=== PATIENT | female | born 1980 | race Caucasian/White ===

== ENCOUNTER 2020-09-30 21:02 | Emergency (ER) | payer OTHER, SELFPAY ==
[2020-09-30 21:03] VITALS: RESP 20; TEMP 36.2; BMI 22.1
--- NOTE | 2020-09-30 21:20 | XR_ITS ---
EXAMINATION: CHEST 1 VIEW CLINICAL INFORMATION: Pleuritic chest pain. COMPARISON: June 23, 2018. TECHNIQUE: An AP view of the chest is provided. FINDINGS: The cardiac silhouette is not enlarged. The mediastinal and hilar contours are unremarkable. There are neither pleural effusions nor pneumothoraces. There are no consolidations. The osseous structures are unremarkable. XR/XR chest 1V IMPRESSION: No evidence for acute disease.
[2020-09-30 21:39] VITALS: BP 97/65; PULSE 89; RESP 16; TEMP 37.6; O2SAT 99
--- NOTE | 2020-09-30 22:01 | ED.GENADULT ---
HPI - General Adult General Chief complaint: General Medical Stated complaint: flu like symptoms Time Seen by Provider: 09/30/20 21:13 Source: patient and staff interpreter Mode of arrival: ambulatory Limitations: no limitations History of Present Illness HPI narrative: This is a 40-year-old female who comes in with a few days of cough and sore throat with subsequent development of rib pain denies any recent travel, fevers, chills, ear pain, GI symptoms, or symptoms.No recent history of long car rides or plane trips, hemoptysis, estrogen supplementation, personal history of cancer, recent surgery or bed bound state, calf pain or calf swelling. Related Data Allergies Allergy/AdvReac Type Severity Reaction Status Date / Time No Known Allergies Allergy Verified 09/30/20 21:09 [No Known Allergies*] Review of Systems Review of Systems: Pertinent positives and negatives as stated in HPI 10 point review of systems otherwise negative. [facility] Past Medical History Source: nursing notes reviewed Social History Social History Advance Directives: No Advance Directives Information Provided: Yes Physical Exam Vital Signs: Vital Signs: Last Vital Signs Temp 99.7 F 09/30/20 21:39 Pulse 89 09/30/20 21:39 Resp 16 09/30/20 21:39 BP 97/65 09/30/20 21:39 Pulse Ox 99 09/30/20 21:39 Body Mass Index 22.1 VITAL SIGNS: Reviewed. GENERAL: Well developed, well nourished, in no acute distress. HEAD: Normocephalic/atraumatic, EYES: PERRLA, EOMI intact without pain, no nystagmus/pallor/icterus noted EARS: Ext canals without abnormality, TMs non-bulging and non-erythematous NOSE: Nares patent bilateral OROPHARYNX: no oral lesions noted, posterior pharynx clear and non-erythematous without noted tonsillar enlargement/erythema/exudates NECK: Supple, no adenopathy LUNGS: Normal breath sounds. No adventitious sounds or accessory muscle use. SpO2<99> CARDIOVASCULAR: Regular rate and rhythm without noted murmurs, no JVD or lower extremity edema. ABDOMEN: Soft, non-tender, non-distended with bowel sounds. No rigidity. No guarding. No palpable masses or hernias noted MUSCULOSKELETAL: No tenderness, deformities, or effusions noted on gross inspection. EXTREMITIES: No cyanosis, clubbing or edema. SKIN: Inspection of the skin reveals no rashes, ulcerations, jaundice, pallor, or petechiae. NEUROLOGIC: Alert and oriented x 4. Strength and sensation to light touch were grossly intact x 4. Course Course Course Narrative: this is a 40-year-old female with history and clinical presentation consistent with viral symptoms and patient has not had the flu shot this year. On review of vital signs there is no evidence of tachypnea or hypoxia and chest x-ray is without acute findings. Patient will be swabbed for COVID-19 and instructed to self quarantine. This was all communicated via deaf interpreter. Patient is otherwise discharged in stable condition. Discharge Plan Discharge Clinical Impression: Viral syndrome Patient Disposition: Home, Self-Care Instructions: Viral Syndrome (ED) Additional Instructions: 1. Tylenol 1000 mg, por v?a oral, cada 6 horas seg?n sea necesario para temperaturas superiores a 100,4?C o donna corporales. No exceda los 4000 mg en 24 horas. 2.Ibuprofeno 400 mg, por v?a oral con leche o alimentos, cada 6 horas seg?n sea necesario para temperaturas superiores a 100.4 o donna corporales. 3. aumentar la ingesta de l?quidos, especialmente agua. 4. debe ponerse en cuarentena hasta que reciba los resultados de zamorano prueba de COVID-19 y debe cumplir con todas las pautas del estado [facility] con respecto a la cuarentena y exposici?n a COVID-19. 5. Dayna un seguimiento con zamorano proveedor de atenci?n primaria llamando al consultorio ma?eileen por la ma?eileen. El paciente y / o la marifer reconocen que comprenden los resultados (seg?n corresponda), el diagn?stico, el plan de tratamiento, la necesidad de seguimiento y los s?ntomas que deber?an impulsar el regreso a la claire de emergencias. Referrals: Po,Lorenver O, MD [Primary Care Provider] - 2 days ( re-evaluation after COVID-19 testing results are returned to the patient) Print Language: Indonesian
== END 2020-09-30 22:26 | disposition home or self-care (01) ==
PROVIDERS: Emergency Provider Student in an Organized Health Care Education/Training Program; PCP Internal Medicine
DX: B34.9 Viral infection, unspecified (principal); R05 Cough; Z20.828 Contact with and (suspected) exposure to other viral communicable diseases
CPT/HCPCS: 71045; 99283; 99284; U0003

== ENCOUNTER 2020-11-18 13:06 | Outpatient (REF) | payer OTHER, SELFPAY | END 2020-11-18 13:07 | disposition home or self-care (01) | LOC: HO.LAB 13:06 | PROVIDERS: Visit Provider Internal Medicine | DX: Z20.822 Contact with and (suspected) exposure to COVID-19 (principal) | CPT/HCPCS: 36415; C9803; U0003 ==

== ENCOUNTER 2021-02-19 15:44 | Outpatient (REF) | payer OTHER, SELFPAY | END 2021-02-19 15:45 | disposition home or self-care (01) | LOC: HO.LAB 15:44 | PROVIDERS: Visit Provider Internal Medicine | DX: Z20.822 Contact with and (suspected) exposure to COVID-19 (principal) | CPT/HCPCS: C9803; U0003; U0005 ==

== ENCOUNTER 2021-08-21 12:02 | Outpatient (REF) | payer OTHER, SELFPAY | END 2021-08-21 12:03 | disposition home or self-care (01) | LOC: HO.LAB 12:02 | PROVIDERS: PCP Internal Medicine; Visit Provider Internal Medicine | DX: Z20.822 Contact with and (suspected) exposure to COVID-19 (principal) | CPT/HCPCS: C9803; U0003; U0005 ==

== ENCOUNTER 2022-06-25 08:13 | Emergency (ER) | payer OTHER, SELFPAY ==
--- NOTE | ~2022-06-25 | XR_ITS ---
EXAMINATION: XR CALCANEUS, RIGHT XR CALCANEUS, LEFT CLINICAL INFORMATION: Tender pain limited ambulation COMPARISON: None TECHNIQUE: 2 views of each calcaneus FINDINGS: RIGHT: No acute visible fracture or dislocation. Enthesopathy at the Achilles tendon insertion site. Joint spaces and alignment are maintained. Soft tissues are unremarkable. LEFT: No acute visible fracture or dislocation. Enthesopathy at the Achilles tendon insertion site. Joint spaces and alignment are maintained. Soft tissues are unremarkable. XR/XR calcaneus LT min 2V IMPRESSION: 1. No acute visible fracture or dislocation. 2. Enthesopathy involving the bilateral Achilles tendon insertion sites.
--- NOTE | ~2022-06-25 | XR_ITS ---
EXAMINATION: XR CALCANEUS, RIGHT XR CALCANEUS, LEFT CLINICAL INFORMATION: Tender pain limited ambulation COMPARISON: None TECHNIQUE: 2 views of each calcaneus FINDINGS: RIGHT: No acute visible fracture or dislocation. Enthesopathy at the Achilles tendon insertion site. Joint spaces and alignment are maintained. Soft tissues are unremarkable. LEFT: No acute visible fracture or dislocation. Enthesopathy at the Achilles tendon insertion site. Joint spaces and alignment are maintained. Soft tissues are unremarkable. XR/XR calcaneus RT min 2V IMPRESSION: 1. No acute visible fracture or dislocation. 2. Enthesopathy involving the bilateral Achilles tendon insertion sites.
[2022-06-25 08:40] VITALS: BP 110/77; PULSE 83; RESP 18; TEMP 36.6; O2SAT 98; BMI 24.9
--- NOTE | 2022-06-25 09:12 | ED_ITS ---
HPI - Extremity Problem General Chief complaint: Extremity Problem Stated complaint: both leg pain Time Seen by Provider: 06/25/22 09:07 Source: patient Mode of arrival: ambulatory Limitations: no limitations History of Present Illness HPI Narrative: 42 yo female presents to the ER for evaluation of bilateral heel pain that she woke up with yesterday. She reports her left foot is much more painful than the right. She works several jobs and is on her feet for several hours throughout the day. She denies any known injury or trauma. It is she states she usually has a little bit of pain in her feet but nothing to this extent. She has been taking Tylenol with no improvement. She reports the pain is located in the back of her heels and into the Achilles tendon. It is worse with palpation, ambulation and movement. MD Complaint: extremity pain Onset (ago): day(s) (2) Pain Consistency: constant Location: left, right and lower extremity Severity scale (1-10): 8 Quality: stabbing and aching Radiation: proximal Relieving factors: immobilization and rest Exacerbating factors: range of motion, weight bearing and palpation Associated symptoms: denies other symptoms Related Data Previous Rx's Medication Instructions Recorded naproxen 500 mg tablet 500 mg PO BID PRN pain #20 tabs 06/25/22 Allergies Allergy/AdvReac Type Severity Reaction Status Date / Time No Known Allergies Allergy Verified 09/30/20 21:09 [No Known Allergies*] Review of Systems Review of Systems: Constitutional: No Fever, No Chills ENT/Mouth: No sore throat, No Rhinorrhea Cardiovascular: No Chest Pain, No SOB Gastrointestinal: No Nausea, No Vomiting Musculoskeletal: +joint pain, + Myalgias Skin: No Skin Lesions, No rash Neuro: No Weakness, No Numbness Psych: No Anxiety/Panic, No Depression Heme/Lymph: No Bruising, No Lymphadenopathy PMFSH Social History Social History Advance Directives: No Advance Directives Information Provided: No Physical Exam Vital Signs: Vital Signs: Last Vital Signs Temp 98 F 06/25/22 08:40 Pulse 83 06/25/22 08:40 Resp 18 06/25/22 08:40 BP 110/77 06/25/22 08:40 Pulse Ox 98 06/25/22 08:40 O2 Del Method 06/25/22 08:40 BMI result Body Mass Index 24.9 Appearance: Alert. Oriented X3. No acute distress. HEENT: normal inspection CVS: Normal heart rate and rhythm. Pulses normal. Respiratory: No respiratory distress. Skin: Skin warm and dry. Normal skin color. Normal skin turgor. No rashes. Extremities: normal inspection of the bilateral feet and lower extremities. tenderness of the distal AChilles tendon bilaterally, L>R, tender calcaneous. no ankle swelling, normal ROM of the ankles. feet are warm and well perfused, 2+ DP pulses. Neuro: Oriented X 3. No motor deficit. No sensory deficit. Antalgic gait Course Course Course Narrative: 42-year-old female presenting to the ER with bilateral heel pain that she woke up with yesterday. She reports she is unable to put pressure on her left heel because of the pain. No trauma. No swelling. She does have tenderness over distal Achilles. Jason test is negative bilaterally. X-rays of the heels are performed and is showingenthesopathy involving the bilateral Achilles tendon insertion sites. Results were discussed with the patient. She will follow-up with orthopedics for possible injections of corticosteroids. She was provided crutches for symptomatic relief. Will prescribe NSAID as well. She is stable for discharge home. Discharge Plan Discharge Clinical Impression: Bilateral plantar fasciitis Patient Disposition: Home, Self-Care Instructions: Plantar Fasciitis (ED), Plantar Fasciitis Exercises (ED) Additional Instructions: Recommend rest, use crutches as needed until your pain is improved. Take the prescribed medications as needed for pain. Recommend following up with orthopedics for further evaluation. Name and number below. If you develop new or worsening symptoms call 911 or come back to the ER for further evaluation. Prescriptions: New naproxen 500 mg tablet 500 mg PO BID PRN (Reason: pain) Qty: 20 0RF Referrals: Riley Caban MD [Physician] - Stand Alone Forms: Work/School Release Interventions: ED Discharge Assessment Last Done: 06/25/22 10:39 Discharge Date/Time: 06/25/22 10:40 Print Language: Citizen Of [place]
== END 2022-06-25 10:40 | disposition home or self-care (01) ==
PROVIDERS: Emergency Provider Emergency Medicine Emergency Medical Services; PCP Internal Medicine
DX: M72.2 Plantar fascial fibromatosis (principal); M79.672 Pain in left foot; M79.671 Pain in right foot
CPT/HCPCS: 73650; 99282; 99283

== ENCOUNTER 2022-08-13 08:21 | Outpatient (REF) | payer OTHER, SELFPAY ==
--- NOTE | ~2022-08-13 | MM_ITS ---
EXAMINATION: MM SCREENING DIGITAL BREAST TOMOSYNTHESIS, BILATERAL CLINICAL INFORMATION: Screening. Asymptomatic. The lifetime risk of breast cancer based on the Tyrer-Cuzick Model is 10.6%. COMPARISON: Mammography: None TECHNIQUE: Digital breast tomosynthesis is performed in both the craniocaudal and mediolateral oblique views along with computer-aided detection (CAD). Synthesized 2D images are generated from the tomosynthesis. FINDINGS: The breasts are extremely dense, which lowers the sensitivity of mammography (ACR BI-RADS breast composition Category d). There are no significant masses, abnormal calcifications, or other abnormalities. MM/MM tomosynthesis screening BI IMPRESSION: No mammographic evidence of malignancy. ASSESSMENT: BI-RADS 1: Negative RECOMMENDATION: Routine annual mammography screening. This patient's information was entered into a reminder system with a target due date for their next mammogram.
--- NOTE | ~2022-08-13 | XR_ITS ---
EXAMINATION: BILATERAL HAND. CLINICAL INFORMATION: Pain in hand. COMPARISON: None TECHNIQUE: 3 views right hand and 3 views left hand FINDINGS: Right hand: There is no visible fracture, bony erosive changes, subluxation. The joint spaces and the soft tissues are normal. Left hand: There is no visible fracture or dislocation or subluxation. No bony erosive changes. The joint spaces are maintained normal. The soft tissues are normal. XR/XR hand RT 2V IMPRESSION: Unremarkable bilateral hand exam
--- NOTE | ~2022-08-13 | XR_ITS ---
EXAMINATION: BILATERAL HAND. CLINICAL INFORMATION: Pain in hand. COMPARISON: None TECHNIQUE: 3 views right hand and 3 views left hand FINDINGS: Right hand: There is no visible fracture, bony erosive changes, subluxation. The joint spaces and the soft tissues are normal. Left hand: There is no visible fracture or dislocation or subluxation. No bony erosive changes. The joint spaces are maintained normal. The soft tissues are normal. XR/XR hand LT 2V IMPRESSION: Unremarkable bilateral hand exam
--- NOTE | 2022-08-13 08:36 | ECG_ITS ---
Test Reason : chest pain Blood Pressure : / mmHG Vent. Rate : 068 BPM Atrial Rate : 068 BPM P-R Int : 164 ms QRS Dur : 072 ms QT Int : 382 ms P-R-T Axes : 070 070 057 degrees QTc Int : 406 ms Normal sinus rhythm Normal ECG No previous ECGs available Referred By: Nia Pope Electronically Signed By:HOPE RENNER MD
[2022-08-13 08:39] LABS: MANUAL DIFF FLAG NO
[2022-08-13 08:47] LABS: Basophils Percent Auto 0.5 % (0-2); Eosinophils Absolute Auto 0.2 X10*3/uL (0.0-0.4); Eosinophils Percent Auto 2.5 % (0-4); Hematocrit 40.3 % (37.0-47.0); Hemoglobin 13.4 g/dl (12.0-16.0); Imm Gran Abs Auto 0.05 X10*3/uL (0.00-0.03); Imm Gran Pct Auto 0.6 % (0.0-0.4); Lymphocytes Absolute Auto 3.4 X10*3/uL (1.2-4.9); Lymphocytes Percent Auto 42.3 % (20-40); Mean Corpuscular HGB Conc 33.3 g/dl (31.0-35.0); Mean Corpuscular Hemoglobin 31.2 pg (27.0-33.0); Mean Corpuscular Volume 93.7 fL (80.0-98.0); Monocytes Absolute Auto 0.5 X10*3/uL (0.1-1.2); Monocytes Percent Auto 6.4 % (2-11); Neutrophils Absolute Auto 3.9 x10*3/uL (2.0-8.3); Neutrophils Percent Auto 47.7 % (45-73); Platelet Count 265 X10*3/uL (160-400); Red Cell Distribution Width 12.3 % (11.0-16.0); White Blood Count 8.1 X10*3/uL (4.8-10.8)
[2022-08-13 09:25] LABS: Erythrocyte Sedimentation Rate 13 MM/HR (0-20)
[2022-08-13 09:46] LABS: Alanine Aminotransferase 18 U/L (0-31); Albumin Level 4.3 g/dL (3.5-5.0); Alkaline Phosphatase 89 U/L (39-117); Anion Gap 14 (12-20); Aspartate Amino Transferase 17 U/L (5-31); Bilirubin Total 0.3 mg/dL (0.0-1.0); Blood Urea Nitrogen 12 mg/dL (9-16); Calcium 9.2 mg/dL (8.4-10.2); Carbon Dioxide 24 mmol/L (22-29); Chloride 107 mmol/L (96-108); Estimated Glomerular Filt Rate > 60; Glucose Fasting 105 mg/dL (60-99); Iron 85 mcg/dL (30-160); Percent Iron Saturation 27 % (15-50); Potassium 4.6 mmol/L (3.3-5.1); Rheumatoid Factor < 15.0 IU/mL (<15.0); Sodium 140 mmol/L (135-145); Total Iron Binding Capacity 313 mcg/dL (228-428); Unsaturated Iron Binding 228 ug/dL
[2022-08-13 10:12] LABS: Thyroid Stimulating Hormone 1.22 uIU/mL (0.32-4.0); Vitamin D 25-OH Total 19.2 ng/mL (>30)
[2022-08-15 22:16] LABS: CRP High Sensitivity 2.5 mg/L
[2022-08-18 12:06] LABS: Anti Nuclear Antibody Screen NEGATIVE (NEGATIVE)
[2022-08-18 13:22] LABS: Anti DNA DS Antibody 7 IU/mL
== END 2022-08-13 08:22 | disposition home or self-care (01) ==
LOC: HO.MAMMO 08:21
PROVIDERS: PCP Internal Medicine; Visit Provider Internal Medicine
DX: Z12.31 Encounter for screening mammogram for malignant neoplasm of breast (principal); R07.9 Chest pain, unspecified; E55.9 Vitamin D deficiency, unspecified; K92.1 Melena; D64.9 Anemia, unspecified; M79.642 Pain in left hand; M79.641 Pain in right hand
CPT/HCPCS: 36415; 73120; 77063; 77067; 80053; 82306; 83540; 84443; 85025; 85652; 86038; 86039; 86141; 86225; 86431; 93005

== ENCOUNTER 2022-09-22 09:13 | Outpatient (REF) | payer OTHER, SELFPAY ==
[2022-09-22 10:25] LABS: Lipase 10 U/L (8-78)
[2022-09-23 13:44] LABS: H Pylori Breath Test Negative (Negative)
[2022-09-26 07:40] LABS: Transglutaminase Ab IgG 1.2 U/mL; Transglutaminase IgA <1.0 U/mL
== END 2022-09-22 09:14 | disposition home or self-care (01) ==
LOC: HO.LAB 09:13
PROVIDERS: PCP Internal Medicine; Visit Provider Nurse Practitioner Family
DX: R10.9 Unspecified abdominal pain (principal); K92.1 Melena; K21.9 Gastro-esophageal reflux disease without esophagitis; K59.04 Chronic idiopathic constipation; K58.1 Irritable bowel syndrome with constipation
CPT/HCPCS: 36415; 83013; 83690; 86364; 99202

== ENCOUNTER 2022-10-14 07:53 | Emergency (ER) | payer OTHER, SELFPAY ==
[2022-10-14 08:10] VITALS: BP 120/84; PULSE 88; RESP 16; TEMP 37.7; O2SAT 97; BMI 24.0
[2022-10-14 09:06] VITALS: BP 105/70; PULSE 77
[2022-10-14 09:08] VITALS: BP 107/74; BP 114/76; PULSE 84; PULSE 87
--- NOTE | 2022-10-14 09:20 | ED_ITS ---
HPI - Dizziness General Chief Complaint: Syncope Stated Complaint: fainted, head inj 10/14/22 Time Seen by Provider: 10/14/22 08:51 Source: patient, family and housing assistant Mode of arrival: EMS History of Present Illness HPI Narrative: 42-year-old female who states that she began feeling unwell yesterday with headache and body aches and then states that she had in a syncopal episode at work today and reports subjective fevers. Related Data Previous Rx's Medication Instructions Recorded sumatriptan succinate 25 mg tablet 25 mg PO Q2-4H PRN migraine 08/06/22 headache 30 days #9 tabs docusate sodium 100 mg capsule 100 mg PO BEDTIME #90 caps 09/22/22 omeprazole 20 mg capsule,delayed 20 mg PO DAILY #90 caps 09/22/22 release sennosides 8.6 mg tablet (Natural 8.6 mg PO BEDTIME constipation #90 09/22/22 Senna Laxative) tabs Allergies Allergy/AdvReac Type Severity Reaction Status Date / Time No Known Allergies Allergy Verified 09/22/22 08:09 [No Known Allergies*] Review of Systems Review of Systems: Pertinent positives and negatives as stated in HPI and 10 point review of systems otherwise negative. [facility] Past Medical History Source: nursing notes reviewed Surgical History S/P total abdominal hysterectomy Family History Family History Mother No problems noted. Father No problems noted. Family/Other Substance use disorder Mental health disorder Social History Social History Housing: Apartment Alcohol intake: current Alcohol intake frequency: a few times a month Alcohol type: beer Patient Tobacco Use Status: Current everyday Tobacco user Tobacco use type: Cigarette Cigarette Packs Per Day: 1 e-Cigarette/Vaping Use: Never Used Second Hand Smoke Exposure: No Advance Directives: No service: No Current occupational status: employed Cognitive needs: No Hearing needs: No Vision needs: No Physical Exam Vital Signs: Vital Signs: Last Vital Signs Temp 100 F 10/14/22 08:10 Pulse 87 10/14/22 09:08 Resp 16 10/14/22 08:10 BP 114/76 10/14/22 09:08 Pulse Ox 97 12/14/22 08:10 O2 Del Method 10/14/22 08:10 BMI result Body Mass Index 24.0 VITAL SIGNS: Reviewed. GENERAL: Well developed, well nourished, in no acute distress. HEAD: Normocephalic/atraumatic EYES: PERRLA, EOMI EARS: Ext canals without abnormality, TMs non-bulging and non-erythematous NOSE: Nares patent bilateral OROPHARYNX: no oral lesions noted, posterior pharynx clear and non-erythematous without noted tonsillar enlargement/erythema/exudates NECK: Supple, no adenopathy LUNGS: Normal breath sounds. No adventitious sounds or accessory muscle use. SpO2<97> CARDIOVASCULAR: Regular rate and rhythm without noted murmurs ABDOMEN: Soft, non-tender, non-distended with bowel sounds. MUSCULOSKELETAL: No tenderness, deformities, or effusions noted on gross inspection. EXTREMITIES: No cyanosis, clubbing or edema. SKIN: Inspection of the skin reveals no rashes NEUROLOGIC: Alert and oriented x 4. Strength and sensation to light touch were grossly intact x 4, cranial nerves 2-12 are grossly intact.. Course Course Course Narrative: 42-year-old female without significant past medical history presents with what appears to be a vasovagal syncopal episode with some history to suggest a viral etiology and on review of all investigations there are no acute EKG findings, no evidence to suggest infection or anemia and patient is noted be COVID-19 positive. Orthostatics are within normal limits and patient remains hemodynamically stable. She will be discharged home and has been informed of her diagnosis of COVID-19 and instructed to isolate for 5 days. Medical Decision Making Lab Data Result Diagrams: 10/14/22 09:41 10/14/22 09:41 Labs: Lab Results 10/14/22 10/14/22 10/14/22 Range/Units 09:09 09:35 09:35 WBC (4.8-10.8) X10*3/uL RBC (4.20-5.50) X10*6/uL Hgb (12.0-16.0) g/dl Hct (37.0-47.0) % MCV (80.0-98.0) fL MCH (27.0-33.0) pg MCHC (31.0-35.0) g/dl RDW (11.0-16.0) % Plt Count (160-400) X10*3/uL MPV (9.4-12.3) fL Immature Gran % (Auto) (0.0-0.4) % Neut % (Auto) (45-73) % Lymph % (Auto) (20-40) % [place] % (Auto) (2-11) % Eos % (Auto) (0-4) % Baso % (Auto) (0-2) % Lymph # (Auto) (1.2-4.9) X10*3/uL [place] # (Auto) (0.1-1.2) X10*3/uL Eos # (Auto) (0.0-0.4) X10*3/uL Baso # (Auto) (0.0-0.2) X10*3/uL Abs Immat Gran (auto) (0.00-0.03) X10*3/uL Absolute Neuts (auto) (2.0-8.3) x10*3/uL Absolute Nucleated RBC (0.0-0.012) X10*3/uL Nucleated RBC % (auto) (0.0-0.2) /100WBC Sodium (135-145) mmol/L Potassium (3.3-5.1) mmol/L Chloride (96-108) mmol/L Carbon Dioxide (22-29) mmol/L Anion Gap (12-20) BUN (9-16) mg/dL Creatinine (0.5-1.4) mg/dL Estim Creat Clear Calc Estimated GFR Random Glucose (60-115) mg/dL Calcium (8.4-10.2) mg/dL Total Bilirubin (0.0-1.0) mg/dL AST (5-31) U/L ALT (0-31) U/L Alkaline Phosphatase (39-117) U/L Total Protein (6.5-8.0) g/dL Albumin (3.5-5.0) g/dL Urine Color Yellow Urine Appearance Clear Urine pH 6.5 (5.0-9.0) Ur Specific [place] 1.020 (1.005-1.025) Urine Protein Negative (Neg-Trace) mg/dL Urine Glucose (UA) Negative (Negative) mg/dL Urine Ketones Negative (Negative) mg/dL Urine Blood Negative (Negative) Urine Nitrite Negative (Negative) Ur Leukocyte Esterase Negative (Negative) Urine Test NEGATIVE (NEGATIVE) Influenza Type A (PCR) NEGATIVE (Negative) Influenza Type B (PCR) NEGATIVE (Negative) RSV RNA Qual (PCR) NEGATIVE (Negative) SARS-CoV-2 RNA (RT-PCR) POSITIVE A (Negative) 10/14/22 10/14/22 Range/Units 09:41 09:41 WBC 7.0 (4.8-10.8) X10*3/uL RBC 4.14 L (4.20-5.50) X10*6/uL Hgb 12.9 (12.0-16.0) g/dl Hct 38.9 (37.0-47.0) % MCV 94.0 (80.0-98.0) fL MCH 31.2 (27.0-33.0) pg MCHC 33.2 (31.0-35.0) g/dl RDW 12.4 (11.0-16.0) % Plt Count 232 (160-400) X10*3/uL MPV 9.9 (9.4-12.3) fL Immature Gran % (Auto) 0.3 (0.0-0.4) % Neut % (Auto) 69.7 (45-73) % Lymph % (Auto) 20.8 (20-40) % [place] % (Auto) 8.5 (2-11) % Eos % (Auto) 0.3 (0-4) % Baso % (Auto) 0.4 (0-2) % Lymph # (Auto) 1.5 (1.2-4.9) X10*3/uL [place] # (Auto) 0.6 (0.1-1.2) X10*3/uL Eos # (Auto) 0.0 (0.0-0.4) X10*3/uL Baso # (Auto) 0.0 (0.0-0.2) X10*3/uL Abs Immat Gran (auto) 0.02 (0.00-0.03) X10*3/uL Absolute Neuts (auto) 4.9 (2.0-8.3) x10*3/uL Absolute Nucleated RBC 0.000 (0.0-0.012) X10*3/uL Nucleated RBC % (auto) 0.0 (0.0-0.2) /100WBC Sodium 137 (135-145) mmol/L Potassium 4.8 (3.3-5.1) mmol/L Chloride 105 (96-108) mmol/L Carbon Dioxide 27 (22-29) mmol/L Anion Gap 10 L (12-20) BUN 8 L (9-16) mg/dL Creatinine 0.72 (0.5-1.4) mg/dL Estim Creat Clear Calc 87.0 Estimated GFR > 60 Random Glucose 93 (60-115) mg/dL Calcium 9.0 (8.4-10.2) mg/dL Total Bilirubin 0.2 (0.0-1.0) mg/dL AST 16 (5-31) U/L ALT 14 (0-31) U/L Alkaline Phosphatase 91 (39-117) U/L Total Protein 6.5 (6.5-8.0) g/dL Albumin 4.1 (3.5-5.0) g/dL Urine Color Urine Appearance Urine pH (5.0-9.0) Ur Specific [place] (1.005-1.025) Urine Protein (Neg-Trace) mg/dL Urine Glucose (UA) (Negative) mg/dL Urine Ketones (Negative) mg/dL Urine Blood (Negative) Urine Nitrite (Negative) Ur Leukocyte Esterase (Negative) Urine Test (NEGATIVE) Influenza Type A (PCR) (Negative) Influenza Type B (PCR) (Negative) RSV RNA Qual (PCR) (Negative) SARS-CoV-2 RNA (RT-PCR) (Negative) Independent Interpretation I performed an independent interpretation of an: EKG Interpretation: Normal sinus rhythm, HR-81, no STEMI, NC/QRS/QTC is within normal limits. Discharge Plan Discharge Clinical Impression: Syncope, vasovagal, Viral syndrome, COVID-19 Patient Disposition: Home, Self-Care Instructions: COVID-19 (Coronavirus Disease 2019) (ED), Viral Syndrome (ED), Syncope (ED) Additional Instructions: 1. Reanudar todos los medicamentos caseros seg?n lo prescrito. 2. Aumente la cantidad de agua que tony y use Tylenol/ibuprofeno de venta brittany seg?n sea necesario para donna corporales, donna de emilee, temperaturas superiores a 100.4. 3. Le palencia diagnosticado COVID-19 y debe aislarse aminah los pr?ximos 5 d?as y luego seguir todas las pautas de khushbu estados/federales. Regrese a la claire de emergencias si los s?ntomas empeoran. Prescriptions: No Action sumatriptan succinate 25 mg tablet 25 mg PO Q2-4H PRN (Reason: migraine headache) 30 Days Qty: 9 0RF Rx Instructions: do not exceed 8 doses per 24 hrs docusate sodium 100 mg capsule 100 mg PO BEDTIME Qty: 90 3RF omeprazole 20 mg capsule,delayed release(DR/EC) 20 mg PO DAILY Qty: 90 2RF sennosides [Natural Senna Laxative] 8.6 mg tablet 8.6 mg PO BEDTIME Qty: 90 3RF Referrals: Nia Dukes MD [Primary Care Provider] - Stand Alone Forms: Work/School Release Print Language: Korean
[2022-10-14 09:45] LABS: MANUAL DIFF FLAG NO
[2022-10-14 09:48] LABS: Basophils Percent Auto 0.4 % (0-2); Eosinophils Percent Auto 0.3 % (0-4); Hematocrit 38.9 % (37.0-47.0); Hemoglobin 12.9 g/dl (12.0-16.0); Imm Gran Abs Auto 0.02 X10*3/uL (0.00-0.03); Imm Gran Pct Auto 0.3 % (0.0-0.4); Lymphocytes Absolute Auto 1.5 X10*3/uL (1.2-4.9); Lymphocytes Percent Auto 20.8 % (20-40); Mean Corpuscular HGB Conc 33.2 g/dl (31.0-35.0); Mean Corpuscular Hemoglobin 31.2 pg (27.0-33.0); Mean Platelet Volume 9.9 fL (9.4-12.3); Monocytes Absolute Auto 0.6 X10*3/uL (0.1-1.2); Monocytes Percent Auto 8.5 % (2-11); Neutrophils Absolute Auto 4.9 x10*3/uL (2.0-8.3); Neutrophils Percent Auto 69.7 % (45-73); Platelet Count 232 X10*3/uL (160-400); Red Blood Count 4.14 X10*6/uL (4.20-5.50); Red Cell Distribution Width 12.4 % (11.0-16.0)
[2022-10-14 09:57] LABS: Appearance Urine Clear; Color Urine Yellow; Glucose Urine UA Negative (Negative); Leukocyte Esterase Urine Negative (Negative); Nitrite Urine Negative (Negative); PH 6.5 (5.0-9.0); Urine Blood Negative (Negative); Urine Ketones Negative (Negative); Urine Protein Negative (Neg-Trace)
[2022-10-14 10:00] LABS: UPreg QC Valid YES; Urine Pregnancy NEGATIVE (NEGATIVE)
[2022-10-14 10:00] LABS: Influenza A PCR NEGATIVE (Negative); Influenza B PCR NEGATIVE (Negative); Resp Syncy Virus RNA Qual PCR NEGATIVE (Negative); SARS COV2 PCR INHOUSE POSITIVE (Negative)
[2022-10-14 10:12] LABS: Alanine Aminotransferase 14 U/L (0-31); Albumin Level 4.1 g/dL (3.5-5.0); Alkaline Phosphatase 91 U/L (39-117); Anion Gap 10 (12-20); Aspartate Amino Transferase 16 U/L (5-31); Bilirubin Total 0.2 mg/dL (0.0-1.0); Blood Urea Nitrogen 8 mg/dL (9-16); Carbon Dioxide 27 mmol/L (22-29); Chloride 105 mmol/L (96-108); Estimated Glomerular Filt Rate > 60; Glucose Random 93 mg/dL (60-115); Potassium 4.8 mmol/L (3.3-5.1); Sodium 137 mmol/L (135-145); Total Protein 6.5 g/dL (6.5-8.0)
[2022-10-14] MEDS: Acetaminophen 325 MG TABLET 975 MG PO (10:53)
[2022-10-14] MEDS: Ibuprofen 400 MG TABLET PO (10:53)
--- NOTE | 2022-10-15 07:57 | ECG_ITS ---
Test Reason : syncopy Blood Pressure : / mmHG Vent. Rate : 081 BPM Atrial Rate : 081 BPM P-R Int : 164 ms QRS Dur : 072 ms QT Int : 350 ms P-R-T Axes : 058 057 045 degrees QTc Int : 406 ms Normal sinus rhythm Normal ECG When compared with ECG of 13-AUG-2022 08:37, No significant change was found Referred By: Laura Palacios Electronically Signed By:IRVING PATEL
== END 2022-10-14 10:59 | disposition home or self-care (01) ==
PROVIDERS: Emergency Provider Student in an Organized Health Care Education/Training Program; PCP Internal Medicine
DX: U07.1 COVID-19 (principal); B34.9 Viral infection, unspecified; R55 Syncope and collapse; R50.9 Fever, unspecified
CPT/HCPCS: 0241U; 36415; 80053; 81003; 81025; 85025; 93005; 99283; 99284

== ENCOUNTER 2022-12-22 13:54 | Emergency (ER) | payer OTHER, SELFPAY ==
--- NOTE | 2022-12-22 14:00 | ECG_ITS ---
Test Reason : CP Blood Pressure : / mmHG Vent. Rate : 088 BPM Atrial Rate : 088 BPM P-R Int : 174 ms QRS Dur : 072 ms QT Int : 350 ms P-R-T Axes : 062 061 044 degrees QTc Int : 423 ms Normal sinus rhythm Normal ECG When compared with ECG of 14-OCT-2022 09:12, No significant change was found Referred By: Generic ED Physician Electronically Signed By:IRVING PATEL
[2022-12-22 14:01] VITALS: BP 125/103; PULSE 90; RESP 18; TEMP 37.2; O2SAT 98; BMI 27.4
[2022-12-22 14:31] LABS: MANUAL DIFF FLAG NO
[2022-12-22 14:33] LABS: Basophils Absolute Auto 0.1 X10*3/uL (0.0-0.2); Basophils Percent Auto 0.6 % (0-2); Eosinophils Absolute Auto 0.1 X10*3/uL (0.0-0.4); Eosinophils Percent Auto 1.1 % (0-4); Hematocrit 40.3 % (37.0-47.0); Hemoglobin 13.5 g/dl (12.0-16.0); Imm Gran Abs Auto 0.03 X10*3/uL (0.00-0.03); Imm Gran Pct Auto 0.3 % (0.0-0.4); Lymphocytes Absolute Auto 2.7 X10*3/uL (1.2-4.9); Lymphocytes Percent Auto 27.8 % (20-40); Mean Corpuscular HGB Conc 33.5 g/dl (31.0-35.0); Mean Corpuscular Hemoglobin 31.3 pg (27.0-33.0); Mean Corpuscular Volume 93.5 fL (80.0-98.0); Mean Platelet Volume 9.6 fL (9.4-12.3); Monocytes Absolute Auto 0.6 X10*3/uL (0.1-1.2); Neutrophils Absolute Auto 6.3 x10*3/uL (2.0-8.3); Neutrophils Percent Auto 64.2 % (45-73); Platelet Count 290 X10*3/uL (160-400); Red Blood Count 4.31 X10*6/uL (4.20-5.50); Red Cell Distribution Width 12.1 % (11.0-16.0); White Blood Count 9.7 X10*3/uL (4.8-10.8)
[2022-12-22 14:50] LABS: Alanine Aminotransferase 18 U/L (0-31); Albumin Level 4.3 g/dL (3.5-5.0); Alkaline Phosphatase 103 U/L (39-117); Anion Gap 11 (12-20); Aspartate Amino Transferase 16 U/L (5-31); Bilirubin Direct < 0.2 mg/dL (0.0-0.5); Bilirubin Total 0.6 mg/dL (0.0-1.0); Blood Urea Nitrogen 8 mg/dL (9-16); Calcium 9.4 mg/dL (8.4-10.2); Carbon Dioxide 28 mmol/L (22-29); Chloride 104 mmol/L (96-108); Creatinine Clr Calc Pharmacy 101.2; Estimated Glomerular Filt Rate > 60; Glucose Random 104 mg/dL (60-115); Lipase 12 U/L (8-78); Potassium 4.2 mmol/L (3.3-5.1); Sodium 139 mmol/L (135-145); Total Protein 7.1 g/dL (6.5-8.0)
[2022-12-22 14:53] LABS: COVID-19 Test Negative (Negative); IDNOW Serial# BCCEAD1C
[2022-12-22 14:55] LABS: Troponin-I High Sensitivity < 3.5 ng/L (<3.5-17.0)
[2022-12-22 15:45] LABS: Appearance Urine Cloudy; Color Urine Yellow; Glucose Urine UA Negative (Negative); Leukocyte Esterase Urine Negative (Negative); Nitrite Urine Negative (Negative); PH 5.5 (5.0-9.0); Specific Gravity - Urine 1.025 (1.005-1.025); UMIC TRIGGER UACC YES; UPreg QC Valid YES; Urine Blood Trace (Negative); Urine Ketones Negative (Negative); Urine Pregnancy NEGATIVE (NEGATIVE); Urine Protein Negative (Neg-Trace)
[2022-12-22 15:47] LABS: Bacteria Urine 1+ (None Seen); Hyaline Casts Urine 0-2 /LPF (0-2); WBC Urine 0-5 /HPF (0-5)
[2022-12-22 17:34] VITALS: BP 100/69; PULSE 83; RESP 20; TEMP 37.2; O2SAT 99
--- NOTE | 2022-12-22 18:19 | ED_ITS ---
HPI - Chest Pain General Chief Complaint: Chest Pain Stated Complaint: Chest pain/L arm pain/numbness Time Seen by Provider: 12/22/22 17:23 Source: patient Mode of arrival: ambulatory Limitations: language barrier (Kinyarwanda speaking only, seismic interpreter) History of Present Illness HPI narrative: 42-year-old female who presents emergency department for evaluation of multiple complaints. Patient states she has been having back pain for approximately 2 weeks. She points to her left lower back when asked to localize the pain. She states the pain is an intermittent burning/pressure-like pain. She states that over the past 3-4 days the pain is gotten worse and she now has pain that radiates down her left leg to her foot. She states that she gets occasional chest pain and feels short of breath, when the symptoms occur she also gets numbness in her face, mouth and tongue. She denied fever, chills, rhinorrhea, sore throat, chest pain, nausea, vomiting, diarrhea, loss of bowel or bladder control. She denies weakness in her lower extremities. Related Data Previous Rx's Medication Instructions Recorded sumatriptan succinate 25 mg tablet 25 mg PO Q2-4H PRN migraine 08/06/22 headache 30 days #9 tabs docusate sodium 100 mg capsule 100 mg PO BEDTIME #90 caps 09/22/22 omeprazole 20 mg capsule,delayed 20 mg PO DAILY #90 caps 09/22/22 release sennosides 8.6 mg tablet (Natural 8.6 mg PO BEDTIME constipation #90 09/22/22 Senna Laxative) tabs cyclobenzaprine 10 mg tablet 10 mg PO TID PRN muscle pain or 12/22/22 spasm #20 tabs prednisone 20 mg tablet 60 mg PO DAILY 7 days #21 tabs 12/22/22 Allergies Allergy/AdvReac Type Severity Reaction Status Date / Time No Known Allergies Allergy Verified 09/22/22 08:09 [No Known Allergies*] Review of Systems Review of Systems: Yes all other systems are reviewed and are negative FOR[facility]LY [facility], [facility] Past Medical History [facility] Narrative: Past medical history: Chest pain, depression, anxiety, headache, polyarthralgias. Surgical History S/P total abdominal hysterectomy Family History Family History Mother No problems noted. Father No problems noted. Family/Other Substance use disorder Mental health disorder Social History Social History Housing: Apartment Alcohol intake: current Alcohol intake frequency: holidays/special occasions only Alcohol type: beer Patient Tobacco Use Status: Current everyday Tobacco user Tobacco use type: Cigarette Cigarette Packs Per Day: 1 Smoked in Last 30 Days: Yes e-Cigarette/Vaping Use: Never Used Second Hand Smoke Exposure: No Use of substances other than those prescribed or required for medical reasons: No Advance Directives: No Advance Directives Information Provided: Yes Patient : No service: No Current occupational status: employed Cognitive needs: No Hearing needs: No Vision needs: No Physical Exam Vital Signs: Vital Signs: Last Vital Signs Temp 98.9 F 12/22/22 17:34 Pulse 83 12/22/22 17:34 Resp 20 12/22/22 17:34 BP 100/69 12/22/22 17:34 Pulse Ox 99 12/22/22 17:34 O2 Del Method 12/22/22 17:34 BMI result Body Mass Index 27.4 Vital signs were normal General: Awake, alert, female patient, pleasant, cooperative in no distress HEENT : Head is normocephalic atraumatic, pupils were equal round reactive light, sclera conjunctiva were normal, mouth revealed moist membranes Neck: Supple, no C-spine tenderness, no trapezius muscle tenderness Lungs: Clear to auscultation breath sounds symmetric bilateral Heart: Regular rate rhythm, normal S1-S2, no murmurs rubs or gallops Abdomen: Soft nontender Back: Patient has tenderness palpation over her left paraspinal muscles with spasm in these muscles, there is no point vertebral tenderness, she has positive left straight leg raise with negative right straight leg raise Extremities: Normal Neuro: Cranial nerves intact, strength symmetric bilaterally Medications Administered Discontinued Medications Generic Name Dose Route Start Last Admin Trade Name Freq PRN Reason Stop Dose Admin Acetaminophen 975 mg 12/22/22 18:49 12/22/22 18:58 Acetaminophen 325 Mg Tablet PO 12/22/22 18:50 975 mg ONCE STA Administration Prednisone 60 mg 12/22/22 18:49 12/22/22 18:58 Prednisone 20 Mg Tablet PO 12/22/22 18:50 60 mg ONCE ONE Administration Medical Decision Making Medical Decision Making [facility] Narrative: 42-year-old female who presents emergency department for evaluation of lower back pain with pain radiating down her left leg with no fever, chills, weakness, loss of bowel or bladder control. Examination did reveal tenderness palpation of her paraspinal muscles in the lumbar sacral area on the left with spasm of these muscles, she also had a positive left straight leg raise. Patient's presentation is consistent with sciatica. I also believe that there is a component of anxiety to her presentation. Patient was treated with prednisone 60 mg orally and Tylenol 975 mg orally here in the emergency department. She was started on prednisone 60 mg once a day for 7 days and Flexeril 10 mg 3 times a day as needed for pain or spasm. She was also advised to take Tylenol for pain. She was given printed and verbal instructions and discharged home Differential Diagnosis Differential diagnosis includes but is not limited to paraspinal muscle strain, degenerative disc disease, degenerative joint disease of the spine, sciatica Lab Data [facility] Lab Attestation statement: I reviewed the patient's lab results. My independent interpretation of patient's laboratory evaluation as follows: C BC was normal, CMP was normal, high sensitive troponin I was below detectable limits, COVID-19 was negative, lipase was normal. Urine test was negative. Urinalysis was negative. 12/22/22 14:26 12/22/22 14:26 Labs: Lab Results 12/22/22 12/22/22 12/22/22 Range/Units 14:26 14:26 14:26 WBC 9.7 (4.8-10.8) X10*3/uL RBC 4.31 (4.20-5.50) X10*6/uL Hgb 13.5 (12.0-16.0) g/dl Hct 40.3 (37.0-47.0) % MCV 93.5 (80.0-98.0) fL MCH 31.3 (27.0-33.0) pg MCHC 33.5 (31.0-35.0) g/dl RDW 12.1 (11.0-16.0) % Plt Count 290 (160-400) X10*3/uL MPV 9.6 (9.4-12.3) fL Immature Gran % (Auto) 0.3 (0.0-0.4) % Neut % (Auto) 64.2 (45-73) % Lymph % (Auto) 27.8 (20-40) % [place] % (Auto) 6.0 (2-11) % Eos % (Auto) 1.1 (0-4) % Baso % (Auto) 0.6 (0-2) % Lymph # (Auto) 2.7 (1.2-4.9) X10*3/uL [place] # (Auto) 0.6 (0.1-1.2) X10*3/uL Eos # (Auto) 0.1 (0.0-0.4) X10*3/uL Baso # (Auto) 0.1 (0.0-0.2) X10*3/uL Abs Immat Gran (auto) 0.03 (0.00-0.03) X10*3/uL Absolute Neuts (auto) 6.3 (2.0-8.3) x10*3/uL Absolute Nucleated RBC 0.000 (0.0-0.012) X10*3/uL Nucleated RBC % (auto) 0.0 (0.0-0.2) /100WBC Sodium 139 (135-145) mmol/L Potassium 4.2 (3.3-5.1) mmol/L Chloride 104 (96-108) mmol/L Carbon Dioxide 28 (22-29) mmol/L Anion Gap 11 L (12-20) BUN 8 L (9-16) mg/dL Creatinine 0.70 (0.5-1.4) mg/dL Estim Creat Clear Calc 101.2 Estimated GFR > 60 Random Glucose 104 (60-115) mg/dL Calcium 9.4 (8.4-10.2) mg/dL Total Bilirubin 0.6 (0.0-1.0) mg/dL Direct Bilirubin < 0.2 (0.0-0.5) mg/dL AST 16 (5-31) U/L ALT 18 (0-31) U/L Alkaline Phosphatase 103 (39-117) U/L Troponin I High Sens < 3.5 (<3.5-17.0) ng/L Total Protein 7.1 (6.5-8.0) g/dL Albumin 4.3 (3.5-5.0) g/dL Lipase 12 (8-78) U/L Urine Color Urine Appearance Urine pH (5.0-9.0) Ur Specific [place] (1.005-1.025) Urine Protein (Neg-Trace) mg/dL Urine Glucose (UA) (Negative) mg/dL Urine Ketones (Negative) mg/dL Urine Blood (Negative) Urine Nitrite (Negative) Ur Leukocyte Esterase (Negative) Urine RBC (0-2) /HPF Urine WBC (0-5) /HPF Ur Squamous Epith Cells (0-2) /HPF Urine Bacteria (None Seen) Hyaline Casts (0-2) /LPF Urine Test (NEGATIVE) COVID-19 (RAJ) (Negative) COVID-19 Clin Com 12/22/22 12/22/22 12/22/22 Range/Units 14:26 15:29 15:29 WBC (4.8-10.8) X10*3/uL RBC (4.20-5.50) X10*6/uL Hgb (12.0-16.0) g/dl Hct (37.0-47.0) % MCV (80.0-98.0) fL MCH (27.0-33.0) pg MCHC (31.0-35.0) g/dl RDW (11.0-16.0) % Plt Count (160-400) X10*3/uL MPV (9.4-12.3) fL Immature Gran % (Auto) (0.0-0.4) % Neut % (Auto) (45-73) % Lymph % (Auto) (20-40) % [place] % (Auto) (2-11) % Eos % (Auto) (0-4) % Baso % (Auto) (0-2) % Lymph # (Auto) (1.2-4.9) X10*3/uL [place] # (Auto) (0.1-1.2) X10*3/uL Eos # (Auto) (0.0-0.4) X10*3/uL Baso # (Auto) (0.0-0.2) X10*3/uL Abs Immat Gran (auto) (0.00-0.03) X10*3/uL Absolute Neuts (auto) (2.0-8.3) x10*3/uL Absolute Nucleated RBC (0.0-0.012) X10*3/uL Nucleated RBC % (auto) (0.0-0.2) /100WBC Sodium (135-145) mmol/L Potassium (3.3-5.1) mmol/L Chloride (96-108) mmol/L Carbon Dioxide (22-29) mmol/L Anion Gap (12-20) BUN (9-16) mg/dL Creatinine (0.5-1.4) mg/dL Estim Creat Clear Calc Estimated GFR Random Glucose (60-115) mg/dL Calcium (8.4-10.2) mg/dL Total Bilirubin (0.0-1.0) mg/dL Direct Bilirubin (0.0-0.5) mg/dL AST (5-31) U/L ALT (0-31) U/L Alkaline Phosphatase (39-117) U/L Troponin I High Sens (<3.5-17.0) ng/L Total Protein (6.5-8.0) g/dL Albumin (3.5-5.0) g/dL Lipase (8-78) U/L Urine Color Yellow Urine Appearance Cloudy Urine pH 5.5 (5.0-9.0) Ur Specific [place] 1.025 (1.005-1.025) Urine Protein Negative (Neg-Trace) mg/dL Urine Glucose (UA) Negative (Negative) mg/dL Urine Ketones Negative (Negative) mg/dL Urine Blood Trace H (Negative) Urine Nitrite Negative (Negative) Ur Leukocyte Esterase Negative (Negative) Urine RBC 3-5 H (0-2) /HPF Urine WBC 0-5 (0-5) /HPF Ur Squamous Epith Cells 11-20 (0-2) /HPF Urine Bacteria 1+ (None Seen) Hyaline Casts 0-2 (0-2) /LPF Urine Test NEGATIVE (NEGATIVE) COVID-19 (RAJ) Negative (Negative) COVID-19 Clin Com See Note Independent Interpretation I performed an independent interpretation of an: EKG Interpretation: My independent interpretation the patient's EKG done at 14:19 hours is as follows: Normal sinus rhythm with a rate of 88, normal GA interval, QRS duration QTC interval, no ST segment elevation, no ST segment depression, no T- wave abnormalities, no Q-waves, no PACs, no PVCs, compared to EKG dated 10/14/2022 there is no significant change. Independent Historian Clinical information obtained from an independent historian. History obtained from or confirmed by: Other ([id number]) Discharge Plan Discharge Clinical Impression: Sciatica, Anxiety Patient Disposition: Home, Self-Care Instructions: Sciatica (ED) Additional Instructions: Your blood work included a complete blood count, comprehensive metabolic panel and a high sensitive troponin I. These tests were all normal which is re assuring. Your urine test was unremarkable. Your EKG was unremarkable. Your exam did reveal tenderness filled palpation over your lower back muscles with spasm of these muscles and pain with raising your left leg. These symptoms are consistent with inflammation of the sciatic nerve (sciatica). Take Tylenol (acetaminophen) 500 mg pills, 2 pills every 4 to 6 hours as needed for pain. Take prednisone 20 mg pills, 3 pills once a day for 7 days. While you are taking prednisone, do not take any NSAIDs (Motrin, Advil, ibuprofen, Aleve, naproxen). Take Flexeril (cyclobenzaprine) 10 mg pills, 1 pill every 6-8 hours as needed for pain or spasm. This medication will make you sleepy. Do not drive or work while taking this medication. Follow-up with your doctor in 2 days. Please return to the emergency department if your symptoms get worse or if you develop any symptoms that are concerning to you. Please see the work note Prescriptions: New cyclobenzaprine 10 mg tablet 10 mg PO TID PRN (Reason: muscle pain or spasm) Qty: 20 0RF prednisone 20 mg tablet 60 mg PO DAILY 7 Days Qty: 21 0RF No Action sumatriptan succinate 25 mg tablet 25 mg PO Q2-4H PRN (Reason: migraine headache) 30 Days Qty: 9 0RF Rx Instructions: do not exceed 8 doses per 24 hrs docusate sodium 100 mg capsule 100 mg PO BEDTIME Qty: 90 3RF omeprazole 20 mg capsule,delayed release(DR/EC) 20 mg PO DAILY Qty: 90 2RF sennosides [Natural Senna Laxative] 8.6 mg tablet 8.6 mg PO BEDTIME Qty: 90 3RF Stand Alone Forms: Work/School Release Interventions: ED Discharge Assessment Last Done: 12/22/22 19:09 Discharge Date/Time: 12/22/22 19:09
[2022-12-22] MEDS: predniSONE 20 MG TABLET 60 MG PO (18:58)
[2022-12-22] MEDS: Acetaminophen 325 MG TABLET 975 MG PO (18:58)
== END 2022-12-22 19:09 | disposition home or self-care (01) ==
PROVIDERS: Emergency Provider Emergency Medicine Emergency Medical Services; PCP Internal Medicine
DX: M54.42 Lumbago with sciatica, left side (principal); F41.9 Anxiety disorder, unspecified; F17.210 Nicotine dependence, cigarettes, uncomplicated; Z20.822 Contact with and (suspected) exposure to COVID-19
CPT/HCPCS: 80053; 81001; 81025; 82248; 83690; 84484; 85025; 87635; 93005; 99283; 99285

== ENCOUNTER 2022-12-31 09:47 | Outpatient (REF) | payer OTHER, SELFPAY ==
--- NOTE | 2022-12-31 10:15 | EMG_ITS ---
Left tibial and peroneal motor studies were performed. Left superficial peroneal sural and median and lateral bladder plantars studies were performed. Tibial H-reflex was obtained and paraspinal muscles were tested with a needle. 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 MD REID [email or web address] / [id number]
[2022-12-31 11:26] LABS: Alanine Aminotransferase 22 U/L (0-31); Albumin Level 4.2 g/dL (3.5-5.0); Alkaline Phosphatase 97 U/L (39-117); Anion Gap 12 (12-20); Aspartate Amino Transferase 14 U/L (5-31); Bilirubin Total 0.6 mg/dL (0.0-1.0); Blood Urea Nitrogen 11 mg/dL (9-16); Carbon Dioxide 27 mmol/L (22-29); Chloride 103 mmol/L (96-108); Cholesterol 232 mg/dL; Estimated Glomerular Filt Rate > 60; Glucose Fasting 93 mg/dL (60-99); HDL Cholesterol 39 mg/dL; LDL Cholesterol Calculated 137 mg/dl; Potassium 4.8 mmol/L (3.3-5.1); Sodium 137 mmol/L (135-145); Total Protein 6.8 g/dL (6.5-8.0); Triglycerides 282 mg/dL
[2022-12-31 11:47] LABS: Thyroid Stimulating Hormone 1.33 uIU/mL (0.32-4.0); Vitamin B12 379 pg/mL (200-900); Vitamin D 25-OH Total 12.9 ng/mL (>30)
== END 2022-12-31 09:48 | disposition home or self-care (01) ==
LOC: HO.NEURO 09:47
PROVIDERS: PCP Internal Medicine; Visit Provider Internal Medicine
DX: Z00.00 Encounter for general adult medical examination without abnormal findings (principal); E78.5 Hyperlipidemia, unspecified; E55.9 Vitamin D deficiency, unspecified; M25.562 Pain in left knee; E53.8 Deficiency of other specified B group vitamins; R20.0 Anesthesia of skin
CPT/HCPCS: 36415; 80053; 80061; 82306; 82607; 82746; 84443; 95886; 95910

== ENCOUNTER 2023-01-11 15:53 | Emergency (ER) | payer OTHER, SELFPAY ==
--- NOTE | ~2023-01-11 | CT_ITS ---
EXAMINATION: CT ABDOMEN AND PELVIS WITHOUT CONTRAST CLINICAL INFORMATION: Left flank/lower back pain x2 weeks. COMPARISON: None TECHNIQUE: Multidetector volumetric imaging was performed from the superior aspect of the liver through the pubic symphysis. Sagittal and coronal reformatted images were obtained on the technologist's workstation. This CT examination was performed using dose optimization techniques as appropriate, variously including the following: *Automated exposure control *Adjustment of mA and/or kV according to patient size (this includes techniques or standardized protocols for targeted exams where dose is matched to indication/reason for exam; i.e. extremities or head) *Use of iterative reconstruction technique DLP: 497 mGy-cm FINDINGS: LUNG BASES: The lung bases are clear. The heart size is borderline normal. LIVER, GALLBLADDER, AND BILIARY TREE: The liver is normal in size, shape, and attenuation. No focal hepatic lesion or biliary ductal dilatation is present. The gallbladder is unremarkable with no evidence of radiopaque gallstones, gallbladder wall thickening, or obvious pericholecystic inflammatory changes. PANCREAS: Unremarkable. SPLEEN: Unremarkable. ADRENAL GLANDS: Unremarkable. KIDNEYS AND URETERS: The kidneys are normal in size, shape, and attenuation. No hydronephrosis, hydroureter, or calculi seen. No perinephric stranding. BLADDER: Unremarkable. GASTROINTESTINAL TRACT: There is scattered stool, gas seen throughout the colon without distention. The small bowel loops are normal caliber. Appendix is normal caliber. No inflammatory process seen in the abdomen. ABDOMINAL WALL: No significant hernia is appreciated. LYMPH NODES: No abnormal size lymph nodes seen. There is mild haziness in the soft tissues adjacent to the proximal abdominal aorta. No abnormal lymph nodes seen. VASCULAR: Unremarkable. PELVIC VISCERA: There is a 4.9 x 3.1 x 4.3 cm right adnexal cyst OSSEOUS STRUCTURES: No aggressive lytic or sclerotic process seen. CT/CT abdomen pelvis wo IV con IMPRESSION: No acute intra-abdominal process seen. There is nonspecific fat stranding seen adjacent to the upper abdominal aorta. Fleischner guidelines were followed.
[2023-01-11 16:14] VITALS: BP 119/76; PULSE 88; RESP 18; TEMP 36.4; O2SAT 100; BMI 27.4
--- NOTE | 2023-01-11 16:17 | ED.BACK ---
HPI - Back Pain/Injury General Chief Complaint: Abdominal Pain <ANGELA Duarte - Last Filed: 01/11/23 16:20> Stated Complaint: left sided body pain <ANGELA Duarte - Last Filed: 01/11/23 16:20> Time Seen by Provider: 01/11/23 20:06 <ANGELA Duarte - Last Filed: 01/11/23 16:20> Source: patient <Juan A Au MD - Last Filed: 01/11/23 22:22> Mode of arrival: ambulatory <Juan A Au MD - Last Filed: 01/11/23 22:22> Limitations: no limitations <Juan A Au MD - Last Filed: 01/11/23 22:22> History of Present Illness HPI Narrative: 42-year-old female presents with left-sided back pain. The pain started 2 weeks ago. Intermittent. Worse with movement. The pain has started radiating over the last 2 days to the anterior part of her abdomen. She denies any nausea vomiting, vaginal bleeding or discharge, dysuria, frequency, urgency, hesitancy. She denies any diarrhea or constipation. She has had no nausea. She denies fevers or chills. She denies any injuries or falls. She has never had this pain before. She denies any numbness or tingling or focal weakness. Patient described as severe. Pain is sharp and aching in nature. In <Juan A Au MD - Last Filed: 01/11/23 22:22> Related Data Home Medications: Previous Rx's Medication Instructions Recorded meclizine 25 mg tablet 25 mg PO TID 30 days #90 tabs 12/24/22 cholecalciferol (vitamin D3) 50 50 mcg PO DAILY 90 days #90 caps 12/31/22 mcg (2,000 unit) capsule acetaminophen 650 mg 650 mg PO Q12H PRN pain 30 days 01/02/23 tablet,extended release (Mapap #60 tabs Arthritis Pain) gabapentin 300 mg capsule 300 mg PO TID #30 caps 01/11/23 ibuprofen 800 mg tablet 800 mg PO Q8H #30 tabs 01/11/23 methocarbamol 500 mg tablet 500 mg PO TID PRN muscle spasm #10 01/11/23 tabs <ANGELA Duarte - Last Filed: 01/11/23 16:20> Allergies/Adverse Reactions: Allergies Allergy/AdvReac Type Severity Reaction Status Date / Time No Known Allergies Allergy Verified 01/11/23 16:13 [No Known Allergies*] <ANGELA Duarte - Last Filed: 01/11/23 16:20> [facility] Past Medical History Surgical History: Surgical History S/P total abdominal hysterectomy <ANGELA Duarte - Last Filed: 01/11/23 16:20> Family History Family History: Family History Mother No problems noted. Father No problems noted. Family/Other Substance use disorder Mental health disorder <ANGELA Duarte - Last Filed: 01/11/23 16:20> Social History Social History: Social History Housing: Apartment Alcohol intake: current Alcohol intake frequency: holidays/special occasions only Alcohol type: beer Patient Tobacco Use Status: Current everyday Tobacco user Tobacco use type: Cigarette Cigarette Packs Per Day: 1 e-Cigarette/Vaping Use: Never Used Second Hand Smoke Exposure: No Advance Directives: No Advance Directives Information Provided: Yes service: No Current occupational status: employed Current occupational exposures/hazards: No Cognitive needs: No Hearing needs: No Vision needs: No <ANGELA Duarte - Last Filed: 01/11/23 16:20> Physical Exam Vital Signs: Vital Signs: Last Vital Signs Temp 97.5 F 01/11/23 16:14 Pulse 88 01/11/23 16:14 Resp 18 01/11/23 16:14 BP 119/76 01/11/23 16:14 Pulse Ox 100 01/11/23 16:14 O2 Del Method 01/11/23 16:14 BMI result Body Mass Index 27.4 <ANGELA Duarte - Last Filed: 01/11/23 16:20> Vital Signs: Last Vital Signs Temp 97.5 F 01/11/23 16:14 Pulse 88 01/11/23 16:14 Resp 18 01/11/23 16:14 BP 119/76 01/11/23 16:14 Pulse Ox 100 01/11/23 16:14 O2 Del Method 01/11/23 16:14 BMI result Body Mass Index 27.4 <Juan A Au MD - Last Filed: 01/11/23 22:22> GEN: Well developed, no acute distress, alert, oriented HEENT: Normocephalic, atraumatic, normal external ears, nose appears normal, no oropharyngeal edema or exudates Eyes: Normal to appearance Neck: Supple, no lymphadenopathy Respiratory: Talks in complete sentences, no respiratory distress, clear to auscultation bilaterally Cardiovascular: Regular rate and rhythm, no murmurs rubs or gallops Abdomen: Soft, nontender, nondistended, no guarding, no rebound Back: Left paraspinous tenderness to palpation, no CVA tenderness Extremities: No clubbing cyanosis or edema Neurologic: No focal neurologic deficits, cranial nerves 2-12 intact, strength is 5/5 bilaterally, gait normal Skin: No rash <Juan A Au MD - Last Filed: 01/11/23 22:22> Course Course Course Narrative: ROX-16:20PM - 42yoF who is [place]an-speaking presenting to the ER with complaints of left flank/back pain radiating to her abdomen for the past 2-3 weeks worse today. Denies any other symptoms related to this which include any fevers, nausea/vomiting, chest pain or shortness of breath, dyspnea exertion, orthopnea palpitations paresthesias, urinary bowel incontinence or retention, dysuria hematuria, history of kidney stones, recent falls or trauma, saddle anesthesias, recent travel, recent spinal procedures or any other symptoms complaints or concerns at this time. Plan: Labs, UA and CT scan abdomen pelvis without IV contrast ordered at this time. Patient sent back to the waiting room to be evaluated the ED. <ANGELA Duarte - Last Filed: 01/11/23 16:20> Reevaluation(s) Reevaluation #1: I have evaluated the patient. Will treat the patient for pain at this time. CT scan is currently pending. Patient does have an elevated white blood cell count as well as an elevated platelet count. Could this be dehydration? Could this be in acute leukemoid/acute phase reactant finding. Patient's metabolic panel is unremarkable in her quantitative hCG is negative. Urine demonstrates no evidence of infection. She has also COVID negative. All results have been resulted to the patient. <Juan A Au MD - Last Filed: 01/11/23 22:22> Time: 20:36 <Juan A Au MD - Last Filed: 01/11/23 22:22> Reevaluation #2: I reviewed all results with the patient. At this time, my differential is musculoskeletal versus neuropathic pain. I will give the patient gabapentin before discharge. I will also start the patient on ibuprofen 800 mg 3 times a day with food, gabapentin 300 mg 3 times a day, Tylenol 1000 mg every 6 hours as needed for pain, methocarbamol. She will stop cyclobenzaprine. <Juan A Au MD - Last Filed: 01/11/23 22:22> Time: 22:17 <Juan A Au MD - Last Filed: 01/11/23 22:22> Medications Administered Discontinued Medications Generic Name Dose Route Start Last Admin Trade Name Freq PRN Reason Stop Dose Admin Cyclobenzaprine HCl 10 mg 01/11/23 20:42 01/11/23 20:56 Cyclobenzaprine Hcl 10 Mg Tablet PO 01/11/23 20:43 10 mg ONCE ONE Administration Ketorolac Tromethamine 30 mg 01/11/23 20:41 01/11/23 20:56 Ketorolac Tromethamine 30 Mg/Ml Vial IM 01/11/23 20:42 30 mg ONCE ONE Administration <ANGELA Duarte - Last Filed: 01/11/23 16:20> Medications Administered Discontinued Medications Generic Name Dose Route Start Last Admin Trade Name Freq PRN Reason Stop Dose Admin Cyclobenzaprine HCl 10 mg 01/11/23 20:42 01/11/23 20:56 Cyclobenzaprine Hcl 10 Mg Tablet PO 01/11/23 20:43 10 mg ONCE ONE Administration Ketorolac Tromethamine 30 mg 01/11/23 20:41 01/11/23 20:56 Ketorolac Tromethamine 30 Mg/Ml Vial IM 01/11/23 20:42 30 mg ONCE ONE Administration <Juan A Au MD - Last Filed: 01/11/23 22:22> Medical Decision Making Medical Decision Making MDM Narrative: 42-year-old female presents with left flank pain. The pain is now radiating anteriorly on both sides. Examination revealed no CVA tenderness but she did have bilateral left greater than right paraspinous tenderness. She is otherwise neurologically intact. A broad differential diagnosis been consider specially given the fact that this radiates to the front. Pyelonephritis, kidney stone, colitis, diverticulitis, IBS, IBD, muscle spasm have all been considered. Laboratory analysis and imaging studies will be ordered. <Juan A Au MD - Last Filed: 01/11/23 22:22> Differential Diagnosis Differential Diagnoses: The differential diagnosis associated with the presentation includes (Pyelonephritis, kidney stone, colitis, diverticulitis, IBS, IBD, muscle spasm) <Juan A Au MD - Last Filed: 01/11/23 22:22> Flank pain <Juan A Au MD - Last Filed: 01/11/23 22:22> Admission/Observation Consideration of admission/observation: Escalation of care including admission/observation considered <Juan A Au MD - Last Filed: 01/11/23 22:22> Lab Data MDM Lab Attestation statement: I reviewed the patient's lab results. <Juan A Au MD - Last Filed: 01/11/23 22:22> Result Diagrams: 01/11/23 17:39 01/11/23 17:40 <ANGELA Duarte - Last Filed: 01/11/23 16:20> Labs: Lab Results 01/11/23 01/11/23 01/11/23 Range/Units 17:39 17:39 17:39 WBC 12.3 H (4.8-10.8) X10*3/uL RBC 3.90 L (4.20-5.50) X10*6/uL Hgb 12.1 (12.0-16.0) g/dl Hct 37.0 (37.0-47.0) % MCV 94.9 (80.0-98.0) fL MCH 31.0 (27.0-33.0) pg MCHC 32.7 (31.0-35.0) g/dl RDW 12.2 (11.0-16.0) % Plt Count 431 H D (160-400) X10*3/uL MPV 9.1 L (9.4-12.3) fL Immature Gran % (Auto) 1.2 H (0.0-0.4) % Neut % (Auto) 62.6 (45-73) % Lymph % (Auto) 28.7 (20-40) % [place] % (Auto) 5.8 (2-11) % Eos % (Auto) 1.1 (0-4) % Baso % (Auto) 0.6 (0-2) % Lymph # (Auto) 3.5 (1.2-4.9) X10*3/uL [place] # (Auto) 0.7 (0.1-1.2) X10*3/uL Eos # (Auto) 0.1 (0.0-0.4) X10*3/uL Baso # (Auto) 0.1 (0.0-0.2) X10*3/uL Abs Immat Gran (auto) 0.15 H (0.00-0.03) X10*3/uL Absolute Neuts (auto) 7.7 (2.0-8.3) x10*3/uL Absolute Nucleated RBC 0.000 (0.0-0.012) X10*3/uL Nucleated RBC % (auto) 0.0 (0.0-0.2) /100WBC PT 12.0 (10.0-13.1) SEC INR 1.0 (0.9-1.1) Sodium (135-145) mmol/L Potassium (3.3-5.1) mmol/L Chloride (96-108) mmol/L Carbon Dioxide (22-29) mmol/L Anion Gap (12-20) BUN (9-16) mg/dL Creatinine (0.5-1.4) mg/dL Estim Creat Clear Calc Estimated GFR Random Glucose (60-115) mg/dL Calcium (8.4-10.2) mg/dL Magnesium (1.6-2.6) mg/dL Total Bilirubin (0.0-1.0) mg/dL AST (5-31) U/L ALT (0-31) U/L Alkaline Phosphatase (39-117) U/L Total Protein (6.5-8.0) g/dL Albumin (3.5-5.0) g/dL Lipase (8-78) U/L Beta HCG, Quant mIU/mL Urine Color Yellow Urine Appearance Clear Urine pH 5.5 (5.0-9.0) Ur Specific [place] >= 1.030 H (1.005-1.025) Urine Protein Trace (Neg-Trace) mg/dL Urine Glucose (UA) Negative (Negative) mg/dL Urine Ketones Negative (Negative) mg/dL Urine Blood Negative (Negative) Urine Nitrite Negative (Negative) Ur Leukocyte Esterase Negative (Negative) 01/11/23 01/11/23 Range/Units 17:40 17:40 WBC (4.8-10.8) X10*3/uL RBC (4.20-5.50) X10*6/uL Hgb (12.0-16.0) g/dl Hct (37.0-47.0) % MCV (80.0-98.0) fL MCH (27.0-33.0) pg MCHC (31.0-35.0) g/dl RDW (11.0-16.0) % Plt Count (160-400) X10*3/uL MPV (9.4-12.3) fL Immature Gran % (Auto) (0.0-0.4) % Neut % (Auto) (45-73) % Lymph % (Auto) (20-40) % [place] % (Auto) (2-11) % Eos % (Auto) (0-4) % Baso % (Auto) (0-2) % Lymph # (Auto) (1.2-4.9) X10*3/uL [place] # (Auto) (0.1-1.2) X10*3/uL Eos # (Auto) (0.0-0.4) X10*3/uL Baso # (Auto) (0.0-0.2) X10*3/uL Abs Immat Gran (auto) (0.00-0.03) X10*3/uL Absolute Neuts (auto) (2.0-8.3) x10*3/uL Absolute Nucleated RBC (0.0-0.012) X10*3/uL Nucleated RBC % (auto) (0.0-0.2) /100WBC PT (10.0-13.1) SEC INR (0.9-1.1) Sodium 140 (135-145) mmol/L Potassium 4.1 (3.3-5.1) mmol/L Chloride 102 (96-108) mmol/L Carbon Dioxide 30 H (22-29) mmol/L Anion Gap 12 (12-20) BUN 10 (9-16) mg/dL Creatinine 0.68 (0.5-1.4) mg/dL Estim Creat Clear Calc 104.1 Estimated GFR > 60 Random Glucose 103 (60-115) mg/dL Calcium 9.4 (8.4-10.2) mg/dL Magnesium 2.2 (1.6-2.6) mg/dL Total Bilirubin 0.2 (0.0-1.0) mg/dL AST 13 (5-31) U/L ALT 20 (0-31) U/L Alkaline Phosphatase 102 (39-117) U/L Total Protein 7.1 (6.5-8.0) g/dL Albumin 4.2 (3.5-5.0) g/dL Lipase 12 (8-78) U/L Beta HCG, Quant < 2 mIU/mL Urine Color Urine Appearance Urine pH (5.0-9.0) Ur Specific [place] (1.005-1.025) Urine Protein (Neg-Trace) mg/dL Urine Glucose (UA) (Negative) mg/dL Urine Ketones (Negative) mg/dL Urine Blood (Negative) Urine Nitrite (Negative) Ur Leukocyte Esterase (Negative) <ANGELA Duarte - Last Filed: 01/11/23 16:20> Lab Results 01/11/23 01/11/23 01/11/23 Range/Units 17:39 17:39 17:39 WBC 12.3 H (4.8-10.8) X10*3/uL RBC 3.90 L (4.20-5.50) X10*6/uL Hgb 12.1 (12.0-16.0) g/dl Hct 37.0 (37.0-47.0) % MCV 94.9 (80.0-98.0) fL MCH 31.0 (27.0-33.0) pg MCHC 32.7 (31.0-35.0) g/dl RDW 12.2 (11.0-16.0) % Plt Count 431 H D (160-400) X10*3/uL MPV 9.1 L (9.4-12.3) fL Immature Gran % (Auto) 1.2 H (0.0-0.4) % Neut % (Auto) 62.6 (45-73) % Lymph % (Auto) 28.7 (20-40) % [place] % (Auto) 5.8 (2-11) % Eos % (Auto) 1.1 (0-4) % Baso % (Auto) 0.6 (0-2) % Lymph # (Auto) 3.5 (1.2-4.9) X10*3/uL [place] # (Auto) 0.7 (0.1-1.2) X10*3/uL Eos # (Auto) 0.1 (0.0-0.4) X10*3/uL Baso # (Auto) 0.1 (0.0-0.2) X10*3/uL Abs Immat Gran (auto) 0.15 H (0.00-0.03) X10*3/uL Absolute Neuts (auto) 7.7 (2.0-8.3) x10*3/uL Absolute Nucleated RBC 0.000 (0.0-0.012) X10*3/uL Nucleated RBC % (auto) 0.0 (0.0-0.2) /100WBC PT 12.0 (10.0-13.1) SEC INR 1.0 (0.9-1.1) Sodium (135-145) mmol/L Potassium (3.3-5.1) mmol/L Chloride (96-108) mmol/L Carbon Dioxide (22-29) mmol/L Anion Gap (12-20) BUN (9-16) mg/dL Creatinine (0.5-1.4) mg/dL Estim Creat Clear Calc Estimated GFR Random Glucose (60-115) mg/dL Calcium (8.4-10.2) mg/dL Magnesium (1.6-2.6) mg/dL Total Bilirubin (0.0-1.0) mg/dL AST (5-31) U/L ALT (0-31) U/L Alkaline Phosphatase (39-117) U/L Total Protein (6.5-8.0) g/dL Albumin (3.5-5.0) g/dL Lipase (8-78) U/L Beta HCG, Quant mIU/mL Urine Color Yellow Urine Appearance Clear Urine pH 5.5 (5.0-9.0) Ur Specific [place] >= 1.030 H (1.005-1.025) Urine Protein Trace (Neg-Trace) mg/dL Urine Glucose (UA) Negative (Negative) mg/dL Urine Ketones Negative (Negative) mg/dL Urine Blood Negative (Negative) Urine Nitrite Negative (Negative) Ur Leukocyte Esterase Negative (Negative) 01/11/23 01/11/23 Range/Units 17:40 17:40 WBC (4.8-10.8) X10*3/uL RBC (4.20-5.50) X10*6/uL Hgb (12.0-16.0) g/dl Hct (37.0-47.0) % MCV (80.0-98.0) fL MCH (27.0-33.0) pg MCHC (31.0-35.0) g/dl RDW (11.0-16.0) % Plt Count (160-400) X10*3/uL MPV (9.4-12.3) fL Immature Gran % (Auto) (0.0-0.4) % Neut % (Auto) (45-73) % Lymph % (Auto) (20-40) % [place] % (Auto) (2-11) % Eos % (Auto) (0-4) % Baso % (Auto) (0-2) % Lymph # (Auto) (1.2-4.9) X10*3/uL [place] # (Auto) (0.1-1.2) X10*3/uL Eos # (Auto) (0.0-0.4) X10*3/uL Baso # (Auto) (0.0-0.2) X10*3/uL Abs Immat Gran (auto) (0.00-0.03) X10*3/uL Absolute Neuts (auto) (2.0-8.3) x10*3/uL Absolute Nucleated RBC (0.0-0.012) X10*3/uL Nucleated RBC % (auto) (0.0-0.2) /100WBC PT (10.0-13.1) SEC INR (0.9-1.1) Sodium 140 (135-145) mmol/L Potassium 4.1 (3.3-5.1) mmol/L Chloride 102 (96-108) mmol/L Carbon Dioxide 30 H (22-29) mmol/L Anion Gap 12 (12-20) BUN 10 (9-16) mg/dL Creatinine 0.68 (0.5-1.4) mg/dL Estim Creat Clear Calc 104.1 Estimated GFR > 60 Random Glucose 103 (60-115) mg/dL Calcium 9.4 (8.4-10.2) mg/dL Magnesium 2.2 (1.6-2.6) mg/dL Total Bilirubin 0.2 (0.0-1.0) mg/dL AST 13 (5-31) U/L ALT 20 (0-31) U/L Alkaline Phosphatase 102 (39-117) U/L Total Protein 7.1 (6.5-8.0) g/dL Albumin 4.2 (3.5-5.0) g/dL Lipase 12 (8-78) U/L Beta HCG, Quant < 2 mIU/mL Urine Color Urine Appearance Urine pH (5.0-9.0) Ur Specific [place] (1.005-1.025) Urine Protein (Neg-Trace) mg/dL Urine Glucose (UA) (Negative) mg/dL Urine Ketones (Negative) mg/dL Urine Blood (Negative) Urine Nitrite (Negative) Ur Leukocyte Esterase (Negative) <Juan A Au MD - Last Filed: 01/11/23 22:22> Independent Interpretation I performed an independent interpretation of an: CT Scan (No acute abnormalities found) <Juan A Au MD - Last Filed: 01/11/23 22:22> Radiology Impression Discussion of test interpretation with radiology: I have reviewed the radiologist's reading. (IMPRESSION: No acute intra-abdominal process seen. There is nonspecific fat stranding seen adjacent to the upper abdominal aorta. Fleischner guidelines were followed. Dictated By:Markus Solis MDSigned By:<Electronically signed by Markus Solis MD in [place]>01/11/[id number]) <Juan A Au MD - Last Filed: 01/11/23 22:22> Tests considered The following testing was considered but not selected: Ultrasound <Juan A Au MD - Last Filed: 01/11/23 22:22> Prescription Management I considered prescription management with: Pain Medication <Juan A Au MD - Last Filed: 01/11/23 22:22> Discharge Plan Discharge Clinical Impression: Acute left flank pain <ANGELA Duarte - Last Filed: 01/11/23 16:20> Patient Disposition: Home, Self-Care <ANGELA Duarte - Last Filed: 01/11/23 16:20> Instructions: Flank Pain (ED) <ANGELA Duarte - Last Filed: 01/11/23 16:20> Additional Instructions: For your pain, I am recommending the following regimen: Ibuprofen 800 mg 3 times a day with food Gabapentin 300 mg 3 times a day, may cause drowsiness Tylenol 1000 mg every 6 hours as needed for additional pain relief Methocarbamol 500 mg 3 times a day as needed for muscle spasm, may cause drowsiness <ANGELA Duarte - Last Filed: 01/11/23 16:20> Prescriptions: New methocarbamol 500 mg tablet 500 mg PO TID PRN (Reason: muscle spasm) Qty: 10 0RF ibuprofen 800 mg tablet 800 mg PO Q8H Qty: 30 0RF Rx Instructions: Take with food gabapentin 300 mg capsule 300 mg PO TID Qty: 30 0RF Discontinued cyclobenzaprine 10 mg tablet 10 mg PO TID PRN (Reason: muscle pain or spasm) Qty: 20 0RF prednisone 20 mg tablet 60 mg PO DAILY 7 Days Qty: 21 0RF oxybutynin chloride 10 mg tablet extended release 24hr 10 mg PO DAILY 30 Days Qty: 30 0RF No Action cholecalciferol (vitamin D3) 50 mcg (2,000 unit) capsule 50 mcg PO DAILY 90 Days Qty: 90 1RF acetaminophen [Mapap Arthritis Pain] 650 mg tablet extended release 650 mg PO Q12H PRN (Reason: pain) 30 Days Qty: 60 1RF meclizine 25 mg tablet 25 mg PO TID 30 Days Qty: 90 0RF <ANGELA Duarte - Last Filed: 01/11/23 16:20> Referrals: Nia Dukes MD [Primary Care Provider] - 3 days <ANGELA Duarte - Last Filed: 01/11/23 16:20> Stand Alone Forms: Work/School Release <ANGELA Duarte - Last Filed: 01/11/23 16:20> Print Language: B[place]an <ANGELA Duarte - Last Filed: 01/11/23 16:20>
[2023-01-11 17:50] LABS: MANUAL DIFF FLAG NO
[2023-01-11 17:54] LABS: Basophils Absolute Auto 0.1 X10*3/uL (0.0-0.2); Basophils Percent Auto 0.6 % (0-2); Eosinophils Absolute Auto 0.1 X10*3/uL (0.0-0.4); Eosinophils Percent Auto 1.1 % (0-4); Hemoglobin 12.1 g/dl (12.0-16.0); Imm Gran Abs Auto 0.15 X10*3/uL (0.00-0.03); Imm Gran Pct Auto 1.2 % (0.0-0.4); Lymphocytes Absolute Auto 3.5 X10*3/uL (1.2-4.9); Lymphocytes Percent Auto 28.7 % (20-40); Mean Corpuscular HGB Conc 32.7 g/dl (31.0-35.0); Mean Corpuscular Volume 94.9 fL (80.0-98.0); Mean Platelet Volume 9.1 fL (9.4-12.3); Monocytes Absolute Auto 0.7 X10*3/uL (0.1-1.2); Monocytes Percent Auto 5.8 % (2-11); Neutrophils Absolute Auto 7.7 x10*3/uL (2.0-8.3); Neutrophils Percent Auto 62.6 % (45-73); Platelet Count 431 X10*3/uL (160-400); Red Cell Distribution Width 12.2 % (11.0-16.0); White Blood Count 12.3 X10*3/uL (4.8-10.8)
[2023-01-11 17:59] LABS: Appearance Urine Clear; Color Urine Yellow; Glucose Urine UA Negative (Negative); Leukocyte Esterase Urine Negative (Negative); Nitrite Urine Negative (Negative); PH 5.5 (5.0-9.0); Specific Gravity - Urine >= 1.030 (1.005-1.025); Urine Blood Negative (Negative); Urine Ketones Negative (Negative); Urine Protein Trace mg/dL (Neg-Trace)
[2023-01-11 18:11] LABS: Alanine Aminotransferase 20 U/L (0-31); Albumin Level 4.2 g/dL (3.5-5.0); Alkaline Phosphatase 102 U/L (39-117); Anion Gap 12 (12-20); Aspartate Amino Transferase 13 U/L (5-31); Bilirubin Total 0.2 mg/dL (0.0-1.0); Blood Urea Nitrogen 10 mg/dL (9-16); Calcium 9.4 mg/dL (8.4-10.2); Carbon Dioxide 30 mmol/L (22-29); Chloride 102 mmol/L (96-108); Creatinine Clr Calc Pharmacy 104.1; Estimated Glomerular Filt Rate > 60; Glucose Random 103 mg/dL (60-115); Lipase 12 U/L (8-78); Magnesium 2.2 mg/dL (1.6-2.6); Potassium 4.1 mmol/L (3.3-5.1); Sodium 140 mmol/L (135-145); Total Protein 7.1 g/dL (6.5-8.0)
[2023-01-11 18:17] LABS: HCG Quantitative < 2 mIU/mL
[2023-01-11] MEDS: Cyclobenzaprine HCl 10 MG TABLET PO (20:56)
[2023-01-11] MEDS: Ketorolac Tromethamine 30 MG/ML VIAL IM (20:56)
[2023-01-11] MEDS: Gabapentin 300 MG CAPSULE PO (22:40)
== END 2023-01-11 22:51 | disposition home or self-care (01) ==
PROVIDERS: Physician Assistant Medical; Emergency Provider Emergency Medicine; PCP Internal Medicine
DX: R10.9 Unspecified abdominal pain (principal); M54.50 Low back pain, unspecified; Z79.899 Other long term (current) drug therapy
CPT/HCPCS: 36415; 74176; 80053; 81003; 83690; 83735; 84702; 85025; 85610; 96372; 99283; 99284; J1885

== ENCOUNTER 2023-01-14 05:48 | Outpatient (REF) | payer OTHER, SELFPAY ==
--- NOTE | ~2023-01-14 | XR_ITS ---
EXAMINATION: XR KNEE, LEFT XR KNEE STANDING, BILATERAL CLINICAL INFORMATION: Left knee pain COMPARISON: 11/19/2016 TECHNIQUE: AP standing view both knees. Lateral and sunrise patellar views of the left knee. of the left knee. FINDINGS: Osseous alignment is anatomic. There is suggestion of minimal joint space narrowing of the medial compartments of both knees. No significant spurring. No evidence of acute fracture or significant joint effusion. XR/XR knee LT 2V IMPRESSION: Suggestion of minimal joint space narrowing of the medial compartments of both knees.
--- NOTE | ~2023-01-14 | XR_ITS ---
EXAMINATION: XR KNEE, LEFT XR KNEE STANDING, BILATERAL CLINICAL INFORMATION: Left knee pain COMPARISON: 11/19/2016 TECHNIQUE: AP standing view both knees. Lateral and sunrise patellar views of the left knee. of the left knee. FINDINGS: Osseous alignment is anatomic. There is suggestion of minimal joint space narrowing of the medial compartments of both knees. No significant spurring. No evidence of acute fracture or significant joint effusion. XR/XR knee standing BI IMPRESSION: Suggestion of minimal joint space narrowing of the medial compartments of both knees.
== END 2023-01-14 05:49 | disposition home or self-care (01) ==
LOC: HO.HOSX 05:48
PROVIDERS: Visit Provider Physician Assistant
DX: M17.12 Unilateral primary osteoarthritis, left knee (principal)
CPT/HCPCS: 73560; 73565; 99202

== ENCOUNTER → 2023-01-15 14:50 | Outpatient (BNVA) | payer OTHER, SELFPAY | PROVIDERS: PCP Internal Medicine; Visit Provider Urology | DX: R32 Unspecified urinary incontinence (principal); M54.9 Dorsalgia, unspecified | CPT/HCPCS: 51798; 99202 ==

== ENCOUNTER → 2023-01-18 09:38 | Outpatient (BNVA) | payer OTHER, SELFPAY | PROVIDERS: PCP Internal Medicine; Visit Provider Internal Medicine | DX: M62.830 Muscle spasm of back (principal); M17.12 Unilateral primary osteoarthritis, left knee | CPT/HCPCS: 20553; 99202 ==

== ENCOUNTER 2023-01-20 09:53 | Outpatient (REF) | payer OTHER, SELFPAY ==
--- NOTE | ~2023-01-20 | MR_ITS ---
EXAMINATION: MR BRAIN WITHOUT CONTRAST CLINICAL INFORMATION: Anesthesia of skin COMPARISON: CT head without contrast 12/05/2018 TECHNIQUE: Multiplanar multisequence MR imaging of the brain was obtained without intravenous contrast. FINDINGS: There is no acute infarct on diffusion-weighted imaging. There is no intracranial hemorrhage on iron-sensitive imaging. No extra-axial collection or mass effect/herniation. Normal parenchymal signal characteristics. No hydrocephalus. The ventricles are normal in morphology and size. The major flow voids at the skull base are preserved. Partially empty sella. Mild dilatation of the optic nerve sheaths. The cerebellar tonsils are normally positioned. The craniocervical junction is normal. Marrow signal is within normal limits. The visualized soft tissues are without significant abnormality. No signal abnormality within the paranasal sinuses or within the mastoid air cells. MR/MR head/brain wo con IMPRESSION: 1. Partially empty sella and mild dilatation of the optic nerve sheaths which can be seen in the setting of idiopathic intracranial hypertension. Correlate with clinical history. 2. Otherwise unremarkable noncontrast MRI of the brain.
== END 2023-01-20 09:54 | disposition home or self-care (01) ==
LOC: HO.MRI 09:53
PROVIDERS: PCP Internal Medicine; Visit Provider Internal Medicine
DX: R20.0 Anesthesia of skin (principal)
CPT/HCPCS: 70551

== ENCOUNTER 2023-03-12 13:00 | Outpatient (RCR) | payer OTHER, SELFPAY ==
--- NOTE | 2023-04-26 12:07 | MHC.PT.DC ---
[facility] [place] Office [place] Office [place] Office [address] [place] [address] [facility] [phone] F: [phone] F: [phone] F: [phone] F: [phone] Physical Therapy Discharge Report Diagnosis: LEFT KNEE PAIN (KP) Date of Surgery: N/A Date of Evaluation: 02/11/23 Date of Discharge: 04/26/23 Treatments to Date: 7 Cancellations to Date: 1 No Shows to Date: 0 Discharge Status: Patient Elected to Stop Discharge Summary: Pt ELECTED TO NOT RETURN TO PT. SHE HAS AN EXTENSIVE WRITTEN HOME EXERCISE PROGRAM WHICH SHE CAN CONTINUE WITH INDEPENDENCE. Electronically signed by: FANTASMA QUINN PT DPT Please sign and return to therapist. Thank you for your referral.
== END 2023-04-26 12:07 | disposition home or self-care (01) ==
LOC: HO.PT 13:00
PROVIDERS: PCP Internal Medicine; Visit Provider Physician Assistant
DX: M17.12 Unilateral primary osteoarthritis, left knee (principal)
CPT/HCPCS: 97110; 97140; 97161; 97162

== ENCOUNTER → 2023-03-18 12:52 | Outpatient (BNVA) | payer OTHER, SELFPAY | PROVIDERS: PCP Internal Medicine; Visit Provider Nurse Practitioner Family | DX: R51.9 Headache, unspecified (principal); H54.7 Unspecified visual loss; M54.9 Dorsalgia, unspecified; G62.9 Polyneuropathy, unspecified; M62.830 Muscle spasm of back | CPT/HCPCS: 99202 ==

== ENCOUNTER 2023-03-19 10:59 | Outpatient (REF) | payer OTHER, SELFPAY ==
--- NOTE | ~2023-03-19 | XR_ITS ---
EXAMINATION: XR LUMBOSACRAL SPINE WITH OBLIQUES CLINICAL INFORMATION: Dorsalgia COMPARISON: None available. TECHNIQUE: Upright AP lateral oblique views and lateral flexion and extension views FINDINGS: Vertebral bodies normal in height with normal alignment. Normal translation with flexion-extension views. Mild degenerative disc changes present at L4-L5 manifested by minimal endplate osteophytes without disc space narrowing. Surrounding bone and soft tissues unremarkable.. XR/XR lumbar spine 6V w bending IMPRESSION: 1. No acute abnormality. 2. Mild spondylosis L4-L5.
== END 2023-03-19 11:00 | disposition home or self-care (01) ==
LOC: HO.XRAY 10:59
PROVIDERS: PCP Internal Medicine; Visit Provider Nurse Practitioner Family
DX: M54.9 Dorsalgia, unspecified (principal)
CPT/HCPCS: 72114

== ENCOUNTER 2023-04-22 10:33 | Outpatient (AMB) | payer OTHER, SELFPAY ==
--- NOTE | 2023-04-22 10:39 | A.OFFVIS_ITS ---
Intake Intake Visit Reasons: 3m follow up Intake Note: * Patient presents today for a 3mo follow-up * Meds- None * Allergies to Antibiotic- None * Blood Thinner- None * PVR- 13ml after void Getter Operator Required: No Allergies No Known Allergies [No Known Allergies*] Allergy (Verified 06/22/23 13:07) Medication List - Last Reconciled 04/22/23 by Jamila Osborne MD baclofen 10 mg PO BEDTIME 30 days cholecalciferol (vitamin D3) 50 mcg PO DAILY 90 days mirabegron ER (Myrbetriq) 25 mg PO DAILY tramadol 50 mg PO BID PRN 5 days walker with seat and wheels HPI HPI Comments History of Present Illness Details Juwan is a 43-year-old female who presents to the office for 3 month follow-up. --------Review of chart: LV-- 01/15/2023--Juwan is a 42-year-old female patient who is here as a new patient evaluation for urinary incontinence. The patient is a female. A qualified surgical supervisor was present during the encounter. The patient last visited the ER on 01/11/23 for left flank pain and underwent CAT scan. Complains having intermittent urinary leakage since 6 months. States wearing panty liners/pads daily. Was prescribed gabapentin in the ER and reports no benefits with the drug. 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 The patient is having a scheduled MRI on 01/19/2023 Surgical history of hysterectomy due to menorrhagia. The patient had 4 vaginal deliveries. Evaluation today: Blood: negative and Leukocyte: negative. Bladder scan: PVR 0 mL. pelvic exam declined by patient. CT without contrast results reviewed--01/11/23-No acute intro-abdominal process seen. 04/22/23-- The patient is Uzbek speaking female. surgical supervisor was present during the visit. The patient was referred to pelvic floor physical therapy for urinary incontinence and pelvic floor weakness, she is here for follow-up. The patient states that she is not given any exercises for pelvic floor and is receiving PT for left knee as they do not have any appointment space for pelvic floor therapy. States that leakage is more frequent in the interim. Has leakage while coughing and walking. She also has nocturia episodes 2-3 times. States incomplete bladder emptying. Evaluation today-- Blood: negative, leukocytes: negative. Bladder scan PVR: 13 mL. Plan: Referral for pelvic floor physical therapy was rewritten. Myrbetriq 25 mg QD was ordered. Discussed to take the medication at night and, she can change the regime to afternoon or morning to manage the symptoms. Discussed timed voiding. Follow-up after 6 months or sooner if needed. [facility] Surgical History S/P total abdominal hysterectomy Family History Mother No problems noted. Father No problems noted. Family/Other Substance use disorder Mental health disorder Social History Housing: Apartment Alcohol intake: never Patient Tobacco Use Status: Current someday Tobacco user Tobacco use type: Cigarette Cigarettes Per Day: 1 e-Cigarette/Vaping Use: Never Used Second Hand Smoke Exposure: No service: No Current occupational status: employed Current occupational exposures/hazards: No Cognitive needs: No Hearing needs: No Vision needs: No Review of Systems Const All systems reviewed & are unremarkable except as noted in HPI and below Reports no additional complaints Eyes Reports no additional complaints ENT Reports no additional complaints Card Denies dyspnea Resp Denies cough and Denies dyspnea GI Reports no additional complaints Reports no additional complaints Musc Reports no additional complaints Skin/Breast Denies rash and Denies unusual bruising Neuro Reports no additional complaints Psych Reports no additional complaints Endo Reports no additional complaints Kelvin/Lymph Reports no additional complaints Aller/Immun Reports no additional complaints Physical Exam Const General: cooperative, healthy appearing and no acute distress Orientation/consciousness: patient oriented x3 HEENT Head: Yes normal to inspection, Yes normocephalic and Yes atraumatic Eyes Conjunctivae: conjunctivae normal Neck Neck: Yes normal visual inspection and Yes trachea midline Chest Chest palpation & inspection: normal inspection of the chest Resp Effort & Inspection: normal respiratory effort Cardio Rate: regular rate GI Inspection: Yes normal to inspection Skin General skin exam: no rashes or lesions noted Neuro General: patient oriented x3 Psych Appearance: grossly normal Office Procedures Post Void Residual Post Residual Void Post Void Residual (PVR): 13 [id number] Void Residual by ultrasound Results AMB Urinalysis, Automated UA Leukoctes 0 Jhoan/uL Last Edit by Drake Marshall [facility] on 04/22/23 10:50 UA Nitrite Negative Last Edit by Drake Marshall [facility] on 04/22/23 10:50 UA Urobilinogen 0.2 mg/dL Last Edit by Drake Marshall [facility] on 04/22/23 10:5 0 UA Protein 0 mg/dL Last Edit by Drake Marshall [facility] on 04/22/23 10:50 UA pH 6.0 Last Edit by Drake Marshall [facility] on 04/22/23 10:50 UA Blood 0 Alexander/uL Last Edit by Drake Marshall [facility] on 04/22/23 10:50 UA Specific [place] 1.030 Last Edit by Drake Marshall [facility] on 04/22/23 10: 50 UA Ketone Negative Last Edit by Drake Marshall [facility] on 04/22/23 10:50 UA Bilirubin 0 mg/dL Last Edit by Drake Marshall [facility] on 04/22/23 10:50 UA Glucose 0 mg/dL Last Edit by Drake Marshall [facility] on 04/22/23 10:50 Results Reviewed Results Reviewed: Laboratory Last Values Urine pH (Auto) 6.0 04/22/23 10:47 Specific [place] (Auto) 1.030 04/22/23 10:47 Urine Protein (Auto) 0 mg/dL 04/22/23 10:47 Glucose (UA)(Auto) 0 mg/dL 04/22/23 10:47 Urine Ketones (Auto) Negative 04/22/23 10:47 Urine Blood (Auto) 0 Alexander/uL 04/22/23 10:47 Urine Nitrite (Auto) Negative 04/22/23 10:47 Urine Bilirubin (Auto) 0 mg/dL 04/22/23 10:47 Urine Urobilinogen (Auto) 0.2 mg/dL 04/22/23 10:47 Leukocyte Esterase (Auto) 0 Jhoan/uL 04/22/23 10:47 Date of Service: 01/11/23 EXAMINATION: CT ABDOMEN AND PELVIS WITHOUT CONTRAST? CLINICAL INFORMATION: Left flank/lower back pain x2 weeks.? COMPARISON: None? TECHNIQUE: Multidetector volumetric imaging was performed from the superior aspect of the liver through the pubic symphysis. Sagittal and coronal reformatted images were obtained on the technologist's workstation.? This CT examination was performed using dose optimization techniques as appropriate, variously including the following: *Automated exposure control *Adjustment of mA and/or kV according to patient size (this includes techniques or standardized protocols for targeted exams where dose is matched to indication/reason for exam; i.e. extremities or head) *Use of iterative reconstruction technique DLP: 497 mGy-cm FINDINGS: LUNG BASES: The lung bases are clear. The heart size is borderline normal.? LIVER, GALLBLADDER, AND BILIARY TREE: The liver is normal in size, shape, and attenuation. No focal hepatic lesion or biliary ductal dilatation is present. The gallbladder is unremarkable with no evidence of radiopaque gallstones, gallbladder wall thickening, or obvious pericholecystic inflammatory changes.? PANCREAS: Unremarkable.? SPLEEN: Unremarkable.? ADRENAL GLANDS: Unremarkable.? KIDNEYS AND URETERS: The kidneys are normal in size, shape, and attenuation. No hydronephrosis, hydroureter, or calculi seen. No perinephric stranding. ? BLADDER: Unremarkable.? GASTROINTESTINAL TRACT: There is scattered stool, gas seen throughout the colon without distention. The small bowel loops are normal caliber. Appendix is normal caliber. No inflammatory process seen in the abdomen. ABDOMINAL WALL: No significant hernia is appreciated.? LYMPH NODES: No abnormal size lymph nodes seen. There is mild haziness in the soft tissues adjacent to the proximal abdominal aorta. No abnormal lymph nodes seen. VASCULAR: Unremarkable. PELVIC VISCERA: There is a 4.9 x 3.1 x 4.3 cm right adnexal cyst? OSSEOUS STRUCTURES: No aggressive lytic or sclerotic process seen.? IMPRESSION: No acute intra-abdominal process seen. There is nonspecific fat stranding seen adjacent to the upper abdominal aorta.? Assessment & Plan Assessment & Plan (1) Urinary incontinence: Code(s): R32 - Unspecified urinary incontinence (2) Sensation of pressure in bladder area: Code(s): R39.89 - Other symptoms and signs involving the genitourinary system (3) Nocturia: Code(s): R35.1 - Nocturia Plan Referral for pelvic floor physical therapy was rewritten. Myrbetriq 25 mg QD was ordered. Discussed to take the medication at night and, she can change the regime to afternoon or morning to manage the symptoms. Discussed timed voiding. Follow-up after 6 months or sooner if needed. Orders: Orders AMB Urinalysis Automated 04/22/23 Z13.9 - Encounter for screening, unspecified AMB Post Void Residual by ultrasound 04/22/23 N39.8 - Other specified disorders of urinary system Medications: New mirabegron ER (Myrbetriq) 25 mg PO DAILY 90 tabs 3RF Patient Instructions: The patient had an opportunity to ask questions regarding treatment plan. All questions were answered. Imaging, Laboratory studies and physical exam results were discussed and reviewed in detail. No major barriers to understanding were identified. The patient expressed understanding and agreement with the above treatment plan. The patient is aware they should contact our office by phone for worsening of their current condition or the appearance of new symptoms. Compliance is encouraged with any medications and followup testing that is ordered. It is a privilege to be allowed the opportunity to participate in the urologic care of your patient. If you have any questions or concerns regarding treatment for the above conditions please do not hesitate to contact me. The office telephone contact is [phone]. This note is constructed in part using voice recognition software. While every effort has been made to ensure accuracy senior functional analyst errors may have been included. Yours sincerely, Jamila Osborne MD Coding Level of Care Code Est Pt Level 4 (91987) Diagnoses Urinary incontinence R32 Sensation of pressure in bladder area R39.89 Nocturia R35.1 CPT Codes Post Residual Void - PVR CPT Code: 86185-Yswe Void Residual by ultrasound ([id number])
== END 2023-04-22 11:16 | disposition home or self-care (01) ==
LOC: HO.HUSH 10:33
PROVIDERS: PCP Internal Medicine; Visit Provider Urology
DX: R32 Unspecified urinary incontinence (principal); R39.89 Other symptoms and signs involving the genitourinary system; R35.1 Nocturia
CPT/HCPCS: 99214

== ENCOUNTER → 2023-04-22 10:33 | Outpatient (BNVA) | payer OTHER, SELFPAY | PROVIDERS: PCP Internal Medicine; Visit Provider Urology | DX: R32 Unspecified urinary incontinence (principal); R39.89 Other symptoms and signs involving the genitourinary system; R35.1 Nocturia | CPT/HCPCS: 51798; 99212 ==

== ENCOUNTER 2023-05-24 09:46 | Outpatient (REF) | payer OTHER, SELFPAY ==
--- NOTE | ~2023-05-24 | CT_ITS ---
EXAMINATION: CT ANGIOGRAM OF THE HEAD CT ANGIOGRAM OF THE NECK CLINICAL INFORMATION: Atypical transient episodes of occipital region. Vision loss. COMPARISON: MRI scan of the brain 01/20/2023. TECHNIQUE: A noncontrast axial CT scan of the head was obtained. Test bolus series followed by intravenous administration 70 mL of Omnipaque 350. Helical imaging was performed in the axial plane from the mediastinum to the skull vertex. The degree of stenosis is based off NASCET criteria. The data was processed at the electronic technologist workstation for generation of MIP images. Three-dimensional volume rendered reformatted images were also generated at an offline 3-D workstation. This CT examination was performed using dose optimization techniques as appropriate, variously including the following: *Automated exposure control *Adjustment of mA and/or kV according to patient size (this includes techniques or standardized protocols for targeted exams where dose is matched to indication/reason for exam; i.e. extremities or head) *Use of iterative reconstruction technique DLP: 2355 mGy-cm. FINDINGS: CT Head: There is no evidence of acute intracranial hemorrhage or territorial infarction. No abnormal mass-effect or midline shift is seen. Vasques to white matter differentiation is well preserved. No extra-axial fluid collections are identified. There is no abnormal enhancement. The ventricles and sulci are normal in size. There is no abnormal attenuation within the brain parenchyma. There are no acute osseous or soft tissue abnormalities. There appear to be sequelae of a relatively recent extraction of the right maxillary canine tooth; correlate with dental history. The mastoid air cells are well pneumatized. There is minimal mucoperiosteal thickening in the right maxillary sinus. There are prominent bilateral middle turbinate conchae bullosae. CTA Neck: Some images are degraded by beam hardening artifact from contrast in the right subclavian vein and from dental restorations. There is a classic configuration of the arch of the aorta. The great vessels of the neck are widely patent. The subclavian arteries appear normal bilaterally. The common carotid arteries have normal caliber. The carotid bifurcations bilaterally appear normal. The internal carotid arteries in the neck bilaterally have uniform and normal caliber. The origins of both vertebral arteries are well seen and appear normal. Both vertebral arteries are widely patent and demonstrate good opacification throughout their cervical course. The right vertebral artery is dominant. Nonvascular: The lung apices are well-aerated. The thyroid gland appears normal. There is no cervical lymphadenopathy. There is no significant cervical spondylosis. The previously described partially empty sella is better visualized on the prior MRI scan. The cerebellar tonsillar tips appear to have normal contours and position. CTA Head: The intracranial internal carotid arteries and their bifurcations appear normal. The A1 segment of the left anterior cerebral artery is hypoplastic. The A1 segment of the right anterior cerebral artery and the bilateral A2 segments appear normal. The bilateral middle cerebral arteries are patent without evidence of focal stenosis, aneurysm or vascular malformation. There is normal arborization of the middle cerebral artery branches. In the posterior circulation, the right vertebral artery is dominant. The left vertebral artery ends primarily in the PICA. The basilar artery is tortuous but has uniform caliber and is patent throughout its course. The posterior cerebral arteries appear normal. The venous sinuses opacify normally. CT/CT angio head neck IMPRESSION: CT Head and Neck: 1. There are no acute bleeds or infarcts. 2. There are no masses or areas of abnormal enhancement. 3. There is no cervical lymphadenopathy. CTA Head and Neck: 1. There are no flow-limiting stenoses in the neck vasculature. 2. Intracranially there are no focal stenoses, aneurysms or vascular malformations.
[2023-05-24] MEDS: iohexoL 350 MG/ML 100 ML INFUS..BTL 70 ML IV (10:36)
== END 2023-05-24 09:47 | disposition home or self-care (01) ==
LOC: HO.CT 09:46
PROVIDERS: PCP Internal Medicine; Visit Provider Nurse Practitioner Family
DX: H54.7 Unspecified visual loss (principal); R51.9 Headache, unspecified
CPT/HCPCS: 70496; 70498; Q9967

== ENCOUNTER 2023-06-14 15:00 | Outpatient (RCR) | payer OTHER, SELFPAY ==
--- NOTE | 2023-07-30 08:10 | MHC.PT.DC ---
[facility] [place] Office [place] Office [place] Office [address] Kelly Keys [address] [phone] F: [phone] F: [phone] F: [phone] F: [phone] Physical Therapy Discharge Report Diagnosis: LOW BACK PAIN (KP) Date of Surgery: Date of Evaluation: 05/18/23 Date of Discharge: 07/30/23 Treatments to Date: 5 Cancellations to Date: 0 No Shows to Date: 1 Discharge Status: Patient Elected to Stop Discharge Summary: NO SHOWED FOR LAST SCHEDULED VISIT, STATUS UNKNOWN Electronically signed by: FANTASMA QUINN PT DPT Please sign and return to therapist. Thank you for your referral.
== END 2023-07-30 08:10 | disposition home or self-care (01) ==
LOC: HO.PT 15:00
PROVIDERS: PCP Internal Medicine; Visit Provider Nurse Practitioner Family
DX: M62.830 Muscle spasm of back (principal); M54.9 Dorsalgia, unspecified; G62.9 Polyneuropathy, unspecified
CPT/HCPCS: 97110; 97162

== ENCOUNTER 2023-06-20 01:05 | Emergency (ER) | payer OTHER, SELFPAY ==
--- NOTE | ~2023-06-20 | XR_ITS ---
EXAMINATION: XR CHEST CLINICAL INFORMATION: Cough COMPARISON: 09/30/2020 TECHNIQUE: Frontal view of the chest was obtained. FINDINGS: Cardiac leads overlie the chest. The lungs are well expanded. There is no focal consolidation, edema, or effusion. No pneumothorax. The cardiomediastinal silhouette is within normal limits. No acute osseous abnormality. XR/XR chest 1V IMPRESSION: Clear lungs.
[2023-06-20 01:51] VITALS: BP 121/73; PULSE 101; RESP 17; TEMP 37.5; O2SAT 94; O2SAT 96; BMI 26.2
--- NOTE | 2023-06-20 02:08 | ED_ITS ---
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 coworkers at work were sick coughing with mucopurulent phlegm Related Data Previous Rx's Medication Instructions Recorded cholecalciferol (vitamin D3) 50 50 mcg PO DAILY 90 days #90 caps 12/31/22 mcg (2,000 unit) capsule tramadol 50 mg tablet 50 mg PO BID PRN pain 5 days #10 01/20/23 tabs walker #1 ea 01/20/23 baclofen 10 mg tablet 10 mg PO BEDTIME 30 days #30 tabs 03/18/23 mirabegron 25 mg tablet,extended 25 mg PO DAILY #90 tabs 04/22/23 release 24 hr (Myrbetriq) albuterol sulfate 2.5 mg/3 mL 2.5 mg (3 mL) inhalation Q4-6H PRN 06/20/23 (0.083 %) solution for nebulization shortness of breath or wheezing #90 mL albuterol sulfate 90 mcg/actuation 2 puff inhalation Q4-6H PRN 06/20/23 aerosol inhaler (ProAir HFA) shortness of breath or wheezing #8.5 grams benzonatate 200 mg capsule 200 mg PO TID PRN cough #20 caps 06/20/23 cefuroxime axetil 500 mg tablet 500 mg PO BID 7 days #14 tabs 06/20/23 prednisone 20 mg tablet 40 mg PO DAILY #10 tabs 06/20/23 Allergies Allergy/AdvReac Type Severity Reaction Status Date / Time No Known Allergies Allergy Verified 03/18/23 13:17 [No Known Allergies*] Review of Systems Review of Systems: Yes all other systems are reviewed and are negative PMFSH Past Medical History Surgical History S/P total abdominal hysterectomy Family History Family History Mother No problems noted. Father No problems noted. Family/Other Substance use disorder Mental health disorder Social History Social History Housing: Apartment Alcohol intake: current Alcohol intake frequency: holidays/special occasions only Alcohol type: beer Patient Tobacco Use Status: Current someday Tobacco user Tobacco use type: Cigarette Cigarettes Per Day: 1 e-Cigarette/Vaping Use: Never Used Second Hand Smoke Exposure: No Advance Directives: No Advance Directives Information Provided: Yes service: No Current occupational status: employed Current occupational exposures/hazards: No Cognitive needs: No Hearing needs: No Vision needs: No Physical Exam Vital Signs: Vital Signs: Last Vital Signs Temp 99.5 F 06/20/23 01:51 Pulse 108 H 06/20/23 02:50 Resp 16 06/20/23 02:50 BP 121/73 06/20/23 01:51 Pulse Ox 94 06/20/23 01:51 O2 Del Method Room Air 06/20/23 01:51 BMI result Body Mass Index 26.2 Appearance: Alert. Oriented X3. No acute distress. ENT: Pharynx normal. Oral Mucosa moist clear nasal discharge Neck: Normal inspection. Neck supple. CVS: Normal heart rate and rhythm. Pulses normal. Respiratory: No respiratory distress. Equal air entry bilateral, bilateral wheezing Abdomen: Soft and nontender. Bowel sounds are present, no mass palpable, no CVA tenderness Skin: Skin warm and dry. Normal skin color. Normal skin turgor. Extremities: No lower extremity edema. No calf tenderness Neuro: Oriented X 3. No motor deficit. Medications Administered Discontinued Medications Generic Name Dose Route Start Last Admin Trade Name Freq PRN Reason Stop Dose Admin Albuterol Sulfate 5 mg 06/20/23 02:30 06/20/23 02:47 Albuterol Sulfate (0.083%) 2.5 Mg/3 Ml Vial.Neb INHALE 06/20/23 02:31 5 mg ONCE ONE Administration Albuterol/Ipratropium 3 ml 06/20/23 02:30 06/20/23 02:47 Albuterol/Iprat 2.5/0.5mg 3 Ml Ampul.Neb INHALE 06/20/23 02:31 3 ml ONCE ONE Administration Cefuroxime Axetil 500 mg 06/20/23 02:30 06/20/23 02:44 Cefuroxime Axetil 500 Mg Tablet PO 06/20/23 02:31 500 mg ONCE ONE Administration Guaifenesin/Codeine Phosphate 10 ml 06/20/23 02:31 06/20/23 02:44 Guaifen/Codeine Sf 200/20/10ml 10 Ml Liquid PO 06/20/23 02:32 10 ml ONCE ONE Administration Prednisone 40 mg 06/20/23 02:30 06/20/23 02:44 Prednisone 20 Mg Tablet PO 06/20/23 02:31 40 mg ONCE ONE Administration Medical Decision Making Differential Diagnosis Differential Diagnoses: The differential diagnosis associated with the presentation includes Acute bronchitis/COVID/influenza/pneumonia Lab Data MDM Lab Attestation statement: I reviewed the patient's lab results. Labs: Lab Results 06/20/23 Range/Units 01:26 Influenza Type A (PCR) NEGATIVE (Negative) Influenza Type B (PCR) NEGATIVE (Negative) RSV RNA Qual (PCR) NEGATIVE (Negative) SARS-CoV-2 RNA (RT-PCR) NEGATIVE (Negative) Discharge Plan Discharge Clinical Impression: Acute bronchitis Patient Disposition: Home, Self-Care Instructions: Acute Bronchitis (ED) Additional Instructions: Drink plenty of fluids Take medication as prescribed and follow with PCP Use inhaler/nebulizing treatment every 4 hours as needed Beber mucho l?quido [place] la medicaci?n seg?n lo prescrito y siga con PCP Use tratamiento de inhalaci?n/nebulizaci?n cada 4 horas seg?n sea necesario Prescriptions: New prednisone 20 mg tablet 40 mg PO DAILY Qty: 10 0RF cefuroxime axetil 500 mg tablet 500 mg PO BID 7 Days Qty: 14 0RF albuterol sulfate [ProAir HFA] 90 mcg/actuation HFA aerosol inhaler 2 puff inhalation Q4-6H PRN (Reason: shortness of breath or wheezing) Qty: 8.5 0RF benzonatate 200 mg capsule 200 mg PO TID PRN (Reason: cough) Qty: 20 0RF albuterol sulfate 2.5 mg /3 mL (0.083 %) solution for nebulization 2.5 mg inhalation Q4-6H PRN (Reason: shortness of breath or wheezing) Qty: 90 0RF No Action cholecalciferol (vitamin D3) 50 mcg (2,000 unit) capsule 50 mcg PO DAILY 90 Days Qty: 90 1RF (DME) walker Misc See Rx Instructions .Route Qty: 1 0RF Rx Instructions: with seat and wheels tramadol 50 mg tablet 50 mg PO BID PRN (Reason: pain) 5 Days Qty: 10 0RF baclofen 10 mg tablet 10 mg PO BEDTIME 30 Days Qty: 30 1RF Myrbetriq 25 mg tablet extended release 24 hr 25 mg PO DAILY Qty: 90 3RF Print Language: Lao
[2023-06-20 02:15] LABS: Influenza A PCR NEGATIVE (Negative); Influenza B PCR NEGATIVE (Negative); Resp Syncy Virus RNA Qual PCR NEGATIVE (Negative); SARS COV2 PCR INHOUSE NEGATIVE (Negative)
[2023-06-20] MEDS: predniSONE 20 MG TABLET 40 MG PO (02:44)
[2023-06-20] MEDS: guaiFEN/Codeine SF 200/20/10ML 10 ML LIQUID PO (02:44)
[2023-06-20] MEDS: Albuterol/Iprat 2.5/0.5MG 3 ML AMPUL.NEB INHALE (02:47)
[2023-06-20] MEDS: Albuterol Sulfate (0.083%) 2.5 MG/3 ML VIAL.NEB 5 MG INHALE (02:47)
[2023-06-20 02:50] VITALS: PULSE 108; RESP 16; O2SAT 96
== END 2023-06-20 03:40 | disposition home or self-care (01) ==
PROVIDERS: Emergency Provider Internal Medicine
DX: J20.9 Acute bronchitis, unspecified (principal); R06.02 Shortness of breath; R05.9 Cough, unspecified; Z20.822 Contact with and (suspected) exposure to COVID-19; Z20.828 Contact with and (suspected) exposure to other viral communicable diseases; Z79.899 Other long term (current) drug therapy
CPT/HCPCS: 0241U; 71045; 94640; 99284

== ENCOUNTER 2023-06-22 13:03 | Emergency (ER) | payer OTHER, SELFPAY ==
--- NOTE | ~2023-06-22 | XR_ITS ---
EXAMINATION: XR CHEST CLINICAL INFORMATION: Cough. COMPARISON: 06/20/2023 TECHNIQUE: 2 views of the chest were obtained. FINDINGS: The cardiomediastinal silhouette is stable. There is no focal consolidation or pleural effusion. The bony structures and soft tissues are unremarkable. XR/XR chest 2V IMPRESSION: No active cardiopulmonary disease.
[2023-06-22 13:07] VITALS: BP 108/61; PULSE 90; RESP 18; TEMP 36.4; O2SAT 97; BMI 25.4
--- NOTE | 2023-06-22 13:13 | ED.ASTHMA ---
HPI - Asthma General Chief Complaint: Asthma Stated Complaint: Asthma Time Seen by Provider: 06/22/23 13:29 Source: patient and case maker Mode of arrival: ambulatory Limitations: language barrier History of Present Illness HPI Narrative: Patient is a 43-year-old female with history of asthma, LEISA, polyarthralgia presenting to the emergency room with persistent cough, wheezing, and shortness of breath for the past 4 days. Was seen here on 06/20, prescribed prednisone, cefuroxime, and albuterol inhaler as well as benzonatate and albuterol for her nebulizer. States has been using nebulizer every 4 hours when home and inhaler if she is outside the home. Denies fevers. Denies any worsening of symptoms, just states no improvement. Patient reports that she becomes afraid/anxious when at home and feeling short of breath. MD complaint: shortness of breath Onset (ago): day(s) Severity: moderate Context: recent URI Associated symptoms: dry cough Asthma History: childhood onset Treatments Prior to Arrival: inhaled bronchodilator Related Data Current Asthma Therapy: none Previous Rx's Medication Instructions Recorded cholecalciferol (vitamin D3) 50 50 mcg PO DAILY 90 days #90 caps 12/31/22 mcg (2,000 unit) capsule tramadol 50 mg tablet 50 mg PO BID PRN pain 5 days #10 01/20/23 tabs walker #1 ea 01/20/23 baclofen 10 mg tablet 10 mg PO BEDTIME 30 days #30 tabs 03/18/23 mirabegron 25 mg tablet,extended 25 mg PO DAILY #90 tabs 04/22/23 release 24 hr (Myrbetriq) albuterol sulfate 2.5 mg/3 mL 2.5 mg (3 mL) inhalation Q4-6H PRN 06/20/23 (0.083 %) solution for nebulization shortness of breath or wheezing #90 mL albuterol sulfate 90 mcg/actuation 2 puff inhalation Q4-6H PRN 06/20/23 aerosol inhaler (ProAir HFA) shortness of breath or wheezing #8.5 grams benzonatate 200 mg capsule 200 mg PO TID PRN cough #20 caps 06/20/23 cefuroxime axetil 500 mg tablet 500 mg PO BID 7 days #14 tabs 06/20/23 prednisone 20 mg tablet 40 mg PO DAILY #10 tabs 06/20/23 fluticasone propionate 100 2 inh inhalation BID #60 ea 06/22/23 mcg/actuation blister powder for inhalation (Flovent Diskus) Allergies Allergy/AdvReac Type Severity Reaction Status Date / Time No Known Allergies Allergy Verified 06/22/23 13:07 [No Known Allergies*] Review of Systems Review of Systems: As per HPI Yes all other systems are reviewed and are negative Constitutional: Constitutional: Reports as per HPI PMFSH Past Medical History Surgical History S/P total abdominal hysterectomy Family History Family History Mother No problems noted. Father No problems noted. Family/Other Substance use disorder Mental health disorder Social History Social History Housing: Apartment Alcohol intake: never Patient Tobacco Use Status: Current someday Tobacco user Tobacco use type: Cigarette Cigarettes Per Day: 1 e-Cigarette/Vaping Use: Never Used Second Hand Smoke Exposure: No Advance Directives: No service: No Current occupational status: employed Current occupational exposures/hazards: No Cognitive needs: No Hearing needs: No Vision needs: No Physical Exam Vital Signs: Vital Signs: Last Vital Signs Temp 97.6 F 06/22/23 13:07 Pulse 90 06/22/23 13:43 Resp 18 06/22/23 13:43 BP 108/61 06/22/23 13:07 Pulse Ox 97 06/22/23 13:07 O2 Del Method Room Air 06/22/23 13:07 BMI result Body Mass Index 25.4 Vital signs have been reviewed and appear to be correct. Blood pressure normal. Heart rate normal. Respiratory rate normal. Temperature normal. Oxygen saturation normal. Const: General: cooperative, healthy appearing and no acute distress Orientation/consciousness: oriented to person, oriented to place, oriented to time and patient oriented x3 Limitations: no limitations HEENT: Head: Yes normocephalic and Yes atraumatic Ears: external ears normal General nose exam: Normal external nose present Face and sinus: Yes face symmetric Mouth: oropharynx normal and moist mucous membranes Throat: Yes uvula midline Eyes: Pupils: Equal, round and reactive pupils present Neck: Neck: Yes normal visual inspection and Yes supple Resp: Effort & Inspection: normal respiratory effort, able to speak in complete sentences, no retractions and no use of accessory muscles Auscultation: wheezes expiratory wheezes and throughout Cardio: Rate: regular rate Rhythm: regular rhythm Heart sounds: S1 normal heart sound present and S2 normal heart sound present GI: Palpation (GI): Soft to palpation and nontender Auscultation: normoactive bowel sounds : General: Yes no CVA tenderness Back/Spine/Pelvis: Back: no CVA tenderness Skin: General skin exam: elasticity normal and turgor normal Neuro: General: oriented to person, oriented to place, oriented to time, patient oriented x3, moves all extremities, no focal motor deficits and CN's II-XI intact bilaterally Cranial nerves: Yes Equal, round and reactive pupils present Cognition (Neuro): normal cognition Extrem: General: Yes full ROM, Yes no pedal edema and Yes no calf tenderness Psych: Mental Status: mental status grossly normal Affect: normal affect Thought process: Normal thought process present Course Course Course Narrative: RME: 43yo F w/PMHx asthma, LEISA, polyarthralgia, c/o asthma exacerbation with cough & wheeze x 4 days. Was seen in our ED started on Prednisone, Tessalon pearls, inhlaers, & Ceftin w/o relief. Admits has been using Rx meds Viral testing negative and CXR WNL on 06/20 Lungs w/bilateral wheezing CXR, Duoneb ordered Full HPI, ROS and PE to be performed by primary ED provider. Medications Administered Discontinued Medications Generic Name Dose Route Start Last Admin Trade Name Freq PRN Reason Stop Dose Admin Albuterol Sulfate 2.5 mg/ 0 mg 06/22/23 13:14 06/22/23 13:41 Albuterol/Ipratropium 3 ml INHALE 06/22/23 13:15 2.5 dose ONCE ONE Administration Medical Decision Making Medical Decision Making MDM Narrative: Patient is a 43-year-old female with history of asthma, LEISA, polyarthralgia presenting to the emergency room with persistent cough, wheezing, and shortness of breath for the past 4 days. On exam patient is awake, A+Ox3, VS WNL, afebrile, normal neurological exam without focal deficits, expiratory wheezing throughout, no respiratory distress, no work of breathing, no retractions. Given reported symptoms and physical exam findings, initial differential includes asthma exacerbation, bronchitis, pneumonia. X-ray notable for no acute cardiopulmonary process. My interpretation is in agreement with the radiologist's interpretation. All results discussed and all questions answered. Will discharge patient home with Flovent inhaler and instructed her to follow up with PCP. Return precautions discussed at bedside. Patient verbalized understanding of and agreement with plan. Differential Diagnosis Differential Diagnoses: The differential diagnosis associated with the presentation includes As per [facility] Lab Data [facility] Lab Attestation statement: I reviewed the patient's lab results. As per [facility] Labs: Lab Results 06/22/23 Range/Units 13:21 COVID-19 ([facility]) Negative (Negative) COVID-19 Clin Com See Note Independent Interpretation I performed an independent interpretation of an: Plain X-Ray Interpretation: No acute cardiopulmonary process, no evidence of pneumonia Radiology Impression Discussion of test interpretation with radiology: I have reviewed the radiologist's reading. Radiologist Impression: XR/XR chest 2V IMPRESSION: No active cardiopulmonary disease. External Record Review External record reviewed: Inpatient record, Office record and Outpatient record Discharge Plan Discharge Clinical Impression: Asthma exacerbation Patient Disposition: Home, Self-Care Instructions: Fluticasone (By breathing), Asthma (DC) Additional Instructions: You were evaluated in the emergency department today for cough. Your chest x-ray did not show evidence of a pneumonia. Your cough is most likely due to a viral illness which caused a worsening of your asthma. The viral infection should improve on its own with rest and fluids. You are being prescribed an inhaled corticosteroid inhaler called Flovent. IT IS IMPORTANT THAT YOU RINSE YOUR MOUTH OUT AND SPIT AFTER EACH INHALER USE. Please schedule an appointment for follow-up with your primary care physician within 2 days. Return to the emergency department if you experience worsening cough, fever 100.4? F or greater, recurrent vomiting, chest pain, shortness of breath, or any other concerning symptoms. Prescriptions: New Flovent Diskus 100 mcg/actuation blister with device 2 inh inhalation BID Qty: 60 0RF No Action cholecalciferol (vitamin D3) 50 mcg (2,000 unit) capsule 50 mcg PO DAILY 90 Days Qty: 90 1RF prednisone 20 mg tablet 40 mg PO DAILY Qty: 10 0RF cefuroxime axetil 500 mg tablet 500 mg PO BID 7 Days Qty: 14 0RF albuterol sulfate [ProAir HFA] 90 mcg/actuation HFA aerosol inhaler 2 puff inhalation Q4-6H PRN (Reason: shortness of breath or wheezing) Qty: 8.5 0RF benzonatate 200 mg capsule 200 mg PO TID PRN (Reason: cough) Qty: 20 0RF albuterol sulfate 2.5 mg /3 mL (0.083 %) solution for nebulization 2.5 mg inhalation Q4-6H PRN (Reason: shortness of breath or wheezing) Qty: 90 0RF (DME) liz Owen See Rx Instructions .Route Qty: 1 0RF Rx Instructions: with seat and wheels tramadol 50 mg tablet 50 mg PO BID PRN (Reason: pain) 5 Days Qty: 10 0RF baclofen 10 mg tablet 10 mg PO BEDTIME 30 Days Qty: 30 1RF Myrbetriq 25 mg tablet extended release 24 hr 25 mg PO DAILY Qty: 90 3RF
[2023-06-22] MEDS: Albuterol Sulfate 2.5 MG, Albuterol/Iprat 2.5/0.5MG 3 ML 3 ML INHALE (13:41)
[2023-06-22 13:43] VITALS: PULSE 90; RESP 18; O2SAT 97
[2023-06-22 13:47] LABS: COVID-19 Test Negative (Negative); IDNOW Serial# BCCEAD1C
== END 2023-06-22 15:24 | disposition home or self-care (01) ==
PROVIDERS: Physician Assistant; Emergency Provider Emergency Medicine
DX: J45.901 Unspecified asthma with (acute) exacerbation (principal); Z20.822 Contact with and (suspected) exposure to COVID-19
CPT/HCPCS: 71046; 87635; 94640; 99283; 99284

== ENCOUNTER 2023-06-26 00:15 | Inpatient (IN) | payer OTHER, SELFPAY ==
[2023-06-26] VITALS (15 sets, daily range): BP systolic 95–156; BP diastolic 59–84; PULSE 71–91; RESP 16–20; TEMP 36–37.1; O2SAT 95–99; BMI 24.0
--- NOTE | ~2023-06-26 | XR_ITS ---
EXAMINATION: XR CHEST CLINICAL INFORMATION: Cough COMPARISON: 06/22/2023 TECHNIQUE: Frontal view of the chest was obtained. FINDINGS: The lungs are clear with no focal consolidation. No evidence of pneumothorax, pulmonary edema, or pleural effusions. The cardiomediastinal silhouette is unremarkable. No acute osseous findings. XR/XR chest 1V IMPRESSION: No acute cardiopulmonary findings.
--- NOTE | 2023-06-26 00:40 | ED_ITS ---
HPI - Asthma General Chief Complaint: Asthma Stated Complaint: asthma Time Seen by Provider: 06/26/23 00:37 Source: patient and cosmetics demonstrator Mode of arrival: ambulatory Limitations: no limitations History of Present Illness HPI Narrative: 43 yo female hx of asthma, anxiety has been seen in the ED x 2 this month has been on cefuroxime, prednisone 5 day burst 06/20 and started on flovent 06/22 - she completed abx and steroids she feels nothing has helped. Has inhalers at home - comes in tonight with c/o she is not improving she is coughing and wheezing. She has rib pain from coughing. She feels she cannot breathe and continues to wheeze despite taking all the medications and using the nebulizer she has at home every 4 hours. She has no fevers but reports chills. This all started after smelling something strong at [employer] where she works and since then she cannot get better. 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 Patient is still a smoker MD complaint: asthma attack , shortness of breath and wheezing Onset (ago): day(s) () Context: allergen exposure Associated symptoms: dry cough and chest pain Asthma History: childhood onset Treatments Prior to Arrival: inhaled bronchodilator and other (abx, steroids) Related Data Previous Rx's Medication Instructions Recorded cholecalciferol (vitamin D3) 50 50 mcg PO DAILY 90 days #90 caps 12/31/22 mcg (2,000 unit) capsule tramadol 50 mg tablet 50 mg PO BID PRN pain 5 days #10 01/20/23 tabs walker #1 ea 01/20/23 baclofen 10 mg tablet 10 mg PO BEDTIME 30 days #30 tabs 03/18/23 mirabegron 25 mg tablet,extended 25 mg PO DAILY #90 tabs 04/22/23 release 24 hr (Myrbetriq) albuterol sulfate 2.5 mg/3 mL 2.5 mg (3 mL) inhalation Q4-6H PRN 06/20/23 (0.083 %) solution for nebulization shortness of breath or wheezing #90 mL albuterol sulfate 90 mcg/actuation 2 puff inhalation Q4-6H PRN 06/20/23 aerosol inhaler (ProAir HFA) shortness of breath or wheezing #8.5 grams benzonatate 200 mg capsule 200 mg PO TID PRN cough #20 caps 06/20/23 cefuroxime axetil 500 mg tablet 500 mg PO BID 7 days #14 tabs 06/20/23 prednisone 20 mg tablet 40 mg PO DAILY #10 tabs 06/20/23 fluticasone propionate 100 2 inh inhalation BID #60 ea 06/22/23 mcg/actuation blister powder for inhalation (Flovent Diskus) Allergies Allergy/AdvReac Type Severity Reaction Status Date / Time No Known Allergies Allergy Verified 06/26/23 00:23 [No Known Allergies*] Review of Systems Review of Systems: Constitutional : No Fever, pos Chills ENT/Mouth : No Hoarseness, No sore throat, No Rhinorrhea Eyes: No Redness, No Discharge, No Vision Changes Cardiovascular : pos Chest Pain, positive SOB, positive Dyspnea on Exertion, No Edema Respiratory : positive Cough, No Sputum, positive Wheezing, Gastrointestinal : No Nausea, No Vomiting, No Diarrhea, No abdominal Pain Genitourinary : No Dysuria, No Hematuria Musculoskeletal : No joint pain, No Myalgias Skin : No rash Neuro : No Weakness, No Numbness, No Headache Psych : No anxiety, depression Heme/Lymph: No Bruising, No Bleeding Endocrine : No Polyuria, No Polydipsia All other systems reviewed and are negative [facility] Past Medical History Attestation statement: The following information was validated with the patient. Medical History Asthma LEISA (generalized anxiety disorder) Surgical History S/P total abdominal hysterectomy Family History Family History Mother No problems noted. Father No problems noted. Family/Other Substance use disorder Mental health disorder Social History Social History Housing: Apartment Alcohol intake: never Patient Tobacco Use Status: Current someday Tobacco user Tobacco use type: Cigarette Cigarettes Per Day: 1 Smoked in Last 30 Days: Yes e-Cigarette/Vaping Use: Never Used Second Hand Smoke Exposure: No Use of substances other than those prescribed or required for medical reasons: No Advance Directives: No Advance Directives Information Provided: Yes Patient : No service: No Current occupational status: employed Current occupational exposures/hazards: No Cognitive needs: No Hearing needs: No Vision needs: No Physical Exam Vital Signs: Vital Signs: Last Vital Signs Temp 98.4 F 06/26/23 00:39 Pulse 89 06/26/23 01:05 Resp 20 06/26/23 00:39 BP 156/84 H 06/26/23 00:39 Pulse Ox 97 06/26/23 00:39 O2 Del Method Room Air 06/26/23 00:39 BMI result Body Mass Index 24.0 Appearance: Alert. Oriented X3. No acute distress. Eyes: Pupils equal, round and reactive to light. ENT: Pharynx normal. Neck: Normal inspection. Neck supple. CVS: Normal heart rate and rhythm. Pulses normal. Respiratory: No respiratory distress. Breath sounds coarse and very diminished throughout with wheezes insp and exp she is splinting on the right side Abdomen: Soft and nontender. Skin: Skin warm and dry. Normal skin color. Normal skin turgor. Extremities: No lower extremity edema. No calf ttp Neuro: Oriented X 3. No motor deficit. No sensory deficit. Course Course Course Narrative: still tight will admit given 3rd visit likely bronchitis - empiric ceftriaxone and azithromycin Medications Administered Generic Name Dose Route Start Last Admin Trade Name Freq PRN Reason Stop Dose Admin Magnesium Sulfate 2 gm in 50 mls @ 25 mls/hr 06/26/23 00:48 06/26/23 01:08 Magnesium Sulfate/H2o IV 06/26/23 02:47 25 mls/hr ONCE ONE Administration Ceftriaxone Sodium 1 gm/ 50 mls @ 100 mls/hr 06/26/23 02:02 06/26/23 02:09 Sodium Chloride IV 06/26/23 02:31 100 mls/hr ONCE ONE Administration Discontinued Medications Generic Name Dose Route Start Last Admin Trade Name Freq PRN Reason Stop Dose Admin Albuterol Sulfate 10 mg 06/26/23 00:48 06/26/23 01:04 Albuterol Sulfate 2.5 Mg/0.5 Ml Vial.Neb INHALE 06/26/23 00:49 10 mg ONCE ONE Administration Sodium Chloride 1,000 mls @ 999 mls/hr 06/26/23 01:00 06/26/23 02:10 Ns IVCONT 06/26/23 02:00 Infused .Q1H1M ROSARIO Infusion Ketorolac Tromethamine 15 mg 06/26/23 00:48 06/26/23 01:07 Ketorolac Tromethamine 15 Mg/Ml Vial IVPUSH 06/26/23 00:49 15 mg ONCE ONE Administration Methylprednisolone Sodium Succinate 60 mg 06/26/23 00:48 06/26/23 01:07 Methylprednisolone Sod Succ 125 Mg/2 Ml Vial IVPUSH 06/26/23 00:49 60 mg ONCE ONE Administration Medical Decision Making Medical Decision Making [facility] Narrative: 43 yo female with hx of asthma who smokes comes in with c/o 8 days of asthma with cough and chills no improvement with ceftin and prednisone burst - at this time she is very tight and wheezy I am going to give hour long neb and IV steroids/IV magnesium will obtain labs and CXR. Possible admission if she is not improved given recent failed procedure. She will need COVID swab as well. Pain in ribs is associated with cough doubt VTE. Differential Diagnosis Differential Diagnoses: The differential diagnosis associated with the presentation includes asthma, bronchitis, effusion, pneumonia Admission/Observation Consideration of admission/observation: Escalation of care including admission/observation considered 3rd visit plan to admit Consult Healthcare Provider Management of the patient was discussed with: Hospitalist (agrees to admit) Lab Data [facility] Lab Attestation statement: I reviewed the patient's lab results. 06/26/23 01:01 06/26/23 01:01 Labs: Lab Results 06/26/23 06/26/23 06/26/23 Range/Units 01:01 01:01 01:01 WBC 13.4 H (4.8-10.8) X10*3/uL RBC 4.01 L (4.20-5.50) X10*6/uL Hgb 12.4 (12.0-16.0) g/dl Hct 37.2 (37.0-47.0) % MCV 92.8 (80.0-98.0) fL MCH 30.9 (27.0-33.0) pg MCHC 33.3 (31.0-35.0) g/dl RDW 13.2 (11.0-16.0) % Plt Count 273 D (160-400) X10*3/uL MPV 9.5 (9.4-12.3) fL Immature Gran % (Auto) 2.4 H (0.0-0.4) % Neut % (Auto) 46.5 (45-73) % Lymph % (Auto) 41.1 H (20-40) % [place] % (Auto) 7.4 (2-11) % Eos % (Auto) 1.9 (0-4) % Baso % (Auto) 0.7 (0-2) % Lymph # (Auto) 5.5 H (1.2-4.9) X10*3/uL [place] # (Auto) 1.0 (0.1-1.2) X10*3/uL Eos # (Auto) 0.3 (0.0-0.4) X10*3/uL Baso # (Auto) 0.1 (0.0-0.2) X10*3/uL Abs Immat Gran (auto) 0.32 H (0.00-0.03) X10*3/uL Absolute Neuts (auto) 6.3 (2.0-8.3) x10*3/uL Absolute Nucleated RBC 0.000 (0.0-0.012) X10*3/uL Nucleated RBC % (auto) 0.0 (0.0-0.2) /100WBC Smear Tech's Comments VERIFIED Sodium 140 (135-145) mmol/L Potassium 3.8 (3.3-5.1) mmol/L Chloride 104 (96-108) mmol/L Carbon Dioxide 27 (22-29) mmol/L Anion Gap 13 (12-20) BUN 16 (9-16) mg/dL Creatinine 0.74 (0.5-1.4) mg/dL Estim Creat Clear Calc 83.7 Estimated GFR > 60 Random Glucose 101 (60-115) mg/dL Lactic Acid 1.2 (0.5-2.0) mmol/L Calcium 9.4 (8.4-10.2) mg/dL Magnesium 2.0 (1.6-2.6) mg/dL Total Bilirubin 0.3 (0.0-1.0) mg/dL Direct Bilirubin 0.1 (0.0-0.5) mg/dL AST 19 (5-31) U/L ALT 28 (0-31) U/L Alkaline Phosphatase 69 (39-117) U/L Total Protein 6.5 (6.5-8.0) g/dL Albumin 3.9 (3.5-5.0) g/dL Lipase 16 (8-78) U/L COVID-19 ([facility]) (Negative) COVID-19 Clin Com 06/26/23 Range/Units 01:01 WBC (4.8-10.8) X10*3/uL RBC (4.20-5.50) X10*6/uL Hgb (12.0-16.0) g/dl Hct (37.0-47.0) % MCV (80.0-98.0) fL MCH (27.0-33.0) pg MCHC (31.0-35.0) g/dl RDW (11.0-16.0) % Plt Count (160-400) X10*3/uL MPV (9.4-12.3) fL Immature Gran % (Auto) (0.0-0.4) % Neut % (Auto) (45-73) % Lymph % (Auto) (20-40) % [place] % (Auto) (2-11) % Eos % (Auto) (0-4) % Baso % (Auto) (0-2) % Lymph # (Auto) (1.2-4.9) X10*3/uL [place] # (Auto) (0.1-1.2) X10*3/uL Eos # (Auto) (0.0-0.4) X10*3/uL Baso # (Auto) (0.0-0.2) X10*3/uL Abs Immat Gran (auto) (0.00-0.03) X10*3/uL Absolute Neuts (auto) (2.0-8.3) x10*3/uL Absolute Nucleated RBC (0.0-0.012) X10*3/uL Nucleated RBC % (auto) (0.0-0.2) /100WBC Smear Tech's Comments Sodium (135-145) mmol/L Potassium (3.3-5.1) mmol/L Chloride (96-108) mmol/L Carbon Dioxide (22-29) mmol/L Anion Gap (12-20) BUN (9-16) mg/dL Creatinine (0.5-1.4) mg/dL Estim Creat Clear Calc Estimated GFR Random Glucose (60-115) mg/dL Lactic Acid (0.5-2.0) mmol/L Calcium (8.4-10.2) mg/dL Magnesium (1.6-2.6) mg/dL Total Bilirubin (0.0-1.0) mg/dL Direct Bilirubin (0.0-0.5) mg/dL AST (5-31) U/L ALT (0-31) U/L Alkaline Phosphatase (39-117) U/L Total Protein (6.5-8.0) g/dL Albumin (3.5-5.0) g/dL Lipase (8-78) U/L COVID-19 ([facility]) Negative (Negative) COVID-19 Clin Com See Note Independent Interpretation I performed an independent interpretation of an: Plain X-Ray Radiology Impression Discussion of test interpretation with radiology: I have reviewed the radiologist's reading. External Record Review External record reviewed: Inpatient record Critical Care Time Critical Care Time Critical Care Time: Yes Total Critical Care Time: 35 Attestation: hour long neb, IV steroids, IV magnesium, admission. I attest to this time spent taking care of the patient Discharge Plan Discharge Clinical Impression: Asthma with acute exacerbation, Bronchitis Patient Disposition: Admitted As Inpatient
[2023-06-26] MEDS: Albuterol Sulfate 2.5 MG/0.5 ML VIAL.NEB 10 MG INHALE (01:04)
[2023-06-26] MEDS: methylPREDNISolone Sod Succ 125 MG/2 ML VIAL 60 MG IVPUSH (01:07)
[2023-06-26] MEDS: Ketorolac Tromethamine 15 MG/ML VIAL IVPUSH ×2 (01:07→14:47)
[2023-06-26 01:08] LABS: Basophils Absolute Auto 0.1 X10*3/uL (0.0-0.2); Basophils Percent Auto 0.7 % (0-2); Eosinophils Absolute Auto 0.3 X10*3/uL (0.0-0.4); Eosinophils Percent Auto 1.9 % (0-4); Hematocrit 37.2 % (37.0-47.0); Hemoglobin 12.4 g/dl (12.0-16.0); Imm Gran Abs Auto 0.32 X10*3/uL (0.00-0.03); Imm Gran Pct Auto 2.4 % (0.0-0.4); Lymphocytes Absolute Auto 5.5 X10*3/uL (1.2-4.9); Lymphocytes Percent Auto 41.1 % (20-40); MANUAL DIFF FLAG SCAN; Mean Corpuscular HGB Conc 33.3 g/dl (31.0-35.0); Mean Corpuscular Hemoglobin 30.9 pg (27.0-33.0); Mean Corpuscular Volume 92.8 fL (80.0-98.0); Mean Platelet Volume 9.5 fL (9.4-12.3); Monocytes Percent Auto 7.4 % (2-11); Neutrophils Absolute Auto 6.3 x10*3/uL (2.0-8.3); Neutrophils Percent Auto 46.5 % (45-73); Platelet Count 273 X10*3/uL (160-400); Red Blood Count 4.01 X10*6/uL (4.20-5.50); Red Cell Distribution Width 13.2 % (11.0-16.0); SCAN SMEAR FLAG 1; White Blood Count 13.4 X10*3/uL (4.8-10.8)
[2023-06-26] MEDS: Magnesium Sulfate/H2O 2 GM/50 ML PIGGYBACK IV (01:08)
[2023-06-26] MEDS: 0.9 % Sodium Chloride 1,000 ML 999 ML IVCONT (01:08)
[2023-06-26 01:17] LABS: Lactic Acid 1.2 mmol/L (0.5-2.0)
[2023-06-26 01:23] LABS: Alanine Aminotransferase 28 U/L (0-31); Albumin Level 3.9 g/dL (3.5-5.0); Alkaline Phosphatase 69 U/L (39-117); Anion Gap 13 (12-20); Aspartate Amino Transferase 19 U/L (5-31); Bilirubin Direct 0.1 mg/dL (0.0-0.5); Bilirubin Total 0.3 mg/dL (0.0-1.0); Blood Urea Nitrogen 16 mg/dL (9-16); Calcium 9.4 mg/dL (8.4-10.2); Carbon Dioxide 27 mmol/L (22-29); Chloride 104 mmol/L (96-108); Creatinine Clr Calc Pharmacy 83.7; Estimated Glomerular Filt Rate > 60; Glucose Random 101 mg/dL (60-115); Lipase 16 U/L (8-78); Potassium 3.8 mmol/L (3.3-5.1); Sodium 140 mmol/L (135-145); Total Protein 6.5 g/dL (6.5-8.0)
[2023-06-26 01:27] LABS: COVID-19 Test Negative (Negative); IDNOW Serial# 6674DD1D
--- NOTE | 2023-06-26 01:28 | PC.NURSE ---
Patient is afebrile, VSS. O2 Sat 97% RA.Patient reports chest tightness, wheezing, non-productive cough, and RUQ/ribcage pain 10/10. ED provider, bilingual interpreter, and respiratory therapist at bedside. Patient receiving nebulizer treatment, labs drawn per MD order, IV line established in R AC.
[2023-06-26 01:29] LABS: SLIDE REVIEW VERIFIED
[2023-06-26] MEDS: cefTRIAXone sodium 1 GM in 0.9 % Sodium Chloride 50 ML IV (02:09)
[2023-06-26] MEDS: Enoxaparin Sodium 40 MG/0.4 ML SYRINGE SUBCUT (02:51)
[2023-06-26] MEDS: Azithromycin 500 MG in 0.9 % Sodium Chloride 250 ML 125 MG IV (02:51)
[2023-06-26] MEDS: methylPREDNISolone Sod Succ 40 MG/ML VIAL IVPUSH ×2 (02:51→14:24)
--- NOTE | 2023-06-26 02:52 | MHC.EDTECH ---
PATIENT VITALS SIGN TAKEN AND BELONINGS LIST DONE ,PT HAD A FEW SALTINES CRACKERS FOR SNACK AND SOME WATER .
--- NOTE | 2023-06-26 04:27 | PC.NURSE ---
Nurse to nurse report given to [place] medical office representative. Patent to be taken to med urg 359 by operating room surgical technician, belongings list and med rec completed.
--- NOTE | 2023-06-26 06:16 | PM.IMHP ---
History of Present Illness Date of Service: 06/26/23 Chief Complaint: Wheezing, cough, fatigue This is a 43-year-old Sierra Leonean-speaking only with the history being obtained with the help of an volunteer services manager comes into the hospital with complaints of fatigue, chest pain, cough, wheezing, and dyspnea. Patient reports that her symptoms started Wednesday, patient was seen and evaluated in the ED x2, was given breathing treatments, duonebs but returns stating that her symptoms have not resolved. She describes the chest pain as pleuritic, intermittent, occurs only with coughing, deep inspiration. Reports no radiation. 05/10 when it occurs. Denies any orthopnea, no PND, no lower extremity edema. No abdominal pain nausea vomiting, no diarrhea constipation, no urinary symptoms and no lower extremity edema Reports that she was diagnosed with asthma back in [place], has not had a flare in 5 years. On arrival to the ED patient hemodynamically stable, no hypoxia Labs are significant for WBC count of 13.4, labs otherwise unremarkable Chest x-ray negative Given failed outpatient therapy patient will be admitted for further management Review of Systems Review of Systems: Yes all other systems are reviewed and are negative [facility] Medical History Asthma LEISA (generalized anxiety disorder) Family History Mother No problems noted. Father No problems noted. Family/Other Substance use disorder Mental health disorder Surgical History S/P total abdominal hysterectomy Social History Household Members: Spouse Housing: Apartment Do you presently have visiting nurse or other home services: No Alcohol intake: never Patient Tobacco Use Status: Current everyday Tobacco user Tobacco use type: Cigarette Cigarette Packs Per Day: 1 Cigarettes Per Day: 20.0 Smoked in Last 30 Days: Yes e-Cigarette/Vaping Use: Never Used Patient Interested in Nicotine Replacement: No Second Hand Smoke Exposure: No Use of substances other than those prescribed or required for medical reasons: No Have you been hit, kicked, punched, or otherwise hurt by someone within the past year? If so, by whom?: No Do you feel safe in your current relationship?: Yes Is there a partner from a previous relationship who is making you feel unsafe now?: No Are you made to feel afraid or neglected: No Advance Directives: No Advance Directives Information Provided: Yes Do you have thoughts of harming others: None Do you have a plan to hurt others: No Plan Eating poorly because of decreased appetite: No Nutrition Risks: No Nutritional Risk Patient : No : No Poor oral hygiene: No service: No Current occupational status: employed Current occupational exposures/hazards: No Cognitive needs: No Hearing needs: No Vision needs: No Meds Allergies Allergy/AdvReac Type Severity Reaction Status Date / Time No Known Allergies Allergy Verified 06/26/23 00:23 [No Known Allergies*] Active Medications: Current Medications Acetaminophen (Acetaminophen 325 Mg Tablet) 650 mg PO Q6H PRN PRN Reason: Pain, Mild (Pain Scale 1-3) Albuterol/Ipratropium (Albuterol/Iprat 2.5/0.5mg 3 Ml Ampul.Neb) 3 ml INHALE RQ4H PRN PRN Reason: Shortness of Breath/Wheezing Albuterol/Ipratropium (Albuterol/Iprat 2.5/0.5mg 3 Ml Ampul.Neb) 3 ml INHALE RQ4H WHILE AWAKE [facility] Docusate Sodium (Docusate Sodium 100 Mg Capsule) 100 mg PO DAILY PRN PRN Reason: Constipation Enoxaparin Sodium (Enoxaparin Sodium 40 Mg/0.4 Ml Syringe) 40 mg SUBCUT Q24H [facility] Last Admin: 06/26/23 02:51 Dose: 40 mg Methylprednisolone Sodium Succinate (Methylprednisolone Sod Succ 40 Mg/Ml Vial) 40 mg IVPUSH Q12H [facility] Last Admin: 06/26/23 02:51 Dose: 40 mg Ondansetron HCl (Ondansetron Hcl 4 Mg/2 Ml Vial) 4 mg IVPUSH Q8H PRN PRN Reason: Nausea and Vomiting Sodium Chloride (0.9 % Sodium Chloride Flush 3 Ml Syringe) 3 ml IVFLUSH QSHIFT [facility] Home Medications Medication Instructions Recorded Confirmed Last Taken Type albuterol sulfate 2.5 mg/3 mL 2.5 mg inhalation Q4-6H PRN 06/26/23 06/26/23 Unknown History (0.083 %) solution for nebulization wheezing, SOB albuterol sulfate 90 mcg/actuation 2 puff inhalation Q4-6H PRN 06/26/23 06/26/23 Unknown History aerosol inhaler (Ventolin HFA) Shortness Of Breath Or Wheezing benzonatate 200 mg capsule 200 mg PO TID Cough 06/26/23 06/26/23 Unknown History fluticasone propionate 100 2 inh inhalation BID 06/26/23 06/26/23 Unknown History mcg/actuation blister powder for inhalation (Flovent Diskus) Physical Exam Vital Signs and Narrative: Vital Signs: Last Vital Signs Temp 96.8 F 06/26/23 04:51 Pulse 81 06/26/23 04:51 Resp 16 06/26/23 04:51 BP 107/66 06/26/23 04:51 Pulse Ox 95 06/26/23 04:51 O2 Del Method Room Air 06/26/23 04:51 BMI result Body Mass Index 24.0 Const: General: cooperative and no acute distress Orientation/consciousness: patient oriented x3 Eyes: General: appearance normal, both eyes and all related structures Resp: Other: Expiratory wheezing Effort & Inspection: normal respiratory effort Cardio: Rate: regular rate Rhythm: regular rhythm GI: Palpation (GI): Soft to palpation Auscultation: normal bowel sounds Skin: General skin exam: no rashes or lesions noted Neuro: General: patient oriented x3 Cognition (Neuro): normal cognition Extrem: General: Yes normal to inspection and Yes no pedal edema Results Labs 06/26/23 01:01 06/26/23 01:01 Labs: Laboratory Results - last 24 hr 06/26/23 06/26/23 06/26/23 01:01 01:01 01:01 MCV 92.8 MCH 30.9 MCHC 33.3 RDW 13.2 Plt Count 273 D MPV 9.5 Immature Gran % (Auto) 2.4 H Neut % (Auto) 46.5 Lymph % (Auto) 41.1 H Schuyler % (Auto) 7.4 Eos % (Auto) 1.9 Baso % (Auto) 0.7 Lymph # (Auto) 5.5 H Schuyler # (Auto) 1.0 Eos # (Auto) 0.3 Baso # (Auto) 0.1 Abs Immat Gran (auto) 0.32 H Absolute Neuts (auto) 6.3 Absolute Nucleated RBC 0.000 Nucleated RBC % (auto) 0.0 Smear Tech's Comments VERIFIED Anion Gap 13 Estim Creat Clear Calc 83.7 Estimated GFR > 60 Random Glucose 101 Lactic Acid 1.2 Calcium 9.4 Magnesium 2.0 Total Bilirubin 0.3 Direct Bilirubin 0.1 AST 19 ALT 28 Alkaline Phosphatase 69 Total Protein 6.5 Albumin 3.9 Lipase 16 COVID-19 ([facility]J) COVID-19 Clin Com 06/26/23 01:01 MCV MCH MCHC RDW Plt Count MPV Immature Gran % (Auto) Neut % (Auto) Lymph % (Auto) Schuyler % (Auto) Eos % (Auto) Baso % (Auto) Lymph # (Auto) Schuyler # (Auto) Eos # (Auto) Baso # (Auto) Abs Immat Gran (auto) Absolute Neuts (auto) Absolute Nucleated RBC Nucleated RBC % (auto) Smear Tech's Comments Anion Gap Estim Creat Clear Calc Estimated GFR Random Glucose Lactic Acid Calcium Magnesium Total Bilirubin Direct Bilirubin AST ALT Alkaline Phosphatase Total Protein Albumin Lipase COVID-19 (RAJ) Negative COVID-19 Clin Com See Note Imaging Radiologist's Impressions: Impressions Chest X-Ray 06/26/23 01:41 IMPRESSION: No acute cardiopulmonary findings. Assessment and Plan (1) Asthma with acute exacerbation: Status: Acute (2) Bronchitis: Status: Acute (3) Pleuritic chest pain: Status: Acute Plan 43-year-old female with reported history of asthma comes into the hospital with fatigue, cough, sputum production, wheezing # acute asthma exacerbation/bronchitis - will treat with DuoNebs, Solu-Medrol - failed outpatient therapy # chest pain - likely musculoskeletal - chest x-ray negative - given Given pleurisy will obtain D-dimer although PE less likely - NSAIDs p.r.n. DVT prophylaxis: Lovenox Given patient's failed outpatient therapy for asthma exacerbation and needing IV steroids patient will require minimum 2 nights inpatient hospital stay for further management and monitoring Time Spent With Patient Time: Total time managing care of this patient today ____ minutes. Quality Stroke Does the patient have a stroke diagnosis?: No VTE Prior VTE?: No VTE Risk Level:: Medical - moderate - high VTE Device Contraindication: Treatment Not Indicated VTE Drug Contraindication: N/A - Med Ordered
--- NOTE | 2023-06-26 07:23 | PHA.MEDREC ---
Pharmacy Consult ? Medication Reconciliation Pharmacy has completed the medication reconciliation. Reviewed med rec done by nursing (Willow).
[2023-06-26 07:59] LABS: D Dimer High Sensitivity < 150 NG/ML
[2023-06-26] MEDS: Albuterol/Iprat 2.5/0.5MG 3 ML AMPUL.NEB INHALE ×4 (08:30→19:37)
[2023-06-26] MEDS: Benzonatate 100 MG CAPSULE 200 MG PO ×3 (09:30→20:17)
[2023-06-26] MEDS: 0.9 % Sodium Chloride Flush 3 ML SYRINGE IVFLUSH ×2 (09:30→15:32)
[2023-06-26] MEDS: Acetaminophen 325 MG TABLET 650 MG PO (09:35)
--- NOTE | 2023-06-26 11:23 | MHC.CM.PN ---
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 [employer] PROVIDED PT ALSO REPORTS SHE FEELS SHE NEEDS A NEBULIZER, SHE SAYS SHE BORROWED ONE FROM A FRIEND AND WAS USING IT Q 4 HOURS AT HOME. SHE SAYS THIS DID MAKE HER SYMPTOMS IMPROVE. SHE IS AWARE SHE WOULD NEED TO QUALIFY FOR A NEBULIZER AND THIS WOULD BE ASSESSED BY RT. DCP: HOME NO SERVICES VIA PRIVATE TRANSPORT
--- NOTE | 2023-06-26 12:49 | PM.EVENT ---
Event Note Date of Service: 06/26/23 Event Note: seen and examined this morning follow up for shortness of breath. multiple visits to ED over past week no history of underlying lung disease reports intermittent sob. right side pain with cough no hypoxia appears comfortable, awake alert, no respiratory distress. lungs clear, intermittent cough with deep inspiration tobacco dependence smoking cessation advised continue management per admission H&P Time Spent With Patient Time: Total time managing care of this patient today ____ minutes.
[2023-06-27 03:12] VITALS: BP 109/61; PULSE 88; RESP 16; TEMP 36.4; O2SAT 97
[2023-06-27] MEDS: Enoxaparin Sodium 40 MG/0.4 ML SYRINGE SUBCUT (03:13)
[2023-06-27] MEDS: 0.9 % Sodium Chloride Flush 3 ML SYRINGE IVFLUSH ×2 (03:13→08:53)
[2023-06-27] MEDS: methylPREDNISolone Sod Succ 40 MG/ML VIAL IVPUSH (03:13)
[2023-06-27 07:13] VITALS: BP 119/59; PULSE 79; RESP 16; TEMP 36.1; O2SAT 96
[2023-06-27 07:46] VITALS: PULSE 85; RESP 16; O2SAT 96
[2023-06-27] MEDS: Albuterol/Iprat 2.5/0.5MG 3 ML AMPUL.NEB INHALE (07:46)
[2023-06-27] MEDS: Acetaminophen 325 MG TABLET 650 MG PO (08:30)
[2023-06-27] MEDS: Benzonatate 100 MG CAPSULE 200 MG PO ×2 (08:30→12:07)
--- NOTE | 2023-06-27 09:48 | PM.DS ---
DS: Providers Provider Date of Service: 06/27/23 Date of admission: 06/26/23 02:17 Date of discharge: 06/27/23 Primary care physician: Dayday Tobar MD Attending physician on discharge: Lizy Lindo Discharging clinician: Lizy Lindo DS: Diagnosis Discharge Diagnosis (1) Asthma with acute exacerbation: Status: Acute (2) Pleuritic chest pain: Status: Acute DS: Summary Hospital Course Hospital Course: From H&P on day of admission This is a 43-year-old Mohawk-speaking only with the history being obtained with the help of an construction director comes into the hospital with complaints of fatigue, chest pain, cough, wheezing, and dyspnea.? Patient reports that her symptoms started Wednesday, patient was seen and evaluated in the ED x2, was given breathing treatments, duonebs but returns stating that her symptoms have not resolved.? She describes the chest pain as pleuritic, intermittent, occurs only with coughing, deep inspiration.? Reports no radiation.? 05/10 when it occurs.? Denies any orthopnea, no PND, no lower extremity edema.? No abdominal pain nausea vomiting, no diarrhea constipation, no urinary symptoms and no lower extremity edema Reports that she was diagnosed with asthma back in [place], has not had a flare in 5 years. On arrival to the ED patient hemodynamically stable, no hypoxia Labs are significant for WBC count of 13.4, labs otherwise unremarkable Chest x-ray negative Given failed outpatient therapy patient will be admitted for further management Patient has had multiple visits in the emergency department in the past week for complaints of shortness of breath. For this reason she was admitted to the medical-surgical floor for further evaluation. She was treated for reactive airway disease. Patient has remained at afebrile, leukocytosis likely secondary to steroids. Multiple Chest x-rays has remained negative. she was started on DuoNeb breathing treatments as well as IV Solu-Medrol. She had no wheezing or any episodes of shortness of breath during her hospitalization. She continues to smoke daily, the importance of smoking cessation was discussed. She had no episodes of hypoxia and is eager to return home. She has a follow-up appointment scheduled with her PCP at the beginning of July. She may need outpatient pulmonary function test. She is encouraged to complete course of steroids and continue as needed albuterol inhaler. Time Spent with Patient Time attestation: Total time managing care of this patient today ____ minutes. Discharge coordination time: Greater than 30 minutes Quality: Safe Use of Opioids Does Pt have an Active Cancer Diagnosis on the Problem List?: No Quality: Stroke Does the patient have a stroke diagnosis?: No Physical Exam Vital Signs: Vital Signs: Last Vital Signs Temp 97 F 06/27/23 07:13 Pulse 85 06/27/23 07:46 Resp 16 06/27/23 07:46 BP 119/59 L 06/27/23 07:13 Pulse Ox 96 06/27/23 07:13 O2 Del Method Room Air 06/27/23 07:13 BMI result Body Mass Index 24.0 Const: General: cooperative, healthy appearing, comfortable, no acute distress, alert and awake Orientation/consciousness: patient oriented x3 Eyes: General: appearance normal, both eyes and all related structures Resp: Effort & Inspection: normal respiratory effort, no respiratory distress and no use of accessory muscles Auscultation: clear to auscultation bilaterally and no wheezes Cardio: Rate: regular rate Rhythm: regular rhythm GI: Palpation (GI): Soft to palpation and nontender Auscultation: normal bowel sounds Skin: General skin exam: no rashes or lesions noted Neuro: General: patient oriented x3 Cognition (Neuro): normal cognition Extrem: General: Yes normal to inspection and Yes no pedal edema DS: Data Data Completed and Pending Labs on day of discharge: Preliminary micro results at discharge 06/26/23 01:14 Blood Culture - Preliminary Blood - Venous No growth after 24 hours. 06/26/23 01:14 Blood Culture - Preliminary Blood - Venous No growth after 24 hours. Discharge Plan Discharge Anticipated Discharge Date/Time: 06/27/23 09:43 Patient Disposition: Home, Self-Care Discharge Diagnosis: shortness of breath/reactive airways Referrals: Dayday Tobar MD [Primary Care Provider] - 1 Week Discharge Medications: New prednisone 20 mg tablet 40 mg PO DAILY 5 Days Qty: 10 0RF Continued albuterol sulfate 2.5 mg /3 mL (0.083 %) solution for nebulization 2.5 mg inhalation Q6H PRN (Reason: wheezing, SOB) benzonatate 200 mg capsule 200 mg PO TID PRN (Reason: Cough) Flovent Diskus 100 mcg/actuation blister with device 2 inh inhalation BID albuterol sulfate [Ventolin HFA] 90 mcg/actuation HFA aerosol inhaler 2 puff inhalation Q6H PRN (Reason: Shortness Of Breath Or Wheezing) No Action (DME) liz Misc See Rx Instructions .Route Qty: 1 0RF Rx Instructions: with seat and wheels Discharge Orders: Discharge Order (Routine); Ordered 06/27/23 Ordered By: Astrid Tompkins Activity on Discharge: As tolerated Stand Alone Forms: Patient Portal Discharge page Care Plan Goals: see below Health Concerns: shortness of breath Plan of Treatment: complete course of steroids, use albuterol as needed for sob can continue flovent until follow up with PCP keep scheduled follow up appointment with PCP - may need pulmonary function tests recommend to stop smoking Assessment: see discharge summary
--- NOTE | 2023-06-27 10:03 | MHC.CM.PN ---
PT WILL DC HOME TODAY WITH NO SERVICES PT CAN ARRANGE TRANSPORT
== END 2023-06-27 12:17 | disposition home or self-care (01) | DRG 141 ==
LOC: HO.ED 02:04 → HO.EDOVER 02:21 → HO.S3 04:03
PROVIDERS: Admitting Provider Internal Medicine; Emergency Provider Emergency Medicine; PCP Internal Medicine; Visit Provider Physician Assistant Medical
DX: J45.901 Unspecified asthma with (acute) exacerbation (principal); F17.210 Nicotine dependence, cigarettes, uncomplicated; F41.1 Generalized anxiety disorder; Z71.6 Tobacco abuse counseling; Z20.822 Contact with and (suspected) exposure to COVID-19; Z79.899 Other long term (current) drug therapy
CPT/HCPCS: 36415; 71045; 80048; 80076; 83605; 83690; 83735; 85025; 85379; 87040; 87635; 94640; 99221; 99285; J0456; J0696; J1650; J1885; J2920; J2930; J3475

== ENCOUNTER → 2023-06-26 02:17 | Outpatient (BNV) | payer OTHER, SELFPAY | PROVIDERS: Admitting Provider Internal Medicine; Emergency Provider Emergency Medicine; PCP Internal Medicine; Visit Provider Internal Medicine | DX: J45.901 Unspecified asthma with (acute) exacerbation (principal); R07.81 Pleurodynia | CPT/HCPCS: 99223; 99239; 99499 ==

== ENCOUNTER 2023-07-02 08:52 | Outpatient (AMB) | payer OTHER, SELFPAY ==
--- NOTE | 2023-07-02 09:10 | MHC.OFFVIS ---
Intake Vital Signs 07/02/23 09:12 Height 5 ft 4 in Weight 150 lb 2 oz BMI 25.8 BP 104/76 Blood Pressure Location Rt brachial Position Sitting Pulse 86 Pulse Source Pulse Oximeter Pulse Oximetry (%) 98 Oxygen Delivery Method Room Air Intake Visit Reasons: 3m follow up Polyneuropathy - Confirmed Intake Note: Patient presents for 3 month follow up. Patient states I'm confused on what I have and what I'm here for. Allergies No Known Allergies [No Known Allergies*] Allergy (Verified 07/02/23 09:14) Medication List - Last Reconciled 07/02/23 by MOLLY Chiang albuterol sulfate 90 mcg/actuation (Ventolin HFA) 2 puffs inhalation Q6H PRN albuterol sulfate 2.5 mg (3 mL) inhalation Q6H PRN benzonatate 200 mg PO TID PRN 7 days fluticasone propionate 100 mcg/actuation (Flovent Diskus) 2 inhalations inhalation BID prednisone 40 mg (2 x 20 mg) PO DAILY 5 days walker with seat and wheels HPI HPI Comments History of Present Illness Details 43-yr-old female presents for f/u visit. Pt recently discharged from [facility] for tx of asthma w/ acute exacerbation. She is currently on prednisone, which she states bothers her stomach and makes her heart race. The prednisone does not seem to help her other symptoms. She continues to have up to 3 migraine days per week. Migraine is a/w photophobia, N/V She is having photophobia and on and off blurry vision. Head/neck CTA were normal. Recently had eye exam at [facility]- per note- dx includes pigmented retinal dystrophy, nuclear sclerosis ou w/ relatively good vision, dry eye syndrome ou. Dr Ortega also raised ? of RA dx. Pt continues to have low back pain. L-spine XR showed Mild spondylosis L4-L5. States she did not tolerate her previous trigger point injections w/ pain management. She continues to have LLE and now RLE pain, numbness/tingling, feels like something is crawling on her leg. She has done PT both for her back and for her LLE, neither of which helped. 05/24/23. CT/CT angio head neck IMPRESSION: CT Head and Neck: 1. There are no acute bleeds or infarcts. ?2. There are no masses or areas of abnormal enhancement. ?3. There is no cervical lymphadenopathy. ?CTA Head and Neck: 1. There are no flow-limiting stenoses in the neck vasculature. ?2. ?Intracranially there are no focal stenoses, aneurysms or vascular malformations. 03/19/23, XR/XR lumbar spine 6V w bending IMPRESSION: 1.? No acute abnormality. 2.? Mild spondylosis L4-L5. 12/2022: IMPRESSION:? 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 [facility] Medical History Asthma LEISA (generalized anxiety disorder) Surgical History S/P total abdominal hysterectomy Family History Mother No problems noted. Father No problems noted. Family/Other Substance use disorder Mental health disorder Social History Household Members: Spouse Housing: Apartment Do you presently have visiting nurse or other home services: No Alcohol intake: never Patient Tobacco Use Status: Current everyday Tobacco user Tobacco use type: Cigarette Cigarette Packs Per Day: 1 Cigarettes Per Day: 20.0 e-Cigarette/Vaping Use: Never Used Second Hand Smoke Exposure: No service: No Current occupational status: employed Current occupational exposures/hazards: No Cognitive needs: No Hearing needs: No Vision needs: No Review of Systems Const All systems reviewed & are unremarkable except as noted in HPI and below Physical Exam Vital Signs: Last Vital Signs Pulse 86 07/02/23 09:12 BP 104/76 07/02/23 09:12 Pulse Ox 98 07/02/23 09:12 Oxygen Delivery Method Room Air 07/02/23 09:12 BMI result Body Mass Index 25.8 Const General: cooperative and no acute distress Orientation/consciousness: patient oriented x3 HEENT Head: Yes normocephalic Resp Effort & Inspection: normal respiratory effort and able to speak in complete sentences Neuro Other: photophobic General: patient oriented x3, gait normal and CN's II-XI intact bilaterally Cognition (Neuro): normal cognition Motor exam (neuro): 03/05 motor strength present throughout Psych Appearance: grossly normal Mental Status: mental status grossly normal Speech and movement: Normal speech and movement present Affect: normal affect Attitude: cooperative Assessment & Plan Assessment & Plan (1) Migraine without aura: Code(s): G43.009 - Migraine without aura, not intractable, without status migrainosus (2) Neuropathy: Code(s): G62.9 - Polyneuropathy, unspecified (3) Polyarthralgia: Code(s): M25.50 - Pain in unspecified joint Plan Reviewed recent ophthalmology notes- will check basic labs for autoimmune disorders, fatigue. Previous LLE EMG/NCS- LLE pernoneal neuropathy. Advsied to avoid crossing legs, wearing tight clothing. Pt has not responded to PT. Could consider RLE EMG/NCS, referring pt back to pain management. For migraine prevention tx: Start Amitriptyline 10mg qhs- this may help w/ body pains as well. For acute migraine tx: Trial Sumatriptan 100mg tab, 1/2 - 1 tab (50-100mg) at onset of headache, may repeat in 2 hours. Max of 2 tabs (200mg) per 24 hours. May adjunct with OTC Tylenol 650mg q 4 hours, Ibuprofen 600mg q 6 hours, or Naproxen 440mg q 12 hrs prn. f/u in 3 months or sooner prn Orders: Orders TSH reflex Free T4 07/02/23 G62.9 - Polyneuropathy, unspecified, M25.50 - Pain in unspecified joint, R51.9 - Headache, unspecified Erythrocyte Sedimentation Rate 07/02/23 G62.9 - Polyneuropathy, unspecified, M25.50 - Pain in unspecified joint, R51.9 - Headache, unspecified CRP High Sensitivity 07/02/23 G62.9 - Polyneuropathy, unspecified, M25.50 - Pain in unspecified joint, R51.9 - Headache, unspecified Rheumatoid Factor 07/02/23 G62.9 - Polyneuropathy, unspecified, M25.50 - Pain in unspecified joint, R51.9 - Headache, unspecified DONNA Reflex Titer and Pattern 07/02/23 G62.9 - Polyneuropathy, unspecified, M25.50 - Pain in unspecified joint, R51.9 - Headache, unspecified AMB Hemoglobin A1c 07/02/23 G62.9 - Polyneuropathy, unspecified, M25.50 - Pain in unspecified joint, R51.9 - Headache, unspecified, Z13.9 - Encounter for screening, unspecified Medications: New sumatriptan succinate (0.5 - 1 x 100 mg) 50 - 100 mg orally at onset of headache, may repeat in 2 hrs PRN; max 2 tabs per day or 4 tabs/week (may take with Ibuprofen) 30 days 12 tabs 6RF migraine headache amitriptyline 10 mg PO BEDTIME 30 days 30 tabs 3RF Coding Level of Care Code Est Pt Level 4 (73834) Diagnoses Migraine without aura G43.009 Neuropathy G62.9 Polyarthralgia M25.50
[2023-07-02 09:12] VITALS: BP 104/76; PULSE 86; O2SAT 98; BMI 25.8
== END 2023-07-02 10:09 | disposition home or self-care (01) ==
PROVIDERS: Visit Provider Nurse Practitioner Family
DX: G43.009 Migraine without aura, not intractable, without status migrainosus (principal); G62.9 Polyneuropathy, unspecified; M25.50 Pain in unspecified joint
CPT/HCPCS: 99214

== ENCOUNTER → 2023-07-02 08:52 | Outpatient (BNVA) | payer OTHER, SELFPAY | PROVIDERS: Visit Provider Nurse Practitioner Family | DX: G43.009 Migraine without aura, not intractable, without status migrainosus (principal); G62.9 Polyneuropathy, unspecified; M25.50 Pain in unspecified joint | CPT/HCPCS: 99212 ==

== ENCOUNTER 2023-07-06 09:48 | Outpatient (AMB) | payer OTHER, SELFPAY ==
[2023-07-06 09:53] VITALS: BP 110/70; PULSE 85; O2SAT 98; BMI 25.6
--- NOTE | 2023-07-06 09:53 | MHC.PC.OV ---
Vital Signs 07/06/23 09:53 Height 5 ft 4 in Weight 149 lb BMI 25.6 BP 110/70 Blood Pressure Location Lt brachial Position Sitting Pulse 85 Pulse Source Pulse Oximeter Pulse Oximetry (%) 98 Oxygen Delivery Method Room Air Intake Visit Reasons: [place] [facility]SOB Intake Note: Patient is here to follow-up after a visit the emergency department at [facility] [place] 06[place]22[place]23 Cold Type Artist Required: No Accompanied by: Self / Same As Patient Allergies No Known Allergies [No Known Allergies*] Allergy (Verified 07/06/23 09:58) Medication List - Last Reconciled 07/06/23 by Nia Pope MD albuterol sulfate 90 mcg/actuation (Ventolin HFA) 2 puffs inhalation Q6H PRN albuterol sulfate 2.5 mg (3 mL) inhalation Q6H PRN amitriptyline 10 mg PO BEDTIME 30 days benzonatate 200 mg PO TID PRN 7 days fluticasone propionate 100 mcg/actuation (Flovent Diskus) 2 inhalations inhalation BID prednisone 40 mg (2 x 20 mg) PO DAILY 5 days sumatriptan succinate 50 - 100 mg orally at onset of headache, may repeat in 2 hrs PRN; max 2 tabs per day or 4 tabs/week (may take with Ibuprofen) 30 days walker with seat and wheels Tobacco use date assessed: 12/24/22 Dental Screening Dental Screen Date: 07/06/23 Did you have a dental visit in the last 12 months?: Yes Did you have a dental problem in the last 6 months where you did not have access to dental care?: No Was dental information given to patient?: Patient has dentist HPI HPI Comments History of Present Illness Details This is a 43-year-old female with polyarthralgia, migraines without aura and moderate recurrent major depression that comes today accompanied by father as hospital discharge follow-up with discharge date 06/26/2023 due to asthma with acute exacerbation. She also went 06/22/2023 for the same thing. 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 Chest x-ray was negative. Labs were within normal limits with mild leukocytosis. She was given prednisone as outpatient and feels somewhat improved. I will refer her to pulmonology. Has polyarthralgia and will see Rheumatology. Migraines are follow by Neurology. On amitriptyline for her moderate depression. [facility] Medical History (Updated 07/06/23 @ 12:39 by Nia Pope MD) Asthma LEISA (generalized anxiety disorder) Surgical History S/P total abdominal hysterectomy Family History Mother No problems noted. Father No problems noted. Family/Other Substance use disorder Mental health disorder Social History Household Members: Spouse Housing: Apartment Do you presently have visiting nurse or other home services: No Alcohol intake: never Patient Tobacco Use Status: Current everyday Tobacco user Tobacco use type: Cigarette Cigarette Packs Per Day: 1 Cigarettes Per Day: 20.0 e-Cigarette/Vaping Use: Never Used Second Hand Smoke Exposure: No service: No Current occupational status: employed Current occupational exposures/hazards: No Cognitive needs: No Hearing needs: No Vision needs: No Questionnaire Thrive Questionnaire Date Thrive assessed: 06/26/23 LEISA-7 AMB Questionnaire LEISA-7 Date LEISA - 7 assessed: 12/24/22 Source: Developed by Drs. Dominic Lombardo, Selina Castañeda, Wellington Marie and colleagues, with an educational dasia from [employer]. Review of Systems Const All systems reviewed & are unremarkable except as noted in HPI and below Eyes Reports no additional complaints, Denies change in vision and Denies other visual disturbances Card Denies chest pain at rest, Denies chest pain with activity, Denies edema, Denies irregular heart rhythm, Denies claudication, Denies dyspnea, Denies dyspnea on exertion, Denies orthopnea, Denies paroxysmal nocturnal dyspnea and Denies slow heart rate Resp Denies cough, Denies dyspnea and Denies dyspnea on exertion GI Denies abdominal pain, Denies change in bowel habits, Denies excessive flatus, Denies nausea and Denies vomiting Denies urinary incontinence, Denies urinary hesitancy and Denies urinary urgency Musc Denies abnormal gait, Denies atrophy, Denies deformity and Denies limited range of motion Skin/Breast Denies bleeding lesions, Denies changing lesions and Denies rash Neuro Denies abnormal gait and Denies lack of coordination Physical exam (Primary Care) Vital Signs: Last Vital Signs Pulse 85 07/06/23 09:53 BP 110/70 07/06/23 09:53 Pulse Ox 98 07/06/23 09:53 Oxygen Delivery Method Room Air 07/06/23 09:53 BMI result Body Mass Index 25.6 Tobacco/Smoking Status: Tobacco use Status Tobacco use date assessed 12/24/22 07/06/23 09:55 Patient Tobacco Use Status Current everyday Tobacco 07/06/23 09:55 Tobacco use type Cigarette 07/06/23 09:55 e-Cigarette/Vaping Use Never Used 07/06/23 09:55 Thrive Assessment: Date of Thrive Assessment Date Thrive assessed 06/26/23 07/06/23 09:55 Eyes General: appearance normal, both eyes and all related structures Eyelids: Yes eyelids normal Conjunctivae: conjunctivae normal Neck Neck: Yes normal visual inspection and Yes supple Resp Effort & Inspection: normal respiratory effort Auscultation: clear to auscultation bilaterally Cardio Jugular venous distension: no JVD Rate: regular rate Rhythm: regular rhythm Heart sounds: S1 normal heart sound present and S2 normal heart sound present Extrem General: Yes full ROM Assessment and Plan Assessment & Plan (1) Hospital discharge follow-up: Code(s): Z09 - Encounter for follow-up examination after completed treatment for conditions other than malignant neoplasm Plan: Discharge date 06/26/2023 due to asthma with acute exacerbation. Chest x-ray was normal. Labs did not show any significant abnormality. Completed prednisone course and feels improved. (2) Asthma with acute exacerbation: Code(s): J45.901 - Unspecified asthma with (acute) exacerbation Plan: Use rescue inhaler as needed. Continue longstanding inhaler. Referred to pulmonology. (3) Migraine without aura: Code(s): G43.009 - Migraine without aura, not intractable, without status migrainosus Plan: Continue sumatriptan. Follow-up with Neurology. (4) Moderate recurrent major depression: Code(s): F33.1 - Major depressive disorder, recurrent, moderate Plan: Continue amitriptyline at bedtime. (5) Polyarthralgia: Code(s): M25.50 - Pain in unspecified joint Plan: Follow-up with rheumatology. Orders: Orders Pulmonary Rehab Today J45.909 - Unspecified asthma, uncomplicated Coding Level of Care Code TCM Mod MDM <= 14 Days Diagnoses Hospital discharge follow-up Z09 Asthma with acute exacerbation J45.901 Migraine without aura G43.009 Moderate recurrent major depression F33.1 Polyarthralgia M25.50 Time Spent (min) 25
== END 2023-07-06 10:07 | disposition home or self-care (01) ==
PROVIDERS: PCP Internal Medicine; Visit Provider Internal Medicine
DX: J45.901 Unspecified asthma with (acute) exacerbation (principal); G43.009 Migraine without aura, not intractable, without status migrainosus; F33.1 Major depressive disorder, recurrent, moderate; Z09 Encounter for follow-up examination after completed treatment for conditions other than malignant neoplasm; M25.50 Pain in unspecified joint
CPT/HCPCS: 99214

== ENCOUNTER 2023-07-14 07:55 | Outpatient (REF) | payer OTHER, SELFPAY ==
[2023-07-14 10:25] LABS: Estimated Average Glucose 108 mg/dL; Hemoglobin A1c % 5.4 % (<6.0)
[2023-07-14 10:42] LABS: Rheumatoid Factor < 13.0 IU/mL (<15.0)
[2023-07-14 11:05] LABS: TSH reflex Free T4 1.16 uIU/mL (0.32-4.0)
[2023-07-14 11:09] LABS: Erythrocyte Sedimentation Rate 18 MM/HR (0-20)
[2023-07-18 09:03] LABS: Anti Nuclear Antibody Screen NEGATIVE (NEGATIVE)
[2023-07-19 13:33] LABS: CRP High Sensitivity 3.8 mg/L
== END 2023-07-14 07:56 | disposition home or self-care (01) ==
LOC: HO.LAB 07:55
PROVIDERS: PCP Internal Medicine; Visit Provider Nurse Practitioner Family
DX: G62.9 Polyneuropathy, unspecified (principal); R35.1 Nocturia; R51.9 Headache, unspecified; M79.7 Fibromyalgia; M25.50 Pain in unspecified joint; M17.12 Unilateral primary osteoarthritis, left knee; M51.36 Other intervertebral disc degeneration, lumbar region; R29.898 Other symptoms and signs involving the musculoskeletal system
CPT/HCPCS: 36415; 83036; 84443; 85652; 86038; 86141; 86431

== ENCOUNTER 2023-07-14 08:04 | Outpatient (AMB) | payer OTHER, SELFPAY ==
--- NOTE | 2023-07-14 08:33 | A.OFFVIS_ITS ---
Intake Vital Signs 07/14/23 08:34 Height 5 ft 4 in Weight 147 lb 11.355 oz BMI 25.4 BP 112/84 Blood Pressure Location Lt brachial Position Sitting Pulse 63 Pulse Source Pulse Oximeter Temp 97.3 F Temp Source Skin Pulse Oximetry (%) 97 Oxygen Delivery Method Room Air Intake Visit Reasons: Pain in unspecified joint Intake Note: Patient here for unspecified joint pains in multiple locations. Climate Change Risk Assessor Required: Yes Climate Change Risk Assessor Language: Ticket Clerk Name: Lavinia Wolfe Information Interpreted: clinical only Accompanied by: Self / Same As Patient Allergies No Known Allergies [No Known Allergies*] Allergy (Verified 07/14/23 08:39) HPI HPI Comments History of Present Illness Details The patient presents with complaints of head to toe pain. We used the i-pad translating device to facilitate the visit. She is not sure but she thinks this may have been going on for at least a couple of years. Areas of pain include the neck, shoulders, forearms, lower back, knees, and feet. Symptoms are worse with more physical activity. She gets occasional pains at night that wake her up. It appears that she has pain when she is standing. This occurs mostly in the lower back but also in the left leg. It seems to be on the lateral aspect of the knee and radiates distally into the lateral calf and the top of the foot. There are periodically paresthesias in the hands and feet. These are more prominent in the left foot. She gets severe migraine headaches at times. She has had MRI of the brainn that did not reveal significant pathology. She also had some CT angiogram of the neck and cerebrovascular strutures that did not reveal pathology. Occasionally the knee and ankle have felt like they have been giving way. She does limp occasionally because of weakness and or pain in the leg. She had a series of blood tests done last fall that were basically negative. The she had x-rays of the lumbar spine and the left knee. She went for PT but that did not help. She received some injections at [facility] but she found them painful and not helpful. She does have anxiety problems but does not use any medications. She has had occasional panic attacks. Her chart lists that she was given a prescription for Celebrex but she does not take it. She says insurance did not pay for it. There was also a course of prednisone which she does not think helped her much. [facility] Medical History Asthma LEISA (generalized anxiety disorder) Surgical History S/P total abdominal hysterectomy Family History (Updated 07/14/23 @ 08:42 by GABO Johnson) Mother No problems noted. Father No problems noted. Family/Other Substance use disorder Mental health disorder Other SLE (systemic lupus erythematosus) Social History (Updated 07/14/23 @ 08:43 by GABO Johnson) Household Members: Children Housing: Apartment Do you presently have visiting nurse or other home services: No Alcohol intake: former Patient Tobacco Use Status: Current everyday Tobacco user Tobacco use type: Cigarette Cigarette Packs Per Day: 1.5 Cigarettes Per Day: 20.0 e-Cigarette/Vaping Use: Never Used Second Hand Smoke Exposure: No service: No Current occupational status: employed Current occupation: [employer] Current occupational exposures/hazards: No Cognitive needs: No Hearing needs: No Vision needs: No Review of Systems Const Details: Low stamina. Negative for appetite change, weight change, fever, chills, malaise and fatigue Eyes Details: Some ocular problems attributed to cataract and maybe some retinal problems. She has dry eye as well. There are migraine headaches that are sometimes very disabling Negative for vision change and dizziness ENT Details: Negative for hearing change, tinnitus, oral ulcer, nose bleeds and oral dryness. Card Details: Negative chest pain, edema and syncope Resp Details: Negative for SOB, cough and wheezing GI Details: Occasional constipation and heartburn. Negative nausea, abdominal pain, bowel changes, constipation and bloody stool. Details: Negative for dysuria, hematuria, nocturia, decreased force/flow and genital discharge Skin/Breast Details: Negative for itching, rash, hives, Raynaud's symptoms, sun sensitivity, and skin cancer Neuro Details: Hand and foot numbness, more prominent in the left foot. Occasional giving way of the left knee and ankle. Negative for epilepsy, palsy, stroke, changes in speech, Psych Details: History of anxiety and panic attacks. Negative for depression Endo Details: Negative for polyuria and polydypsia Kelvin/Lymph Details: Negative for excessive bruising or bleeding. Physical Exam Vital Signs: Last Vital Signs Temp 97.3 F 07/14/23 08:34 Pulse 63 07/14/23 08:34 BP 112/84 07/14/23 08:34 Pulse Ox 97 07/14/23 08:34 Oxygen Delivery Method Room Air 07/14/23 08:34 BMI result Body Mass Index 25.4 APPEARANCE: Patient in no acute distress EYES no redness, pupils equal and reactive to light, eyelids normal. No temporal artery swelling, redness or tenderness. EARS: External ear normal, canal clear and tympanic membrane normal. NOSE/SINUS: Airflow through both nares, no nasal discharge, no bleeding THROAT: Oral mucosa moist, no ulcerations NECK: No thyromegaly or masses, no adenopathy, trachea midline. HEART: Regulrar rhythm, S1-S2 heard, no murmurs, rubs or gallops. LUNG: Clear to percussion and auscultation ABD: Normal bowel sounds, no organomegaly, masses or tenderness. EXTREMITIES: No edema. There seems to be some tenderness in the lateral calf and lateral knee region. Normal peripheral pulses. NEURO: Oriented and alert x3. I think she has some weakness with plantar flexion of the left foot. Weakness is hard to test for since those motions seem to cause lateral calf and knee pain. There is also some decreased sensation over the sole of the left foot. Reflexes symmetric. No sensory loss elsewhere. SKIN: No inflammatory or neoplastic lesions. Normal color and turgor JOINT EXAM:.?? Cervical Spine:.? Full range of motion with mild discomfort. Mild cervical muscle tenderness. Thoracic Spine:.? No scoliosis.? No tenderness on palpation. Lumbar Spine:.? Alignment normal.? Lumbar pain with flexion of 45 degrees. She has some paraspinal muscle tenderness. Chest Wall:.? No tenderness, swelling, increased warmth or erythema. Hands:.? Normal pain-free range of motion without tenderness, swelling, increased warmth or erythema. 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 Wrists:.? Normal range of motion with mild pain at the extremes and some mild dorsal tenderness but no swelling, increased warmth or erythema. Elbows:. Normal pain-free range of motion with the mild lateral epicondylar tenderness. Over the joint space there is no tenderness, swelling, increased warmth or erythema. Shoulders:.??Right: Full range of motion with discomfort at the extremes of normal range of motion. There is some slight posterior tenderness but no abductor weakness or adenopathy. No swelling or redness. Left: Normal pain- free range of motion with no adenopathy, tenderness, weakness, swelling, increased warmth or erythema. Hips: Left: Range of motion is probably pain-free and intact. She is reluctant to allow much range of motion because it irritates the lateral calf and knee. Right:.? Full range of motion without pain. Hip bursa:.? No tenderness. Knees:.?? Left: There is pain with more than 30 degrees flexion or extension at the knee. Most the pain seems to be in the posterior and lateral aspects of the knee with some radiation into the lateral calf. There is no effusion in the knee there is no redness or warmth or crepitus. There is some mild lateral compartment tenderness but the tenderness extends into the lateral calf. Right: Normal pain-free range of motion without tenderness, swelling, increased warmth or erythema.? There is no effusion or crepitation Ankles:.? Normal pain-free range of motion without tenderness, swelling, increased warmth or erythema. Feet:.? Normal pain-free range of motion with some mild tenderness in the 1st MTP joints. These are somewhat enlarged with bony swelling. Otherwise no other tenderness, swelling, increased warmth or erythema. Tender points:.? Mild mild tenderness to digital palpation at the occiput, trapezius, second rib, lateral epicondyle, knees, greater trochanter and gluteal area bilaterally. ? Results Reviewed Results Reviewed: The August 2022 lab work: Negative NIA, rheumatoid factor and anti DNA antibodies. ESR 13, CRP 0.[address] [address] XRay Report Signed Patient: Juwan Boykin MR#: [id number] : 1980 Acct:[id number] Age/Sex: 42 / F ADM Date: 01/14/[address]: Nir Gaytan PA-C Ordering Physician: Nir Gaytan PA-C Date of Service: 01/14/23 Procedure(s): XR knee LT 2V Accession Number(s): [id number] cc: Nir Gaytan PA-C~ EXAMINATION: XR KNEE, LEFT XR KNEE STANDING, BILATERAL CLINICAL INFORMATION: Left knee pain COMPARISON: 11/19/2016 TECHNIQUE: AP standing view both knees. Lateral and sunrise patellar views of the left knee. of the left knee. FINDINGS: Osseous alignment is anatomic. There is suggestion of minimal joint space narrowing of the medial compartments of both knees. No significant spurring. No evidence of acute fracture or significant joint effusion. XR/XR knee LT 2V IMPRESSION: Suggestion of minimal joint space narrowing of the medial compartments of both knees. Dictated By: Han Mejía MD [place] [address] XRay Report Signed Patient: Juwan Boykin MR#: [id number] : 1980 Acct:[id number] Age/Sex: 43 / F ADM Date: 03/19/[address]: Radha Lacy [employer] Ordering Physician: Radha Lacy Date of Service: 03/19/23 Procedure(s): XR lumbar spine 6V w bending Accession Number(s): [id number] cc: Radha Lacy [facility]~ EXAMINATION: XR LUMBOSACRAL SPINE WITH OBLIQUES CLINICAL INFORMATION: Dorsalgia COMPARISON: None available. TECHNIQUE: Upright AP lateral oblique views and lateral flexion and extension views FINDINGS: Vertebral bodies normal in height with normal alignment. Normal translation with flexion-extension views. Mild degenerative disc changes present at L4-L5 manifested by minimal endplate osteophytes without disc space narrowing. Surrounding bone and soft tissues unremarkable.. XR/XR lumbar spine 6V w bending IMPRESSION: 1. No acute abnormality. 2. Mild spondylosis L4-L5. Dictated By: Carter Frankel MD Assessment & Plan Assessment & Plan (1) Patellofemoral arthritis of left knee: Code(s): M17.12 - Unilateral primary osteoarthritis, left knee (2) Lumbar degenerative disc disease: Code(s): M51.36 - Other intervertebral disc degeneration, lumbar region (3) Weakness of left foot: Code(s): R29.898 - Other symptoms and signs involving the musculoskeletal system (4) Fibromyalgia: Code(s): M79.7 - Fibromyalgia Plan Patient has many widespread pains without signs on exam of an active inflammatory process. Additionally the lab work did not suggest inflammatory disease. She has many tender points so I think she does have some underlying fibromyalgia. However it seems there is more discomfort in the left calf and lateral knee than one would expect with that diagnosis. This makes us thinks there may be additional pathology. The paresthesias and possible weakness raise the question whether she might have a radiculopathy emanating from her back disease. The lumbar spine films did not show significant osteoarthritis but there were signs of degenerative disease. Knee xray also had minimal signs of the osteoarthritis. We will see if we can get approval for an MRI of the back looking for signs of herniated disc her other pathology that could give her a radiculopathy. She has already had treatment for the back and knee pain with physical therapy, analgesics, NSAID's and trigger point injections. These have not resulted in improvement. She thinks the injections were too painful to pursue again. We will have her come back in 4-6 weeks to see if we can review her studies at that point. Review of her record, review of her history, her exam, and discussion of diagnostic possibilities took 62 minutes. Orders: Orders MR lumbar spine wo con Today M51.36 - Other intervertebral disc degeneration, lumbar region, R29.898 - Other symptoms and signs involving the musculoskeletal system Medications: Discontinued prednisone Discontinued Reason: Patient Completed Course 40 mg (2 x 20 mg) PO DAILY 5 days 10 tabs 0RF Coding Level of Care Code New Pt Level 5 (91187) Diagnoses Patellofemoral arthritis of left knee M17.12 Lumbar degenerative disc disease M51.36 Weakness of left foot R29.898 Fibromyalgia M79.7
[2023-07-14 08:34] VITALS: BP 112/84; PULSE 63; TEMP 36.3; O2SAT 97; BMI 25.4
== END 2023-07-14 09:38 | disposition home or self-care (01) ==
PROVIDERS: PCP Internal Medicine; Visit Provider Internal Medicine Rheumatology
DX: M79.7 Fibromyalgia (principal); M17.12 Unilateral primary osteoarthritis, left knee; M51.36 Other intervertebral disc degeneration, lumbar region; R29.898 Other symptoms and signs involving the musculoskeletal system
CPT/HCPCS: 99205

== ENCOUNTER 2023-07-27 14:04 | Outpatient (REF) | payer OTHER, SELFPAY ==
[2023-07-27 14:55] LABS: MANUAL DIFF FLAG NO
[2023-07-27 15:23] LABS: Basophils Absolute Auto 0.1 X10*3/uL (0.0-0.2); Basophils Percent Auto 0.5 % (0-2); Eosinophils Absolute Auto 0.1 X10*3/uL (0.0-0.4); Eosinophils Percent Auto 1.2 % (0-4); Hematocrit 40.3 % (37.0-47.0); Hemoglobin 13.4 g/dl (12.0-16.0); Imm Gran Abs Auto 0.08 X10*3/uL (0.00-0.03); Imm Gran Pct Auto 0.7 % (0.0-0.4); Lymphocytes Absolute Auto 3.3 X10*3/uL (1.2-4.9); Lymphocytes Percent Auto 30.5 % (20-40); Mean Corpuscular HGB Conc 33.3 g/dl (31.0-35.0); Mean Corpuscular Hemoglobin 31.6 pg (27.0-33.0); Mean Platelet Volume 10.1 fL (9.4-12.3); Monocytes Absolute Auto 0.8 X10*3/uL (0.1-1.2); Monocytes Percent Auto 7.5 % (2-11); Neutrophils Absolute Auto 6.5 x10*3/uL (2.0-8.3); Neutrophils Percent Auto 59.6 % (45-73); Platelet Count 313 X10*3/uL (160-400); Red Blood Count 4.24 X10*6/uL (4.20-5.50); Red Cell Distribution Width 13.1 % (11.0-16.0); White Blood Count 10.9 X10*3/uL (4.8-10.8)
== END 2023-07-27 14:05 | disposition home or self-care (01) ==
LOC: HO.LAB 14:04
PROVIDERS: PCP Internal Medicine; Visit Provider Internal Medicine Pulmonary Disease
DX: J45.909 Unspecified asthma, uncomplicated (principal); Z91.09 Other allergy status, other than to drugs and biological substances
CPT/HCPCS: 36415; 82785; 85025; 86003

== ENCOUNTER 2023-07-27 14:04 | Outpatient (AMB) | payer OTHER, SELFPAY ==
[2023-07-27 14:05] VITALS: BP 100/62; PULSE 97; O2SAT 99; BMI 25.9
--- NOTE | 2023-07-27 14:05 | A.OFFVIS_ITS ---
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 Patient states that she has been using Flovent and albuterol MDI with suboptimal control of her wheezing. She states that her symptoms a usually induced by exposure to strong odors. She has multiple sisters with asthma. Patient denies environmental allergies. She denies having recent pulmonary function testing. [facility] Medical History Asthma LEISA (generalized anxiety disorder) Surgical History S/P total abdominal hysterectomy Family History (Updated 07/14/23 @ 08:42 by GABO Johnson) Mother No problems noted. Father No problems noted. Family/Other Substance use disorder Mental health disorder Other SLE (systemic lupus erythematosus) Social History Household Members: Children Housing: Apartment Do you presently have visiting nurse or other home services: No Alcohol intake: former Patient Tobacco Use Status: Current everyday Tobacco user Tobacco use type: Cigarette Cigarette Packs Per Day: 1.5 Cigarettes Per Day: 20.0 e-Cigarette/Vaping Use: Never Used Second Hand Smoke Exposure: No service: No Current occupational status: employed Current occupation: [employer] Current occupational exposures/hazards: No Cognitive needs: No Hearing needs: No Vision needs: No Review of Systems Const Denies daytime sleepiness, Denies excessive sweating, Denies fatigue, Denies fever(s), Denies lethargy, Denies malaise, Denies night sweats, Denies snoring and Denies weight loss Eyes Denies blurry vision and Denies itchy eyes ENT Denies nasal congestion, Denies post nasal drip, Denies sinus pain, Denies sinus pressure and Denies other ( Thrush) Card Denies chest pain, Denies pedal edema, Denies dyspnea, Denies orthopnea and Denies paroxysmal nocturnal dyspnea Resp Denies cough, Denies hemoptysis, Denies excessive phlegm production, Denies dyspnea, Denies snoring and Reports wheezing GI Denies abdominal pain and Denies heartburn Musc Denies myalgias, Denies arthralgias and Denies joint swelling Skin/Breast Denies rash Neuro Denies memory loss and Denies seizure-like activity Psych Denies abnormal sleep pattern, Denies anxiety and Denies memory loss Endo Denies excessive sweating, Denies fatigue and Denies heat intolerance Kelvin/Lymph Denies easy bruising Aller/Immun Denies itchy eyes, Denies seasonal rhinorrhea and Reports wheezing Physical Exam Vital Signs: Last Vital Signs Pulse 97 07/27/23 14:05 BP 100/62 07/27/23 14:05 Pulse Ox 99 07/27/23 14:05 Oxygen Delivery Method Room Air 07/27/23 14:05 BMI result Body Mass Index 25.9 Const General: no acute distress and alert Nutritional Appearance: not obese Orientation/consciousness: Other orientation findings ( oriented) HEENT Head: Yes atraumatic Eyes General: appearance normal, both eyes and all related structures Sclerae: sclerae normal EOM: EOMs intact bilaterally Neck Neck: Yes supple Lymphatic: no lymphadenopathy noted Resp Effort & Inspection: normal respiratory effort and no use of accessory muscles Auscultation: clear to auscultation bilaterally Cardio Rate: regular rate Rhythm: regular rhythm Heart sounds: no gallops, no murmurs and no rubs Skin General skin exam: other ( warm) Extrem General: No clubbing, No cyanosis and No edema Assessment & Plan Assessment & Plan (1) Moderate asthma: Code(s): J45.909 - Unspecified asthma, uncomplicated Plan: Suboptimally controlled on Flovent, will change to Breo. Will request full PFT. (2) Environmental allergies: Code(s): Z91.09 - Other allergy status, other than to drugs and biological substances Plan: Will obtain IgE level, CBC with differential, and RAST panel for further evaluation. Orders: Orders Complete Blood Count Auto Diff Today J45.909 - Unspecified asthma, uncomplicated Rast Allergen Today J45.909 - Unspecified asthma, uncomplicated PFT pulmonary function test Today J45.909 - Unspecified asthma, uncomplicated Medications: New fluticasone furoate-vilanterol 200-25 mcg/dose (Breo Ellipta) 1 inh inhalation DAILY 1 ea 6RF 30 days Discontinued fluticasone furoate 50 mcg/actuation (Arnuity Ellipta) Discontinued Reason: Doctor's Order 1 inh inhalation DAILY 30 days 30 ea 4RF J45.909 - Unspecified asthma, uncomplicated Coding Level of Care Code New Pt Level 4 (89736) Diagnoses Moderate asthma J45.909 Environmental allergies Z91.09
== END 2023-07-27 14:40 | disposition home or self-care (01) ==
PROVIDERS: PCP Internal Medicine; Visit Provider Internal Medicine Pulmonary Disease
DX: J45.909 Unspecified asthma, uncomplicated (principal); Z91.09 Other allergy status, other than to drugs and biological substances
CPT/HCPCS: 99204

== ENCOUNTER 2023-08-19 11:16 | Outpatient (REF) | payer OTHER, SELFPAY ==
--- NOTE | ~2023-08-19 | MM_ITS ---
EXAMINATION: MM SCREENING DIGITAL BREAST TOMOSYNTHESIS, BILATERAL CLINICAL INFORMATION: Screening. Asymptomatic. COMPARISON: Mammography: 08/13/2022. TECHNIQUE: Digital breast tomosynthesis is performed in both the craniocaudal and mediolateral oblique views along with computer-aided detection (CAD). Synthesized 2D images are generated from the tomosynthesis. FINDINGS: The breasts are heterogeneously dense, which may obscure small masses (ACR BI-RADS breast composition Category c). There are no suspicious masses, suspicious grouped calcifications, or areas of architectural distortion in either breast. The parenchymal pattern is stable from prior exams. There are no skin or axillary changes. MM/MM tomosynthesis screening BI IMPRESSION: No mammographic evidence of malignancy. No changes from the prior exam. ASSESSMENT: BI-RADS BI-RADS 1 - Negative RECOMMENDATION: Routine annual mammography screening. 1 year F/U This examination should not preclude the clinical evaluation of a suspicious palpable abnormality. This patient's information was entered into a reminder system with a target due date for their next mammogram.
== END 2023-08-19 11:17 | disposition home or self-care (01) ==
LOC: HO.MAMMO 11:16
PROVIDERS: PCP Internal Medicine; Visit Provider Internal Medicine
DX: Z12.31 Encounter for screening mammogram for malignant neoplasm of breast (principal)
CPT/HCPCS: 77063; 77067

== ENCOUNTER → 2023-08-19 12:00 | Outpatient (BNV) | payer OTHER, SELFPAY | PROVIDERS: PCP Internal Medicine; Visit Provider Radiology Diagnostic Radiology | DX: Z12.31 Encounter for screening mammogram for malignant neoplasm of breast (principal) | CPT/HCPCS: 77063; 77067 ==

== ENCOUNTER 2023-08-26 14:16 | Outpatient (AMB) | payer OTHER, SELFPAY ==
[2023-08-26 14:16] VITALS: BP 111/60; PULSE 93; O2SAT 98; BMI 25.7
--- NOTE | 2023-08-26 14:16 | A.OFFVIS_ITS ---
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 Patient states that she has been using Flovent and albuterol MDI with suboptimal control of her wheezing. She states that her symptoms a usually induced by exposure to strong odors. She has multiple sisters with asthma. Patient denies environmental allergies. She denies having recent pulmonary function testing. As last office visit patient was post to switch Flovent to Breo, however she has not received it and does his symptoms on the well controlled. Her PFT is also pending. She completed immunologic workup. She denies an acute exacerbation at this time. [facility] Medical History Asthma LEISA (generalized anxiety disorder) Surgical History S/P total abdominal hysterectomy Family History (Updated 07/14/23 @ 08:42 by GABO Johnson) Mother No problems noted. Father No problems noted. Family/Other Substance use disorder Mental health disorder Other SLE (systemic lupus erythematosus) Social History Household Members: Children Housing: Apartment Do you presently have visiting nurse or other home services: No Alcohol intake: former Patient Tobacco Use Status: Current everyday Tobacco user Tobacco use type: Cigarette Cigarette Packs Per Day: 1.5 Cigarettes Per Day: 20.0 e-Cigarette/Vaping Use: Never Used Second Hand Smoke Exposure: No service: No Current occupational status: employed Current occupation: [employer] Current occupational exposures/hazards: No Cognitive needs: No Hearing needs: No Vision needs: No Review of Systems Const Denies daytime sleepiness, Denies excessive sweating, Denies fatigue, Denies fever(s), Denies lethargy, Denies malaise, Denies night sweats, Denies snoring and Denies weight loss Eyes Denies blurry vision and Denies itchy eyes ENT Denies nasal congestion, Denies post nasal drip, Denies sinus pain, Denies sinus pressure and Denies other ( Thrush) Card Denies chest pain, Denies pedal edema, Denies dyspnea, Denies orthopnea and Denies paroxysmal nocturnal dyspnea Resp Denies cough, Denies hemoptysis, Denies excessive phlegm production, Denies dyspnea, Denies snoring and Denies wheezing GI Denies abdominal pain and Denies heartburn Musc Denies myalgias, Denies arthralgias and Denies joint swelling Skin/Breast Denies rash Neuro Denies memory loss and Denies seizure-like activity Psych Denies abnormal sleep pattern, Denies anxiety and Denies memory loss Endo Denies excessive sweating, Denies fatigue and Denies heat intolerance Kelvin/Lymph Denies easy bruising Aller/Immun Denies itchy eyes, Denies seasonal rhinorrhea and Denies wheezing Physical Exam Vital Signs: Last Vital Signs Pulse 93 08/26/23 14:16 BP 111/60 08/26/23 14:16 Pulse Ox 98 08/26/23 14:16 Oxygen Delivery Method Room Air 08/26/23 14:16 BMI result Body Mass Index 25.7 Const General: no acute distress and alert Nutritional Appearance: not obese Orientation/consciousness: Other orientation findings ( oriented) HEENT Head: Yes atraumatic Eyes General: appearance normal, both eyes and all related structures Sclerae: sclerae normal EOM: EOMs intact bilaterally Neck Neck: Yes supple Lymphatic: no lymphadenopathy noted Resp Effort & Inspection: normal respiratory effort and no use of accessory muscles Auscultation: clear to auscultation bilaterally Cardio Rate: regular rate Rhythm: regular rhythm Heart sounds: no gallops, no murmurs and no rubs Skin General skin exam: other ( warm) Extrem General: No clubbing, No cyanosis and No edema Assessment & Plan Assessment & Plan (1) Moderate asthma: Code(s): J45.909 - Unspecified asthma, uncomplicated Plan: Suboptimally controlled on Flovent as patient has not received Breo. Breo reordered. Continue albuterol MDI. (2) Environmental allergies: Code(s): Z91.09 - Other allergy status, other than to drugs and biological substances Plan: Results of CBC with differential, IgE level, and RAST panel reviewed. At this time with no significant allergic component to patient symptoms. Coding Level of Care Code Est Pt Level 4 (37763) Diagnoses Moderate asthma J45.909 Environmental allergies Z91.09
== END 2023-08-26 14:39 | disposition home or self-care (01) ==
PROVIDERS: PCP Internal Medicine; Visit Provider Internal Medicine Pulmonary Disease
DX: J45.909 Unspecified asthma, uncomplicated (principal); Z91.09 Other allergy status, other than to drugs and biological substances
CPT/HCPCS: 99214

== ENCOUNTER → 2023-08-26 14:16 | Outpatient (BNVA) | payer OTHER, SELFPAY | PROVIDERS: PCP Internal Medicine; Visit Provider Internal Medicine Pulmonary Disease | DX: J45.909 Unspecified asthma, uncomplicated (principal); Z91.09 Other allergy status, other than to drugs and biological substances | CPT/HCPCS: 99212 ==

== ENCOUNTER 2023-08-27 16:12 | Outpatient (REF) | payer OTHER, SELFPAY ==
--- NOTE | ~2023-08-27 | MR_ITS ---
EXAMINATION: MR LUMBAR SPINE WITHOUT CONTRAST CLINICAL INFORMATION: 43-year-old with intervertebral disc degeneration, lumbar region. Low back pain. COMPARISON: None available. TECHNIQUE: MRI of the lumbar spine was obtained using routine sequences without contrast. FINDINGS: CORONAL ALIGNMENT: Slight thoracolumbar levocurvature on the automatic hemmer view which could be positional. SAGITTAL ALIGNMENT: Normal. LUMBOSACRAL JUNCTION: Normal. There are 5 [id number]-ekidhzw lumbar-type vertebral bodies. VERTEBRAL BODIES: Well maintained with normal height. No compression fractures, anomalies or other deformities. DISC SPACES AND ENDPLATES: The intervertebral disc space heights are well-maintained throughout the lumbar spine. Minimal disc desiccation noted at L4-L5 and L5-S1. Minor anterior marginal endplate spurring at L4-L5. Endplates are otherwise intact. SPINAL CANAL: No abnormal developmental findings. BONE MARROW: No significant marrow-replacing process or bone marrow edema. CONUS MEDULLARIS: Terminates at T12-L1. Morphology and signal is normal. INTRADURAL NERVE ROOTS: Within normal limits. L5-S1: Tiny left paracentral to subarticular disc protrusion with a small annular fissure noted without neural impingement or thecal sac encroachment. No significant DJD, canal or neural foraminal stenosis. L4-L5: Shallow left paramedian to subarticular/inferior foraminal disc protrusion with a tiny annular fissure with minimal encroachment on the left ventral thecal sac without significant subarticular recess or neural foraminal stenosis and no definite neural impingement. Mild facet arthropathy noted on the left without significant canal or neural foraminal stenosis. The remaining lumbar levels demonstrate normal annular contours with no significant facet arthrosis, canal or neural foraminal stenosis and no disc herniations. PARAVERTEBRAL AND INCLUDED EXTRASPINAL SOFT TISSUES: The visualized paravertebral soft tissues and included retroperitoneal structures are unremarkable within the limitations of the exam. The included views of the pelvis demonstrate a 3.6 x 2.5 cm, simple-appearing cystic structure in the expected location of the right adnexa on the sagittal views. (Findings are overwhelmingly likely to represent a benign functional cyst. No followup imaging recommended based on current ACR best practice guidelines.) MR/MR lumbar spine wo con IMPRESSION: 1. Mild discogenic degenerative changes at L4-L5 and L5-S1 with a tiny left paracentral to subarticular disc protrusion at L5-S1 and a shallow left paramedian to subarticular/foraminal disc protrusion at L4-L5 without neural impingement or significant canal/neural foraminal stenosis. 2. Mild facet arthropathy on the left at L4-L5. 3. A 3.6 cm probable physiologic cyst in the right adnexa. No specific followup imaging recommended for this based on current ACR best practice guidelines.
== END 2023-08-27 16:13 | disposition home or self-care (01) ==
LOC: HO.MRI 16:12
PROVIDERS: PCP Internal Medicine; Visit Provider Internal Medicine Rheumatology
DX: M51.36 Other intervertebral disc degeneration, lumbar region (principal); R29.898 Other symptoms and signs involving the musculoskeletal system
CPT/HCPCS: 72148

== ENCOUNTER 2023-08-31 09:39 | Outpatient (REF) | payer OTHER, SELFPAY ==
--- NOTE | 2023-09-02 11:38 | PFT_ITS ---
FLOWS: 1. FEV1 107% of predicted at 1.94 L. 2. FVC 108% of predicted at 3.10 L. 3. FEV1 to FVC ratio of 0.62. 4. No bronchodilator response. LUNG VOLUMES: 1. Total lung capacity 98% of predicted at 5.14 L. 2. Residual volume 163% predicted at 2.25 L. 3. Slow vital capacity 75% of predicted at 2.89 L. 4. Expiratory reserve volume 54% of predicted at 0.62 L. 5. Diffusion capacity is mildly decreased. Diffusion capacity corrects to normal after adjustment for alveolar ventilation. IMPRESSION: Mild to moderate obstructive ventilatory defect with no bronchodilator response. Increased residual volume suggest air trapping. Decreased diffusion capacity suggest emphysema. MD ALLY Turner/MODL / [id number]
== END 2023-08-31 09:40 | disposition home or self-care (01) ==
LOC: HO.RESP 09:39
PROVIDERS: PCP Internal Medicine; Visit Provider Internal Medicine Pulmonary Disease
DX: J45.909 Unspecified asthma, uncomplicated (principal)
CPT/HCPCS: 94010; 94727; 94729

== ENCOUNTER → 2023-09-02 11:38 | Outpatient (BNV) | payer OTHER, SELFPAY | PROVIDERS: PCP Internal Medicine; Visit Provider Internal Medicine Pulmonary Disease | DX: J45.909 Unspecified asthma, uncomplicated (principal) | CPT/HCPCS: 94060; 94727; 94729 ==

== ENCOUNTER 2023-10-07 13:28 | Outpatient (AMB) | payer OTHER, SELFPAY ==
[2023-10-07 13:37] VITALS: BP 102/62; PULSE 86; O2SAT 99; BMI 25.5
--- NOTE | 2023-10-07 13:37 | A.OFFVIS_ITS ---
Intake Vital Signs 10/07/23 13:37 Height 5 ft 4 in Weight 148 lb 12.992 oz BMI 25.5 BP 102/62 Blood Pressure Location Lt brachial Position Sitting Pulse 86 Pulse Source Doppler Pulse Oximetry (%) 99 Oxygen Delivery Method Room Air Intake Visit Reasons: asthma Allergies No Known Allergies [No Known Allergies*] Allergy (Verified 10/07/23 13:41) HPI asthma HPI Details 43-year-old lady, active 20 pack-year sm eris, now followed for asthma/COPD overlap syndrome. Patient symptoms a suboptimally controlled she was not able to COPD in use inhaler except Flovent. She has been relying on albuterol MDI and nebs. She denies acute exacerbations. She has completed her pulmonary function test. [facility] Medical History (Updated 10/07/23 @ 13:59 by Jean Ling MD) LEISA (generalized anxiety disorder) Surgical History S/P total abdominal hysterectomy Family History (Updated 07/14/23 @ 08:42 by Robbi Quispe Leslie) Mother No problems noted. Father No problems noted. Family/Other Substance use disorder Mental health disorder Other SLE (systemic lupus erythematosus) Social History Household Members: Children Housing: Apartment Do you presently have visiting nurse or other home services: No Alcohol intake: former Patient Tobacco Use Status: Current everyday Tobacco user Tobacco use type: Cigarette Cigarette Packs Per Day: 1.5 Cigarettes Per Day: 20.0 e-Cigarette/Vaping Use: Never Used Second Hand Smoke Exposure: No service: No Current occupational status: employed Current occupation: [employer] Current occupational exposures/hazards: No Cognitive needs: No Hearing needs: No Vision needs: No Review of Systems Const Denies daytime sleepiness, Denies excessive sweating, Denies fatigue, Denies fever(s), Denies lethargy, Denies malaise, Denies night sweats, Denies snoring and Denies weight loss Eyes Denies blurry vision and Denies itchy eyes ENT Denies nasal congestion, Denies post nasal drip, Denies sinus pain, Denies sinus pressure and Denies other ( Thrush) Card Denies chest pain, Denies pedal edema, Denies dyspnea, Reports dyspnea on exerti on, Denies orthopnea and Denies paroxysmal nocturnal dyspnea Resp Denies cough, Denies hemoptysis, Denies excessive phlegm production, Denies dyspnea, Reports dyspnea on exertion, Denies snoring and Denies wheezing GI Denies abdominal pain and Denies heartburn Musc Denies myalgias, Denies arthralgias and Denies joint swelling Skin/Breast Denies rash Neuro Denies memory loss and Denies seizure-like activity Psych Denies abnormal sleep pattern, Denies anxiety and Denies memory loss Endo Denies excessive sweating, Denies fatigue and Denies heat intolerance Kelvin/Lymph Denies easy bruising Aller/Immun Denies itchy eyes, Denies seasonal rhinorrhea and Denies wheezing Physical Exam Vital Signs: Last Vital Signs Pulse 86 10/07/23 13:37 BP 102/62 10/07/23 13:37 Pulse Ox 99 10/07/23 13:37 Oxygen Delivery Method Room Air 10/07/23 13:37 BMI result Body Mass Index 25.5 Const General: no acute distress and alert Nutritional Appearance: not obese Orientation/consciousness: Other orientation findings ( oriented) HEENT Head: Yes atraumatic Eyes General: appearance normal, both eyes and all related structures Sclerae: sclerae normal EOM: EOMs intact bilaterally Neck Neck: Yes supple Lymphatic: no lymphadenopathy noted Resp Effort & Inspection: normal respiratory effort and no use of accessory muscles Auscultation: clear to auscultation bilaterally Cardio Rate: regular rate Rhythm: regular rhythm Heart sounds: no gallops, no murmurs and no rubs Skin General skin exam: other ( warm) Extrem General: No clubbing, No cyanosis and No edema Assessment & Plan Assessment & Plan (1) Asthma-COPD overlap syndrome: Code(s): J44.89 - Other specified chronic obstructive pulmonary disease Plan: Suboptimally controlled as patient has only been using Flovent and albuterol MDI/nebs. Trelegy ordered. Medications: New avregvjhdto-ijjwifdoz-jmatxyco 100-62.5-25 mcg (Trelegy Ellipta) 1 inh inhalation DAILY 1 ea 6RF 30 days Discontinued fluticasone propion-salmeterol 250-50 mcg/dose (Advair Diskus) Discontinued Reason: Doctor's Order 1 inh inhalation BID 30 days 60 ea 6RF Coding Level of Care Code Est Pt Level 3 (54656) Diagnoses Asthma-COPD overlap syndrome J44.89
== END 2023-10-07 14:18 | disposition home or self-care (01) ==
PROVIDERS: PCP Internal Medicine; Visit Provider Internal Medicine Pulmonary Disease
DX: J44.89 Other specified chronic obstructive pulmonary disease (principal)
CPT/HCPCS: 99213

== ENCOUNTER → 2023-10-07 13:28 | Outpatient (BNVA) | payer OTHER, SELFPAY | PROVIDERS: PCP Internal Medicine; Visit Provider Internal Medicine Pulmonary Disease | DX: J44.89 Other specified chronic obstructive pulmonary disease (principal) | CPT/HCPCS: 99212 ==

== ENCOUNTER 2023-10-15 09:44 | Outpatient (AMB) | payer OTHER, SELFPAY ==
--- NOTE | 2023-10-15 10:25 | HO.SPINEOV ---
Intake Intake Visit Reasons: radiculopathy Intake Note: Ms. Owen Keller is here today c/o low back pain. [place] done @ [facility] [place] 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 She is a 43-year-old female presents to the office today with a 1 year history of low back pain which radiates down into her outer thigh inner outer calf. It has been getting slowly worse over the year. She works at [employer] does have to lift heavy boxes from time to time. She will get occasional tingling in the leg as well. She has tried Motrin and Tylenol as well as physical therapy. She was going to go for an injection, but did not have a good experience with the physician so defer that. She is here today for surgical evaluation. PMH: She is otherwise healthy Social hx: She smokes cigarettes, denies any significant alcohol use Medications: Albuterol, Tylenol, Motrin Allergies: None Physical exam: No acute distress, intact motor exam, negative straight leg raise, positive BRANDY sign. Reflexes 3+ and symmetric Imaging review: Lumbar MRI done at [place] shows very mild disc degeneration without any significant evidence of nerve compression. No misalignment. Impression: 43-year-old female presents to the office today for evaluation of low back pain and some intermittent radiating pain down her left leg. The report on her MRI suggests there are a lot of problems with her spine, but overall it is actually very very mild findings and there is no evidence of any nerve compression that I can see. It is possible it could be SI joint irritation which can mimic a lumbar radiculopathy. Certainly currently it is nothing that needs surgery. I explained to her the natural course of disc degeneration and that certainly this could get worse over time but also it may just stay the same or get better. These things can come and go but at this time there is no need for any intervention. She can continue to take Tylenol and Motrin. I do not think injections are going to be helpful. She can always come back and see us if something changes down the road. Thank you for allowing us to care for your patient. The total time spent with this visit with this patient was 45 minutes reviewing history, physical exam, lumbar imaging review, and implementation of treatment plan or further diagnostic testing Justin Pimentel MD,PhD [facility] Coding Level of Care Code New Pt Level 4 (69448) Diagnoses Back pain of lumbar region with sciatica M54.40
== END 2023-10-15 10:51 | disposition home or self-care (01) ==
PROVIDERS: PCP Internal Medicine; Referring Provider Internal Medicine Rheumatology; Visit Provider Physician Assistant
DX: M54.40 Lumbago with sciatica, unspecified side (principal)
CPT/HCPCS: 99204

== ENCOUNTER → 2023-10-15 09:44 | Outpatient (BNVA) | payer OTHER, SELFPAY | PROVIDERS: PCP Internal Medicine; Visit Provider Physician Assistant | DX: M54.40 Lumbago with sciatica, unspecified side (principal) | CPT/HCPCS: 99202 ==

== ENCOUNTER 2023-10-19 09:01 | Outpatient (AMB) | payer OTHER, SELFPAY ==
--- NOTE | 2023-10-19 09:31 | MHC.OFFVIS ---
Intake Vital Signs 10/19/23 09:36 Height 5 ft 4 in Weight 148 lb BMI 25.4 BP 108/78 Blood Pressure Location Rt brachial Position Sitting Intake Visit Reasons: 3m f/u Polyneuropathy - LVM Intake Note: Patient presents for 3 month follow up polyneuropathy. Allergies No Known Allergies [No Known Allergies*] Allergy (Verified 10/19/23 09:37) Medication List - Last Reconciled 10/19/23 by MOLLY Chiang albuterol sulfate 90 mcg/actuation (Ventolin HFA) 2 puffs inhalation Q6H PRN albuterol sulfate 2.5 mg (3 mL) inhalation Q6H PRN amitriptyline 10 mg PO BEDTIME 30 days benzonatate 200 mg PO TID PRN 7 days celecoxib 200 mg PO BID fuxvvcoqrfy-ozmqnbmta-pfotscgq 100-62.5-25 mcg (Trelegy Ellipta) 1 inh inhalation DAILY 30 days gabapentin 300 mg PO TID hydrocortisone 2.5% appl topical BEDTIME PRN ketoconazole 2% appl topical BID PRN sumatriptan succinate 50 - 100 mg orally at onset of headache, may repeat in 2 hrs PRN; max 2 tabs per day or 4 tabs/week (may take with Ibuprofen) 30 days walker with seat and wheels HPI HPI Comments History of Present Illness Details Right-handed 43-yr-old female presents for f/u visit. Pt reports she is currently managing an asthma exacerbation. She is having a constant headache with 2 severe migraines per week. She has other episodes of feeling intense intracranial cold sensation x's 5 seconds. The Amitriptyline- helps some but makes her dizzy. The Sumatriptan caused N/V. She is using Tylenol and Ibuprofen- at least daily- for the chronic low back and LLE pain. She is still having generalized pain. Especially in the left hand- will have shooting electrical pain which moves from her hand to her upper arm, as well as left hand swelling, weakness. [facility] Medical History (Updated 10/19/23 @ 10:20 by MOLLY Chiang) LEISA (generalized anxiety disorder) Surgical History S/P total abdominal hysterectomy Family History Mother No problems noted. Father No problems noted. Family/Other Substance use disorder Mental health disorder Other SLE (systemic lupus erythematosus) Social History Household Members: Children Housing: Apartment Do you presently have visiting nurse or other home services: No Alcohol intake: former Patient Tobacco Use Status: Current everyday Tobacco user Tobacco use type: Cigarette Cigarette Packs Per Day: 1.5 Cigarettes Per Day: 20.0 e-Cigarette/Vaping Use: Never Used Second Hand Smoke Exposure: No service: No Current occupational status: employed Current occupation: [employer] Current occupational exposures/hazards: No Cognitive needs: No Hearing needs: No Vision needs: No Review of Systems Const All systems reviewed & are unremarkable except as noted in HPI and below Physical Exam Vital Signs: Last Vital Signs BP 108/78 10/19/23 09:36 BMI result Body Mass Index 25.4 Const General: cooperative and no acute distress Orientation/consciousness: patient oriented x3 HEENT Head: Yes normocephalic Resp Effort & Inspection: normal respiratory effort and able to speak in complete sentences Neuro Other: Positive LUE Tinnel, Phalen, medial compression test. General: patient oriented x3, gait normal and CN's II-XI intact bilaterally Cognition (Neuro): normal cognition Motor exam (neuro): 5/5 motor strength present throughout Psych Appearance: grossly normal Mental Status: mental status grossly normal Speech and movement: Normal speech and movement present Affect: normal affect Attitude: cooperative Thought process: Normal thought process present Thought content: Normal thought content present Insight: Good insight present (Psych) Judgement: Good judgement present (Psych) Assessment & Plan Assessment & Plan (1) Paresthesia of left upper extremity: Code(s): R20.2 - Paresthesia of skin (2) Migraine without aura: Code(s): G43.009 - Migraine without aura, not intractable, without status migrainosus Plan For LUE pain/paresthesias. Pt advised to undergo LUE EMG/NCS. Monitor LLE pernoneal neuropathy. Continue to avoid crossing legs, wearing tight clothing. Pt previously has not responded to PT. Future considerations- RLE EMG/NCS, referring pt back to pain management. ? For migraine prevention tx: Stop Amitriptyline 10mg qhs- this may help w/ body pains as well. Trial Amitriptyline 25-50mg qhs. For acute migraine tx: Stop Sumatriptan 100mg tab- caused N/V. Trial Naratriptan prn. May adjunct with OTC Tylenol 650mg q 4 hours, Ibuprofen 600mg q 6 hours, or Naproxen 440mg q 12 hrs prn. ? f/u in 3 months or sooner prn Orders: Orders NE electromyogram (EMG) 10/19/23 R20.2 - Paresthesia of skin Medications: New naratriptan take 1/2 - 1 tab at onset of headache; if no relief may repeat 1 tab after at least 4 hrs; max = 2 tabs/24 hrs orally PRN; 30 days 12 tabs 6RF migraine headache topiramate 25 - 50 mg (1 - 2 x 25 mg) PO BEDTIME 30 days 60 tabs 3RF Discontinued sumatriptan succinate Discontinued Reason: Doctor's Order (0.5 - 1 x 100 mg) 50 - 100 mg orally at onset of headache, may repeat in 2 hrs PRN; max 2 tabs per day or 4 tabs/week (may take with Ibuprofen) 30 days 12 tabs 6RF migraine headache amitriptyline Discontinued Reason: Doctor's Order 10 mg PO BEDTIME 30 days 30 tabs 3RF Coding Level of Care Code Est Pt Level 4 (89722) Diagnoses Paresthesia of left upper extremity R20.2 Migraine without aura G43.009
[2023-10-19 09:36] VITALS: BP 108/78; BMI 25.4
== END 2023-10-19 10:25 | disposition home or self-care (01) ==
PROVIDERS: PCP Internal Medicine; Visit Provider Nurse Practitioner Family
DX: R20.2 Paresthesia of skin (principal); G43.009 Migraine without aura, not intractable, without status migrainosus
CPT/HCPCS: 99214

== ENCOUNTER → 2023-10-19 09:01 | Outpatient (BNVA) | payer OTHER, SELFPAY | PROVIDERS: PCP Internal Medicine; Visit Provider Nurse Practitioner Family | DX: G43.009 Migraine without aura, not intractable, without status migrainosus (principal); R20.2 Paresthesia of skin | CPT/HCPCS: 99212 ==

== ENCOUNTER 2023-11-04 08:10 | Outpatient (REF) | payer OTHER, SELFPAY | END 2023-11-04 08:11 | disposition home or self-care (01) | LOC: HO.NEURO 08:10 | PROVIDERS: PCP Internal Medicine; Visit Provider Nurse Practitioner Family | DX: R20.2 Paresthesia of skin (principal) | CPT/HCPCS: 95886; 95911 ==

== ENCOUNTER 2023-11-22 11:01 | Outpatient (AMB) | payer OTHER, SELFPAY ==
--- NOTE | 2023-11-22 11:20 | A.OFFVIS_ITS ---
Intake Intake Visit Reasons: 6m/mixed urinary incontinence (SET) Intake Note: Patient presents today for a follow-up on Urinary Incontinence: Meds- None Allergies to Antibiotic- No Known Allergies Blood Thinner- None Parts Specialist Required: Yes Parts Specialist Language: Room Cleaner Name: Drake Marshall, Leslie/SUSHIL Information Interpreted: non-clinical & clinical Accompanied by: Mother Allergies No Known Allergies [No Known Allergies*] Allergy (Verified 11/22/23 12:10) HPI HPI Comments History of Present Illness Details 11/22/23--Juwan is a 43-year-old female who presents to the office for follow-up for LUTS frequency, urinary incontinence and pelvic floor weakness The patient is Wallisian speaking female. Certified termite treater helper was present during the visit. She was referred to PFPT, she was prescribed Myrbetriq 25 mg qd. She has had some urge symptoms. She denies irritative or UTI symptoms. I will prescribe vesicare 10 mg daily to replace Myrbetriq UA - Leuks negative, blood negative Review of chart: 04/22/23-- The patient is Wallisian speaking female. termite treater helper was present during the visit. The patient was referred to pelvic floor physical therapy for urinary incontinence and pelvic floor weakness, she is here for follow-up. The patient states that she is not given any exercises for pelvic floor and is receiving PT for left knee as they do not have any appointment space for pelvic floor therapy. States that leakage is more frequent in the interim. Has leakage while coughing and walking. She also has nocturia episodes 2-3 times. States incomplete bladder emptying. Evaluation today-- Blood: negative, leukocytes: negative. Bladder scan PVR: 13 mL. Plan: Referral for pelvic floor physical therapy was rewritten. Myrbetriq 25 mg QD was ordered. Discussed to take the medication at night and, she can change the regime to afternoon or morning to manage the symptoms. Discussed timed voiding. Follow-up after 6 months or sooner if needed. 01/15/2023--Juwan is a 42-year-old fema le patient who is here as a new patient evaluation for urinary incontinence. The patient is a female. A qualified termite treater helper was present during the encounter. The patient last visited the ER on 01/11/23 for left flank pain and underwent CAT scan. Complains having intermittent urinary leakage since 6 months. States wearing panty liners/pads daily. Was prescribed gabapentin in the ER and reports no benefits with the drug. 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 The patient is having a scheduled MRI on 01/19/2023 Surgical history of hysterectomy due to menorrhagia. The patient had 4 vaginal deliveries. Evaluation today: Blood: negative and Leukocyte: negative. Bladder scan: PVR 0 mL. pelvic exam declined by patient. CT without contrast results reviewed--01/11/23-No acute intro-abdominal process seen. 11/22/23--Plan Vesicare 10 mg daily FU in 9 months [facility] Medical History (Updated 12/20/23 @ 16:54 by Jamila Osborne MD) LEISA (generalized anxiety disorder) Surgical History S/P total abdominal hysterectomy Family History Mother No problems noted. Father No problems noted. Family/Other Substance use disorder Mental health disorder Other SLE (systemic lupus erythematosus) Social History Household Members: Children Housing: Apartment Do you presently have visiting nurse or other home services: No Alcohol intake: former Patient Tobacco Use Status: Current everyday Tobacco user Tobacco use type: Cigarette Cigarette Packs Per Day: 1.5 Cigarettes Per Day: 20.0 e-Cigarette/Vaping Use: Never Used Second Hand Smoke Exposure: No service: No Current occupational status: employed Current occupation: [employer] Current occupational exposures/hazards: No Cognitive needs: No Hearing needs: No Vision needs: No Review of Systems Const All systems reviewed & are unremarkable except as noted in HPI and below Reports no additional complaints Eyes Reports no additional complaints ENT Reports no additional complaints Card Denies dyspnea Resp Denies cough and Denies dyspnea GI Reports no additional complaints Reports no additional complaints Musc Reports no additional complaints Skin/Breast Denies rash and Denies unusual bruising Neuro Reports no additional complaints Psych Reports no additional complaints Endo Reports no additional complaints Kelvin/Lymph Reports no additional complaints Aller/Immun Reports no additional complaints Results AMB Urinalysis, Automated UA Leukoctes 0 Jhoan/uL Last Edit by GABO Chisholm on 11/22/23 12:13 UA Nitrite Negative Last Edit by GABO Chisholm on 11/22/23 12:13 UA Urobilinogen 0.2 mg/dL Last Edit by GABO Chisholm on 11/22/23 12:1 3 UA Protein 0 mg/dL Last Edit by GABO Chisholm on 11/22/23 12:13 UA pH 6.0 Last Edit by Drake Marshall Leslie on 11/22/23 12:13 UA Blood 10 Alexander/uL Last Edit by GABO Chisholm on 11/22/23 12:13 UA Specific [place] 1.025 Last Edit by Drake Marshall Leslie on 11/22/23 12: 13 UA Ketone Negative Last Edit by GABO Chisholm on 11/22/23 12:13 UA Bilirubin 0 mg/dL Last Edit by GABO Chisholm on 11/22/23 12:13 UA Glucose 0 mg/dL Last Edit by Drake Marshall Leslie on 11/22/23 12:13 Results Reviewed Results Reviewed: Laboratory Last Values Urine pH (Auto) 6.0 11/22/23 12:12 Specific [place] (Auto) 1.025 11/22/23 12:12 Urine Protein (Auto) 0 mg/dL 11/22/23 12:12 Glucose (UA)(Auto) 0 mg/dL 11/22/23 12:12 Urine Ketones (Auto) Negative 11/22/23 12:12 Urine Blood (Auto) 10 Alexander/uL 11/22/23 12:12 Urine Nitrite (Auto) Negative 11/22/23 12:12 Urine Bilirubin (Auto) 0 mg/dL 11/22/23 12:12 Urine Urobilinogen (Auto) 0.2 mg/dL 11/22/23 12:12 Leukocyte Esterase (Auto) 0 Jhoan/uL 11/22/23 12:12 Assessment & Plan Assessment & Plan (1) Urinary incontinence: Code(s): R32 - Unspecified urinary incontinence (2) Urinary frequency: Code(s): R35.0 - Frequency of micturition Plan Vesicare 10 mg daily FU in 9 months Orders: Orders AMB Urinalysis Automated 11/22/23 Z13.9 - Encounter for screening, unspecified Medications: New solifenacin (Vesicare) 10 mg PO DAILY 90 tabs 3RF Patient Instructions: The patient had an opportunity to ask questions regarding treatment plan. All questions were answered. Imaging, Laboratory studies and physical exam results were discussed and reviewed in detail. No major barriers to understanding were identified. The patient expressed understanding and agreement with the above treatment plan. The patient is aware they should contact our office by phone for worsening of their current condition or the appearance of new symptoms. Compliance is encouraged with any medications and followup testing that is ordered. It is a privilege to be allowed the opportunity to participate in the urologic care of your patient. If you have any questions or concerns regarding treatment for the above conditions please do not hesitate to contact me. The office telephone contact is [phone]. This note is constructed in part using voice recognition software. While every effort has been made to ensure accuracy manager medicare marketing errors may have been included. Yours sincerely, Jamila Osborne MD Coding Level of Care Code Est Pt Level 4 (58927) Diagnoses Urinary incontinence R32 Urinary frequency R35.0
== END 2023-11-22 12:08 | disposition home or self-care (01) ==
PROVIDERS: PCP Internal Medicine; Visit Provider Urology
DX: R32 Unspecified urinary incontinence (principal); R35.0 Frequency of micturition
CPT/HCPCS: 99214

== ENCOUNTER → 2023-11-22 11:01 | Outpatient (BNVA) | payer OTHER, SELFPAY | PROVIDERS: PCP Internal Medicine; Visit Provider Urology | DX: R32 Unspecified urinary incontinence (principal); R35.0 Frequency of micturition | CPT/HCPCS: 81003; 99212 ==

== ENCOUNTER 2024-01-04 09:42 | Outpatient (AMB) | payer OTHER, SELFPAY ==
[2024-01-04 09:55] VITALS: BP 118/78; BMI 25.7
--- NOTE | 2024-01-04 09:55 | A.OFFPC_ITS ---
Vital Signs 01/04/24 09:55 Height 5 ft 4 in Weight 150 lb BMI 25.7 BP 118/78 Blood Pressure Location Lt brachial Position Sitting Intake Visit Reasons: Annual Exam Intake Note: Patient here for a physical exam Sales Order Processor Required: No Accompanied by: Father Allergies No Known Allergies [No Known Allergies*] Allergy (Verified 01/04/24 10:22) Medication List - Last Reconciled 01/04/24 by Nia Pope MD albuterol sulfate 90 mcg/actuation (Ventolin HFA) 2 puffs inhalation Q6H PRN albuterol sulfate 2.5 mg (3 mL) inhalation Q6H PRN benzonatate 200 mg PO TID PRN 7 days ketoconazole 2% appl topical BID PRN naratriptan take 1/2 - 1 tab at onset of headache; if no relief may repeat 1 tab after at least 4 hrs; max = 2 tabs/24 hrs orally PRN; 30 days solifenacin (Vesicare) 10 mg PO DAILY topiramate 25 - 50 mg (1 - 2 x 25 mg) PO BEDTIME 30 days walker with seat and wheels Tobacco use date assessed: 01/04/24 Dental Screening Dental Screen Date: 01/04/24 Did you have a dental visit in the last 12 months?: Yes Did you have a dental problem in the last 6 months where you did not have access to dental care?: No Was dental information given to patient?: Patient has dentist HPI HPI Comments History of Present Illness Details This is a 43-year-old female with moderate recurrent major depression that comes for her physical exam. She declines any counseling or medication for her depression. No suicidal thoughts. Last mammogram August 2023. No need for Pap smear due to hysterectomy. No chest pain or shortness of breath. Accompanied by father. [facility] Medical History LEISA (generalized anxiety disorder) Surgical History S/P total abdominal hysterectomy Family History Mother No problems noted. Father No problems noted. Family/Other Substance use disorder Mental health disorder Other SLE (systemic lupus erythematosus) Social History Household Members: Children Housing: Apartment Do you presently have visiting nurse or other home services: No Alcohol intake: former Patient Tobacco Use Status: Current everyday Tobacco user Tobacco use type: Cigarette Cigarette Packs Per Day: 1.5 Cigarettes Per Day: 20.0 e-Cigarette/Vaping Use: Never Used Second Hand Smoke Exposure: No service: No Current occupational status: employed Current occupation: [employer] Current occupational exposures/hazards: No Cognitive needs: No Hearing needs: No Vision needs: No Questionnaire PHQ-9 Over the last 2 weeks, how often have you been bothered by any of the following problems? 1. Little interest or pleasure in doing things: nearly every day 2. Feeling down, depressed, or hopeless: several days 3. Trouble falling or staying asleep, or sleeping too much: more than half the days 4. Feeling tired or having little energy: nearly every day 5. Poor appetite or overeating: nearly every day 6. Feeling bad about yourself - or that you are a failure or have let yourself or your family down: several days 7. Trouble concentrating on things, such as reading the newspaper or watching television: several days 8. Moving or speaking so slowly that other people could have noticed. Or the opposite - being so fidgety or restless that you have been moving around a lot more than usual: nearly every day 9. Thoughts that you would be better off or of hurting yourself in some way: several days Total score: 18 Depression Screening Interpretation: Positive Depression Screening Follow-up: Existing condition and Declines treatment Depression Screening Done: Yes 40465 - PHQ-9 Billing: Yes Source: Developed by Drs. Dominic Lombardo, Selina Castañeda, Wellington Marie and colleagues, with an educational dasia from [employer]. Thrive Questionnaire Date Thrive assessed: 01/04/24 I am a: Patient What is your living situation today?: I have a steady place to live Within the past 12 months, did the food you bought not last and you didn't have the money to get more?: Never true Within the past 12 months, did you worry whether your food would run out before you got money to buy more?: Never true Do you have trouble paying for medicines?: No Do you have trouble getting transportation to medical appointments?: No Do you have trouble paying your heating and electricity bill?: No Do you have trouble taking care of your child, family member or friend?: No Do you have trouble with day-to-day activities such as bathing, preparing meals, shopping, managing finances, etc.?: No Are you currently unemployed and looking for a job?: No Are you interested in more education?: No Please select the resources that you would like help with: None Currently or been in a relationship where the following occur: no concerns reported THRIVE Score: 0 AUDIT C Alcohol Use Questionnaire (AUDIT-C) 1. How often do you have a drink containing alcohol?: Monthly or less 2. How many drinks containing alcohol do you have on a typical day when you are drinking?: 1 or 2 3. How often do you have six or more drinks on one occasion?: Never Total Score: 1 Score Reviewed/Action Taken: No LEISA-7 AMB Questionnaire LEISA-7 Date LEISA - 7 assessed: 01/04/24 Feeling nervous, anxious, or on edge: 3 = Nearly every day Not being able to stop or control worryin = Not at all Worrying too much about different things: 1 = Several days Trouble relaxin = Nearly every day Being so restless that it is hard to sit still: 1 = Several days Becoming easily annoyed or irritable: 3 = Nearly every day Feeling afraid as if something awful might happen: 3 = Nearly every day Total LEISA-7 score (0-4 normal; 5-9 mild; 10-14 moderate; 15-21 severe): 14 Source: Developed by Drs. Dominic Lombardo, Selina Castañeda, Wellington Marie and colleagues, with an educational dasia from [employer]. LEISA-7 Assessment Billing LEISA-7 Assessment Tool: LEISA-7 Assessment 76941 Review of Systems Const All systems reviewed & are unremarkable except as noted in HPI and below Eyes Reports no additional complaints, Denies change in vision and Denies other visual disturbances Card Denies chest pain at rest, Denies chest pain with activity, Denies edema, Denies irregular heart rhythm, Denies claudication, Denies dyspnea, Denies dyspnea on exertion, Denies orthopnea, Denies paroxysmal nocturnal dyspnea and Denies slow heart rate Resp Denies cough, Denies dyspnea and Denies dyspnea on exertion GI Denies abdominal pain, Denies change in bowel habits, Denies excessive flatus, Denies nausea and Denies vomiting Denies urinary incontinence, Denies urinary hesitancy and Denies urinary urgency Musc Denies abnormal gait, Denies atrophy, Denies deformity and Denies limited range of motion Skin/Breast Denies bleeding lesions, Denies changing lesions and Denies rash Neuro Denies abnormal gait, Denies behavioral changes, Denies confusion and Denies lack of coordination Psych Denies behavioral changes and Denies confusion Physical exam (Primary Care) Vital Signs: Last Vital Signs BP 118/78 01/04/24 09:55 BMI result Body Mass Index 25.7 Tobacco/Smoking Status: Tobacco use Status Tobacco use date assessed 01/04/24 01/04/24 10:03 Patient Tobacco Use Status Current everyday Tobacco 01/04/24 10:03 Tobacco use type Cigarette 01/04/24 10:03 e-Cigarette/Vaping Use Never Used 01/04/24 10:03 PHQ-9: PHQ-9 Score PHQ-9: Total score 18 01/04/24 10:24 Depression Screening Interpretation: Positive Depression Screening Follow-up: Existing condition and Declines treatment Thrive Assessment: Date of Thrive Assessment Date Thrive assessed 01/04/24 01/04/24 10:03 Currently or been in a relationship where the following occur: no concerns reported Const General: No confusion Orientation/consciousness: patient oriented x3 and No confusion HENMT Head: Yes normal to inspection, Yes normocephalic and Yes atraumatic Ears: external ears normal Eyes General: appearance normal, both eyes and all related structures Eyelids: Yes eyelids normal Conjunctivae: conjunctivae normal Neck Neck: Yes normal visual inspection and Yes supple Resp Effort & Inspection: normal respiratory effort Auscultation: clear to auscultation bilaterally Cardio Jugular venous distension: no JVD Rate: regular rate Rhythm: regular rhythm Heart sounds: S1 normal heart sound present and S2 normal heart sound present GI Inspection: Yes normal to inspection Palpation (GI): Soft to palpation and nontender Auscultation: normal bowel sounds Skin General skin exam: no rashes or lesions noted Neuro General: patient oriented x3, no focal motor deficits and No confusion Extrem General: Yes full ROM Psych Appearance: grossly normal Assessment and Plan Assessment & Plan (1) Physical exam: Code(s): Z00.00 - Encounter for general adult medical examination without abnormal fi ndings Plan: Repeat in a year (2) Moderate recurrent major depression: Code(s): F33.1 - Major depressive disorder, recurrent, moderate Plan: She declines counseling or medications. Orders: Orders Lipid Panel Today Z00.00 - Encounter for general adult medical examination without abnormal findings Vitamin D 25-OH Total Today E55.9 - Vitamin D deficiency, unspecified Vitamin B12 and Folate Today E53.8 - Deficiency of other specified B group vitamins, R20.2 - Paresthesia of skin Complete Blood Count Auto Diff Today R20.2 - Paresthesia of skin Comprehensive [place]. Panel Fast Today R20.2 - Paresthesia of skin Medications: Refilled albuterol sulfate 2.5 mg (3 mL) inhalation Q6H PRN 75 mL 0RF wheezing, SOB Coding Level of Care Code Est Pt Prev Care 40-64y(01813) Diagnoses Physical exam Z00.00 Moderate recurrent major depression F33.1 Additional Codes ELISA-7 Assessment Billing - LEISA-7 Assessment Tool: LEISA-7 Assessment 46142 ([id number]) Time Spent (min) 33
== END 2024-01-04 10:33 | disposition home or self-care (01) ==
PROVIDERS: PCP Internal Medicine; Visit Provider Internal Medicine
DX: Z00.00 Encounter for general adult medical examination without abnormal findings (principal); F33.1 Major depressive disorder, recurrent, moderate
CPT/HCPCS: 99396

== ENCOUNTER 2024-01-21 14:06 | Outpatient (AMB) | payer OTHER, SELFPAY ==
--- NOTE | 2024-01-21 14:07 | A.OFFVIS_ITS ---
Intake Vital Signs 01/21/24 14:08 Height 5 ft 4 in Weight 150 lb BMI 25.7 BP 106/72 Blood Pressure Location Rt brachial Position Sitting Pulse 87 Pulse Source Pulse Oximeter Pulse Oximetry (%) 99 Oxygen Delivery Method Room Air Intake Visit Reasons: 3 mo f/u Polyneuropathy-CONF Intake Note: Patient presents for 3 month neuropathy. headaches are better. Allergies No Known Allergies [No Known Allergies*] Allergy (Verified 01/21/24 14:11) Medication List - Last Reconciled 01/21/24 by MOLLY Chiang albuterol sulfate 90 mcg/actuation (Ventolin HFA) 2 puffs inhalation Q6H PRN albuterol sulfate 2.5 mg (3 mL) inhalation Q6H PRN benzonatate 200 mg PO TID PRN 7 days ketoconazole 2% appl topical BID PRN naratriptan take 1/2 - 1 tab at onset of headache; if no relief may repeat 1 tab after at least 4 hrs; max = 2 tabs/24 hrs orally PRN; 30 days solifenacin (Vesicare) 10 mg PO DAILY topiramate 25 - 50 mg (1 - 2 x 25 mg) PO BEDTIME 30 days walker with seat and wheels HPI HPI Comments History of Present Illness Details 44-yr-old female presents for f/u visit. Pt denies any significant interval medical changes. She is more concerned w/ bilateral hand and wrist discomfort and swelling. This makes it difficult to do her daily activities or work. The BUE EMG/NCS was normal She continues to have BLE pain- in the lower legs, especially in her ankle to mid-sole of foot. The LLE has pain from the mid-thigh to mid-calf. Sometimes the knee gives out. She is not sure if she is still taking the Amitriptyline. She previously saw pain management, but felt the injection tx was painful and not helpful. She did see rheumatology before, but has not had f/u since initial consult. Pt reports that she is one migraine day per week, which is responsive to naratriptan. Baseline headache characteristics: Migraine headache a/w photophobia, N/V, approx 3 times per week. Also episodes of cold sensation of bilateral occipital region, not right in space dizziness, loses vision and sees little white dots- this lasts a few seconds. [facility] Medical History LEISA (generalized anxiety disorder) Surgical History S/P total abdominal hysterectomy Family History Mother No problems noted. Father No problems noted. Family/Other Substance use disorder Mental health disorder Other SLE (systemic lupus erythematosus) Social History Household Members: Children Housing: Apartment Do you presently have visiting nurse or other home services: No Alcohol intake: former Patient Tobacco Use Status: Current everyday Tobacco user Tobacco use type: Cigarette Cigarette Packs Per Day: 1.5 Cigarettes Per Day: 20.0 e-Cigarette/Vaping Use: Never Used Second Hand Smoke Exposure: No service: No Current occupational status: employed Current occupation: [employer] Current occupational exposures/hazards: No Cognitive needs: No Hearing needs: No Vision needs: No Physical Exam Vital Signs: Last Vital Signs Pulse 87 01/21/24 14:08 BP 106/72 01/21/24 14:08 Pulse Ox 99 01/21/24 14:08 Oxygen Delivery Method Room Air 01/21/24 14:08 BMI result Body Mass Index 25.7 Const General: cooperative and no acute distress Orientation/consciousness: patient oriented x3 Resp Effort & Inspection: normal respiratory effort and able to speak in complete sentences Neuro Other: LUE positive tinnel, medial compression test, and Phalen. General: patient oriented x3 Cranial nerves: Yes CN's II-XII intact bilaterally Cognition (Neuro): normal cognition Psych Appearance: grossly normal Mental Status: mental status grossly normal Speech and movement: Normal speech and movement present Affect: normal affect Attitude: cooperative Assessment & Plan Assessment & Plan (1) Paresthesia of left upper extremity: Code(s): R20.2 - Paresthesia of skin (2) Migraine without aura: Code(s): G43.009 - Migraine without aura, not intractable, without status migrainosus (3) Headache: Code(s): R51.9 - Headache, unspecified (4) Paresthesia and pain of both upper extremities: Code(s): R20.2 - Paresthesia of skin; M79.601 - Pain in right arm; M79.602 - Pain in left arm Plan For BUE L > R pain/paresthesias. Reviewed LUE EMG/NCS- normal. Monitor LLE peroneal neuropathy. Continue to avoid crossing legs, wearing tight clothing. Pt previously has not responded to PT. Pt advsied to f/u w/ rheumatology. Future considerations- RLE EMG/NCS, referring pt back to pain management. ? For migraine prevention tx: Trial Amitriptyline 25-50mg qhs- this may help w/ body pains as well. For acute migraine tx: Continue Naratriptan prn. May adjunct with OTC Tylenol 650mg q 4 hours, Ibuprofen 600mg q 6 hours, or Naproxen 440mg q 12 hrs prn. Previous tx trials: Sumatriptan 100mg tab- caused N/V. ? f/u in 6 months or sooner prn Medications: New amitriptyline 25 mg PO BEDTIME 30 days 30 tabs 4RF Coding Level of Care Code Est Pt Level 4 (21181) Diagnoses Paresthesia of left upper extremity R20.2 Migraine without aura G43.009 Headache R51.9 Paresthesia and pain of both upper extremities R20.2; M79.601; M79.602
[2024-01-21 14:08] VITALS: BP 106/72; PULSE 87; O2SAT 99; BMI 25.7
== END 2024-01-21 14:49 | disposition home or self-care (01) ==
PROVIDERS: PCP Internal Medicine; Visit Provider Nurse Practitioner Family
DX: R20.2 Paresthesia of skin (principal); G43.009 Migraine without aura, not intractable, without status migrainosus; M79.601 Pain in right arm; M79.602 Pain in left arm
CPT/HCPCS: 99214

== ENCOUNTER → 2024-01-21 14:06 | Outpatient (BNVA) | payer OTHER, SELFPAY | PROVIDERS: PCP Internal Medicine; Visit Provider Nurse Practitioner Family | DX: R20.2 Paresthesia of skin (principal); G43.009 Migraine without aura, not intractable, without status migrainosus; M79.601 Pain in right arm; M79.602 Pain in left arm | CPT/HCPCS: 99212 ==

== ENCOUNTER 2024-02-14 09:22 | Outpatient (REF) | payer OTHER, SELFPAY ==
[2024-02-14 09:36] LABS: MANUAL DIFF FLAG NO
[2024-02-14 09:52] LABS: Basophils Absolute Auto 0.1 X10*3/uL (0.0-0.2); Basophils Percent Auto 0.6 % (0-2); Eosinophils Absolute Auto 0.1 X10*3/uL (0.0-0.4); Eosinophils Percent Auto 1.7 % (0-4); Hematocrit 42.5 % (37.0-47.0); Imm Gran Abs Auto 0.02 X10*3/uL (0.00-0.03); Imm Gran Pct Auto 0.2 % (0.0-0.4); Lymphocytes Absolute Auto 3.3 X10*3/uL (1.2-4.9); Lymphocytes Percent Auto 40.1 % (20-40); Mean Corpuscular HGB Conc 32.9 g/dl (31.0-35.0); Mean Corpuscular Hemoglobin 31.2 pg (27.0-33.0); Mean Corpuscular Volume 94.7 fL (80.0-98.0); Monocytes Absolute Auto 0.5 X10*3/uL (0.1-1.2); Monocytes Percent Auto 5.7 % (2-11); Neutrophils Absolute Auto 4.3 x10*3/uL (2.0-8.3); Neutrophils Percent Auto 51.7 % (45-73); Platelet Count 266 X10*3/uL (160-400); Red Blood Count 4.49 X10*6/uL (4.20-5.50); Red Cell Distribution Width 12.4 % (11.0-16.0); White Blood Count 8.3 X10*3/uL (4.8-10.8)
[2024-02-14 10:33] LABS: Alanine Aminotransferase 20 U/L (0-31); Albumin Level 4.3 g/dL (3.5-5.0); Alkaline Phosphatase 80 U/L (39-117); Anion Gap 12 (12-20); Aspartate Amino Transferase 21 U/L (5-31); Bilirubin Total 0.2 mg/dL (0.0-1.0); Blood Urea Nitrogen 11 mg/dL (9-16); Calcium 9.4 mg/dL (8.4-10.2); Carbon Dioxide 25 mmol/L (22-29); Chloride 109 mmol/L (96-108); Cholesterol 260 mg/dL (<200); Estimated Glomerular Filt Rate > 60; Glucose Fasting 103 mg/dL (60-99); HDL Cholesterol 34 mg/dL (>40); Potassium 4.4 mmol/L (3.3-5.1); Sodium 142 mmol/L (135-145); Total Protein 7.2 g/dL (6.5-8.0); Triglycerides 663 mg/dL (<150)
[2024-02-14 10:50] LABS: Vitamin D 25-OH Total 20.2 ng/mL (>30)
[2024-02-14 10:58] LABS: Folate 13.8 ng/mL (> or = 4.0); Vitamin B12 538 pg/mL (200-900)
== END 2024-02-14 09:23 | disposition home or self-care (01) ==
LOC: HO.LAB 09:22
PROVIDERS: PCP Internal Medicine; Visit Provider Internal Medicine
DX: Z00.00 Encounter for general adult medical examination without abnormal findings (principal); R20.2 Paresthesia of skin; E55.9 Vitamin D deficiency, unspecified; E53.8 Deficiency of other specified B group vitamins
CPT/HCPCS: 36415; 80053; 80061; 82306; 82607; 82746; 85025

== ENCOUNTER 2024-08-01 10:05 | Outpatient (AMB) | payer OTHER, SELFPAY ==
--- NOTE | 2024-08-01 10:06 | MHC.OFFVIS ---
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 Father No problems noted. Family/Other Substance use disorder Mental health disorder Other SLE (systemic lupus erythematosus) Social History Household Members: Children Housing: Apartment Do you presently have visiting nurse or other home services: No Alcohol intake: former Patient Tobacco Use Status: Current everyday Tobacco user Tobacco use type: Cigarette Cigarette Packs Per Day: 1.5 Cigarettes Per Day: 20.0 e-Cigarette/Vaping Use: Never Used Second Hand Smoke Exposure: No service: No Current occupational status: employed Current occupation: [employer] Current occupational exposures/hazards: No Cognitive needs: No Hearing needs: No Vision needs: No Coding
[2024-08-01 10:08] VITALS: BP 116/80; PULSE 82; O2SAT 98; BMI 25.1
--- NOTE | 2024-08-01 10:16 | MHC.OFFVIS ---
Vital Signs 08/01/24 10:08 Height 5 ft 4 in Weight 146 lb 6 oz BMI 25.1 BP 116/80 Blood Pressure Location Lt brachial Position Sitting Pulse 82 Pulse Source Pulse Oximeter Pulse Oximetry (%) 98 Oxygen Delivery Method Room Air Intake Visit Reasons: Follow up Pre Sales Technical Engineer Required: Yes Pre Sales Technical Engineer Services: Pre Sales Technical Engineer Present Accompanied by: Self / Same As Patient Allergies No Known Allergies [No Known Allergies*] Allergy (Verified 08/01/24 10:22) Medication List - Last Reconciled 08/01/24 by MOLLY Chiang albuterol sulfate 90 mcg/actuation (Ventolin HFA) 2 puffs inhalation Q6H PRN albuterol sulfate 2.5 mg (3 mL) inhalation Q6H PRN amitriptyline 25 mg PO BEDTIME 30 days benzonatate 200 mg PO TID PRN 7 days cholecalciferol (vitamin D3) 25 mcg PO DAILY 90 days fenofibrate 54 mg PO DAILY 90 days ketoconazole 2% appl topical BID PRN naratriptan take 1/2 - 1 tab at onset of headache; if no relief may repeat 1 tab after at least 4 hrs; max = 2 tabs/24 hrs orally PRN; 30 days solifenacin (Vesicare) 10 mg PO DAILY topiramate 25 - 50 mg (1 - 2 x 25 mg) PO BEDTIME 30 days walker with seat and wheels HPI Comments Details: 44-yr-old female presents for f/u visit. Pt denies any significant interval medical changes. She is again concerned about her chronic pain. She is having generalized pain, bone pain. She continues to have bilateral hand and wrist discomfort, swelling, and at times tingling if she is holding something for some time. This makes it difficult to do her daily activities or work. Previous BUE EMG/NCS was normal She continues to have BLE pain- in the lower legs, especially in her ankle to mid-sole of foot. The LLE has pain from the mid-thigh to mid-calf. Sometimes the knee gives out. She also endorses restlessness, muscle cramps- w/wo activity, creepy crawling sensation, poor sleep, snoring, daytime sleepiness. She endorses h/o anemia, vit D def. She is unclear if she is taking Vit D. She is not sure if her restlessness s/s are better/worse on Amitriptyline. She previously saw pain management, but felt the injection tx was painful and not helpful. She did see rheumatology before, but has not had f/u since initial consult. Pt reports that she is having overall less migraine attacks. She is now having 3 migraine attack, which lasts 2 days, which is responsive to naratriptan - has not tried taking an extra dose.. Baseline headache characteristics: Migraine headache a/w photophobia, N/V, approx 3 times per week. Also episodes of cold sensation of bilateral occipital region, not right in space dizziness, loses vision and sees little white dots- this lasts a few seconds. [facility] Medical History LEISA (generalized anxiety disorder) Surgical History S/P total abdominal hysterectomy Family History Mother No problems noted. Father No problems noted. Family/Other Substance use disorder Mental health disorder Other SLE (systemic lupus erythematosus) Social History Household Members: Children Housing: Apartment Do you presently have visiting nurse or other home services: No Alcohol intake: former Patient Tobacco Use Status: Current everyday Tobacco user Tobacco use type: Cigarette Cigarette Packs Per Day: 1.5 Cigarettes Per Day: 20.0 e-Cigarette/Vaping Use: Never Used Second Hand Smoke Exposure: No service: No Current occupational status: employed Current occupation: [employer] Current occupational exposures/hazards: No Cognitive needs: No Hearing needs: No Vision needs: No Physical Exam Vital Signs: Last Vital Signs Pulse 82 08/01/24 10:08 BP 116/80 08/01/24 10:08 Pulse Ox 98 08/01/24 10:08 Oxygen Delivery Method Room Air 08/01/24 10:08 BMI result Body Mass Index 25.1 Const General: cooperative and no acute distress Orientation/consciousness: patient oriented x3 Resp Effort & Inspection: normal respiratory effort and able to speak in complete sentences Neuro Other: LUE positive tinnel, medial compression test, and Phalen. General: patient oriented x3 Cranial nerves: Yes CN's II-XII intact bilaterally Cognition (Neuro): normal cognition Psych Appearance: grossly normal Mental Status: mental status grossly normal Speech and movement: Normal speech and movement present Affect: normal affect (though sad and teary at times) Attitude: cooperative Assessment & Plan Assessment & Plan (1) Paresthesia of left upper extremity: Code(s): R20.2 - Paresthesia of skin Category: Medical (2) Migraine without aura: Code(s): G43.009 - Migraine without aura, not intractable, without status migrainosus Category: Medical (3) Paresthesia and pain of both upper extremities: Code(s): R20.2 - Paresthesia of skin; M79.601 - Pain in right arm; M79.602 - Pain in left arm Category: Medical (4) Muscle cramps: Code(s): R25.2 - Cramp and spasm Category: Medical Plan For pain/paresthesias, bone pain, cramps, restlessness, ? RLS:. 11/04/2023: LUE EMG/NCS- normal. 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 Continue to avoid crossing legs, wearing tight clothing. Check f/u labs for common etiologies. HST to assess for sleep apnea, if WNL, consider in-lab PSG to assess for PLMS/RLS. Pt previously has not responded to PT. Future considerations- RLE EMG/NCS, referring pt back to pain management or rheumatology. ? For migraine prevention tx: Amitriptyline 25-50mg qhs- this may help w/ body pains as well, though consider alternate if worsens restlessness. Previous trials: Topiramate- not tolerated For acute migraine tx: Continue Naratriptan prn, may repeat dose in 4 hrs x's 1. . May adjunct with OTC Tylenol 650mg q 4 hours, Ibuprofen 600mg q 6 hours, or Naproxen 440mg q 12 hrs prn. Previous tx trials: Sumatriptan 100mg tab- caused N/V. ? Will follow-up upon review of above and patient to follow-up in clinic in 4-6 months or sooner prn. Orders: Orders CRP High Sensitivity Today D64.9 - Anemia, unspecified, M25.50 - Pain in unspecified joint, M79.601 - Pain in right arm, M79.602 - Pain in left arm, R20.2 - Paresthesia of skin, R51.9 - Headache, unspecified Erythrocyte Sedimentation Rate Today D64.9 - Anemia, unspecified, M25.50 - Pain in unspecified joint, M79.601 - Pain in right arm, M79.602 - Pain in left arm, R20.2 - Paresthesia of skin, R51.9 - Headache, unspecified DONNA Reflex Titer and Pattern Today D64.9 - Anemia, unspecified, M25.50 - Pain in unspecified joint, M79.601 - Pain in right arm, M79.602 - Pain in left arm, R20.2 - Paresthesia of skin, R51.9 - Headache, unspecified Magnesium Today D64.9 - Anemia, unspecified, M25.50 - Pain in unspecified joint, M79.601 - Pain in right arm, M79.602 - Pain in left arm, R20.2 - Paresthesia of skin, R51.9 - Headache, unspecified Vitamin D 25-OH (D2 and D3) Today D64.9 - Anemia, unspecified, M25.50 - Pain in unspecified joint, M79.601 - Pain in right arm, M79.602 - Pain in left arm, R20.2 - Paresthesia of skin, R51.9 - Headache, unspecified Comprehensive Met. Panel Today D64.9 - Anemia, unspecified, M25.50 - Pain in unspecified joint, M79.601 - Pain in right arm, M79.602 - Pain in left arm, R20.2 - Paresthesia of skin, R51.9 - Headache, unspecified Ferritin Today D64.9 - Anemia, unspecified, M25.50 - Pain in unspecified joint, M79.601 - Pain in right arm, M79.602 - Pain in left arm, R20.2 - Paresthesia of skin, R51.9 - Headache, unspecified RT home sleep study Today G47.9 - Sleep disorder, unspecified, R06.83 - Snoring, R35.1 - Nocturia Rheumatoid Factor Today D64.9 - Anemia, unspecified, M25.50 - Pain in unspecified joint, M79.601 - Pain in right arm, M79.602 - Pain in left arm, R20.2 - Paresthesia of skin, R51.9 - Headache, unspecified Creatine Kinase Total Today D64.9 - Anemia, unspecified, M25.50 - Pain in unspecified joint, M79.601 - Pain in right arm, M79.602 - Pain in left arm, R20.2 - Paresthesia of skin, R51.9 - Headache, unspecified Complete Blood Count Auto Diff Today D64.9 - Anemia, unspecified, M25.50 - Pain in unspecified joint, M79.601 - Pain in right arm, M79.602 - Pain in left arm, R20.2 - Paresthesia of skin, R51.9 - Headache, unspecified IRON PROFILE Today D64.9 - Anemia, unspecified, M25.50 - Pain in unspecified joint, M79.601 - Pain in right arm, M79.602 - Pain in left arm, R20.2 - Paresthesia of skin, R51.9 - Headache, unspecified Medications: Refilled naratriptan take 1/2 - 1 tab at onset of headache; if no relief may repeat 1 tab after at least 4 hrs; max = 2 tabs/24 hrs orally PRN; 30 days 12 tabs 6RF migraine headache Discontinued topiramate Discontinued Reason: Patient no longer taking 25 - 50 mg (1 - 2 x 25 mg) PO BEDTIME 30 days 60 tabs 3RF Coding Level of Care Code Est Pt Level 4 (19427) Diagnoses Paresthesia of left upper extremity R20.2 Migraine without aura G43.009 Paresthesia and pain of both upper extremities R20.2; M79.601; M79.602 Muscle cramps R25.2 [place] Sleepiness Scale Questions Sitting and reading: moderate chance of dozing Watching TV: moderate chance of dozing Sitting inactive in a theater, movie etc.: moderate chance of dozing As a passenger in a car for an hour without break: would never doze Lying down in the afternoon when circumstances permit: moderate chance of dozing Sitting and talking to someone: would never doze Sitting quietly after lunch without alcohol: moderate chance of dozing In a car, while stopped for a few minutes in the traffic: would never doze ESS < 10: normal, ESS > 12: pathologic: 10
== END 2024-08-01 11:25 | disposition home or self-care (01) ==
PROVIDERS: PCP Internal Medicine; Visit Provider Nurse Practitioner Family
DX: R20.2 Paresthesia of skin (principal); G43.009 Migraine without aura, not intractable, without status migrainosus; M79.601 Pain in right arm; M79.602 Pain in left arm; R25.2 Cramp and spasm
CPT/HCPCS: 99214

== ENCOUNTER → 2024-08-01 10:05 | Outpatient (BNVA) | payer OTHER, SELFPAY | PROVIDERS: PCP Internal Medicine; Visit Provider Nurse Practitioner Family | DX: G43.009 Migraine without aura, not intractable, without status migrainosus (principal); M79.601 Pain in right arm; M79.602 Pain in left arm; R20.2 Paresthesia of skin; R25.2 Cramp and spasm; R06.03 Acute respiratory distress; R35.1 Nocturia; F17.210 Nicotine dependence, cigarettes, uncomplicated | CPT/HCPCS: 99212 ==

== ENCOUNTER 2024-08-01 11:26 | Outpatient (REF) | payer OTHER, SELFPAY ==
[2024-08-01 17:45] LABS: MANUAL DIFF FLAG NO
[2024-08-01 18:03] LABS: Basophils Absolute Auto 0.1 X10*3/uL (0.0-0.2); Eosinophils Absolute Auto 0.1 X10*3/uL (0.0-0.4); Eosinophils Percent Auto 1.8 % (0-4); Hematocrit 40.8 % (37.0-47.0); Hemoglobin 13.6 g/dl (12.0-16.0); Imm Gran Abs Auto 0.02 X10*3/uL (0.00-0.03); Imm Gran Pct Auto 0.3 % (0.0-0.4); Lymphocytes Absolute Auto 2.8 X10*3/uL (1.2-4.9); Lymphocytes Percent Auto 39.4 % (20-40); Mean Corpuscular HGB Conc 33.3 g/dl (31.0-35.0); Mean Corpuscular Volume 92.9 fL (80.0-98.0); Mean Platelet Volume 10.5 fL (9.4-12.3); Monocytes Absolute Auto 0.5 X10*3/uL (0.1-1.2); Monocytes Percent Auto 6.9 % (2-11); Neutrophils Absolute Auto 3.6 x10*3/uL (2.0-8.3); Neutrophils Percent Auto 50.6 % (45-73); Platelet Count 257 X10*3/uL (160-400); Red Blood Count 4.39 X10*6/uL (4.20-5.50); Red Cell Distribution Width 12.2 % (11.0-16.0); White Blood Count 7.1 X10*3/uL (4.8-10.8)
[2024-08-01 18:12] LABS: Rheumatoid Factor < 13.0 IU/mL (<15.0)
[2024-08-01 18:28] LABS: Alanine Aminotransferase 18 U/L (0-31); Albumin Level 4.4 g/dL (3.5-5.0); Alkaline Phosphatase 99 U/L (39-117); Anion Gap 12 (12-20); Aspartate Amino Transferase 17 U/L (5-31); Bilirubin Total 0.5 mg/dL (0.0-1.0); Blood Urea Nitrogen 14 mg/dL (9-16); Calcium 9.2 mg/dL (8.4-10.2); Carbon Dioxide 25 mmol/L (22-29); Chloride 108 mmol/L (96-108); Estimated Glomerular Filt Rate > 60; Glucose Random 89 mg/dL (60-115); Iron 125 mcg/dL (30-160); Magnesium 2.3 mg/dL (1.6-2.6); Percent Iron Saturation 50 % (15-50); Potassium 4.3 mmol/L (3.3-5.1); Sodium 141 mmol/L (135-145); Total Iron Binding Capacity 252 mcg/dL (228-428); Total Protein 7.2 g/dL (6.5-8.0); Unsaturated Iron Binding 127 ug/dL
[2024-08-01 18:45] LABS: Erythrocyte Sedimentation Rate 11 MM/HR (0-20)
[2024-08-01 18:47] LABS: Ferritin 111 ng/mL (10-250)
[2024-08-02 15:53] LABS: CRP High Sensitivity 2.6 mg/L
[2024-08-03 12:13] LABS: Anti Nuclear Antibody Screen NEGATIVE (NEGATIVE)
[2024-08-06 16:08] LABS: Vitamin D 25-OH, D2 <4 ng/mL; Vitamin D 25-OH, D3 21 ng/mL; Vitamin D 25-OH, Total 21 ng/mL (30-100)
== END 2024-08-01 11:27 | disposition home or self-care (01) ==
LOC: HO.HKASLDS 11:26
PROVIDERS: Visit Provider Nurse Practitioner Family
DX: R20.2 Paresthesia of skin (principal); M79.601 Pain in right arm; M79.602 Pain in left arm; D64.9 Anemia, unspecified; M25.50 Pain in unspecified joint; R51.9 Headache, unspecified; R35.1 Nocturia; R06.83 Snoring; G47.9 Sleep disorder, unspecified
CPT/HCPCS: 36415; 80053; 82306; 82550; 82728; 83540; 83735; 85025; 85652; 86038; 86141; 86431

== ENCOUNTER 2024-08-02 15:58 | Outpatient (REF) | payer OTHER, SELFPAY ==
[2024-08-03 10:41] LABS: Influenza A PCR NEGATIVE (Negative); Influenza B PCR NEGATIVE (Negative); Resp Syncy Virus RNA Qual PCR NEGATIVE (Negative); SARS COV2 PCR INHOUSE NEGATIVE (Negative)
== END 2024-08-02 15:59 | disposition home or self-care (01) ==
LOC: HO.LAB 15:58
PROVIDERS: PCP Internal Medicine; Visit Provider Physician Assistant
DX: J06.9 Acute upper respiratory infection, unspecified (principal); H66.001 Acute suppurative otitis media without spontaneous rupture of ear drum, right ear; M25.50 Pain in unspecified joint
CPT/HCPCS: 0241U; 87880; 99212

== ENCOUNTER 2024-08-02 15:58 | Outpatient (AMB) | payer OTHER, SELFPAY ==
--- NOTE | 2024-08-02 16:03 | MHC.OFFWIV ---
Intake Vital Signs 08/02/24 16:06 Height 5 ft 4 in Weight 155 lb BMI 26.6 BP 110/70 Blood Pressure Location Rt brachial Position Sitting Pulse 87 Pulse Source Pulse Oximeter Pulse Oximetry (%) 97 Oxygen Delivery Method Room Air Intake Visit Reasons: EP-headaches, sinus pain, body ache, sore throat Intake Note: Patient here for headache, body aches, sinus congestion. Patient Tobacco Use Status: Current everyday Tobacco user Allergies No Known Allergies [No Known Allergies*] Allergy (Verified 08/02/24 16:07) Do you need a note to return to daycare/school/sports/work: No HPI HPI Comments History of Present Illness Details Patient is a 44-year-old female complaining of 2 days of a sore throat, headache, joint pain in mostly her knees but states it really is her whole body that feels achy as well as fatigue. She states her right ear is also been bothering her for about 7 days. She denies any fevers, cough, head congestion. She denies any sick contacts. She has not taken any medications to feel better. She does tell me she has a history of arthritis in her knees and she usually does not take any medications to help it feel better, she says she just tolerates it and it gets better on its own. [facility] Medical History (Updated 08/02/24 @ 16:26 by Corry Parrish PA-C) Anemia LEISA (generalized anxiety disorder) Surgical History S/P total abdominal hysterectomy Family History Mother No problems noted. Father No problems noted. Family/Other Substance use disorder Mental health disorder Other SLE (systemic lupus erythematosus) Social History Household Members: Children Housing: Apartment Do you presently have visiting nurse or other home services: No Alcohol intake: former Patient Tobacco Use Status: Current everyday Tobacco user Tobacco use type: Cigarette Cigarette Packs Per Day: 1.5 Cigarettes Per Day: 20.0 e-Cigarette/Vaping Use: Never Used Second Hand Smoke Exposure: No service: No Current occupational status: employed Current occupation: [employer] Current occupational exposures/hazards: No Cognitive needs: No Hearing needs: No Vision needs: No Review of Systems Const All systems reviewed & are unremarkable except as noted in HPI and below Physical Exam Vital Signs: Last Vital Signs Pulse 87 08/02/24 16:06 BP 110/70 08/02/24 16:06 Pulse Ox 97 08/02/24 16:06 Oxygen Delivery Method Room Air 08/02/24 16:06 BMI result Body Mass Index 26.6 Const General: cooperative, healthy appearing, comfortable and no acute distress Orientation/consciousness: patient oriented x3 Limitations: no limitations HEENT Head: Yes normal to inspection Ears: hearing grossly normal bilaterally, external ears normal, TM normal on the left and TM abnormal dull, wth effusion purulent and with loss of landmarks General nose exam: Normal external nose present, Normal nares present and No nasal discharge present Face and sinus: Yes normal facial exam and Yes sinuses nontender Mouth: Normal oral and palatal mucosa present and moist mucous membranes Throat: Yes tonsils normal, Yes uvula midline and Yes posterior oropharynx abnormal (Erythema) Eyes General: appearance normal, both eyes and all related structures Neck Neck: Yes normal visual inspection Resp Effort & Inspection: normal respiratory effort, able to speak in complete sentences, no respiratory distress, not tachypneic, no tripod positioning and no use of accessory muscles Skin General skin exam: no rashes or lesions noted Neuro General: patient oriented x3 Extrem General: Yes normal to inspection and Yes no clubbing, cyanosis or edema Assessment & Plan Assessment & Plan (1) Otitis media of right ear: Code(s): H66.91 - Otitis media, unspecified, right ear Qualifiers: Otitis media type: suppurative Chronicity: acute Recurrence: non-recurrent Spontaneous tympanic membrane rupture: without spontaneous rupture Qualified Code(s): H66.001 - Acute suppurative otitis media without spontaneous rupture of ear drum, right ear Plan: Vital signs stable, patient well-appearing, rapid strep in office was negative, we did send flu COVID and RSV testing. Sent antibiotics to cover her for the right ear as well as some meloxicam to cover her for her arthritis pain. Did educate patient to not take any other NSAIDs while taking this medication. (2) Polyarthralgia: Code(s): M25.50 - Pain in unspecified joint Plan: See above Plan See above Orders: Orders SARS-CoV2/FLU/RSV Today J06.9 - Acute upper respiratory infection, unspecified AMB Rapid Strep Screen Today Z13.9 - Encounter for screening, unspecified Medications: New meloxicam 15 mg PO DAILY 7 tabs 0RF amoxicillin 875 mg PO Q12H 10 tabs 0RF Coding Level of Care Code Est Pt Level 3 (05992) Diagnoses Non-recurrent acute suppurative otitis media of right ear without spontaneous rupture of tympanic membrane H66.001 Otitis media type: suppurative Chronicity: acute Recurrence: non-recurrent Spontaneous tympanic membrane rupture: without spontaneous rupture Polyarthralgia M25.50
[2024-08-02 16:06] VITALS: BP 110/70; PULSE 87; O2SAT 97; BMI 26.6
== END 2024-08-02 16:26 | disposition home or self-care (01) ==
PROVIDERS: PCP Internal Medicine; Visit Provider Physician Assistant
DX: H66.001 Acute suppurative otitis media without spontaneous rupture of ear drum, right ear (principal); M25.50 Pain in unspecified joint

== ENCOUNTER 2024-08-23 12:37 | Outpatient (AMB) | payer OTHER, SELFPAY ==
--- NOTE | 2024-08-23 13:11 | A.OFFVIS_ITS ---
Intake Visit Reasons: 9m follow up Intake Note: Patient is present for 9m f/u Urology Medication:vesicare - not taking Antibiotic Allergy:none Blood Thinner:none Copyright Clerk Name: [id number] Allergies No Known Allergies [No Known Allergies*] Allergy (Verified 08/23/24 13:13) Medication List - Last Reconciled 08/23/24 by Jamila Osborne MD albuterol sulfate 90 mcg/actuation (Ventolin HFA) 2 puffs inhalation Q6H PRN albuterol sulfate 2.5 mg (3 mL) inhalation Q6H PRN amitriptyline 25 mg PO BEDTIME 30 days amoxicillin 875 mg PO Q12H benzonatate 200 mg PO TID PRN 7 days cholecalciferol (vitamin D3) 50 mcg (2 x 25 mcg (1,000 unit)) PO DAILY 90 days fenofibrate 54 mg PO DAILY 90 days ketoconazole 2% appl topical BID PRN meloxicam 15 mg PO DAILY naratriptan take 1/2 - 1 tab at onset of headache; if no relief may repeat 1 tab after at least 4 hrs; max = 2 tabs/24 hrs orally PRN; 30 days solifenacin (Vesicare) 10 mg PO DAILY walker with seat and wheels HPI Comments Details: 08/23/24--seismic interpreter utilized. Juwan states she did not get the vesicare prescribed in Nov, 2023. She wears diapers daily. She denies dysuria. UA - unremarkable. Vesicare refilled. Will set up a FU in 6-8 weeks to discuss any change in urinary symptoms. Review of chart: 11/22/23--Juwan is a 43-year-old female who presents to the office for follow- up for LUTS frequency, urinary incontinence and pelvic floor weakness The patient is Syrian speaking female. Certified seismic interpreter was present during the visit. She was referred to PFPT, she was prescribed Myrbetriq 25 mg qd. She has had some urge symptoms. She denies irritative or UTI symptoms. I will prescribe vesicare 10 mg daily to replace Myrbetriq. UA - Leuks negative, blood negative. 11/22/23--Plan Vesicare 10 mg daily. FU in 9 months. 04/22/23-- The patient is Syrian speaking female. seismic interpreter was present during the visit. The patient was referred to pelvic floor physical therapy for urinary incontinence and pelvic floor weakness, she is here for follow-up. The patient states that she is not given any exercises for pelvic floor and is receiving PT for left knee as they do not have any appointment space for pelvic floor therapy. States that leakage is more frequent in the interim. Has leakage while coughing and walking. She also has nocturia episodes 2-3 times. States incomplete bladder emptying. Evaluation today-- Blood: negative, leukocytes: negative. Bladder scan PVR: 13 mL. Plan: Referral for pelvic floor physical therapy was rewritten. Myrbetriq 25 mg QD was ordered. Discussed to take the medication at night and, she can change the regime to afternoon or morning to manage the symptoms. Discussed timed voiding. Follow-up after 6 months or sooner if needed. 01/15/2023--Juwan is a 42-year-old female patient who is here as a new patient evaluation for urinary incontinence. The patient is a female. A qualified seismic interpreter was present during the encounter. The patient last visited the ER on 01/11/23 for left flank pain and underwent CAT scan. Complains having intermittent urinary leakage since 6 months. States wearing panty liners/pads daily. Was prescribed gabapentin in the ER and reports no benefits with the drug. 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 The patient is having a scheduled MRI on 01/19/2023 Surgical history of hysterectomy due to menorrhagia. The patient had 4 vaginal deliveries. Evaluation today: Blood: negative and Leukocyte: negative. Bladder scan: PVR 0 mL. pelvic exam declined by patient. CT without contrast results reviewed--01/11/23-No acute intro-abdominal process seen. [facility] Medical History Anemia LEISA (generalized anxiety disorder) Surgical History S/P total abdominal hysterectomy Family History Mother No problems noted. Father No problems noted. Family/Other Substance use disorder Mental health disorder Other SLE (systemic lupus erythematosus) Social History Household Members: Children Housing: Apartment Do you presently have visiting nurse or other home services: No Alcohol intake: former Patient Tobacco Use Status: Current everyday Tobacco user Tobacco use type: Cigarette Cigarette Packs Per Day: 1.5 Cigarettes Per Day: 20.0 e-Cigarette/Vaping Use: Never Used Second Hand Smoke Exposure: No service: No Current occupational status: employed Current occupation: [employer] Current occupational exposures/hazards: No Cognitive needs: No Hearing needs: No Vision needs: No Review of Systems Const All systems reviewed & are unremarkable except as noted in HPI and below Reports no additional complaints Eyes Reports no additional complaints ENT Reports no additional complaints Card Reports no additional complaints Resp Reports no additional complaints GI Reports no additional complaints Reports as per HPI Musc Reports no additional complaints Skin/Breast Reports system reviewed and no additional complaints, except as documented Neuro Reports no additional complaints Psych Reports no additional complaints Endo Reports no additional complaints Kelvin/Lymph Reports no additional complaints Aller/Immun Reports no additional complaints Results AMB Urinalysis, Automated UA Leukoctes 0 Jhoan/uL Last Edit by JEANETTE Parsons on 08/23/24 13:38 UA Nitrite Negative Last Edit by JEANETTE Parsons on 08/23/24 13:38 UA Urobilinogen 0.2 mg/dL Last Edit by JEANETTE Parsons on 08/23/24 13:3 8 UA Protein 15 mg/dL Last Edit by JEANETTE Parsons on 08/23/24 13:38 UA pH 6.0 Last Edit by JEANETTE Parsons on 08/23/24 13:38 UA Blood 0 Alexander/uL Last Edit by JEANETTE Parsons on 08/23/24 13:38 UA Specific [place] 1.025 Last Edit by JEANETTE Parsons on 08/23/24 13: 38 UA Ketone Negative Last Edit by JEANETTE Parsons on 08/23/24 13:38 UA Bilirubin 0 mg/dL Last Edit by JEANETTE Parsons on 08/23/24 13:38 UA Glucose 0 mg/dL Last Edit by JEANETTE Parsons on 08/23/24 13:38 Assessment & Plan Assessment & Plan (1) Urinary incontinence: Code(s): R32 - Unspecified urinary incontinence Category: Medical (2) Urinary frequency: Code(s): R35.0 - Frequency of micturition Category: Medical Plan Vesicare 10 mg daily FU in 6-8 weeks Orders: Orders AMB Urinalysis Automated Today Z13.9 - Encounter for screening, unspecified Medications: Refilled solifenacin (Vesicare) 10 mg PO DAILY 90 tabs 3RF Patient Instructions: The patient had an opportunity to ask questions regarding treatment plan. The patient expressed understanding and agreement with the above treatment plan. The patient is aware they should contact our office by phone for worsening of their current condition or the appearance of new symptoms. Compliance is encouraged with any medications and followup testing that is ordered. It is a privilege to be allowed the opportunity to participate in the urologic care of your patient. If you have any questions or concerns regarding treatment for the above conditions please do not hesitate to contact me. The office telephone contact is [phone]. This note is constructed in part using voice recognition software. While every effort has been made to ensure accuracy academic computing director errors may have been included. Yours sincerely, Jamila Osborne MD Coding Level of Care Code Est Pt Level 4 (42921) Diagnoses Urinary incontinence R32 Urinary frequency R35.0
== END 2024-08-23 14:08 | disposition home or self-care (01) ==
PROVIDERS: PCP Internal Medicine; Visit Provider Urology
DX: R32 Unspecified urinary incontinence (principal); R35.0 Frequency of micturition; Z13.9 Encounter for screening, unspecified
CPT/HCPCS: 99214

== ENCOUNTER → 2024-08-23 12:37 | Outpatient (BNVA) | payer OTHER, SELFPAY | PROVIDERS: PCP Internal Medicine; Visit Provider Urology | DX: R32 Unspecified urinary incontinence (principal); R35.0 Frequency of micturition | CPT/HCPCS: 81003; 99212 ==

== ENCOUNTER → 2024-08-28 13:49 | Outpatient (REF) | payer OTHER, SELFPAY | LOC: HO.SL 13:49 | PROVIDERS: PCP Internal Medicine; Visit Provider Nurse Practitioner Family | DX: R35.1 Nocturia (principal); R06.83 Snoring | CPT/HCPCS: 95806 ==

== ENCOUNTER → 2024-08-28 14:08 | Outpatient (BNV) | payer OTHER, SELFPAY | PROVIDERS: PCP Internal Medicine; Visit Provider Psychiatry & Neurology Neurology | DX: R06.83 Snoring (principal); G47.10 Hypersomnia, unspecified | CPT/HCPCS: 95806 ==

== ENCOUNTER 2024-08-31 10:46 | Outpatient (REF) | payer OTHER, SELFPAY ==
--- NOTE | ~2024-08-31 | MM_ITS ---
EXAMINATION: MM SCREENING DIGITAL BREAST TOMOSYNTHESIS, BILATERAL CLINICAL INFORMATION: Screening. Asymptomatic. COMPARISON: Mammography: Comparison is made with available priors TECHNIQUE: Digital breast mammography with tomosynthesis is performed in both the craniocaudal and mediolateral oblique views along with computer-aided detection (CAD). FINDINGS: The breasts are heterogeneously dense, which may obscure small masses (ACR BI-RADS breast composition Category c). There are no significant masses, abnormal calcifications, or other abnormalities. MM/MM tomosynthesis screening BI IMPRESSION: No mammographic evidence of malignancy. ASSESSMENT: BI-RADS BI-RADS 1 - Negative RECOMMENDATION: Routine annual mammography screening. 1 year F/U This examination should not preclude the clinical evaluation of a suspicious palpable abnormality. This patient's information was entered into a reminder system with a target due date for their next mammogram. Electronically signed by: Nuris Cook DO 09/08/2024 11:49 AM DOREEN
== END 2024-08-31 10:47 | disposition home or self-care (01) ==
LOC: HO.MAMMO 10:46
PROVIDERS: PCP Internal Medicine; Visit Provider Internal Medicine
DX: Z12.31 Encounter for screening mammogram for malignant neoplasm of breast (principal)
CPT/HCPCS: 77063; 77067

== ENCOUNTER → 2024-08-31 11:00 | Outpatient (BNV) | payer OTHER, SELFPAY | PROVIDERS: PCP Internal Medicine; Visit Provider Internal Medicine | DX: Z12.31 Encounter for screening mammogram for malignant neoplasm of breast (principal) | CPT/HCPCS: 77063; 77067 ==

== ENCOUNTER 2024-09-14 12:59 | Outpatient (AMB) | payer OTHER, SELFPAY ==
[2024-09-14 13:02] VITALS: BP 110/70; BMI 24.4
--- NOTE | 2024-09-14 13:02 | MHC.PC.OV ---
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 Accompanied by: Self / Same As Patient Allergies No Known Allergies [No Known Allergies*] Allergy (Verified 09/14/24 13:10) Medication List - Last Reconciled 09/14/24 by Nia Pope MD albuterol sulfate 90 mcg/actuation (Ventolin HFA) 2 puffs inhalation Q6H PRN albuterol sulfate 2.5 mg (3 mL) inhalation Q6H PRN amitriptyline 25 mg PO BEDTIME 30 days cholecalciferol (vitamin D3) 50 mcg (2 x 25 mcg (1,000 unit)) PO DAILY 90 days fenofibrate 54 mg PO DAILY 90 days ketoconazole 2% appl topical BID PRN meloxicam 15 mg PO DAILY naratriptan take 1/2 - 1 tab at onset of headache; if no relief may repeat 1 tab after at least 4 hrs; max = 2 tabs/24 hrs orally PRN; 30 days solifenacin (Vesicare) 10 mg PO DAILY walker with seat and wheels Tobacco use date assessed: 01/04/24 Dental Screening Dental Screen Date: 01/04/24 HPI HPI Comments History of Present Illness Details This is a 44-year-old female with moderate recurrent major depression that comes today complaining of sore throat, dry mouth and painful swallowing that started about a month ago. No fever. No cough. Feels worse in the morning but the symptoms are constant. She also has nausea, vomiting and diarrhea that started 3 days ago. Denies any recent traveling. Depression still present and she does not know if she is taking amitriptyline. [facility] Medical History (Updated 09/14/24 @ 13:23 by Nia Pope MD) Anemia LEISA (generalized anxiety disorder) Surgical History S/P total abdominal hysterectomy Family History Mother No problems noted. Father No problems noted. Family/Other Substance use disorder Mental health disorder Other SLE (systemic lupus erythematosus) Social History Household Members: Children Housing: Apartment Do you presently have visiting nurse or other home services: No Alcohol intake: former Patient Tobacco Use Status: Current everyday Tobacco user Tobacco use type: Cigarette Cigarette Packs Per Day: 1.5 Cigarettes Per Day: 20.0 e-Cigarette/Vaping Use: Never Used Second Hand Smoke Exposure: No service: No Current occupational status: employed Current occupation: [id number] Current occupational exposures/hazards: No Cognitive needs: No Hearing needs: No Vision needs: No Questionnaire Thrive Questionnaire Date Thrive assessed: 01/04/24 LEISA-7 AMB Questionnaire LEISA-7 Date LEISA - 7 assessed: 01/04/24 Source: Developed by Drs. Dominic Lombardo, Selina Castañeda, Wellington Marie and colleagues, with an educational dasia from [employer]. Review of Systems Const All systems reviewed & are unremarkable except as noted in HPI and below Reports lethargy ENT Reports odynophagia and Reports sore throat Card Denies chest pain at rest, Denies chest pain with activity, Denies edema, Denies irregular heart rhythm, Denies claudication, Denies dyspnea, Denies dyspnea on exertion, Denies orthopnea, Denies paroxysmal nocturnal dyspnea and Denies slow heart rate Resp Denies cough, Denies dyspnea and Denies dyspnea on exertion GI Denies abdominal pain, Denies change in bowel habits, Denies excessive flatus, Reports diarrhea, Reports nausea, Reports odynophagia and Reports vomiting Physical exam (Primary Care) Vital Signs: Last Vital Signs BP 110/70 09/14/24 13:02 BMI result Body Mass Index 24.4 Tobacco/Smoking Status: Tobacco use Status Tobacco use date assessed 01/04/24 09/14/24 13:06 Patient Tobacco Use Status Current everyday Tobacco 09/14/24 13:06 Tobacco use type Cigarette 09/14/24 13:06 e-Cigarette/Vaping Use Never Used 09/14/24 13:06 Are you ready to quit: Yes Tobacco cessation counseling provided: Yes Items discussed: Nicotine replacement and QuitWorks Relapse Prevention: discussed the importance of a supportive environment, discussed extending NRT, discussed negative mood or depression after quitting, weight gain after smoking is common and discussed dietary, exercise and/or lifestyle changes Number of minutes spent counselin CPT code: 68037 - 4-10 Minutes Thrive Assessment: Date of Thrive Assessment Date Thrive assessed 01/04/24 09/14/24 13:06 Neck Neck: Yes tender Resp Effort & Inspection: normal respiratory effort Auscultation: clear to auscultation bilaterally Cardio Jugular venous distension: no JVD Rate: regular rate Rhythm: regular rhythm Heart sounds: S1 normal heart sound present and S2 normal heart sound present Office Procedures Flu Questionnaire Does the patient have a severe egg allergy?: No Immunizations Fluarix Triv [id number] (PF) 45 mcg (15 mcg x 3)/0.5 mL IM syringe Performing Provider: Nia Pope MD [facility] Documented (not given) by: GABO Spear on 09/14/24 13:18 Reason Not Given: Patient Refused Coding Level of Care Code Est Pt Level 4 (05243) Complex EM visit Add On G2211 Diagnoses Painful swallowing R13.10 Dry mouth R68.2 Acute diarrhea R19.7 Moderate recurrent major depression F33.1 Additional Codes Vital Signs *Quality* - CPT code: 43693 - 4-10 Minutes ([id number]) Time Spent (min) 20 Assessment & Plan Assessment & Plan (1) Painful swallowing: Code(s): R13.10 - Dysphagia, unspecified Category: Medical Plan: Barium swallow ordered. Referred to Gastroenterology. (2) Dry mouth: Code(s): R68.2 - Dry mouth, unspecified Category: Medical Plan: Sjogren antibodies ordered. Advised to chew gum and drink water. (3) Acute diarrhea: Code(s): R19.7 - Diarrhea, unspecified Category: Medical Plan: Stool samples ordered. (4) Moderate recurrent major depression: Code(s): F33.1 - Major depressive disorder, recurrent, moderate Category: Medical Plan: Restart amitriptyline. Orders: Orders Sjogren's Antibodies Today R68.2 - Dry mouth, unspecified Influenza [id number] Immunization Today Z23 - Encounter for immunization [place] barium swallow Today R13.10 - Dysphagia, unspecified Giardia Ag Stool EIA Today R19.7 - Diarrhea, unspecified H pylori Ag Stool Today R19.7 - Diarrhea, unspecified Comprehensive [place]. Panel Fast Today R13.10 - Dysphagia, unspecified CDiff Gene PCR Today R19.7 - Diarrhea, unspecified Leukocytes Stool Qualitative Today R19.7 - Diarrhea, unspecified Lipid Panel Today E78.5 - Hyperlipidemia, unspecified Referrals Gastroenterology Referral R13.10 - Dysphagia, unspecified CAUSE ANALYST Referral Z01.419 - Encounter for gynecological examination (general) (routine) without abnormal findings Medications: New pilocarpine HCl 5 mg PO TID 30 days 90 tabs 0RF R68.2 - Dry mouth, unspecified
== END 2024-09-14 13:23 | disposition home or self-care (01) ==
PROVIDERS: PCP Internal Medicine; Visit Provider Internal Medicine
DX: R13.10 Dysphagia, unspecified (principal); R68.2 Dry mouth, unspecified; R19.7 Diarrhea, unspecified; F33.1 Major depressive disorder, recurrent, moderate; Z23 Encounter for immunization

== ENCOUNTER → 2024-09-14 12:59 | Outpatient (BNVA) | payer OTHER, SELFPAY | PROVIDERS: PCP Internal Medicine; Visit Provider Internal Medicine | DX: R13.10 Dysphagia, unspecified (principal); R68.2 Dry mouth, unspecified; R19.7 Diarrhea, unspecified; F33.1 Major depressive disorder, recurrent, moderate | CPT/HCPCS: 90471; 99212 ==

== ENCOUNTER 2024-09-27 10:17 | Outpatient (AMB) | payer OTHER, SELFPAY ==
[2024-09-27 10:22] VITALS: BP 102/62; PULSE 87; O2SAT 97; BMI 24.6
--- NOTE | 2024-09-27 10:22 | MHC.OFFVIS ---
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 At the last office visit patient was started on Trelegy, however she only use it for 1 months and now her symptoms are suboptimally controlled. [facility] Medical History Anemia LEISA (generalized anxiety disorder) Surgical History S/P total abdominal hysterectomy Family History Mother No problems noted. Father No problems noted. Family/Other Substance use disorder Mental health disorder Other SLE (systemic lupus erythematosus) Social History Household Members: Children Housing: Apartment Do you presently have visiting nurse or other home services: No Alcohol intake: former Patient Tobacco Use Status: Current everyday Tobacco user Tobacco use type: Cigarette Cigarette Packs Per Day: 1.5 Cigarettes Per Day: 20.0 e-Cigarette/Vaping Use: Never Used Second Hand Smoke Exposure: No service: No Current occupational status: employed Current occupation: [employer] Current occupational exposures/hazards: No Cognitive needs: No Hearing needs: No Vision needs: No Review of Systems Const Denies daytime sleepiness, Denies excessive sweating, Denies fatigue, Denies fever(s), Denies lethargy, Denies malaise, Denies night sweats, Denies snoring and Denies weight loss Eyes Denies blurry vision and Denies itchy eyes ENT Denies nasal congestion, Denies post nasal drip, Denies sinus pain, Denies sinus pressure and Denies other ( Thrush) Card Denies chest pain, Denies pedal edema, Denies dyspnea, Denies orthopnea and Denies paroxysmal nocturnal dyspnea Resp Denies cough, Denies hemoptysis, Denies excessive phlegm production, Denies dyspnea, Denies snoring and Denies wheezing GI Denies abdominal pain and Denies heartburn Musc Denies myalgias, Denies arthralgias and Denies joint swelling Skin/Breast Denies rash Neuro Denies memory loss and Denies seizure-like activity Psych Denies abnormal sleep pattern, Denies anxiety and Denies memory loss Endo Denies excessive sweating, Denies fatigue and Denies heat intolerance Kelvin/Lymph Denies easy bruising Aller/Immun Denies itchy eyes, Denies seasonal rhinorrhea and Denies wheezing Physical Exam Vital Signs: Last Vital Signs Pulse 87 09/27/24 10:22 BP 102/62 09/27/24 10:22 Pulse Ox 97 09/27/24 10:22 Oxygen Delivery Method Room Air 09/27/24 10:22 BMI result Body Mass Index 24.6 Const General: no acute distress and alert Nutritional Appearance: not obese Orientation/consciousness: Other orientation findings ( oriented) HEENT Head: Yes atraumatic Eyes General: appearance normal, both eyes and all related structures Sclerae: sclerae normal EOM: EOMs intact bilaterally Neck Neck: Yes supple Lymphatic: no lymphadenopathy noted Resp Effort & Inspection: normal respiratory effort and no use of accessory muscles Auscultation: clear to auscultation bilaterally Cardio Rate: regular rate Rhythm: regular rhythm Heart sounds: no gallops, no murmurs and no rubs Skin General skin exam: other ( warm) Extrem General: No clubbing, No cyanosis and No edema Assessment & Plan Assessment & Plan (1) Asthma-COPD overlap syndrome: Code(s): J44.89 - Other specified chronic obstructive pulmonary disease Category: Medical Plan: Suboptimally controlled as patient has been relying only on albuterol MDI/nebs. Restart Trelegy. (2) Environmental allergies: Code(s): Z91.09 - Other allergy status, other than to drugs and biological substances Category: Medical Plan: Results of immunologic testing reviewed symptoms are not improving, may consider immunologic therapy. Medications: New albuterol sulfate 90 mcg/actuation (Ventolin HFA) 2 puffs inhalation Q6H PRN 1 ea 6RF Shortness Of Breath Or Wheezing enpepstgsbh-tfqdyepwc-ogowequl 200-62.5-25 mcg (Trelegy Ellipta) 1 inh inhalation DAILY 1 ea 6RF Refilled albuterol sulfate 2.5 mg (3 mL) inhalation Q6H PRN 180 mL 6RF wheezing, SOB Coding Level of Care Code Est Pt Level 4 (69183) Diagnoses Asthma-COPD overlap syndrome J44.89 Environmental allergies Z91.09
== END 2024-09-27 10:56 | disposition home or self-care (01) ==
PROVIDERS: PCP Internal Medicine; Visit Provider Internal Medicine Pulmonary Disease
DX: J44.89 Other specified chronic obstructive pulmonary disease (principal); Z91.09 Other allergy status, other than to drugs and biological substances
CPT/HCPCS: 99214

== ENCOUNTER → 2024-09-27 10:17 | Outpatient (BNVA) | payer OTHER, SELFPAY | PROVIDERS: PCP Internal Medicine; Visit Provider Internal Medicine Pulmonary Disease | DX: J44.89 Other specified chronic obstructive pulmonary disease (principal); Z91.09 Other allergy status, other than to drugs and biological substances | CPT/HCPCS: 99212 ==

== ENCOUNTER 2024-10-09 09:16 | Outpatient (AMB) | payer OTHER, SELFPAY ==
--- NOTE | 2024-10-08 20:26 | A.OFFVIS_ITS ---
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 The patient states the medication is working much better. She still wears a pad but there is less leakage that she has been experiencing. She is happy with her bladder control at this time. Will continue the VESIcare follow-up in 8 months. Review of chart: 08/23/24--early interventionist utilized. Juwan states she did not get the vesicare prescribed in Nov, 2023. She wears diapers daily. She denies dysuria. UA - unremarkable. Vesicare refilled. Will set up a FU in 6-8 weeks to discuss any change in urinary symptoms. 11/22/23--Juwan is a 43-year-old female who presents to the office for follow- up for LUTS frequency, urinary incontinence and pelvic floor weakness The patient is Syriac speaking female. Certified early interventionist was present during the visit. She was referred to PFPT, she was prescribed Myrbetriq 25 mg qd. She has had some urge symptoms. She denies irritative or UTI symptoms. I will prescribe vesicare 10 mg daily to replace Myrbetriq. UA - Leuks negative, blood negative. 11/22/23--Plan Vesicare 10 mg daily. FU in 9 months. 04/22/23-- The patient is Syriac speaking female. early interventionist was present during the visit. The patient was referred to pelvic floor physical therapy for urinary incontinence and pelvic floor weakness, she is here for follow-up. The patient states that she is not given any exercises for pelvic floor and is receiving PT for left knee as they do not have any appointment space for pelvic floor therapy. States that leakage is more frequent in the interim. Has leakage while coughing and walking. She also has nocturia episodes 2-3 times. States incomplete bladder emptying. Evaluation today-- Blood: negative, leukocytes: negative. Bladder scan PVR: 13 mL. Plan: Referral for pelvic floor physical therapy was rewritten. Myrbetriq 25 mg QD was ordered. Discussed to take the medication at night and, she can change the regime to afternoon or morning to manage the symptoms. Discussed timed voiding. Follow-up after 6 months or sooner if needed. 01/15/2023--Juwan is a 42-year-old female patient who is here as a new patient evaluation for urinary incontinence. The patient is a female. A qualified early interventionist was present during the encounter. The patient last visited the ER on 01/11/23 for left flank pain and underwent CAT scan. Complains having intermittent urinary leakage since 6 months. States wearing panty liners/pads daily. Was prescribed gabapentin in the ER and reports no benefits with the drug. 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 The patient is having a scheduled MRI on 01/19/2023 Surgical history of hysterectomy due to menorrhagia. The patient had 4 vaginal deliveries. Evaluation today: Blood: negative and Leukocyte: negative. Bladder scan: PVR 0 mL. pelvic exam declined by patient. CT without contrast results reviewed--01/11/23-No acute intro-abdominal process seen. [facility] Medical History Anemia LEISA (generalized anxiety disorder) Surgical History S/P total abdominal hysterectomy Family History Mother No problems noted. Father No problems noted. Family/Other Substance use disorder Mental health disorder Other SLE (systemic lupus erythematosus) Social History Household Members: Children Housing: Apartment Do you presently have visiting nurse or other home services: No Alcohol intake: former Patient Tobacco Use Status: Current everyday Tobacco user Tobacco use type: Cigarette Cigarette Packs Per Day: 1.5 Cigarettes Per Day: 20.0 e-Cigarette/Vaping Use: Never Used Second Hand Smoke Exposure: No service: No Current occupational status: employed Current occupation: [employer] Current occupational exposures/hazards: No Cognitive needs: No Hearing needs: No Vision needs: No Review of Systems Const All systems reviewed & are unremarkable except as noted in HPI and below Reports no additional complaints Eyes Reports no additional complaints ENT Reports no additional complaints Card Reports no additional complaints Resp Reports no additional complaints GI Reports no additional complaints Reports as per HPI Musc Reports no additional complaints Skin/Breast Reports system reviewed and no additional complaints, except as documented Neuro Reports no additional complaints Psych Reports no additional complaints Endo Reports no additional complaints Kelvin/Lymph Reports no additional complaints Aller/Immun Reports no additional complaints Telehealth Telehealth Telehealth Platform: Telephone Location of provider rendering services: practice address Location of patient: address on file Patient Identification confirmed using: Name, : Yes Telehealth method: voice only Patient verbally consented to treatment: Yes Patient verbally consented to billing insurance company: Yes Patient informed of any privacy concerns related to visit: Yes Minutes spent on Phone/Video with Pt.: 12 Results Reviewed Results Reviewed: Date of Service: 01/11/23 EXAMINATION: CT ABDOMEN AND PELVIS WITHOUT CONTRAST? CLINICAL INFORMATION: Left flank/lower back pain x2 weeks.? COMPARISON: None? TECHNIQUE: Multidetector volumetric imaging was performed from the superior aspect of the liver through the pubic symphysis. Sagittal and coronal reformatted images were obtained on the technologist's workstation.? This CT examination was performed using dose optimization techniques as appropriate, variously including the following: *Automated exposure control *Adjustment of mA and/or kV according to patient size (this includes techniques or standardized protocols for targeted exams where dose is matched to indication/reason for exam; i.e. extremities or head) *Use of iterative reconstruction technique DLP: 497 mGy-cm FINDINGS: LUNG BASES: The lung bases are clear. The heart size is borderline normal.? LIVER, GALLBLADDER, AND BILIARY TREE: The liver is normal in size, shape, and attenuation. No focal hepatic lesion or biliary ductal dilatation is present. The gallbladder is unremarkable with no evidence of radiopaque gallstones, gallbladder wall thickening, or obvious pericholecystic inflammatory changes.? PANCREAS: Unremarkable.? SPLEEN: Unremarkable.? ADRENAL GLANDS: Unremarkable.? KIDNEYS AND URETERS: The kidneys are normal in size, shape, and attenuation. No hydronephrosis, hydroureter, or calculi seen. No perinephric stranding. ? BLADDER: Unremarkable.? GASTROINTESTINAL TRACT: There is scattered stool, gas seen throughout the colon without distention. The small bowel loops are normal caliber. Appendix is normal caliber. No inflammatory process seen in the abdomen. ABDOMINAL WALL: No significant hernia is appreciated.? LYMPH NODES: No abnormal size lymph nodes seen. There is mild haziness in the soft tissues adjacent to the proximal abdominal aorta. No abnormal lymph nodes seen. VASCULAR: Unremarkable. PELVIC VISCERA: There is a 4.9 x 3.1 x 4.3 cm right adnexal cyst? OSSEOUS STRUCTURES: No aggressive lytic or sclerotic process seen.? IMPRESSION: No acute intra-abdominal process seen. There is nonspecific fat stranding seen adjacent to the upper abdominal aorta.? Assessment & Plan Assessment & Plan (1) Urinary incontinence: Code(s): R32 - Unspecified urinary incontinence Category: Medical (2) Urinary frequency: Code(s): R35.0 - Frequency of micturition Category: Medical (3) OAB (overactive bladder): Code(s): N32.81 - Overactive bladder Category: Medical Plan Vesicare 10 mg daily Patient Instructions: The patient had an opportunity to ask questions regarding treatment plan. The patient expressed understanding and agreement with the above treatment plan. The patient is aware they should contact our office by phone for worsening of their current condition or the appearance of new symptoms. Compliance is encouraged with any medications and followup testing that is ordered. It is a privilege to be allowed the opportunity to participate in the urologic care of your patient. If you have any questions or concerns regarding treatment for the above conditions please do not hesitate to contact me. The office tel ephone contact is [phone]. This note is constructed in part using voice recognition software. While every effort has been made to ensure accuracy baggagemaster errors may have been included. Yours sincerely, Jamila Osborne MD Coding Level of Care Code Tele Est Pt Level 3 (52086) Diagnoses Urinary incontinence R32 Urinary frequency R35.0 OAB (overactive bladder) N32.81
== END 2024-10-09 14:49 | disposition home or self-care (01) ==
LOC: HO.HUSH 09:16
PROVIDERS: PCP Internal Medicine; Visit Provider Urology
DX: R32 Unspecified urinary incontinence (principal); R35.0 Frequency of micturition; N32.81 Overactive bladder
CPT/HCPCS: 99213

== ENCOUNTER → 2024-10-09 09:16 | Outpatient (BNVA) | payer OTHER, SELFPAY | PROVIDERS: PCP Internal Medicine; Visit Provider Urology ==

== ENCOUNTER 2024-10-11 09:15 | Outpatient (REF) | payer OTHER, SELFPAY ==
[2024-10-11 10:56] LABS: Alanine Aminotransferase 18 U/L (0-31); Albumin Level 4.1 g/dL (3.5-5.0); Alkaline Phosphatase 99 U/L (39-117); Anion Gap 11 (12-20); Aspartate Amino Transferase 22 U/L (5-31); Bilirubin Total 0.5 mg/dL (0.0-1.0); Blood Urea Nitrogen 10 mg/dL (9-16); Calcium 9.5 mg/dL (8.4-10.2); Carbon Dioxide 27 mmol/L (22-29); Chloride 107 mmol/L (96-108); Cholesterol 218 mg/dL (<200); Estimated Glomerular Filt Rate > 60; Glucose Fasting 101 mg/dL (60-99); HDL Cholesterol 38 mg/dL (>40); LDL Cholesterol Calculated 129 mg/dL (<100); Potassium 4.1 mmol/L (3.3-5.1); Sodium 141 mmol/L (135-145); Total Protein 7.1 g/dL (6.5-8.0); Triglycerides 258 mg/dL (<150)
[2024-10-11 12:22] LABS: Leukocytes Stool Qualitative NEGATIVE (NEGATIVE)
[2024-10-11 12:48] LABS: CDiff Gene PCR NEGATIVE (Negative)
[2024-10-13 14:23] LABS: Antibody to SS-A Antigen <1.0 NEG AI (<1.0 NEG); Antibody to SS-B Antigen <1.0 NEG AI (<1.0 NEG)
== END 2024-10-11 09:16 | disposition home or self-care (01) ==
LOC: HO.LAB 09:15
PROVIDERS: PCP Internal Medicine; Visit Provider Internal Medicine
DX: R68.2 Dry mouth, unspecified (principal); R13.10 Dysphagia, unspecified; E78.5 Hyperlipidemia, unspecified; R19.7 Diarrhea, unspecified
CPT/HCPCS: 36415; 80053; 80061; 86235; 87329; 87338; 87493; 89055

== ENCOUNTER 2024-11-21 07:51 | Outpatient (REF) | payer OTHER, SELFPAY ==
--- NOTE | ~2024-11-21 | FL_ITS ---
EXAMINATION: XR FLUOROSCOPY UPPER GI WITH AIR CLINICAL INFORMATION: Dysphagia. COMPARISON: None TECHNIQUE: Fluoroscopic air contrast upper GI examination was performed utilizing standard techniques with thin and thick barium and effervescent granules. Numerous spot images were obtained. FINDINGS: Lateral cine images of the oropharynx and hypopharynx demonstrate normal swallow mechanism with normal epiglottic inversion and soft palate elevation. No tracheal penetration, glottic or subglottic aspiration identified. No nasopharyngeal reflux present. Hypopharyngeal structures appear normal without evidence of mass or diverticulum. There was no significant cricopharyngeal achalasia. Dual and single contrast images of the esophagus demonstrate normal caliber, contour, and mucosal pattern. No evidence of stricture, mass, or ulcerations identified. Esophageal peristalsis was normal. No evidence of hiatus hernia identified. No significant gastroesophageal reflux was seen during the course of the examination and on reflux views. Dual contrast and single contrast images of the stomach demonstrated a normal contour. The areae gastricae have a thickened appearance, suggestive of gastritis. No masses or ulcerations are seen. Contrast freely passed into the gastric antrum and duodenal bulb without delay. Single and air-contrast images of the duodenal bulb demonstrate no abnormality. The duodenal sweep has a normal appearance, course, and mucosal fold appearance. The imaged proximal jejunum has a normal fold pattern and caliber. FLUOROSCOPY TIME: 2 minutes 58 seconds Number of Spot Images: 7 Number of Cine: 14 DOSE AREA PRODUCT: 1512 uGy-m2 (microgray-meter squared) FL/FL barium swallow with air IMPRESSION: 1. Thickened appearance of the areae gastricae, suggestive of gastritis. 2. Otherwise normal examination. This procedure was performed by Jean Carlos Patten PA-C, and supervised by Dr. Peña Electronically signed by: Cortez Peña MD 11/21/2024 02:50 PM [facility] [place]
== END 2024-11-21 07:52 | disposition home or self-care (01) ==
LOC: HO.XRAY 07:51
PROVIDERS: PCP Internal Medicine; Visit Provider Internal Medicine
DX: R13.10 Dysphagia, unspecified (principal)
CPT/HCPCS: 74221

== ENCOUNTER → 2024-11-21 07:53 | Outpatient (BNV) | payer OTHER, SELFPAY | PROVIDERS: PCP Internal Medicine; Visit Provider Physician Assistant Surgical | DX: R13.10 Dysphagia, unspecified (principal) | CPT/HCPCS: 74221 ==

== ENCOUNTER 2024-12-12 11:20 | Outpatient (AMB) | payer OTHER, SELFPAY ==
[2024-12-12 11:24] VITALS: BP 96/55; PULSE 85; O2SAT 98; BMI 25.2
--- NOTE | 2024-12-12 11:24 | MHC.OFFVIS ---
Vital Signs 12/12/24 11:24 Height 5 ft 4 in Weight 146 lb 9.718 oz BMI 25.2 BP 96/55 L Blood Pressure Location Rt brachial Position Sitting Pulse 85 Pulse Source Doppler Pulse Oximetry (%) 98 Oxygen Delivery Method Room Air Intake Visit Reasons: Asthma Sports Director Required: Yes Sports Director Name: Iqra Streeter Elizabeth Allergies No Known Allergies [No Known Allergies*] Allergy (Verified 12/12/24 11:33) HPI HPI Asthma: Details: 44-year-old lady, active 20 pack-year smoker, now followed for asthma/COPD overlap syndrome. At the last office visit patient was switched from Trelegy to Breo and Incruse secondary to insurance reasons. However, patient has not received either one of them and her symptoms are not as well controlled at this time. [facility] Medical History Anemia LEISA (generalized anxiety disorder) Surgical History S/P total abdominal hysterectomy Family History Mother No problems noted. Father No problems noted. Family/Other Substance use disorder Mental health disorder Other SLE (systemic lupus erythematosus) Social History Household Members: Children Housing: Apartment Do you presently have visiting nurse or other home services: No Alcohol intake: former Patient Tobacco Use Status: Current everyday Tobacco user Tobacco use type: Cigarette Cigarette Packs Per Day: 1.5 Cigarettes Per Day: 20.0 e-Cigarette/Vaping Use: Never Used Second Hand Smoke Exposure: No service: No Current occupational status: employed Current occupation: [employer] Current occupational exposures/hazards: No Cognitive needs: No Hearing needs: No Vision needs: No Review of Systems Const Denies daytime sleepiness, Denies excessive sweating, Denies fatigue, Denies fever(s), Denies lethargy, Denies malaise, Denies night sweats, Denies snoring and Denies weight loss Eyes Denies blurry vision and Denies itchy eyes ENT Denies nasal congestion, Denies post nasal drip, Denies sinus pain, Denies sinus pressure and Denies other ( Thrush) Card Denies chest pain, Denies pedal edema, Denies dyspnea, Denies orthopnea and Denies paroxysmal nocturnal dyspnea Resp Denies cough, Denies hemoptysis, Denies excessive phlegm production, Denies dyspnea, Denies snoring and Denies wheezing GI Denies abdominal pain and Denies heartburn Musc Denies myalgias, Denies arthralgias and Denies joint swelling Skin/Breast Denies rash Neuro Denies memory loss and Denies seizure-like activity Psych Denies abnormal sleep pattern, Denies anxiety and Denies memory loss Endo Denies excessive sweating, Denies fatigue and Denies heat intolerance Kelvin/Lymph Denies easy bruising Aller/Immun Denies itchy eyes, Denies seasonal rhinorrhea and Denies wheezing Physical Exam Vital Signs: Last Vital Signs Pulse 85 12/12/24 11:24 BP 96/55 L 12/12/24 11:24 Pulse Ox 98 12/12/24 11:24 Oxygen Delivery Method Room Air 12/12/24 11:24 BMI result Body Mass Index 25.2 Const General: no acute distress and alert Nutritional Appearance: not obese Orientation/consciousness: Other orientation findings ( oriented) HEENT Head: Yes atraumatic Eyes General: appearance normal, both eyes and all related structures Sclerae: sclerae normal EOM: EOMs intact bilaterally Neck Neck: Yes supple Lymphatic: no lymphadenopathy noted Resp Effort & Inspection: normal respiratory effort and no use of accessory muscles Auscultation: clear to auscultation bilaterally Cardio Rate: regular rate Rhythm: regular rhythm Heart sounds: no gallops, no murmurs and no rubs Skin General skin exam: other ( warm) Extrem General: No clubbing, No cyanosis and No edema Assessment & Plan Assessment & Plan (1) Asthma-COPD overlap syndrome: Code(s): J44.89 - Other specified chronic obstructive pulmonary disease Category: Medical Plan: Suboptimal control as patient has not received her Breo/Incruse. Start Breo and Incruse. Continue albuterol MDI. Coding Level of Care Code Est Pt Level 3 (77882) Diagnoses Asthma-COPD overlap syndrome J44.89
== END 2024-12-12 12:05 | disposition home or self-care (01) ==
PROVIDERS: PCP Internal Medicine; Visit Provider Internal Medicine Pulmonary Disease
DX: J44.89 Other specified chronic obstructive pulmonary disease (principal)
CPT/HCPCS: 99213

== ENCOUNTER → 2024-12-12 11:20 | Outpatient (BNVA) | payer OTHER, SELFPAY | PROVIDERS: PCP Internal Medicine; Visit Provider Internal Medicine Pulmonary Disease | DX: J44.89 Other specified chronic obstructive pulmonary disease (principal); F17.210 Nicotine dependence, cigarettes, uncomplicated | CPT/HCPCS: 99212 ==

== ENCOUNTER 2025-01-11 12:59 | Outpatient (AMB) | payer OTHER, SELFPAY ==
--- NOTE | 2025-01-11 13:08 | A.OFFPC_ITS ---
Vital Signs 01/11/25 13:11 Height 5 ft 4 in Weight 145 lb BMI 24.9 BP 110/68 Blood Pressure Location Lt brachial Position Sitting Intake Visit Reasons: annual physical Intake Note: Patient here for an annual physical exam Nutrition Intern Required: Yes Nutrition Intern Language: C2 Tactical Analysis Technician Name: Nia Pope MD Information Interpreted: non-clinical & clinical Accompanied by: Self / Same As Patient Allergies No Known Allergies [No Known Allergies*] Allergy (Verified 01/11/25 13:20) Medication List - Last Reconciled 01/11/25 by Nia Pope MD albuterol sulfate 90 mcg/actuation (Ventolin HFA) 2 puffs inhalation Q6H PRN albuterol sulfate 2.5 mg (3 mL) inhalation Q6H PRN amitriptyline 25 mg PO BEDTIME 30 days cholecalciferol (vitamin D3) 50 mcg (2 x 25 mcg (1,000 unit)) PO DAILY 90 days fenofibrate 54 mg PO DAILY 90 days fluticasone furoate-vilanterol 200-25 mcg/dose (Breo Ellipta) 1 inh inhalation DAILY ketoconazole 2% appl topical BID PRN meloxicam 15 mg PO DAILY naratriptan take 1/2 - 1 tab at onset of headache; if no relief may repeat 1 tab after at least 4 hrs; max = 2 tabs/24 hrs orally PRN; 30 days pilocarpine HCl 5 mg PO TID 30 days solifenacin (Vesicare) 10 mg PO DAILY umeclidinium 62.5 mcg/actuation (Incruse Ellipta) 1 inh inhalation DAILY walker with seat and wheels Tobacco use date assessed: 01/11/25 Dental Screening Dental Screen Date: 01/11/25 Did you have a dental visit in the last 12 months?: No Did you have a dental problem in the last 6 months where you did not have access to dental care?: No Was dental information given to patient?: Patient has dentist HPI HPI Comments History of Present Illness Details The patient is a 44-year-old female presenting for her physical exam with multiple health concerns. The primary reason for her visit today is a routine physical examination. She expressed significant worry and has several questions she wishes to discuss. The patient underwent an endoscopy in 2019 due to a history of gastritis, with results indicating ongoing gastritis. She notes persistent dryness of the mouth, which has been a source of concern and relates it to possible medication use. There have also been instances of dizziness and occasional numbness in the hands, with episodes of brief, disrupted sleep causing daytime fatigue. Despite sleeping for about eight hours a night, she reports frequent interruptions in sleep and difficulty staying asleep for extended periods, leading to daytime tiredness. Additionally, the patient is experiencing migrainous episodes for which she takes Naratriptan. There is no new history of a colonoscopy, but she has a follow-up appointment with a helpdesk manager scheduled for the following ag h and a gynecological appointment in January. A previous hysterectomy and anxiety contribute to her present concern about the upcoming gynecological evaluation. She denies current alcohol use and reports cessation of alcohol consumption but continues to smoke approximately one and a half cigarette packs per day. The patient is experiencing significant anxiety and intermittent depression without current suicidal ideation but reports feelings of persistent anxiety and nervousness. She has no known drug allergies. Her current medications include a sophia (presumably an inhaler) taken daily, amitriptyline, fenofibrate for hypertriglyceridemia, meloxicam, naratriptan for migraines, basic care for urinary issues, and pilocarpine for dry mouth (prescribed in October, but she reports not having it). She was assessed to have high cholesterol and triglycerides previously, for which fenofibrate is used. She reports experiencing hypnogogic hallucinations and limb numbness at night but does not have any suicidal ideation. [facility] Medical History (Updated 01/11/25 @ 14:32 by Nia Pope MD) Anemia LEISA (generalized anxiety disorder) Surgical History S/P total abdominal hysterectomy Family History Mother No problems noted. Father No problems noted. Family/Other Substance use disorder Mental health disorder Other SLE (systemic lupus erythematosus) Social History Household Members: Children Housing: Apartment Do you presently have visiting nurse or other home services: No Alcohol intake: former Patient Tobacco Use Status: Current everyday Tobacco user Tobacco use type: Cigarette Cigarette Packs Per Day: 1.5 Cigarettes Per Day: 20.0 e-Cigarette/Vaping Use: Never Used Second Hand Smoke Exposure: No service: No Current occupational status: employed Current occupation: [employer] Current occupational exposures/hazards: No Cognitive needs: No Hearing needs: No Vision needs: No Questionnaire PHQ-9 Over the last 2 weeks, how often have you been bothered by any of the following problems? 1. Little interest or pleasure in doing things: nearly every day 2. Feeling down, depressed, or hopeless: nearly every day 3. Trouble falling or staying asleep, or sleeping too much: nearly every day 4. Feeling tired or having little energy: nearly every day 5. Poor appetite or overeating: more than half the days 6. Feeling bad about yourself - or that you are a failure or have let yourself or your family down: more than half the days 7. Trouble concentrating on things, such as reading the newspaper or watching television: more than half the days 8. Moving or speaking so slowly that other people could have noticed. Or the opposite - being so fidgety or restless that you have been moving around a lot more than usual: more than half the days 9. Thoughts that you would be better off or of hurting yourself in some way : several days Total score: 21 Depression Screening Interpretation: Positive (no suicidal thoughts) Depression Screening Follow-up: Existing condition, In treatment, Community Mental Health Worker F/U and Follow-up Visit Requested Depression Screening Done: Yes 82612 - PHQ-9 Billing: Yes Source: Developed by Drs. Dominic Lombardo, Selina Castañeda, Wellington Marie and colleagues, with an educational dasia from [employer]. Thrive Questionnaire Date Thrive assessed: 01/11/25 I am a: Patient What is your living situation today?: I choose not to answer this question Within the past 12 months, did the food you bought not last and you didn't have the money to get more?: I choose not to answer this question Within the past 12 months, did you worry whether your food would run out before you got money to buy more?: I choose not to answer this question Do you have trouble paying for medicines?: I choose not to answer this question Do you have trouble getting transportation to medical appointments?: I choose not to answer this question Do you have trouble paying your heating and electricity bill?: Yes Do you have trouble taking care of your child, family member or friend?: I choose not to answer this question Do you have trouble with day-to-day activities such as bathing, preparing meals, shopping, managing finances, etc.?: I choose not to answer this question Are you currently unemployed and looking for a job?: I choose not to answer this question Are you interested in more education?: I choose not to answer this question Please select the resources that you would like help with: Housing/Detention and None Currently or been in a relationship where the following occur: I choose not to answer THRIVE Score: 1 AUDIT C Alcohol Use Questionnaire (AUDIT-C) 1. How often do you have a drink containing alcohol?: Monthly or less 2. How many drinks containing alcohol do you have on a typical day when you are drinking?: 1 or 2 3. How often do you have six or more drinks on one occasion?: Less than monthly Total Score: 2 Score Reviewed/Action Taken: No LEISA-7 AMB Questionnaire LEISA-7 Date LEISA - 7 assessed: 01/11/25 Feeling nervous, anxious, or on edge: 3 = Nearly every day Not being able to stop or control worryin = Nearly every day Worrying too much about different things: 3 = Nearly every day Trouble relaxin = Nearly every day Being so restless that it is hard to sit still: 3 = Nearly every day Becoming easily annoyed or irritable: 3 = Nearly every day Feeling afraid as if something awful might happen: 3 = Nearly every day Total LEISA-7 score (0-4 normal; 5-9 mild; 10-14 moderate; 15-21 severe): 21 Source: Developed by Drs. Dominic Lombardo, Selina Castañeda, Wellington Marie and colleagues, with an educational dasia from [employer]. LEISA-7 Assessment Billing LEISA-7 Assessment Tool: LEISA-7 Assessment 95996 Review of Systems Const All systems reviewed & are unremarkable except as noted in HPI and below Card Denies chest pain at rest, Denies chest pain with activity, Denies edema, Denies irregular heart rhythm, Denies claudication, Denies dyspnea, Denies dyspnea on exertion, Denies orthopnea, Denies paroxysmal nocturnal dyspnea and Denies slow heart rate Resp Denies cough, Denies dyspnea and Denies dyspnea on exertion GI Denies abdominal pain, Denies change in bowel habits, Denies excessive flatus, Denies nausea and Denies vomiting Denies urinary incontinence, Denies urinary hesitancy and Denies urinary urgency Physical exam (Primary Care) Vital Signs: Last Vital Signs BP 110/68 01/11/25 13:11 BMI result Body Mass Index 24.9 Tobacco/Smoking Status: Tobacco use Status Tobacco use date assessed 01/11/25 01/11/25 13:15 Patient Tobacco Use Status Current everyday Tobacco 01/11/25 13:15 Tobacco use type Cigarette 01/11/25 13:15 e-Cigarette/Vaping Use Never Used 01/11/25 13:15 PHQ-9: PHQ-9 Score PHQ-9: Total score 21 01/11/25 13:57 Depression Screening Interpretation: Positive (no suicidal thoughts) Depression Screening Follow-up: Existing condition, In treatment, Community Mental Health Worker F/U and Follow-up Visit Requested Thrive Assessment: Date of Thrive Assessment Date Thrive assessed 01/11/25 01/11/25 13:15 Currently or been in a relationship where the following occur: I choose not to answer HENMT Head: Yes normal to inspection, Yes normocephalic and Yes atraumatic Ears: external ears normal Eyes General: appearance normal, both eyes and all related structures Eyelids: Yes eyelids normal Conjunctivae: conjunctivae normal Neck Neck: Yes normal visual inspection and Yes supple Resp Effort & Inspection: normal respiratory effort Auscultation: clear to auscultation bilaterally Cardio Jugular venous distension: no JVD Rate: regular rate Rhythm: regular rhythm Heart sounds: S1 normal heart sound present and S2 normal heart sound present GI Inspection: Yes normal to inspection Palpation (GI): Soft to palpation and nontender Auscultation: normal bowel sounds Skin General skin exam: no rashes or lesions noted Neuro General: no focal motor deficits Extrem General: Yes full ROM Psych Appearance: grossly normal Immunizations Boostrix Tdap 2.5 Lf unit-8 mcg-5 Lf/0.5 mL intramuscular syringe Performing Provider: Nia Pope MD Per[facility] Administered by: GABO Spear on 01/11/25 13:45 Dose Route Admin Location Dispensed Lot Number Expiration Date NDC Wastewater Engineer 0.5 mL IM Left Deltoid 0.5 mL [id number] 02/17/27 63052-165-25 [employer] VIS Given Date VIS Provided VIS Publication Date 01/11/25 Single Vaccine 21 Eligibility Eligibility Date Funding Source Not VF Eligible 01/11/25 Private Coding Level of Care Code Est Pt Level 4 (43583) Est Pt Prev Care 40-64y(20995) Diagnoses Physical exam Z00.00 Fatigue R53.83 Hypertrophic toenail L60.2 Polyarthralgia M25.50 Dry mouth R68.2 Moderate recurrent major depression F33.1 Additional Codes LEISA-7 Assessment Billing - LEISA-7 Assessment Tool: LEISA-7 Assessment 41451 ([id number]) PHQ-9 - 17360 - PHQ-9 Billing: Yes ([id number]) Time Spent (min) 39 Assessment & Plan Assessment & Plan (1) Physical exam: Code(s): Z00.00 - Encounter for general adult medical examination without abnormal findings Category: Medical (2) Fatigue: Code(s): R53.83 - Other fatigue Category: Medical (3) Hypertrophic toenail: Code(s): L60.2 - Onychogryphosis Category: Medical (4) Polyarthralgia: Code(s): M25.50 - Pain in unspecified joint Category: Medical (5) Dry mouth: Code(s): R68.2 - Dry mouth, unspecified Category: Medical (6) Moderate recurrent major depression: Code(s): F33.1 - Major depressive disorder, recurrent, moderate Category: Medical Plan Further management was discussed in detail for each of the problems identified. For gastritis, the patient had undergone an endoscopy in 2019 with confirmation of gastritis; ongoing gastroenterology follow-up is essential, and the patient has an appointment scheduled for the following month. For chronic obstructive pulmonary disease, daily inhaler usage continues with monitoring; fenofibrate will manage her hypertriglyceridemia. For anxiety and depression, I will continue to monitor while considering the temporary prescription of ropinirol for a trial period to assess its efficacy in addressing limb numbness and sleep disturbances. Additionally, I have urged the patient to seek counseling services for her anxiety and have emphasized the importance of compliance with prescribed medication. Her sleep disruptions were discussed, and lifestyle modifications focusing on smoking cessation and potential vitamin supplementation as a cause of her fatigue have been highlighted. For her migraine management, naratriptan is to be continued as this is effective. The patient has acknowledged the importance of the tetanus vaccination and received her overdue tetanus booster today. I will follow up on her urology consultation next month. As per her concerns about dry mouth, I advised a dental consultation for further evaluation and guidance on managing the symptoms. Repharmacy of pilocarpine was discussed. She will see rheumatology for possible arthritis treatment. I will closely monitor her overall health. Patient was informed and verbally consented to the use of an ambient scribe for clinic note documentation during this visit. I discussed the findings of her previous endoscopy, which confirmed gastritis, and the patient's upcoming gastroenterology appointment next month. We reviewed her medication regimen, including the management of her migraines with Naratriptan and anxiety with amitriptyline. The patient is aware of her previous hysterectomy status, which influences her reported anxiety related to her upcoming gynecology appointment. I reinforced the need to continue vigilant follow-up through scheduled appointments with specialists and outlined the plan to test her glucose level in response to her concerns about fluctuating sugar levels. I advised her of the benefits of smoking cessation and will arrange for support resources during a subsequent visit. I have provided her with a tetanus booster shot today and encouraged her to contact her dentist regarding the persistent dry mouth. A referral for a podiatry consultation has been suggested for foot swelling, despite current excreta findings being negative for infections. Follow-up consultations with the gastroenterology and neurology clinics are necessary, particularly regarding gastritis, limb numbness, and potential arthritis, which will include a referral to the arthritis treatment center ([facility]). The impact of her conditions, notably anxiety, on her daily life and work were discussed, emphasizing the need for continued management through appropriate medical and supportive interventions. We will reassess her symptoms and management during the next visit. Orders: Orders Complete Blood Count Auto Diff Today D64.9 - Anemia, unspecified IRON PROFILE Today D64.9 - Anemia, unspecified Lipid Panel Today E78.5 - Hyperlipidemia, unspecified Vitamin D 25-OH Total Today E55.9 - Vitamin D deficiency, unspecified Comprehensive [place]. Panel Fast Today M25.50 - Pain in unspecified joint Thyroid Stimulating Hormone Today R53.83 - Other fatigue Sjogren's Antibodies Today R68.2 - Dry mouth, unspecified Vitamin B12 and Folate Today E53.8 - Deficiency of other specified B group vitamins TDaP Immunization Today Z23 - Encounter for immunization Referrals Podiatry Referral L60.2 - Onychogryphosis Rheumatology Referral M25.50 - Pain in unspecified joint Medications: Refilled naratriptan take 1/2 - 1 tab at onset of headache; if no relief may repeat 1 tab after at least 4 hrs; max = 2 tabs/24 hrs orally PRN; 12 tabs 6RF migraine headache 30 days fenofibrate 54 mg PO DAILY 90 tabs 1RF 90 days Discontinued pilocarpine HCl Discontinued Reason: Patient Completed Course 5 mg PO TID 30 days 90 tabs 0RF R68.2 - Dry mouth, unspecified Patient Instructions: - Schedule and attend your upcoming gastroenterology appointment. - Follow up with urology and neurology as planned next month. - Continue taking Naratriptan for migraine relief as prescribed. - Use your daily inhaler for COPD management. - Monitor your dry mouth symptoms and consult with your dentist. - Provide feedback after the 30-day trial of ropinirole to evaluate its effectiveness. - We will repeat the glucose laboratory test, await further instructions for follow-up. - Pursue smoking cessation support; additional resources will be discussed at the next visit. - Monitor your anxiety and depression symptoms, seek help if symptoms worsen. - Be aware of persistent limb numbness and discuss this symptom with your neurologist. - Avoid alcohol consumption and maintain a balanced lifestyle to help manage anxiety and overall health. - Rest and ensure consistent sleep patterns, despite potential interruptions. - Expect a consultation with rheumatology for joint concerns. - Monitor any changes in your feet and arrange a visit to the perennial house manager for assessment. - Continue with your vitamin B supplement. - You have received your tetanus booster shot today. - A repeat laboratory test, including glucose levels, will be conducted this afternoon. - Monitor your sugar levels, note any changes, and report back during the next appointment. - Follow up with your dental provider for further evaluation and management of your dry mouth. - Reduce and consider quitting smoking; follow-up will discuss a cessation support program. - Make necessary lifestyle changes to reduce health risks, including maintaining a balanced diet and regular physical activity.
[2025-01-11 13:11] VITALS: BP 110/68; BMI 24.9
== END 2025-01-11 13:41 | disposition home or self-care (01) ==
LOC: HO.HMCH 13:00
PROVIDERS: PCP Internal Medicine; Visit Provider Internal Medicine
DX: Z00.00 Encounter for general adult medical examination without abnormal findings (principal); R53.83 Other fatigue; F33.1 Major depressive disorder, recurrent, moderate; L60.2 Onychogryphosis; M25.50 Pain in unspecified joint; R68.2 Dry mouth, unspecified; Z23 Encounter for immunization

== ENCOUNTER → 2025-01-11 12:59 | Outpatient (BNVA) | payer OTHER, SELFPAY | PROVIDERS: PCP Internal Medicine; Visit Provider Internal Medicine | DX: Z00.00 Encounter for general adult medical examination without abnormal findings (principal); Z23 Encounter for immunization; L60.2 Onychogryphosis; M25.50 Pain in unspecified joint; R68.2 Dry mouth, unspecified; F33.1 Major depressive disorder, recurrent, moderate | CPT/HCPCS: 90471; 90715; 96127; 99212; 99396 ==

== ENCOUNTER 2025-02-07 08:29 | Outpatient (REF) | payer OTHER, SELFPAY ==
--- OUTSIDE RECORDS SUMMARY | 2025-02-07 08:43 | XMS_ITS | Clinical Summary ---
Author Organization [address] [facility] Address [address] [place] [address] Phone Care Team Providers Care Tree Deadener Name Role Phone Nia Pope MD Primary Care Provider [phone] Surgical History Surgery Date Site/Laterality Comments HYSTERECTOMY PROCEDURE: HISTORICAL HYSTERECTOMY Medical History Medical History Date Comments Patient denies medical problems DX:Patient denies medical problems Family History Medical History Relation Name Comments Breast cancer Aunt f'side No Known Problems Brother No Known Problems Father No Known Problems Mother Thyroid disease Sister 1 Relation Name Status Comments Aunt f'side Brother Alive Father Alive Mother Alive Sister 1 Alive Sister 2 Alive Social History Tobacco Use Types Packs/Day Years Used Date Smoking Tobacco: Every Day Cigarettes 1 18.3 Started: 11/01/2006 Smokeless Tobacco: Never Alcohol Use Standard Drinks/Week Comments No 0 (1 standard drink = 0.6 oz pur e alcohol) Comments Unknown Sex and Gender Information Value Date Recorded Sex Assigned at Not on file Legal Sex Female 12:47 PM EST Gender Identity Not on file Sexual Orientation Not on file Obstetrics History Plan of Treatment Upcoming Encounters Date Type Department Care Team ([facility] Contact Info) Description 04/11/2025 10:30 AM EDT Consult Orthopedic Surgery - [place] [id number] [address] Sherman Adams DPM [address] [address] Health Maintenance Due Date Last Done Comments Breast Cancer Screening 1979 DTaP,Tdap,and Td Vaccines (1 - Tdap) 1998 Pneumococcal Vaccine: Pediatrics (0 to 5 Years) and At-Risk Patients (6 to 64 Years) (1 of 2 - PCV) 1998 Cervical Cancer Screening: P ap Smear 01/17/2000 Hepatitis B Vaccines (3 of 3 - Hep B Twinrix 3-dose series) 08/17/2017 03/17/2017, 12/22/2016 COVID-19 Vaccine (2 - 2023-2 5 season) 2024 03/06/2021 Colorectal Cancer Screening: Colonoscopy 02/01/2025 Depression Screening 02/01/2025 HIV Screening 02/01/2025 Hepatitis C Screening 02/01/2025 Social Influencers of Health Screening 02/01/2025 Influenza Vaccine (Season Ended) 2025 Hepatitis A Vaccines Aged Out 03/17/2017, 12/22/2016 No longer eligible based on patient's age to complete this topic HIB Vaccines Aged Out No longer eligi ble based on patient's age to complete this topic HPV Vaccines Aged Out No longer eligi ble based on patient's age to complete this topic IPV Vaccines Aged Out No longer eligi ble based on patient's age to complete this topic MMR Vaccines Aged Out No longer eligi ble based on patient's age to complete this topic Meningococcal ACWY Vaccine Aged Out N o longer eligible based on patient's age to complete this topic Meningococcal B Vaccine Aged Out No l onger eligible based on patient's age to complete this topic RSV Immunization Patients Under 20 months Aged Out No longer eligible b ased on patient's age to complete this topic Varicella Vaccines Aged Out No longer eligible based on patient's age to complete this topic Insurance [facility] Care Teams Tree Deadener Relationship Specialty Start Date End Date Nia Pope MD [address] [facility] , [address] [facility] D/B/A: [facility] [place], [place] PCP - General Internal Medicine 02/01/25
[2025-02-07 08:51] LABS: MANUAL DIFF FLAG NO
[2025-02-07 09:24] LABS: Basophils Absolute Auto 0.1 X10*3/uL (0.0-0.2); Basophils Percent Auto 0.7 % (0-2); Eosinophils Absolute Auto 0.2 X10*3/uL (0.0-0.4); Eosinophils Percent Auto 2.3 % (0-4); Hematocrit 39.8 % (37.0-47.0); Hemoglobin 13.1 g/dl (12.0-16.0); Imm Gran Abs Auto 0.05 X10*3/uL (0.00-0.03); Imm Gran Pct Auto 0.6 % (0.0-0.4); Lymphocytes Absolute Auto 3.6 X10*3/uL (1.2-4.9); Lymphocytes Percent Auto 43.2 % (20-40); Mean Corpuscular HGB Conc 32.9 g/dl (31.0-35.0); Mean Corpuscular Hemoglobin 30.8 pg (27.0-33.0); Mean Corpuscular Volume 93.4 fL (80.0-98.0); Mean Platelet Volume 9.7 fL (9.4-12.3); Monocytes Absolute Auto 0.6 X10*3/uL (0.1-1.2); Monocytes Percent Auto 6.9 % (2-11); Neutrophils Absolute Auto 3.9 x10*3/uL (2.0-8.3); Neutrophils Percent Auto 46.3 % (45-73); Platelet Count 293 X10*3/uL (160-400); Red Blood Count 4.26 X10*6/uL (4.20-5.50); Red Cell Distribution Width 12.4 % (11.0-16.0); White Blood Count 8.4 X10*3/uL (4.8-10.8)
[2025-02-07 10:23] LABS: Alanine Aminotransferase 20 U/L (0-31); Albumin Level 4.1 g/dL (3.5-5.0); Alkaline Phosphatase 94 U/L (39-117); Anion Gap 10 (12-20); Aspartate Amino Transferase 19 U/L (5-31); Bilirubin Total 0.2 mg/dL (0.0-1.0); Blood Urea Nitrogen 15 mg/dL (9-16); Calcium 9.2 mg/dL (8.4-10.2); Carbon Dioxide 25 mmol/L (22-29); Chloride 110 mmol/L (96-108); Cholesterol 246 mg/dL (<200); Estimated Glomerular Filt Rate > 60; Glucose Fasting 103 mg/dL (60-99); HDL Cholesterol 37 mg/dL (>40); Iron 46 mcg/dL (30-160); Percent Iron Saturation 19 % (15-50); Potassium 4.2 mmol/L (3.3-5.1); Sodium 141 mmol/L (135-145); Total Iron Binding Capacity 246 mcg/dL (228-428); Total Protein 7.1 g/dL (6.5-8.0); Triglycerides 402 mg/dL (<150); Unsaturated Iron Binding 200 ug/dL
[2025-02-07 10:26] LABS: Thyroid Stimulating Hormone 1.51 uIU/mL (0.32-4.0)
[2025-02-07 10:27] LABS: Folate 12.5 ng/mL (> or = 4.0); Vitamin B12 498 pg/mL (200-900)
[2025-02-08 13:43] LABS: Antibody to SS-A Antigen <1.0 NEG AI (<1.0 NEG); Antibody to SS-B Antigen <1.0 NEG AI (<1.0 NEG)
== END 2025-02-07 08:30 | disposition home or self-care (01) ==
LOC: HO.LAB 08:29
PROVIDERS: PCP Internal Medicine; Visit Provider Internal Medicine
DX: G47.9 Sleep disorder, unspecified (principal); R06.83 Snoring; R42 Dizziness and giddiness; E78.5 Hyperlipidemia, unspecified; M79.673 Pain in unspecified foot; M25.579 Pain in unspecified ankle and joints of unspecified foot; R20.2 Paresthesia of skin; G43.009 Migraine without aura, not intractable, without status migrainosus; D64.9 Anemia, unspecified; E55.9 Vitamin D deficiency, unspecified; M25.50 Pain in unspecified joint; R53.83 Other fatigue; R68.2 Dry mouth, unspecified; E53.8 Deficiency of other specified B group vitamins; R25.2 Cramp and spasm
CPT/HCPCS: 36415; 80053; 80061; 82306; 82607; 82746; 83540; 84443; 85025; 86235; 99212

== ENCOUNTER 2025-02-07 13:52 | Outpatient (AMB) | payer OTHER, SELFPAY ==
--- NOTE | 2025-02-07 14:00 | A.OFFVIS_ITS ---
Vital Signs 02/07/25 14:02 Height 5 ft 4 in Weight 154 lb BMI 26.4 BP 122/70 Blood Pressure Location Rt brachial Position Sitting Pulse 97 Pulse Source Pulse Oximeter Pulse Oximetry (%) 97 Oxygen Delivery Method Room Air Intake Visit Reasons: Follow Up Intake Note: Patient presents for follow up sleep study done 08/28/24. called patient Re: labs lvm Home Service Consultant Required: Yes Home Service Consultant Services: Home Service Consultant Present Home Service Consultant Name: Lina Medellin Accompanied by: Mother Allergies No Known Allergies [No Known Allergies*] Allergy (Verified 02/07/25 14:04) Medication List - Last Reconciled 02/07/25 by MOLLY Chiang albuterol sulfate 90 mcg/actuation (Ventolin HFA) 2 puffs inhalation Q6H PRN albuterol sulfate 2.5 mg (3 mL) inhalation Q6H PRN amitriptyline 25 mg PO BEDTIME 30 days cholecalciferol (vitamin D3) 50 mcg (2 x 25 mcg (1,000 unit)) PO DAILY 90 days fenofibrate 54 mg PO DAILY 90 days fluticasone furoate-vilanterol 200-25 mcg/dose (Breo Ellipta) 1 inh inhalation DAILY ketoconazole 2% appl topical BID PRN meloxicam 15 mg PO DAILY naratriptan take 1/2 - 1 tab at onset of headache; if no relief may repeat 1 tab after at least 4 hrs; max = 2 tabs/24 hrs orally PRN; 30 days solifenacin (Vesicare) 10 mg PO DAILY ubrogepant (Ubrelvy) 50 - 100 mg (0.5 - 1 x 100 mg) PO ONCE PRN 30 days umeclidinium 62.5 mcg/actuation (Incruse Ellipta) 1 inh inhalation DAILY walker with seat and wheels HPI Comments Details: 44-yr-old female presents for f/u visit for migraine and bilateral lower extremity paresthesia and pain. Patient is accompanied by her mother. Interval home sleep study test was inconclusive. Patient asked to review lab work completed today, which was ordered by her PCP: CBC within normal limits CMP within normal limits, fasting glucose 103-just slightly elevated Vitamin B12 498 within normal limits Folate 12.5 within normal limits TSH 1.8 x 1 within the limits Triglycerides 402 elevated Total cholesterol 246 elevated LDL-was not able to be calculated due to triglycerides greater than 400 HDL-37 low vitamin-D total 17 low 08/01/2024 ferritin 111-within normal limits Upon review of above, patient does note that she had stopped many of her medications, including her fenofibrate. She does not understand why your cholesterol levels would be high, states she does not eat much at all. However her mother who is with her, states there is a strong family history hyperlipidemia. States she can feel short of breath at times. And she is experiencing increased dizziness-not associated with her migraine attacks. She is again concerned about her chronic pain. She is having generalized pain, bone pain. She continues to have bilateral hand and wrist discomfort, swelling, and at times tingling if she is holding something for some time. This makes it difficult to do her daily activities or work. Previous LUE and LLE EMG/NCS was normal She continues to have BLE pain- in the lower legs, especially in her posterior ankle to mid-sole of foot. The LLE has pain from the mid-thigh to mid-calf. Chief also is experiencing numbness in bilateral 1st toes. She also endorses restlessness, muscle cramps- w/wo activity, creepy crawling sensation, poor sleep, snoring, daytime sleepiness. She previously saw pain management, but felt the injection tx was painful and not helpful. She did see rheumatology before, but has not had f/u since initial consult- however PCP has just recently referred her to Rheumatology again. Pt reports that she is having 2-3 migraine attack per week, which lasts 2 days. She is using Tylenol as needed-however it does not help much. She stopped using naratriptan-as it was not effective. Baseline headache characteristics: Migraine headache a/w photophobia, N/V, approx 3 times per week. Also episodes of cold sensation of bilateral occipital region, not right in space dizziness, loses vision and sees little white dots- this lasts a few seconds. [facility] Medical History Anemia LEISA (generalized anxiety disorder) Surgical History S/P total abdominal hysterectomy Family History Mother No problems noted. Father No problems noted. Family/Other Substance use disorder Mental health disorder Other SLE (systemic lupus erythematosus) Social History Household Members: Children Housing: Apartment Do you presently have visiting nurse or other home services: No Alcohol intake: former Patient Tobacco Use Status: Current everyday Tobacco user Tobacco use type: Cigarette Cigarette Packs Per Day: 1.5 Cigarettes Per Day: 20.0 e-Cigarette/Vaping Use: Never Used Second Hand Smoke Exposure: No service: No Current occupational status: employed Current occupation: [employer] Current occupational exposures/hazards: No Cognitive needs: No Hearing needs: No Vision needs: No Physical Exam Vital Signs: Last Vital Signs Pulse 97 02/07/25 14:02 BP 122/70 02/07/25 14:02 Pulse Ox 97 02/07/25 14:02 Oxygen Delivery Method Room Air 02/07/25 14:02 BMI result Body Mass Index 26.4 Const General: cooperative and no acute distress Orientation/consciousness: patient oriented x3 Resp Effort & Inspection: normal respiratory effort and able to speak in complete sentences Neuro General: patient oriented x3 Cranial nerves: Yes CN's II-XII intact bilaterally Cognition (Neuro): normal cognition Psych Appearance: grossly normal Mental Status: mental status grossly normal Speech and movement: Normal speech and movement present Affect: normal affect (though sad and teary at times) Attitude: cooperative Assessment & Plan Assessment & Plan (1) Sleep difficulties: Code(s): G47.9 - Sleep disorder, unspecified Category: Medical (2) Snoring: Code(s): R06.83 - Snoring Category: Medical (3) Dizziness: Code(s): R42 - Dizziness and giddiness Category: Medical (4) HLD (hyperlipidemia): Code(s): E78.5 - Hyperlipidemia, unspecified Category: Medical (5) Foot and ankle pain: Code(s): M79.673 - Pain in unspecified foot; M25.579 - Pain in unspecified ankle and joints of unspecified foot Category: Medical (6) Paresthesia of left upper extremity: Code(s): R20.2 - Paresthesia of skin Category: Medical (7) Migraine without aura: Code(s): G43.009 - Migraine without aura, not intractable, without status migrainosus Category: Medical (8) Paresthesia and pain of both upper extremities: Code(s): R20.2 - Paresthesia of skin; M79.601 - Pain in right arm; M79.602 - Pain in left arm Category: Medical (9) Muscle cramps: Code(s): R25.2 - Cramp and spasm Category: Medical Plan For pain/paresthesias, bone pain, cramps, restlessness, ? RLS:. 11/04/2023: LUE EMG/NCS- normal. 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 Continue to avoid crossing legs, wearing tight clothing. Reviewed labs- shows hyperlipidemia, elevated triglycerides, decreased HDL, and low vitamin-D level. Resume vitamin-D supplement 50 mcg p.o. daily Reviewed HST results which were inconclusive, thus patient is advised to undergo in-lab PSG to assess for sleep apnea and PLMS/RLS. Concur with rheumatology evaluation. We will request orthopedic evaluation as well. Patient is hesitant to retry PT at this time as it was previously ineffective. Previous trials: PT-ineffective. Future considerations- RLE EMG/NCS, referring pt back to pain management or requesting podiatry consult. For dyslipidemia incomplete of worsening dizziness: Patient advised to resume fenofibrate as ordered by PCP. We will check bilateral carotid ultrasound. ? For migraine prevention tx: Resume Amitriptyline 25 daily at bedtime- this may help w/ body pains as well, though consider alternate if worsens restlessness. Previous trials: Topiramate- not tolerated For acute migraine tx: Discontinue Naratriptan prn. Trial Ubrogepant (Ubrelvy) 100mg tab, 1/2 - 1 tab (50-100mg) at onset of headache, may repeat in 2 hours. Max of 2 tabs (200mg) per 24 hours. May adjunct with OTC Tylenol 650mg q 4 hours, Ibuprofen 600mg q 6 hours, or Naproxen 440mg q 12 hrs prn. Do not take w/ Butalbital (Fioricet or Fiorinal). Potential adverse effects, include but are not limited to fatigue, nausea, dry mouth, constipation Previous tx trials: Sumatriptan 100mg tab- caused N/V. Naratriptan- ineffective Acute migraine treatment contraindications: All triptans and DHE due to uncontrolled dyslipidemia. ? Will follow-up upon review of above and patient to follow-up in clinic in 4-6 months or sooner prn. Orders: Orders RT PSG in-lab sleep titration Today G47.9 - Sleep disorder, unspecified, R06.83 - Snoring US carotid duplex BI Today E78.5 - Hyperlipidemia, unspecified, R42 - Dizziness and giddiness Referrals Orthopedics Referral M25.579 - Pain in unspecified ankle and joints of unspecified foot, M79.673 - Pain in unspecified foot Medications: New ubrogepant (Ubrelvy) take at onset of migraine, may repeat in 2hrs (may take w/ Ibuprofen) 50 - 100 mg (0.5 - 1 x 100 mg) PO ONCE 30 days PRN 16 tabs 3RF migraine headache Refilled amitriptyline 25 mg PO BEDTIME 30 days 30 tabs 4RF Discontinued naratriptan Discontinued Reason: Doctor's Order take 1/2 - 1 tab at onset of headache; if no relief may repeat 1 tab after at least 4 hrs; max = 2 tabs/24 hrs orally PRN; 30 days 12 tabs 6RF migraine headache Coding Level of Care Code Est Pt Level 4 (56899) Complex EM visit Add On G2211 Diagnoses Sleep difficulties G47.9 Snoring R06.83 Dizziness R42 HLD (hyperlipidemia) E78.5 Foot and ankle pain M79.673; M25.579 Paresthesia of left upper extremity R20.2 Migraine without aura G43.009 Paresthesia and pain of both upper extremities R20.2; M79.601; M79.602 Muscle cramps R25.2
[2025-02-07 14:02] VITALS: BP 122/70; PULSE 97; O2SAT 97; BMI 26.4
--- OUTSIDE RECORDS SUMMARY | 2025-02-07 16:05 | XMS_ITS | Clinical Summary ---
Author Organization [address] [facility] Address [address] [place] [address] Phone Care Team Providers Care Telegraphic Typewriter Operator Chief Name Role Phone Nia Pope MD Primary Care Provider [phone] Surgical History Surgery Date Site/Laterality Comments HYSTERECTOMY [...] Upcoming Encounters Date Type Department Care Team ([facility] Contact Info) Description 04/11/2025 10:30 AM EDT Consult Orthopedic Surgery - [place] [id number] [address] Sherman Adams DPM [address] [address] Health Maintenance Due Date Last Done Comments [...] patient's age to complete this topic Insurance [facility] Care Teams Telegraphic Typewriter Operator Chief Relationship Specialty Start Date End Date Nia Pope MD [address] [facility] , [address] [facility] D[facility]A: [facility] [place], [place] PCP - General Internal Medicine 02/01/25
--- OUTSIDE RECORDS SUMMARY | 2025-02-07 16:05 | XMS_ITS | Encounter Summary ---
Author Organization [employer] [facility] Address [address] [facility] [address] [place] [address] Care Team Providers Care Drilling Foreman Name Role Phone Unavailable Primary Care Provider Unavailabl e Encounter Details Date Type Department Care Team (Latest Contact Info) Description 06/20/2021 Abstract [facility] CONVERSIONS Dental, Provider, DDS Social History Tobacco Use Types Packs/Day Years Used Date Smoking Tobacco: Never Assessed Comments Unknown Sex and Gender Information Value Date Recorded Sex Assigned at Female 08/31/2022 10:23 AM EDT Legal Sex Female 10:23 AM EDT Gender Identity Female 08/31/2022 10:23 AM EDT Sexual Orientation Straight 08/31/2022 10 :23 AM EDT documented as of this encounter Plan of Treatment Not on file documented as of this encounter Visit Diagnoses Not on filedocumented in this encounter
--- OUTSIDE RECORDS SUMMARY | 2025-02-07 16:05 | XMS_ITS | Clinical Summary ---
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 Assembly Machine Tender Name Role Phone Unavailable Primary Care Provider Unavailabl e Social History Tobacco Use Types Packs/Day Years Used Date Smoking Tobacco: Never Assessed Comments Unknown Sex and Gender Information Value Date Recorded Sex Assigned at Female 08/31/2022 10:23 AM EDT Legal Sex Female 10:23 AM EDT Gender Identity Female 08/31/2022 10:23 AM EDT Sexual Orientation Straight 08/31/2022 10 :23 AM EDT Plan of Treatment Health Maintenance Due Date Last Done Comments CT Colonography 1979 Colonoscopy 1979 Colorectal Cancer Screening 1979 Depression Screening 1979 FIT DNA/Cologuard 1979 FIT 1979 FOBT 1979 Sigmoidoscopy 1979 Alcohol/Substance Use Screening 1991 Tobacco Screening 1991 Family Planning (PISQ) 1994 DTaP/Tdap/Td Vaccines (1 - Tdap) 1998 Pap Smear 01/17/2000 Cervical Cancer Screening 2009 HPV/Cotest 2009 Hepatitis B Vaccines (3 of 3 - Hep B Twinrix 3-dose series) 08/17/2017 03/17/2017, 12/22/2016 Mammogram 2019 COVID-19 Vaccine (3 - 2023-2 5 season) 2024 03/25/2021, 03/06/2021 Influenza Vaccine (#1) 2024 08/06/2022 Zoster Vaccines (1 of 2) 2029 RSV Patients and Patients Aged 60 years or older (1 - 1-dose 75+ series) 2054 Hepatitis A Vaccines Aged Out 03/17/2017, 12/22/2016 [...] patient's age to complete this topic Meningococcal Vaccine Aged Out No nely edmund eligible based on patient's age to complete this topic Pneumococcal Vaccine: Pediatrics (0 to 5 Years) and At-Risk Patients (6 to 49) Years) Aged Out No longer eligible b ased on patient's age to complete this topic RSV under 20 months Aged Out No longe r eligible based on patient's age to complete this topic Rotavirus Vaccines Aged Out No longer eligible based on patient's age to complete this topic
== END 2025-02-07 15:16 | disposition home or self-care (01) ==
PROVIDERS: PCP Internal Medicine; Visit Provider Nurse Practitioner Family
DX: G47.9 Sleep disorder, unspecified (principal); R06.83 Snoring; R42 Dizziness and giddiness; E78.5 Hyperlipidemia, unspecified; M79.673 Pain in unspecified foot; M25.579 Pain in unspecified ankle and joints of unspecified foot; R20.2 Paresthesia of skin; G43.009 Migraine without aura, not intractable, without status migrainosus; M79.601 Pain in right arm; M79.602 Pain in left arm; R25.2 Cramp and spasm
CPT/HCPCS: 99214; G2211

== ENCOUNTER 2025-02-15 09:38 | Emergency (ER) | payer OTHER, SELFPAY ==
--- NOTE | ~2025-02-15 | XR_ITS ---
EXAMINATION: XR HIP, RIGHT CLINICAL INFORMATION: fall COMPARISON: None available. TECHNIQUE: AP pelvis and 2 views of the right hip. FINDINGS: No fracture. Alignment is anatomic. Hip joint spaces are maintained. Normal femoral head contours without evidence of AVN. Soft tissues are unremarkable. XR/XR hip RT min 2V IMPRESSION: Normal pelvis and right hip. Electronically signed by: Cortez Peña MD 02/15/2025 11:12 AM EDT
--- NOTE | ~2025-02-15 | XR_ITS ---
EXAMINATION: XR FOOT, RIGHT CLINICAL INFORMATION: fall COMPARISON: Calcaneus x-ray dated June 25, 2022. TECHNIQUE: AP, lateral, and oblique views of the right foot. FINDINGS: No acute cortical disruption or gross malalignment. Small calcification/exostosis at the Achilles tendon insertion. XR/XR foot RT min 3V IMPRESSION: No acute fracture or dislocation. Enthesopathy, Achilles tendon. Electronically signed by: Sen Parsons MD 02/15/2025 11:12 AM EDT
--- NOTE | ~2025-02-15 | XR_ITS ---
EXAMINATION: XR KNEE, RIGHT CLINICAL INFORMATION: fall COMPARISON: January 14, 2023. TECHNIQUE: Four views of the right knee. FINDINGS: No acute cortical disruption or malalignment. Joint space narrowing, mild medial compartment. No suprapatellar bursa joint effusion. No lytic or blastic lesions. XR/XR knee RT 4V IMPRESSION: No acute fracture or dislocation. Mild medial compartment osteoarthrosis. Electronically signed by: Sen Parsons MD 02/15/2025 11:11 AM EDT
[2025-02-15 09:50] VITALS: BP 113/70; BP 138/74; PULSE 82; PULSE 84; RESP 18; TEMP 37.1; O2SAT 99; BMI 26.6
--- NOTE | 2025-02-15 10:13 | ED.FALL ---
HPI - Fall General Chief Complaint: Fall Stated Complaint: FALL @WORK,R KNEE/FOOT PAIN PER EMS Time Seen by Provider: 02/15/25 10:12 Source: patient, EMS and old records reviewed Mode of arrival: EMS Limitations: no limitations History of Present Illness ED Provider: BHAVESH BAILEY Narrative: 45 yo female with PMH of HLD, asthma-COPD overlap, neuropathy, not on blood thinners here with c/o trip and fall at work where her R leg went under her - she had no headstrike or LOC. Pain is in the hip, knee, foot. She reports tingling in great toe. She has no other injuries. 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) Fall from: standing Fall witnessed: yes, by bystander Place fall occurred: work Loss of consciousness: none Symptoms prior to fall: none Context: tripped/slipped Location of injury - extremities: right: knee, lower leg and foot Severity: moderate Quality: aching Associated symptoms (after fall): unable to walk Related Data Home Medications ?Medication ?Instructions ?Recorded ?Confirmed ketoconazole 2 % topical cream appl topical BID PRN 07/13/23 02/07/25 Previous Rx's ?Medication ?Instructions ?Recorded walker #1 ea 01/20/23 meloxicam 15 mg tablet 15 mg PO DAILY #7 tabs 08/02/24 cholecalciferol (vitamin D3) 25 50 mcg (2 x 25 mcg (1,000 unit)) 08/14/24 mcg (1,000 unit) capsule PO DAILY 90 days #180 caps solifenacin 10 mg tablet (Vesicare) 10 mg PO DAILY #90 tabs 08/23/24 albuterol sulfate 2.5 mg/3 mL 2.5 mg (3 mL) inhalation Q6H PRN 09/27/24 (0.083 %) solution for nebulization wheezing, SOB #180 mL albuterol sulfate 90 mcg/actuation 2 puff inhalation Q6H PRN 12/12/24 aerosol inhaler (Ventolin HFA) Shortness Of Breath Or Wheezing #1 ea fluticasone furoate 200 1 inh inhalation DAILY #1 ea 12/12/24 mcg-vilanterol 25 mcg/dose inhalation powder (Breo Ellipta) umeclidinium 62.5 mcg/actuation 1 inh inhalation DAILY #1 ea 12/12/24 blister powder for inhalation (Incruse Ellipta) fenofibrate 54 mg tablet 54 mg PO DAILY 90 days #90 tabs 01/11/25 amitriptyline 25 mg tablet 25 mg PO BEDTIME 30 days #30 tabs 02/07/25 ubrogepant 100 mg tablet (Ubrelvy) 50 - 100 mg (0.5 - 1 x 100 mg) PO 02/07/25 ONCE PRN migraine headache 30 days #16 tabs cyclobenzaprine 10 mg tablet 20 mg (2 x 10 mg) PO BID PRN 02/15/25 muscle spasm #14 tabs ibuprofen 200 mg capsule (Motrin 400 mg (2 x 200 mg) PO Q8H #30 caps 02/15/25 IB) Allergies Allergy/AdvReac Type Severity Reaction Status Date / Time No Known Allergies Allergy Verified 02/15/25 09:51 [No Known Allergies*] Review of Systems Review of Systems: Constitutional : No Fever, No Chills ENT/Mouth : No Ear Pain, No Hoarseness, No sore throat Eyes: No Eye Pain, No Swelling, No Redness, No Foreign Body Cardiovascular : No Chest Pain, No SOB Respiratory : No Cough, No Dyspnea Gastrointestinal : No Nausea, No Vomiting, No Diarrhea, No abdominal Pain Genitourinary : No Dysuria, No Hematuria Musculoskeletal : positive joint pain, No Myalgias, No Joint Swelling Skin : No Skin lacerations, No rash Neuro : No Weakness, No Numbness, No Loss of Consciousness, No Dizziness, No Headache All other systems reviewed and are negative PMFSH Past Medical History Attestation statement: The following information was validated with the patient. Source: old records reviewed Medical History Anemia LEISA (generalized anxiety disorder) Surgical History S/P total abdominal hysterectomy Family History Family History Mother No problems noted. Father No problems noted. Family/Other Substance use disorder Mental health disorder Other SLE (systemic lupus erythematosus) Social History Social History Household Members: Children Housing: Apartment Do you presently have visiting nurse or other home services: No Alcohol intake: former Patient Tobacco Use Status: Current everyday Tobacco user Tobacco use type: Cigarette Cigarette Packs Per Day: 1.5 Cigarettes Per Day: 20.0 e-Cigarette/Vaping Use: Never Used Second Hand Smoke Exposure: No Advance Directives: No Advance Directives Information Provided: No service: No Current occupational status: employed Current occupation: [employer] Current occupational exposures/hazards: No Cognitive needs: No Hearing needs: No Vision needs: No Physical Exam Vital Signs: Vital Signs: Last Vital Signs Temp 98.7 F 02/15/25 09:50 Pulse 84 02/15/25 09:50 Resp 18 02/15/25 09:50 BP 113/70 02/15/25 09:50 Pulse Ox 99 02/15/25 09:50 O2 Del Method Room Air 02/15/25 09:50 BMI result Body Mass Index 26.6 Appearance: Alert. Oriented X3. No acute distress. Eyes: Pupils equal, round and reactive to light. ENT: Pharynx normal. atraumatic Neck: Normal inspection. Neck supple. CVS: Normal heart rate and rhythm. Pulses normal. Respiratory: No respiratory distress. Breath sounds normal. Abdomen: Soft and nontender. Skin: Skin warm and dry. Normal skin color. Normal skin turgor. Extremities: No lower extremity edema. R knee and hip ttp and R foot - no signs of deformity or swelling, no abrasions, 2+ DP and PT pulse, compartments are soft. she states she feels tingling in her great toe - toe is atraumatic warm and well perfused Neuro: Oriented X 3. No motor deficit. No sensory deficit. CN2-12 intact Medications Administered Discontinued Medications Generic Name Dose Route Start Last Admin Trade Name Freq PRN Reason Stop Dose Admin Hydrocodone Bitart/Acetaminophen 1 tab 02/15/25 10:27 02/15/25 10:55 Hydrocodone Bit/Acetam 5/325 Tablet PO 02/15/25 10:28 1 tab ONCE ONE Administration Procedures Procedure Narrative Procedure Narrative: mohan wrap R foot and ankle with crutches Medical Decision Making Medical Decision Making MDM Narrative: 45 yo female with PMH of HLD, asthma-COPD overlap, neuropathy, not on blood thinners here with c/o fall at work tripped now has pain in R hip/knee/foot though ext exam is normal and she is NV intact at this time will obtain xrays and start on PO pain control, no thinner and no head trauma Xray of R hip, knee, foot showed no fracture or dislocation. Differential Diagnosis Differential Diagnoses: The differential diagnosis associated with the presentation includes trauma, strain, sprain Admission/Observation Consideration of admission/observation: Escalation of care including admission/observation considered NV intact, stable for DC crutches and mohan wrap Independent Interpretation I performed an independent interpretation of an: Plain X-Ray Radiology Impression Discussion of test interpretation with radiology: I have reviewed the radiologist's reading. Independent Historian Clinical information obtained from an independent historian. History obtained from or confirmed by: EMS and Other (family) External Record Review External record reviewed: Outpatient record Prescription Management I considered prescription management with: Pain Medication Discharge Plan Discharge Clinical Impression: Strain of foot, right Acute leg pain Qualifiers: Laterality: right Qualified Code(s): M79.604 - Pain in right leg Patient Disposition: Home, Self-Care Instructions: Leg Pain (ED), Ankle Strain (ED) Additional Instructions: You were evaluated in the ED for right foot pain after a fall. Your xrays of your right foot, knee, and hip showed no fracture or dislocation. mohan wrap and crutches for 5 days can apply wait on foot as tolerated You are prescribed flexiril a muscle relaxer, and motrin for pain management. You can ice the area by wrapping an ice pack in a towel and leaving on the affected area for 15 minutes at a time. You can also elevate the affected foot to control swelling of the area. Please return to the ED if you have increasing pain, temperature skin changes in the affected area, increased swelling, or any other symptoms or concerns. Prescriptions: New cyclobenzaprine 10 mg tablet 20 mg PO BID PRN (Reason: muscle spasm) Qty: 14 0RF ibuprofen [Motrin IB] 200 mg capsule 400 mg PO Q8H Qty: 30 0RF No Action cholecalciferol (vitamin D3) 25 mcg (1,000 unit) capsule 50 mcg PO DAILY 90 Days Qty: 180 1RF fluticasone furoate-vilanterol [Breo Ellipta] 200-25 mcg/dose blister with device 1 inh inhalation DAILY Qty: 1 6RF Incruse Ellipta 62.5 mcg/actuation blister with device 1 inh inhalation DAILY Qty: 1 6RF albuterol sulfate [Ventolin HFA] 90 mcg/actuation HFA aerosol inhaler 2 puff inhalation Q6H PRN (Reason: Shortness Of Breath Or Wheezing) Qty: 1 6RF (CELESTINO) liz Owen See Rx Instructions .Route Qty: 1 0RF Rx Instructions: with seat and wheels Ubrelvy 100 mg tablet 50 - 100 mg PO ONCE PRN (Reason: migraine headache) 30 Days Qty: 16 3RF Rx Instructions: take at onset of migraine, may repeat in 2hrs (may take w/ Ibuprofen) amitriptyline 25 mg tablet 25 mg PO BEDTIME 30 Days Qty: 30 4RF fenofibrate 54 mg tablet 54 mg PO DAILY 90 Days Qty: 90 1RF ketoconazole 2 % cream topical BID PRN solifenacin [Vesicare] 10 mg tablet 10 mg PO DAILY Qty: 90 3RF meloxicam 15 mg tablet 15 mg PO DAILY Qty: 7 0RF albuterol sulfate 2.5 mg /3 mL (0.083 %) solution for nebulization 2.5 mg inhalation Q6H PRN (Reason: wheezing, SOB) Qty: 180 6RF Stand Alone Forms: Work/School Release Print Language: Slovenian
[2025-02-15] MEDS: HYDROcodone Bit/Acetam 5/325 TABLET 1 TAB PO (10:55)
--- OUTSIDE RECORDS SUMMARY | 2025-02-15 11:57 | XMS_ITS | Clinical Summary ---
Author Organization [employer] [facility] Address [address] [place] [address] [address] [place] [address] Care Team Providers Care Manager Image Name Role Phone Unavailable Primary Care Provider [...]
--- OUTSIDE RECORDS SUMMARY | 2025-02-15 11:57 | XMS_ITS | Encounter Summary ---
Author Organization [employer] [facility] Address [address] [facility] [address] [place] [address] Care Team Providers Care Laboratory Asst Name Role Phone Unavailable Primary Care Provider [...]
--- OUTSIDE RECORDS SUMMARY | 2025-02-15 11:57 | XMS_ITS | Clinical Summary ---
Author Organization 175 [facility] Address 175 [place] [address] Phone Care Team Providers Care Bolt Sorter Name Role Phone Nia Pope MD Primary Care Provider [phone] Surgical History Surgery Date Site/Laterality Comments HYSTERECTOMY [...] Upcoming Encounters Date Type Department Care Team ([facility] Contact Info) Description 04/11/2025 10:30 AM EDT Consult Orthopedic Surgery - [place] [address] [address] Sherman Adams DPM [address] [address] Health Maintenance Due Date Last Done Comments [...] patient's age to complete this topic Insurance [facility] HE[facility] PLAN Care Teams Bolt Sorter Relationship Specialty Start Date End Date Nia Pope MD 2 [facility] , [address] [facility] D/B/A: Katie Toledo [facility] Internal Medicine [place], [place] PCP - General Internal Medicine 02/01/25
[2025-02-15 12:14] VITALS: BP 113/70; PULSE 84; RESP 18; TEMP 37.1; O2SAT 99
== END 2025-02-15 12:14 | disposition home or self-care (01) ==
PROVIDERS: Emergency Provider Emergency Medicine; PCP Internal Medicine
DX: S96.911A Strain of unspecified muscle and tendon at ankle and foot level, right foot, initial encounter (principal); W01.0XXA Fall on same level from slipping, tripping and stumbling without subsequent striking against object, initial encounter; M79.604 Pain in right leg; Y93.9 Activity, unspecified; Y92.512 Supermarket, store or market as the place of occurrence of the external cause; Y99.0 Civilian activity done for income or pay
CPT/HCPCS: 73502; 73564; 73630; 99283; 99284

== ENCOUNTER → 2025-02-15 10:27 | Outpatient (BNV) | payer OTHER, SELFPAY | PROVIDERS: Emergency Provider Emergency Medicine; PCP Internal Medicine; Visit Provider Radiology Diagnostic Radiology | DX: M25.561 Pain in right knee (principal); M25.551 Pain in right hip; M79.671 Pain in right foot; W19.XXXA Unspecified fall, initial encounter | CPT/HCPCS: 73502; 73564; 73630 ==

== ENCOUNTER 2025-02-16 10:35 | Outpatient (AMB) | payer OTHER, SELFPAY ==
--- NOTE | 2025-02-16 10:42 | A.OFFPC_ITS ---
Vital Signs 02/16/25 10:43 Height 5 ft 4 in Weight 145 lb 15.136 oz BMI 25.0 BP 90/60 Blood Pressure Location Lt brachial Position Sitting Pulse 83 Pulse Source Pulse Oximeter Temp 97.5 F Temp Source Temporal Artery Scan Pulse Oximetry (%) 98 Oxygen Delivery Method Room Air Intake Visit Reasons: Pain due Accident Intake Note: Patient is here for a work injury that occurred on 02/15. 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 Economic Research Analyst Required: Yes Economic Research Analyst Language: Belarusian Loan Clerk: Not Required per policy Accompanied by: Mother Allergies No Known Allergies [No Known Allergies*] Allergy (Verified 02/16/25 10:53) Medication List - Last Reconciled 02/16/25 by Marci Marley PA-C albuterol sulfate 90 mcg/actuation (Ventolin HFA) 2 puffs inhalation Q6H PRN albuterol sulfate 2.5 mg (3 mL) inhalation Q6H PRN amitriptyline 25 mg PO BEDTIME 30 days cholecalciferol (vitamin D3) 50 mcg (2 x 25 mcg (1,000 unit)) PO DAILY 90 days cyclobenzaprine 20 mg (2 x 10 mg) PO BID PRN fenofibrate 54 mg PO DAILY 90 days fluticasone furoate-vilanterol 200-25 mcg/dose (Breo Ellipta) 1 inh inhalation DAILY ibuprofen (Motrin IB) 400 mg (2 x 200 mg) PO Q8H ketoconazole 2% appl topical BID PRN meloxicam 15 mg PO DAILY solifenacin (Vesicare) 10 mg PO DAILY ubrogepant (Ubrelvy) 50 - 100 mg (0.5 - 1 x 100 mg) PO ONCE PRN 30 days umeclidinium 62.5 mcg/actuation (Incruse Ellipta) 1 inh inhalation DAILY walker with seat and wheels Tobacco use date assessed: 02/16/25 Dental Screening Dental Screen Date: 01/11/25 HPI Pain due Accident HPI Details 45-year-old female with past medical his tory of fibromyalgia, depression, plantar fasciitis, headaches, overactive bladder, hyperlipidemia last seen 12/2024 coming in for acute problem. In review of the notes patient was seen in [facility] ED 01/2025 for right foot pain after a fall x-rays were normal advised Asad wrap and crutches for 5 days and given cyclobenzaprine and ibuprofen. miller head [id number] Rico was used for the duration of this visit. Presents today in a wheelchair and states she can't walk on her feet cannot put pressure on the feet at all. Patient had a fall at work yesterday where she tripped over a milk crate and fell on her right leg. She has been having pain in that leg and foot since the incident. She was advised by the ED to use Asad wrap and crutches as well as using ibuprofen and cyclobenzaprine which she has not done. X-rays in the ED were negative. [facility] Medical History Anemia LEISA (generalized anxiety disorder) Surgical History S/P total abdominal hysterectomy Family History Mother No problems noted. Father No problems noted. Family/Other Substance use disorder Mental health disorder Other SLE (systemic lupus erythematosus) Social History Household Members: Children Housing: Apartment Do you presently have visiting nurse or other home services: No Alcohol intake: former Patient Tobacco Use Status: Current everyday Tobacco user Tobacco use type: Cigarette Cigarette Packs Per Day: 1.5 Cigarettes Per Day: 20.0 e-Cigarette/Vaping Use: Never Used Second Hand Smoke Exposure: Yes service: No Current occupational status: employed Current occupation: [employer] Current occupational exposures/hazards: No Cognitive needs: No Hearing needs: No Vision needs: No Questionnaire Thrive Questionnaire Date Thrive assessed: 01/11/25 I am a: Patient What is your living situation today?: I choose not to answer this question Within the past 12 months, did the food you bought not last and you didn't have the money to get more?: I choose not to answer this question Within the past 12 months, did you worry whether your food would run out before you got money to buy more?: I choose not to answer this question Do you have trouble paying for medicines?: I choose not to answer this question Do you have trouble getting transportation to medical appointments?: I choose not to answer this question Do you have trouble paying your heating and electricity bill?: Yes Do you have trouble taking care of your child, family member or friend?: I choose not to answer this question Do you have trouble with day-to-day activities such as bathing, preparing meals, shopping, managing finances, etc.?: I choose not to answer this question Are you currently unemployed and looking for a job?: I choose not to answer this question Are you interested in more education?: I choose not to answer this question Currently or been in a relationship where the following occur: I choose not to answer THRIVE Score: 1 LEISA-7 AMB Questionnaire LEISA-7 Date LEISA - 7 assessed: 01/11/25 Source: Developed by Drs. Dominic Lombardo, Selina Castañeda, Wellington Marie and colleagues, with an educational dasia from [employer]. Review of Systems Const Denies body aches, Denies chills, Denies fever(s) and Denies poor appetite Eyes Reports no additional complaints Card Denies chest pain and Denies dyspnea Resp Denies dyspnea Reports no additional complaints Musc Reports as per HPI and Reports abnormal gait Skin/Breast Reports system reviewed and no additional complaints, except as documented Neuro Reports abnormal gait Psych Reports no additional complaints Physical exam (Primary Care) Vital Signs: Last Vital Signs Temp 97.5 F 02/16/25 10:43 Pulse 83 02/16/25 10:43 BP 90/60 02/16/25 10:43 Pulse Ox 98 02/16/25 10:43 Oxygen Delivery Method Room Air 02/16/25 10:43 BMI result Body Mass Index 25.0 Tobacco/Smoking Status: Tobacco use Status Tobacco use date assessed 02/16/25 02/16/25 10:47 Patient Tobacco Use Status Current everyday Tobacco 02/16/25 10:47 Tobacco use type Cigarette 02/16/25 10:47 e-Cigarette/Vaping Use Never Used 02/16/25 10:47 Thrive Assessment: Date of Thrive Assessment Date Thrive assessed 01/11/25 02/16/25 10:47 Currently or been in a relationship where the following occur: I choose not to answer Const General: cooperative, healthy appearing, comfortable and no acute distress Orientation/consciousness: patient oriented x3 [facility] Head: Yes normocephalic Ears: hearing grossly normal bilaterally General nose exam: Normal external nose present Eyes General: appearance normal, both eyes and all related structures Conjunctivae: conjunctivae normal Neck Neck: Yes full ROM and Yes no lymphadenopathy Resp Effort & Inspection: normal respiratory effort Cardio Rate: regular rate Skin General skin exam: no rashes or lesions noted Neuro General: patient oriented x3 Gait exam (Neuro): Normal gait present Extrem Other: Tenderness to palpation over plantar medial aspect of right foot and tenderness to palpation of right knee. No swelling, bruising, skin changes. Pulses intact General: Yes normal to inspection, Yes full ROM and No edema Psych Affect: normal affect Attitude: cooperative Insight: Good insight present (Psych) Judgement: Good judgement present (Psych) Coding Level of Care Code Est Pt Level 3 (06210) Diagnoses Foot and ankle pain M79.673; M25.579 Right knee pain M25.561 Assessment & Plan Assessment & Plan (1) Foot and ankle pain: Code(s): M79.673 - Pain in unspecified foot; M25.579 - Pain in unspecified ankle and joints of unspecified foot Category: Medical Plan: The treatment plan for the patient's foot pain involves rest, ice, and elevation to manage swelling, with ibuprofen as an anti-inflammatory agent. The patient is advised to use heat therapy after initial ice treatment. Cyclobenzaprine at bedtime will aid muscle relaxation and pain management. A gradual return to activity is recommended to prevent stiffness. Occupational considerations due to pain are acknowledged, emphasizing gradual mobility improvement to accommodate job requirements. Follow-up will be needed if no improvement is noted. There is no swelling, redness or skin changes on exam. (2) Right knee pain: Code(s): M25.561 - Pain in right knee Category: Medical Plan: Very mild tenderness to palpation of right knee on exam. Continue with pain management strategies as listed above. Plan This note was constructed using voice recognition software. While every effort has been made to ensure accuracy and industrial relations director, still areas may have been included sometimes these areas may affect the content or meeting of the given symptoms. Total time spent caring for the patient today was 20 minutes. This includes time spent before the visit reviewing the chart, time spent during the visit, and time spent after the visit and documentation. Patient was informed and verbally consented to the use of an ambient scribe for clinic note documentation during this visit.
[2025-02-16 10:43] VITALS: BP 90/60; PULSE 83; TEMP 36.4; O2SAT 98; BMI 25.0
--- OUTSIDE RECORDS SUMMARY | 2025-02-16 11:38 | XMS_ITS | Encounter Summary ---
Author Organization [facility] Address [address] [facility] 7 [place] [address] Care Team Providers Care Ammunition Assembly I Laborer Name Role Phone Unavailable Primary Care Provider [...]
--- OUTSIDE RECORDS SUMMARY | 2025-02-16 11:38 | XMS_ITS | Clinical Summary ---
Author Organization [facility] Address [address] [place] [address] 7[address] [place] [address] Care Team Providers Care Binding Stitcher Name Role Phone Unavailable Primary Care Provider [...]
--- OUTSIDE RECORDS SUMMARY | 2025-02-16 11:38 | XMS_ITS | Clinical Summary ---
Author Organization 175 [facility] Address 175 [place] [address] Phone Care Team Providers Care Rn Manager Name Role Phone Nia Pope MD Primary Care Provider [phone] Surgical History Surgery Date Site/Laterality Comments HYSTERECTOMY [...] Upcoming Encounters Date Type Department Care Team ([facility] Contact Info) Description 04/11/2025 10:30 AM EDT Consult Orthopedic Surgery - [place] [address] [address] Sherman Adams DPM [address] [address] Health Maintenance Due Date Last Done Comments [...] patient's age to complete this topic Insurance [facility] HE[facility] PLAN Care Teams Rn Manager Relationship Specialty Start Date End Date Nia Pope MD 2 [facility] , [address] [facility] D/B/A: Katie Toledo In Internal Medicine [place], [place] PCP - General Internal Medicine 02/01/25
== END 2025-02-16 11:37 | disposition home or self-care (01) ==
PROVIDERS: PCP Internal Medicine
DX: M79.671 Pain in right foot (principal); M25.571 Pain in right ankle and joints of right foot; M25.561 Pain in right knee; Z04.2 Encounter for examination and observation following work accident

== ENCOUNTER → 2025-02-16 10:35 | Outpatient (BNVA) | payer OTHER, SELFPAY | PROVIDERS: PCP Internal Medicine | DX: M79.671 Pain in right foot (principal); M25.571 Pain in right ankle and joints of right foot; M25.561 Pain in right knee | CPT/HCPCS: 99212 ==

== ENCOUNTER 2025-02-20 10:47 | Outpatient (AMB) | payer OTHER, SELFPAY ==
[2025-02-20 11:01] VITALS: BP 108/70; PULSE 94; O2SAT 100; BMI 25.4
--- NOTE | 2025-02-20 11:01 | MHC.OFFVIS ---
Vital Signs 02/20/25 11:01 Height 5 ft 4 in Weight 148 lb BMI 25.4 BP 108/70 Blood Pressure Location Rt brachial Position Sitting Pulse 94 Pulse Source Pulse Oximeter Pulse Oximetry (%) 100 Oxygen Delivery Method Room Air Intake Visit Reasons: Dysphagia, painful swallowing. Re-Est Intake Note: ESTABLISHED PATIENT to re-est care. Pt last seen by Marilynn 09/2022 for melena. Chief Complaint; C/O GERD, N+V, diarrhea, possible hemorrhoids, epigastric pain, ? lactose intolerance. Pt reports that certain foods cause problems for her, however; she has never been able to narrow down which foods specifically cause her problems. Pt has not attempted keeping food journal yet. Pt is unsure if she ever had colo previously. + FMHx reported. Pt previously had EGD with Dr. Stapleton 2018. Melt House Supervisor Required: Yes Melt House Supervisor Services: Melt House Supervisor Present Melt House Supervisor Name: Neptali [id number] Information Interpreted: clinical only Accompanied by: Self / Same As Patient Allergies No Known Allergies [No Known Allergies*] Allergy (Verified 02/20/25 11:01) HPI HPI Dysphagia, painful swallowing. Re-Est: Details: LAST VISIT: Bloody stools Couple episodes of blood when wiping after bowel movement. Patient denies melena, hematochezia, unintentional weight loss or ribbon like stools. Patient denies any family history of colorectal cancer. Will try to manage patient's bowels better if she continues to have blood in his stool will discuss patient going for colorectal screening. GERD (gastroesophageal reflux disease) Patient reports postprandial epigastric discomfort with burning. Will start her on omeprazole. Discussed with patient avoiding dietary triggers and late night snacking. Will also do H pylori testing in the office today. Will treat empirically if positive Chronic idiopathic constipation Reports to be constipated. No BM for sometimes 5 days. Will start patient on Colace and senna. She will call us if this will not going to be helpful. IBS (irritable bowel syndrome) Postprandial abdominal bloating. Patient feels that she is bloated all the time. However patient does not move her bowels normally. When she does move her bowels she does not feel like she empties them completely. Will start her on senna and Colace. Patient was given information about diet choices. Staying away from high FODMAP food. List of food recommended as well as list of food to avoid given to patient. Will also send patient to do transglutaminase and lipase. If patient continues with these symptoms will might have to rule out for pancreatic is deficiency. I will see her in 1 month, sooner on as needed basis. Patient is agreeable to this plan and verbalizes understanding of instructions. She was given the opportunity to ask questions and all questions answered. ? Thank you for allowing me to participate in her care Plan Orders Orders Transglutaminase IgA Today R10.9 Transglutaminase Ab IgG Today R10.9 Lipase Today R10.9 H Pylori Breath Test Today Medications New docusate sodium 100 mg PO BEDTIME 90 caps 3RF K59.00 omeprazole 20 mg PO DAILY 90 caps 2RF K21.9 sennosides (Natural Senna Laxative) 8.6 mg PO BEDTIME 90 tabs 3RF constipation K59.00 TODAY'S VISIT Patient is here today for requested visit. Patient was sent to us again by her PCP back in September of 2024. Patient saw me in the past in 2021 and has not followed up with me. Patient had similar symptoms with epigastric pain and all the workup that we did was negative. Negative H pylori breath test, normal lipase, no celiac. Patient continues to have epigastric pain despite taking famotidine daily. Patient had barium swallow in November that showed possible gastritis. Reflux however was not really seen on the study. Patient does reports that she feels like reflux burning all the way up to her throat. Patient also reports trouble swallowing sometimes even water. Patient reports epigastric pain postprandially almost with anything she eats. Patient also reports occasional abdominal bloating. Patient does report that depending on what she eats her bloating sometimes is severe. Reports that she is moving her bowels, however feels like her bowels not emptying well. Sometimes when she wipes she has blood on the tissue after wiping. Patient denies straining when having a bowel movement. Patient denies melena, unintentional weight loss or ribbon like stools. Patient denies any nausea or vomiting. [facility] Medical History (Updated 02/20/25 @ 11:55 by Armida Noel [facility]) GERD (gastroesophageal reflux disease) Anemia LEISA (generalized anxiety disorder) Surgical History (Updated 02/20/25 @ 11:23 by JEANETTE Quiroz) History of esophagogastroduodenoscopy (EGD) S/P total abdominal hysterectomy Family History Mother No problems noted. Father No problems noted. Family/Other Substance use disorder Mental health disorder Paternal Aunt Stomach cancer Paternal Grandfather Colon cancer Other SLE (systemic lupus erythematosus) Social History Household Members: Children Housing: Apartment Do you presently have visiting nurse or other home services: No Alcohol intake: former Patient Tobacco Use Status: Current everyday Tobacco user Tobacco use type: Cigarette Cigarette Packs Per Day: 1.5 Cigarettes Per Day: 20.0 e-Cigarette/Vaping Use: Never Used Second Hand Smoke Exposure: Yes service: No Current occupational status: employed Current occupation: [employer] Current occupational exposures/hazards: No Cognitive needs: No Hearing needs: No Vision needs: No Review of Systems Const Denies weight gain and Denies weight loss ENT Reports no additional complaints, Denies dysphagia and Denies odynophagia Card Reports no additional complaints Resp Reports no additional complaints GI Reports abdominal pain (Epigastric), Denies belching, Denies melena, Reports bloating, Reports hematochezia (Occasional after bowel movement when wiping), Denies change in bowel habits, Reports constipation, Denies dysphagia, Denies excessive flatus, Denies dyspepsia, Reports heartburn, Denies diarrhea, Denies loose stools, Denies nausea, Denies odynophagia and Denies vomiting Reports no additional complaints Musc Reports no additional complaints Neuro Reports no additional complaints Psych Reports no additional complaints Endo Reports no additional complaints Physical Exam Vital Signs: Last Vital Signs Pulse 94 02/20/25 11:01 BP 108/70 02/20/25 11:01 Pulse Ox 100 02/20/25 11:01 Oxygen Delivery Method Room Air 02/20/25 11:01 BMI result Body Mass Index 25.4 Const General: healthy appearing, no acute distress and well developed Nutritional Appearance: well nourished Orientation/consciousness: patient oriented x3 Resp Effort & Inspection: normal respiratory effort, able to speak in complete sentences, no tracheal deviation and symmetric chest movement Auscultation: clear to auscultation bilaterally Cardio Rate: regular rate GI Inspection: Yes normal to inspection and No distended Palpation (GI): Soft to palpation, not firm, nontender and No hepatosplenomegaly present Auscultation: normal bowel sounds General: Yes no CVA tenderness Back/Spine/Pelvis Back: no CVA tenderness Skin General skin exam: elasticity normal, turgor normal and dry skin Neuro General: patient oriented x3 Psych Appearance: grossly normal Mental Status: mental status grossly normal Results Reviewed Results Reviewed: BARIUM SWALLOW NOVEMBER 2024 IMPRESSION: 1. Thickened appearance of the areae gastricae, suggestive of gastritis. 2. Otherwise normal examination. Assessment & Plan Assessment & Plan (1) Bloody stools: Code(s): K92.1 - Melena Category: Medical (2) GERD (gastroesophageal reflux disease): Code(s): K21.9 - Gastro-esophageal reflux disease without esophagitis Category: Medical Qualifiers: Esophagitis presence: esophagitis presence not specified Qualified Code(s): K21.9 - Gastro-esophageal reflux disease without esophagitis (3) Dysphagia: Code(s): R13.10 - Dysphagia, unspecified Qualifiers: Dysphagia type: pharyngoesophageal phase Qualified Code(s): R13.14 - Dysphagia, pharyngoesophageal phase (4) Postprandial epigastric pain: Code(s): R10.13 - Epigastric pain (5) Postprandial abdominal bloating: Code(s): R14.0 - Abdominal distension (gaseous) (6) Constipation: Code(s): K59.00 - Constipation, unspecified Qualifiers: Constipation type: slow transit constipation Qualified Code(s): K59.01 - Slow transit constipation Plan Patient will stop taking famotidine and will start taking Nexium every morning. Avoid dietary triggers and late night snacking. Staying upright for minimum 3 hours after meals discussed with patient. Patient will start taking Colace and senna in the evening. Increase fluid intake and activity to promote better bowel motility. Patient will follow-up in 3 months, sooner on as needed basis. She is agreeable to this plan and verbalizes understanding of instructions. She was given the opportunity to ask questions and all questions answered. Thank you for allowing me to participate in her care Medications: New docusate sodium 100 mg PO BEDTIME 90 caps 3RF K59.00 - Constipation, unspecified sennosides (Natural Senna Laxative) 8.6 mg PO BEDTIME 90 tabs 3RF constipation K59.00 - Constipation, unspecified esomeprazole magnesium (Nexium) 40 mg PO DAILY 30 caps 3RF K21.9 - Gastro-esophageal reflux disease without esophagitis Coding Level of Care Code Est Pt Level 4 (97488) Complex EM visit Add On G2211 Diagnoses Bloody stools K92.1 Gastroesophageal reflux disease, unspecified whether esophagitis present K21.9 Esophagitis presence: esophagitis presence not specified Pharyngoesophageal dysphagia R13.14 Dysphagia type: pharyngoesophageal phase Postprandial epigastric pain R10.13 Postprandial abdominal bloating R14.0 Slow transit constipation K59.01 Constipation type: slow transit constipation Time Spent (min) 45 Comment 30 minutes spent with patient and additional 15 minutes spent reviewing her records
--- OUTSIDE RECORDS SUMMARY | 2025-02-20 12:48 | XMS_ITS | Clinical Summary ---
Author Organization 175 [facility] Address [address] [place] [address] Phone Care Team Providers Care Security Delivery Specialist Name Role Phone Nia Pope MD Primary Care Provider [phone] Surgical History Surgery Date Site/Laterality Comments HYSTERECTOMY [...] Upcoming Encounters Date Type Department Care Team ([facility] Contact Info) Description 04/11/2025 10:30 AM EDT Consult Orthopedic Surgery - [place] [address] [address] Sherman Adams DPM [address] [address] Health Maintenance Due Date Last Done Comments [...] patient's age to complete this topic Insurance [facility] PLAN Care Teams Security Delivery Specialist Relationship Specialty Start Date End Date Nia Pope MD 2 [facility] , [address] [facility] D/B/A: Katie Toledo In Internal Medicine [place], [place] PCP - General Internal Medicine 02/01/25
--- OUTSIDE RECORDS SUMMARY | 2025-02-20 12:48 | XMS_ITS | Clinical Summary ---
Author Organization [employer] [facility] Address [address] [place] [address] 7t [place] [address] Care Team Providers Care Synoptic Meteorologist Name Role Phone Unavailable Primary Care Provider [...]
--- OUTSIDE RECORDS SUMMARY | 2025-02-20 12:48 | XMS_ITS | Encounter Summary ---
Author Organization [employer] [facility] Address [address] [facility] 7 [place] [address] Care Team Providers Care Administrative Personal Assistant Name Role Phone Unavailable Primary Care Provider [...]
== END 2025-02-20 11:55 | disposition home or self-care (01) ==
LOC: HO.HGI 10:48
PROVIDERS: PCP Internal Medicine; Visit Provider Nurse Practitioner Family
DX: K92.1 Melena (principal); K21.9 Gastro-esophageal reflux disease without esophagitis; R13.14 Dysphagia, pharyngoesophageal phase; R10.13 Epigastric pain; R14.0 Abdominal distension (gaseous); K59.01 Slow transit constipation
CPT/HCPCS: 99214; G2211

== ENCOUNTER → 2025-02-20 10:47 | Outpatient (BNVA) | payer OTHER, SELFPAY | PROVIDERS: PCP Internal Medicine; Visit Provider Nurse Practitioner Family | DX: K92.1 Melena (principal); K21.9 Gastro-esophageal reflux disease without esophagitis; K59.01 Slow transit constipation; R13.14 Dysphagia, pharyngoesophageal phase; R10.13 Epigastric pain; R14.0 Abdominal distension (gaseous) | CPT/HCPCS: 99212 ==

== ENCOUNTER → 2025-02-20 12:34 | Outpatient (BNVA) | payer OTHER, SELFPAY | PROVIDERS: PCP Internal Medicine; Visit Provider Physician Assistant Medical | DX: M54.16 Radiculopathy, lumbar region (principal); S70.01XA Contusion of right hip, initial encounter; S80.01XA Contusion of right knee, initial encounter; S90.31XA Contusion of right foot, initial encounter; S86.011A Strain of right Achilles tendon, initial encounter; W18.09XA Striking against other object with subsequent fall, initial encounter | CPT/HCPCS: 99203 ==

== ENCOUNTER → 2025-02-26 11:02 | Outpatient (BNVA) | payer OTHER, SELFPAY | PROVIDERS: PCP Internal Medicine; Visit Provider Physician Assistant Medical | DX: M54.16 Radiculopathy, lumbar region (principal); S86.011A Strain of right Achilles tendon, initial encounter; S70.01XA Contusion of right hip, initial encounter; S80.01XA Contusion of right knee, initial encounter; S90.31XA Contusion of right foot, initial encounter; W18.09XA Striking against other object with subsequent fall, initial encounter | CPT/HCPCS: 99213 ==

== ENCOUNTER → 2025-03-01 09:51 | Outpatient (BNVA) | payer OTHER, SELFPAY | PROVIDERS: PCP Internal Medicine; Visit Provider Physician Assistant Medical | DX: M54.16 Radiculopathy, lumbar region (principal); S86.011D Strain of right Achilles tendon, subsequent encounter; S70.01XD Contusion of right hip, subsequent encounter; S80.01XD Contusion of right knee, subsequent encounter; S90.31XD Contusion of right foot, subsequent encounter; W18.09XD Striking against other object with subsequent fall, subsequent encounter | CPT/HCPCS: 72110; 99213 ==

== ENCOUNTER → 2025-03-05 19:30 | Outpatient (REF) | payer OTHER, SELFPAY ==
--- OUTSIDE RECORDS SUMMARY | 2025-03-05 21:21 | XMS_ITS | Encounter Summary ---
Author Organization [employer] [facility] Address [address] [facility] 7t [place] [address] Care Team Providers Care Table Games Manager Name Role Phone Unavailable Primary Care Provider Unavailabl e Encounter Details Date Type Department Care Team (Latest Contact Info) Description 06/20/2021 Abstract C CONVERSIONS Dental, Provider, DDS Social History Tobacco [...]
--- OUTSIDE RECORDS SUMMARY | 2025-03-05 21:21 | XMS_ITS | Clinical Summary ---
Author Organization 175 [facility] Address 175 [place] [address] Phone Care Team Providers Care Installation Manager Name Role Phone Nia Pope MD Primary Care Provider [phone] Surgical History Surgery Date Site/Laterality Comments HYSTERECTOMY [...] Upcoming Encounters Date Type Department Care Team ([facility] Contact Info) Description 04/11/2025 10:30 AM EDT Consult Orthopedic Surgery - [place] [address] [address] Sherman Adams DPM [address] [address] Health Maintenance Due Date Last Done Comments [...] patient's age to complete this topic Insurance [facility] Care Teams Installation Manager Relationship Specialty Start Date End Date Nia Pope MD 2 [facility] , [address] [facility] D/B/A: [facility] Tol[facility] [place], [place] PCP - General Internal Medicine 02/01/25
--- OUTSIDE RECORDS SUMMARY | 2025-03-05 21:21 | XMS_ITS | Clinical Summary ---
Author Organization [employer] Address [address] [facility] 7t [place] [address] Care Team Providers Care Train Inspector Name Role Phone Unavailable Primary Care Provider [...]
== END ==
LOC: HO.SL 19:30
PROVIDERS: PCP Internal Medicine; Visit Provider Nurse Practitioner Family
DX: G47.9 Sleep disorder, unspecified (principal); R06.83 Snoring
CPT/HCPCS: 95811

== ENCOUNTER → 2025-03-05 19:30 | Outpatient (BNV) | payer OTHER, SELFPAY | PROVIDERS: PCP Internal Medicine; Visit Provider Psychiatry & Neurology Neurology | DX: R06.83 Snoring (principal) | CPT/HCPCS: 95811 ==

== ENCOUNTER 2025-03-07 15:02 | Outpatient (REF) | payer OTHER, SELFPAY ==
--- NOTE | ~2025-03-07 | US_ITS ---
EXAMINATION: BILATERAL CAROTID ULTRASOUND WITH DOPPLER HISTORY: R42 - Dizziness and giddiness COMPARISON: Correlation is made with a CT angiogram of the neck dated 05/24/2023. TECHNIQUE: Real time and Color and Spectral doppler ultrasonography of the carotid and vertebral arteries was performed in multiple planes. FINDINGS: No significant plaque is identified. VERTEBRAL FLOW DIRECTION: Antegrade bilaterally. PEAK SYSTOLIC VELOCITIES (in cm/sec): RIGHT: CCA: Prox: 86 Dist: 57 ICA: Prox: 63 Mid: 90 Dist: 101 ICA/CCA Ratio: 1.17 ECA: 93 Peak ICA EDV: 50 LEFT: CCA: Prox: 98 Dist: 72 ICA: Prox: 50 Mid: 83 Dist: 98 ICA/CCA Ratio: 1.00 ECA: 94 Peak ICA EDV: 51 US/US carotid duplex BI IMPRESSION: Unremarkable carotid ultrasound. No significant stenosis. Electronically signed by: Dominic Smith MD 03/08/2025 07:08 AM EDT
--- OUTSIDE RECORDS SUMMARY | 2025-03-07 16:04 | XMS_ITS | Clinical Summary ---
Author Organization [employer] Address [address] [facility] 7t [place] [address] Care Team Providers Care Professional Healthcare Representative Name Role Phone Unavailable Primary Care Provider [...]
--- OUTSIDE RECORDS SUMMARY | 2025-03-07 16:04 | XMS_ITS | Clinical Summary ---
Author Organization 175 [facility] Address 175 [place] [address] Phone Care Team Providers Care Software Analyst Name Role Phone Nia Pope MD Primary Care Provider [phone] Surgical History Surgery Date Site/Laterality Comments HYSTERECTOMY [...] Upcoming Encounters Date Type Department Care Team ([facility] Contact Info) Description 04/11/2025 10:30 AM EDT Consult Orthopedic Surgery - [place] [address] [address] Sherman Adams DPM [address] [address] Health Maintenance Due Date Last Done Comments [...] patient's age to complete this topic Insurance [facility] Care Teams Software Analyst Relationship Specialty Start Date End Date Nia Pope MD 2 [facility] , [address] [facility] D/B/A: Katie Toledo In Internal Medicine [place], [place] PCP - General Internal Medicine 02/01/25
--- OUTSIDE RECORDS SUMMARY | 2025-03-07 16:04 | XMS_ITS | Encounter Summary ---
Author Organization [employer] [facility] Address [address] [facility] 7t [place] [address] Care Team Providers Care Standards Analyst Name Role Phone Unavailable Primary Care Provider [...]
== END 2025-03-07 15:03 | disposition home or self-care (01) ==
LOC: HO.US 15:02
PROVIDERS: PCP Internal Medicine; Visit Provider Nurse Practitioner Family
DX: R42 Dizziness and giddiness (principal); E78.5 Hyperlipidemia, unspecified
CPT/HCPCS: 93880

== ENCOUNTER → 2025-03-07 15:08 | Outpatient (BNV) | payer OTHER, SELFPAY | PROVIDERS: PCP Internal Medicine; Visit Provider Radiology Diagnostic Radiology | DX: R42 Dizziness and giddiness (principal) | CPT/HCPCS: 93880 ==

== ENCOUNTER → 2025-03-12 13:32 | Outpatient (BNVA) | payer OTHER, SELFPAY | PROVIDERS: PCP Internal Medicine; Visit Provider Physician Assistant Medical | DX: M54.16 Radiculopathy, lumbar region (principal); S86.011D Strain of right Achilles tendon, subsequent encounter; S70.01XD Contusion of right hip, subsequent encounter; S80.01XD Contusion of right knee, subsequent encounter; S90.31XD Contusion of right foot, subsequent encounter; M23.91 Unspecified internal derangement of right knee; W18.09XD Striking against other object with subsequent fall, subsequent encounter | CPT/HCPCS: 99213 ==

== ENCOUNTER 2025-03-21 10:17 | Outpatient (AMB) | payer OTHER, SELFPAY ==
--- NOTE | 2025-03-21 10:22 | MHC.PC.OV ---
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 Required: No Accompanied by: Father Allergies No Known Allergies [No Known Allergies*] Allergy (Verified 03/21/25 10:31) Medication List - Last Reconciled 03/21/25 by Nia Pope MD albuterol sulfate 90 mcg/actuation (Ventolin HFA) 2 puffs inhalation Q6H PRN albuterol sulfate 2.5 mg (3 mL) inhalation Q6H PRN amitriptyline 25 mg PO BEDTIME 30 days benzonatate 100 mg PO BID PRN 5 days cholecalciferol (vitamin D3) 50 mcg (2 x 25 mcg (1,000 unit)) PO DAILY 90 days cyclobenzaprine 20 mg (2 x 10 mg) PO BID PRN docusate sodium 100 mg PO BEDTIME doxycycline hyclate 100 mg PO BID 5 days esomeprazole magnesium (Nexium) 40 mg PO DAILY fenofibrate 54 mg PO DAILY 90 days fluticasone furoate-vilanterol 200-25 mcg/dose (Breo Ellipta) 1 inh inhalation DAILY gabapentin 200 mg (2 x 100 mg) PO BEDTIME ibuprofen (Motrin IB) 400 mg (2 x 200 mg) PO Q8H ketoconazole 2% appl topical BID PRN meloxicam 15 mg PO DAILY prednisone 10 mg PO DIRECTED 8 days sennosides (Natural Senna Laxative) 8.6 mg PO BEDTIME solifenacin (Vesicare) 10 mg PO DAILY ubrogepant (Ubrelvy) 50 - 100 mg (0.5 - 1 x 100 mg) PO ONCE PRN 30 days umeclidinium 62.5 mcg/actuation (Incruse Ellipta) 1 inh inhalation DAILY walker with seat and wheels Tobacco use date assessed: 02/16/25 Dental Screening Dental Screen Date: 01/11/25 HPI HPI Comments History of Present Illness Details The patient is a 45-year-old female presenting with an asthma exacerbation. Symptoms commenced yesterday with wheezing and shortness of breath. The exacerbation is related to her established asthma-COPD overlap syndrome, without concurrent fever. The patient has an associated dry cough and chronic mild nasal condition. Her history is significant for stable moderate depression and anxiety, with management involving albuterol pillings. No familial similarity in symptoms was indicated. Her medical history also highlights low vitamin D levels and hypertriglyceridemia, with a noted triglyceride increase to 402. She maintains adherence to her medication regimen. Constipation and GERD are reported as stable. These chronic health issues underscore the complexity of her presentation. [facility] Medical History (Updated 03/21/25 @ 12:45 by Nia Pope MD) LEISA (generalized anxiety disorder) GERD (gastroesophageal reflux disease) Anemia Surgical History History of esophagogastroduodenoscopy (EGD) S/P total abdominal hysterectomy Family History Mother No problems noted. Father No problems noted. Family/Other Substance use disorder Mental health disorder Paternal Aunt Stomach cancer Paternal Grandfather Colon cancer Other SLE (systemic lupus erythematosus) Social History Household Members: Children Housing: Apartment Do you presently have visiting nurse or other home services: No Alcohol intake: former Patient Tobacco Use Status: Current everyday Tobacco user Tobacco use type: Cigarette Cigarette Packs Per Day: 1.5 Cigarettes Per Day: 20.0 e-Cigarette/Vaping Use: Never Used Second Hand Smoke Exposure: Yes service: No Current occupational status: employed Current occupation: [employer] Current occupational exposures/hazards: No Cognitive needs: No Hearing needs: No Vision needs: No Questionnaire Thrive Questionnaire Date Thrive assessed: 01/11/25 LEISA-7 AMB Questionnaire LEISA-7 Date LEISA - 7 assessed: 01/11/25 Source: Developed by Drs. Dominic Lombardo, Selina Castañeda, Wellington Marie and colleagues, with an educational dasia from [employer]. Review of Systems Const All systems reviewed & are unremarkable except as noted in HPI and below Card Denies chest pain at rest, Denies chest pain with activity, Denies edema, Denies irregular heart rhythm, Denies claudication, Denies dyspnea, Denies dyspnea on exertion, Denies orthopnea, Denies paroxysmal nocturnal dyspnea and Denies slow heart rate Resp Denies cough, Denies dyspnea and Denies dyspnea on exertion Physical exam (Primary Care) Vital Signs: Last Vital Signs BP 106/72 03/21/25 10:30 BMI result Body Mass Index 24.4 Tobacco/Smoking Status: Tobacco use Status Tobacco use date assessed 02/16/25 03/21/25 10:24 Patient Tobacco Use Status Current everyday Tobacco 03/21/25 10:24 Tobacco use type Cigarette 03/21/25 10:24 e-Cigarette/Vaping Use Never Used 03/21/25 10:24 Thrive Assessment: Date of Thrive Assessment Date Thrive assessed 01/11/25 03/21/25 10:24 Resp Effort & Inspection: normal respiratory effort Auscultation: clear to auscultation bilaterally Cardio Jugular venous distension: no JVD Rate: regular rate Rhythm: regular rhythm Heart sounds: S1 normal heart sound present and S2 normal heart sound present Extrem General: Yes full ROM Coding Level of Care Code Est Pt Level 4 (01151) Complex EM visit Add On G2211 Diagnoses Asthma exacerbation J45.901 GERD (gastroesophageal reflux disease) K21.9 Moderate recurrent major depression F33.1 LEISA (generalized anxiety disorder) F41.1 Chronic idiopathic constipation K59.04 Hypovitaminosis D E55.9 Time Spent (min) 23 Assessment & Plan Assessment & Plan (1) Asthma exacerbation: Code(s): J45.901 - Unspecified asthma with (acute) exacerbation Category: Medical (2) GERD (gastroesophageal reflux disease): Code(s): K21.9 - Gastro-esophageal reflux disease without esophagitis Category: Medical (3) Moderate recurrent major depression: Code(s): F33.1 - Major depressive disorder, recurrent, moderate Category: Medical (4) LEISA (generalized anxiety disorder): Code(s): F41.1 - Generalized anxiety disorder Category: Medical (5) Chronic idiopathic constipation: Code(s): K59.04 - Chronic idiopathic constipation Category: Medical (6) Hypovitaminosis D: Code(s): E55.9 - Vitamin D deficiency, unspecified Category: Medical Plan The asthma exacerbation requires antibiotics, oral prednisone, and in-office nebulizer treatment for immediate symptom management. Repeat labs will follow to assess and adjust hypertriglyceridemia management. Maintenance of current stable regimens and lifestyle adjustments for chronic conditions, including vitamin D, GERD, constipation, and hypertriglyceridemia, are crucial. Continued monitoring of depression and anxiety symptoms will also ensure comprehensive care. Patient was informed and verbally consented to the use of an ambient scribe for clinic note documentation during this visit. The patient and I discussed the diagnosis of asthma exacerbation and the importance of immediate intervention with antibiotics, prednisone, and a nebulizer treatment. I explained the risks and benefits of each intervention, stressing the need for symptom control and airway management. We also talked about the importance of repeating lab tests to manage her significantly elevated triglyceride levels and the role of lifestyle changes. There was a dialogue on maintaining her current medications, stable mental health support, and managing her chronic conditions, including vitamin D supplementation and approaches to control hypertriglyceridemia. She was advised on potential dietary adjustments to assist in lowering triglycerides. The patient consented to the outlined plan and was advised on indications to return to the clinic if symptoms exacerbate. Orders: Orders IRON PROFILE Today D64.9 - Anemia, unspecified Complete Blood Count Auto Diff Today D64.9 - Anemia, unspecified Vitamin D 25-OH Total Today E55.9 - Vitamin D deficiency, unspecified Lipid Panel Today E78.5 - Hyperlipidemia, unspecified Comprehensive [place]. Panel Fast Today K21.9 - Gastro-esophageal reflux disease without esophagitis Medications: New doxycycline hyclate 100 mg PO BID 5 days 10 caps 0RF prednisone Take 4 tabs for 2 days, then 3 tabs for 2 days, then 2 tabs for 2 days, then 1 tab for 2 days 10 mg PO DIRECTED 8 days 20 tabs 0RF benzonatate 100 mg PO BID 5 days PRN 10 caps 0RF cough Discontinued prednisone see taper instructions (5,5,4,4,3,3,2,2,1,1) Discontinued Reason: Patient Completed Course 10 mg PO DIRECTED 10 days 30 tabs 0RF Patient Instructions: - Take all prescribed medications, including antibiotics and prednisone, as directed. - Use nebulizer treatment as needed for relief of respiratory distress. - Monitor for worsening symptoms, such as increased shortness of breath. - Follow up on lab retesting for triglycerides next month. - Adhere to prescribed diet and lifestyle modifications to aid in controlling triglyceride levels. - Continue current medication regimen for depression and anxiety. - Return to the clinic for any increased or worsening symptoms. - Maintain regular follow-up appointments.
[2025-03-21 10:30] VITALS: BP 106/72; BMI 24.4
--- OUTSIDE RECORDS SUMMARY | 2025-03-21 11:49 | XMS_ITS | Clinical Summary ---
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 Driving Name Role Phone Nia Pope MD Primary Care Provider Surgical History Surgery Date Site/Laterality Comments HYSTERECTOMY [...] Date Smoking Tobacco: Every Day Cigarettes 1 18.4 Started: 11/01/2006 Smokeless Tobacco: Never Alcohol Use [...] Care Team ([facility] Contact Info) Description 04/11/2025 10:30 AM EDT Consult Orthopedic Surgery - [place] [address] [address] Sherman Adams DPM [address] [address] Health Maintenance Due Date Last Done Comments [...] patient's age to complete this topic Insurance [facility] Care Teams Hoisting Engineer Pile Driving Relationship Specialty Start Date End Date Nia Pope MD 2 [facility] , [address] [facility] D/B/A: Katie Toledo In Internal Medicine [place], [place] PCP - General Internal Medicine 02/01/25
== END 2025-03-21 10:45 | disposition home or self-care (01) ==
LOC: HO.HMCH 10:17
PROVIDERS: PCP Internal Medicine; Visit Provider Internal Medicine
DX: J45.901 Unspecified asthma with (acute) exacerbation (principal); K21.9 Gastro-esophageal reflux disease without esophagitis; F33.1 Major depressive disorder, recurrent, moderate; F41.1 Generalized anxiety disorder; K59.04 Chronic idiopathic constipation; E55.9 Vitamin D deficiency, unspecified

== ENCOUNTER → 2025-03-21 10:17 | Outpatient (BNVA) | payer OTHER, SELFPAY | PROVIDERS: PCP Internal Medicine; Visit Provider Internal Medicine | DX: K21.9 Gastro-esophageal reflux disease without esophagitis (principal); J44.89 Other specified chronic obstructive pulmonary disease; E55.9 Vitamin D deficiency, unspecified; F33.1 Major depressive disorder, recurrent, moderate; K59.04 Chronic idiopathic constipation; D64.9 Anemia, unspecified; E78.5 Hyperlipidemia, unspecified | CPT/HCPCS: 99212 ==

== ENCOUNTER 2025-03-27 19:10 | Outpatient (REF) | payer OTHER, SELFPAY ==
--- NOTE | ~2025-03-27 | MR_ITS ---
CLINICAL HISTORY: FALL CONTUSION DERANGEMENT MR right knee without gadolinium Comparison: None Findings: Normal alignment without acute fracture. No significant knee cartilage degenerative changes. Grade 1 sprain of the lai-superior capsule of the proximal tibiofibular joint with [id number] contusion of the neighboring aspects of the proximal tibia and fibula. Grade 1 strain of the popliteus musculotendinous junction and the neighboring anterior compartment leg muscles. Small/physiological knee joint effusion. Mild proximal and distal patellar tendinosis. Quadriceps tendon and retinacula are unremarkable. Menisci, rest of posterolateral structures, IT band (except for mild underlying edematous changes at level of distal femur), MCL, and posteromedial structures are unremarkable (except for small contained Miller's cyst). Intact ACL and PCL. IMPRESSION: Grade 1 sprain of the lai-superior capsule of the proximal tibiofibular joint with [id number] contusion of the neighboring aspects of the proximal tibia and fibula. Grade 1 strain of the popliteus musculotendinous junction and the neighboring anterior compartment leg muscles. This document has been electronically signed by: Ngoc Mace MD on 03/28/2025 13:46:27
== END 2025-03-27 19:11 | disposition home or self-care (01) ==
LOC: HO.MRI 19:10
PROVIDERS: PCP Internal Medicine; Visit Provider Internal Medicine
DX: M23.91 Unspecified internal derangement of right knee (principal)
CPT/HCPCS: 73721

== ENCOUNTER → 2025-03-27 19:24 | Outpatient (BNV) | payer OTHER, SELFPAY | PROVIDERS: PCP Internal Medicine; Visit Provider Radiology Diagnostic Radiology | DX: M23.91 Unspecified internal derangement of right knee (principal); S80.01XA Contusion of right knee, initial encounter; W19.XXXA Unspecified fall, initial encounter | CPT/HCPCS: 73721 ==

== ENCOUNTER 2025-03-28 10:32 | Outpatient (REF) | payer OTHER, SELFPAY ==
--- NOTE | ~2025-03-28 | XR_ITS ---
XR KNEE GURINDER 3V HISTORY: Bilateral knee pain. COMPARISON: Right knee, 02/15/2025. Left knee 01/14/2023. TECHNIQUE: AP view bilateral knees standing, lateral and patellofemoral views each knee. FINDINGS: RIGHT KNEE: No fracture, dislocation, or suspicious bone lesion. Mild medial compartment osteoarthrosis. Mild lateral patellar tilt. Preserved patellofemoral joint space. No evidence of joint effusion. Soft tissues appear normal. LEFT KNEE: No fracture, dislocation, or suspicious bone lesion. Mild medial compartment osteoarthrosis. Mild lateral patellar tilt. Preserved patellofemoral joint space. No evidence of joint effusion. Soft tissues appear normal. XR/XR Knee Gurinder 3V IMPRESSION: RIGHT KNEE: 1. No acute bony abnormality. 2. Mild medial compartment osteoarthritis. 3. No joint effusion. LEFT KNEE: 1. No acute bony abnormality. 2. Mild medial compartment osteoarthrosis. 3. No joint effusion. Electronically signed by: Cortez Peña MD 03/28/2025 02:39 PM EDT
== END 2025-03-28 10:33 | disposition home or self-care (01) ==
LOC: HO.HOSX 10:32
PROVIDERS: PCP Internal Medicine; Visit Provider Physician Assistant
DX: M25.561 Pain in right knee (principal); M25.562 Pain in left knee; S80.11XA Contusion of right lower leg, initial encounter; S84 Injury of nerves at lower leg level; M17.11 Unilateral primary osteoarthritis, right knee
CPT/HCPCS: 73562; 99212

== ENCOUNTER 2025-03-28 10:32 | Outpatient (AMB) | payer OTHER, SELFPAY ==
--- NOTE | 2025-03-28 10:46 | MHC.OFFVIS ---
Vital Signs 03/28/25 10:55 Height 5 ft 4 in Weight 142 lb BMI 24.4 Intake Visit Reasons: NewProb- B/L leg pain Intake Note: Juwan is a 45 year old female who presents today for an evaluation of bilateral knee pain, WC DOI 02/15/25. Patient reports that she had a fall while at work landing on her right side with her foot twisted under her. She was seen at [facility] same day of injury. As well as work connection, she states medication was prescribed that helped a little with swelling. MRI was done here at [facility]. Currently her right knee causes her the most discomfort. Her pain is located at the anterior aspect of knee that radiates down the lateral aspect of lower leg. She complains of numbness at the top of her foot and big toe. Supervisor Wound Name: Primitivo [id number] Allergies No Known Allergies [No Known Allergies*] Allergy (Verified 03/28/25 10:54) Medication List - Last Reconciled 03/28/25 by Nir Gaytan PA-C albuterol sulfate 90 mcg/actuation (Ventolin HFA) 2 puffs inhalation Q6H PRN albuterol sulfate 2.5 mg (3 mL) inhalation Q6H PRN amitriptyline 25 mg PO BEDTIME 30 days benzonatate 100 mg PO BID PRN 5 days cholecalciferol (vitamin D3) 50 mcg (2 x 25 mcg (1,000 unit)) PO DAILY 90 days cyclobenzaprine 20 mg (2 x 10 mg) PO BID PRN docusate sodium 100 mg PO BEDTIME doxycycline hyclate 100 mg PO BID 5 days esomeprazole magnesium (Nexium) 40 mg PO DAILY fenofibrate 54 mg PO DAILY 90 days fluticasone furoate-vilanterol 200-25 mcg/dose (Breo Ellipta) 1 inh inhalation DAILY gabapentin 200 mg (2 x 100 mg) PO BEDTIME ibuprofen (Motrin IB) 400 mg (2 x 200 mg) PO Q8H ketoconazole 2% appl topical BID PRN meloxicam 15 mg PO DAILY prednisone 10 mg PO DIRECTED 8 days sennosides (Natural Senna Laxative) 8.6 mg PO BEDTIME solifenacin (Vesicare) 10 mg PO DAILY ubrogepant (Ubrelvy) 50 - 100 mg (0.5 - 1 x 100 mg) PO ONCE PRN 30 days umeclidinium 62.5 mcg/actuation (Incruse Ellipta) 1 inh inhalation DAILY walker with seat and wheels HPI HPI NewProb- B/L leg pain: Details: 45 yo female returns to the office today for bilat knee pain. She was previously seen by me in 2021 for both knees, referred to physical therapy which she states she did attend and was doing well. However, for the last 12 months or so she has recurrent pain. 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 She states on 02/15/25. she fell at work and landed on the right side. She states there is a w/c claim for her injury. She states since the injury at work, she has been out of work. She states the work connection has kept her out of work and recommended she attend PT for her right knee. She states she has been attending PT for the last 2 weeks and also had an MRI of the right knee. She is referred today for further recommendations. She c/o pain along the lateral side of the right knee/tibia along with N/T down the foot into the toes. [facility] Medical History (Updated 03/29/25 @ 10:48 by Nir Gaytan PA-C) LEISA (generalized anxiety disorder) GERD (gastroesophageal reflux disease) Anemia Surgical History History of esophagogastroduodenoscopy (EGD) S/P total abdominal hysterectomy Family History Mother No problems noted. Father No problems noted. Family/Other Substance use disorder Mental health disorder Paternal Aunt Stomach cancer Paternal Grandfather Colon cancer Other SLE (systemic lupus erythematosus) Social History Household Members: Children Housing: Apartment Do you presently have visiting nurse or other home services: No Alcohol intake: former Patient Tobacco Use Status: Current everyday Tobacco user Tobacco use type: Cigarette Cigarette Packs Per Day: 1.5 Cigarettes Per Day: 20.0 e-Cigarette/Vaping Use: Never Used Second Hand Smoke Exposure: Yes service: No Current occupational status: employed Current occupation: [employer] Current occupational exposures/hazards: No Cognitive needs: No Hearing needs: No Vision needs: No Review of Systems Const All systems reviewed & are unremarkable except as noted in HPI and below Physical Exam Vital Signs: BMI result Body Mass Index 24.4 Const General: cooperative and no acute distress Orientation/consciousness: patient oriented x3 Resp Effort & Inspection: normal respiratory effort and able to speak in complete sentences Cardio Peripheral pulses: Peripheral pulses 2+ throughout Neuro General: patient oriented x3 Extrem Other: Right knee is normal to inspection. She does have significant tenderness along the proximal tibia laterally. She has decreased sensation along the lateral aspect of the tibia which extends into the dorsum of the foot and the great toe. She is able to plantar flex and dorsiflex. EHL is intact. Pulses present. Results Reviewed Results Reviewed: X-rays of the right knee obtained in the office today and reviewed by me are significant for mild medial compartment arthritis. MRi rt knee 03/27/25 IMPRESSION: Grade 1 sprain of the lai-superior capsule of the proximal tibiofibular joint with [id number] contusion of the neighboring aspects of the proximal tibia and fibula. Grade 1 strain of the popliteus musculotendinous junction and the neighboring anterior compartment leg muscles. Assessment & Plan Assessment & Plan (1) Contusion of right tibia: Code(s): S80.11XA - Contusion of right lower leg, initial encounter Category: Medical (2) Injury of tibial nerve: Code(s): S84.00XA - Injury of tibial nerve at lower leg level, unspecified leg, initial encounter Category: Medical (3) Osteoarthritis of right knee: Code(s): M17.11 - Unilateral primary osteoarthritis, right knee Category: Medical Plan Given the amount of discomfort and the extent of numbness in the right lower extremity an EMG/nerve conduction study has been ordered to further assess. As for the bone bruising along the proximal tibia, the patient can weightbear as tolerated however she should avoid prolonged standing in any type of inked packed activities such as jumping or running activities. I did explain to the patient nerve injury along with bone contusion can take approximately 6-9 months for improvement. Even after 9 months she may continue to have intermittent discomfort or numbness. I also put in an order for physical therapy to work on desensitization techniques along with range of motion and strengthening exercises. She will remain out of work until I see her back for EMG nerve conduction study review. Orders: Orders XR Knee Gurinder 3V 03/28/25 M25.561 - Pain in right knee, M25.562 - Pain in left knee NE nerve conduction velocity 03/28/25 R20.0 - Anesthesia of skin, R20.2 - Paresthesia of skin PT Evaluation and Treatment 03/28/25 S80.11XA - Contusion of right lower leg, initial encounter, S84.00XA - Injury of tibial nerve at lower leg level, unspecified leg, initial encounter NE electromyogram (EMG) 03/28/25 R20.0 - Anesthesia of skin, R20.2 - Paresthesia of skin Coding Level of Care Code New Pt Level 3 (86852) Complex EM visit Add On G2211 Diagnoses Contusion of right tibia S80.11XA Injury of tibial nerve S84.00XA Osteoarthritis of right knee M17.11
[2025-03-28 10:55] VITALS: BMI 24.4
--- OUTSIDE RECORDS SUMMARY | 2025-03-28 11:34 | XMS_ITS | Encounter Summary ---
Author Organization [employer] [facility] Address [address] [place] [address] Care Team Providers Care Hot Knife Foxing Cutter Name Role Phone Unavailable Primary Care Provider [...]
== END 2025-03-28 11:23 | disposition home or self-care (01) ==
PROVIDERS: PCP Internal Medicine; Visit Provider Physician Assistant
DX: S80.11XA Contusion of right lower leg, initial encounter (principal); S84 Injury of nerves at lower leg level; M17.11 Unilateral primary osteoarthritis, right knee
CPT/HCPCS: 99213; G2211

== ENCOUNTER → 2025-03-28 10:37 | Outpatient (BNV) | payer OTHER, SELFPAY | PROVIDERS: PCP Internal Medicine; Visit Provider Radiology Diagnostic Radiology | DX: M25.561 Pain in right knee (principal); M25.562 Pain in left knee | CPT/HCPCS: 73562 ==

== ENCOUNTER 2025-03-29 09:14 | Outpatient (REF) | payer OTHER, SELFPAY ==
--- OUTSIDE RECORDS SUMMARY | 2025-03-30 09:25 | XMS_ITS | Encounter Summary ---
Author Organization [employer] [facility] Address [address] [place] [address] Care Team Providers Care Boiler Control Room Operator Name Role Phone Unavailable Primary Care Provider [...]
== END 2025-03-29 09:15 | disposition home or self-care (01) ==
LOC: HO.HOSX 09:14
PROVIDERS: Visit Provider Physician Assistant
DX: Z13.89 Encounter for screening for other disorder (principal)

== ENCOUNTER → 2025-04-16 14:00 | Outpatient (BNVA) | payer OTHER, SELFPAY | PROVIDERS: PCP Internal Medicine; Visit Provider Physician Assistant Medical | DX: M54.16 Radiculopathy, lumbar region (principal); S86.011D Strain of right Achilles tendon, subsequent encounter; S70.01XD Contusion of right hip, subsequent encounter; S80.01XD Contusion of right knee, subsequent encounter; S90.31XD Contusion of right foot, subsequent encounter; M23.91 Unspecified internal derangement of right knee; W18.09XD Striking against other object with subsequent fall, subsequent encounter | CPT/HCPCS: 99213 ==

== ENCOUNTER 2025-04-24 13:54 | Outpatient (RCR) | payer OTHER, SELFPAY ==
--- NOTE | 2025-03-07 13:47 | MHC.PT.OE ---
[facility] [place] Office [place] Office [place] Office [address] Kelly Keys [address] [phone] F: [phone] F: [phone] F: [phone] F: [phone] Physical Therapy Evaluation Evaluation Date: 03/07/25 Current Condition Diagnosis: R KNEE STRAIN, R HIP/KNEE/FOOT CONTUSION Onset Date: 02/15/25 Date of Surgery: NA Chief Complaint/ Current Level of Function: Pt REPORTS SHE FELL AT WORK ON 02/15/25. SHE WORKS AT [employer]. TRIPPED. WASNT ABLE TO WALK.. AMBULANCE CAME. TO ER. PER REPORT:45 yo female with PMH of HLD, asthma-COPD overlap, neuropathy, not on blood thinners here with c/o trip and fall at work where her R leg went under her - she had no headstrike or LOC. Pain is in the hip, knee, foot. She reports tingling in great toe. She has no other injuries. This was witnessed by her boss at work complaint: fall. HAD XRAY OF R HIP, R KNEE AND R FOOT (NEG FOR FXS) YESIKA WRAP AND CRUTCHES, FLEXORIL. ED RE ICE LSPINE XRAY (NEG FOR FX, +SPASM) WENT TO AND WAS GIVEN ANOTHER MED (PAIN MED) HELPED A LITTLE AND Prior Level of Function/Occupation: HAS WORKED AT [employer] X 5 YEARS HAS APPT WITH ON 03/12 HAS BEEN OOW SINCE FALL, REPORTS HAS TRIED TO CALL [employer], BUT NO ONE CALLING BACK. DOES NOT HAVE A RTW DATE Diagnostic Imaging: X-Ray Xray of R hip, knee, foot showed no fracture or dislocation. FINDINGS: There is mild straightening of lumbar lordosis. The vertebral heights, alignment and disc heights are normal. On oblique views there is no pars defect or listhesis. The prevertebral and paravertebral soft tissues are normal. No lytic or sclerotic process seen. XR/XR lumbar spine 4V min IMPRESSION: Mild straightening of lumbar lordosis likely spasm or positional. No visible acute fracture or dislocation seen. Electronically signed by: Markus Solis MD 03/02/2025 Patient Goals and Expectations: STOP PAIN, BE ABLE TO GO BTW Past Medical History: Medical History Anemia LEISA (generalized anxiety disorder) Surgical History S/P total abdominal hysterectomy Medications: acetaminophen ER (Mapap Arthritis Pain) 650 mg PO Q12H PRN 30 days cholecalciferol (vitamin D3) 50 mcg PO DAILY 90 days cyclobenzaprine 10 mg PO TID PRN gabapentin 300 mg PO TID ibuprofen 800 mg PO Q8H methocarbamol 500 mg PO TID oxybutynin chloride ER 10 mg PO DAILY Precautions/ Contraindications: NONE SPECIFIED Outcome Measure: Pain Pain Score: 5 Pain Scale Used: Lane-Miller (Faces) Pain Location/ Description: REPORTS PAIN R LB, R FOOT FROM FALL, BUT NOW MORE PAIN IN R KNEE AND R CALF R BIG TOE SOME PARESTHESIA Aggravating Factors: WALKING, BENDING Alleviating Factors: PAIN MED WARM PAD Objective Findings Posture: Skin & Soft Tissue/ Palpation: Gait/ Functional Mobility: LIMP DECREASEDWB ON R FOOT, LIMITED WB THROUGH TOES FOR PUSH OFF, WHEN ATTEMPT TO STAND ON R FOOT WB ON OUTER FOOT AROM (PROM) Strength Cervical Spine Flexion: Extension: Lateral Flexion: Rotation: Cervical Comments: Flexion: Extension: Lateral Flexion: Rotation: Other: Shoulder Flexion: Extension: Abduction: ER: IR: Apley ER: Apley IR: Comments: Flexion: Extension: Abduction: Adduction: ER: IR: Other: Elbow Flexion: Extension: Pronation: Supination: Comments: Flexion: Extension: Pronation: Supination: Wrist Flexion: Wrist Extension: Other: Lumbar Spine Flexion: 75% Extension: DEFFERS ATTEMPT BECAUSE OF PAIN Lateral Flexion: 75% R, 100% L Rotation: 75% B Comments: Transverse abdominus: Extensors: Other: Hip Flexion: Extension: Abduction: Adduction: ER: IR: Comment: Flexion: 4+/5 R (LIMTED JENARO TO PT HAND ON KNEE FOR MMT) Extension: Abduction: Adduction: ER: IR: Other: Knee Flexion: 125 R Extension: 0 R Comments: Patella Mobility: Flexion: R=4/5 Extension: R=4/5 Other: MMT LIMITED BY TTP CALF AREA R Ankle Dorsiflexion: <0 R Plantarflexion: 30 R Inversion: 20 R Eversion: 10 R Comments: Dorsiflexion: Plantarflexion: Inversion: Eversion: Comments: DIFFICULT TO ASSESS WITH MMT BECAUSE OF C/O PAIN/TTP DORSUM R FOOT Immanuel Assessment: Sacroiliac Assessment: Muscle Length: Special Tests: NEGATIVE MODIFIED NUNES TEST (GENTLE SQUEEZE OF R CALF BECAUSE OF PAIN) DID ELICIT SLIGHT PF R Vitals: BP: HR: O2SAT: RR: Other: Balance: Neurological Screen: Biceps DTR: Brachioradialis DTR: Triceps DTR: Patella DTR: Achilles DTR: Other: Dermatomes: Sensation: Myotomes: Patient Education Primary Language Pump Rebuilder Required Yes Who was Educated Patient Readiness for Learning Accepting Current Knowledge Understands information with skills for self-management Education Needs ADL's Disease Information Exercise Pain Safety Teaching Method Verbal Demonstration How did Patient Demonstrate Learning Patient demonstrates Patient verbalizes Barriers to Learning None Assessment Assessment: Pt IS 45 YO F REFERRED TO PT FROM (GIOVANNI MARCH) WITH R KNEE STRAIN, R HIP/KNEE/FOOT CONTUSION S/P FALL AT WORK ([employer]). TO ER WHERE XRAYS WERE ALL NEGATIVE FOR FX (SEE REPORT). HAS BEEN OOW SINCE INJURY. PRESENTS TO PT WITH DECREASED ROM IN TRUNK AND R ANKLE, DECREASED R LE STRENGTH, C/O PAIN R LB, R LAT KNEE, R CALF AREA, TOP OF R FOOT. NO SWELLING/BRUISING NOTED AT ANY OF THESE SITES. Pt IS HYPERSENSITIVE TO PALF R DORSUM OF FOOT AND R PROX CALF. SHOULD BENEFIT FROM PT TO ADDRESS THESE ISSUES Rehabilitation Potential: Good Plan of Care Frequency and Duration 2X/WK X 6 WKS Short Term Goals 1. INCREASED AWARENESS POSTURE/LE CARE 2. IMPROVED GT (IMPROVED HEEL STRIKE AND TOE PUSH OFF ON R) 3. RTW 4. DECREASED HYPERSENSITIVITY TO TOUCH R DORSUM OF FOOT Part Time Receptionist Goals 1. I HEP WITH DC EX PLAN 2. INCREASED R ANKLE ROM AT LEAST 5 DEGREES T/O 3. NO R LE PARESTHESIA (KARLA R BIG TOE) Treatment Plan Therapeutic Exercise Dynamic Therapeutic Activities Neuromuscular Re-ed Manual Therapies Taping Gait Home Exercise Program Patient Education Hot or Cold Pack Other Reviewed/ Agreed with Student Documentation: Therapist: Electronically signed by: TRACEY ARIAS PT Please sign and return to therapist. Thank you for your referral.
--- NOTE | 2025-06-20 15:23 | MHC.PT.DC ---
[facility] [place] [facility] [place] [facility] [place] [facility] [address] Kelly Keys [address] [phone] F: [phone] F: [phone] F: [phone] F: [phone] Physical Therapy Discharge Report Diagnosis: R KNEE STRAIN, R HIP/KNEE/FOOT CONTUSION Date of Surgery: NA Date of Evaluation: 03/07/25 Date of Discharge: 06/20/25 Treatments to Date: 8 Cancellations to Date: No Shows to Date: Discharge Status: Independent with HEP Patient Elected to Stop Recommend MD Follow-up Discharge Summary: PER ASSESSMENT FROM LAST SESSION Pt TEARY AT ONE POINT DURING SESSION WITH SEEMING FRUSTRATION RE CONTINUED PAIN AND TIME OOW. Pt HAS 4 APPTS LEFT FROM [facility] (END DATE 04/28). Pt WILL CONTACT PT AFTER BACK MRI RE CONT/DC.WILL NEED END DATE EXTENSION NO FURTHER APPTS MADE Electronically signed by: TRACEY ARIAS PT Please sign and return to therapist. Thank you for your referral.
== END 2025-06-20 15:23 | disposition home or self-care (01) ==
LOC: HO.PT 13:54
PROVIDERS: Absent Provider Physician Assistant; PCP Internal Medicine; Visit Provider Physician Assistant Medical
DX: S80.11XD Contusion of right lower leg, subsequent encounter (principal); S84 Injury of nerves at lower leg level
CPT/HCPCS: 97110; 97162; 97530; 97535

== ENCOUNTER 2025-04-25 10:38 | Outpatient (AMB) | payer OTHER, SELFPAY ==
--- NOTE | 2025-04-25 11:04 | A.OFFVIS_ITS ---
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 Had Hysterectomy but unsure if she got just one ovary removed or both. Along with vaginal itching. Rest Room Matron Required: Yes Rest Room Matron Language: Liquid Hydrogen Plant Operator Services: Rest Room Matron Present (in person) Rest Room Matron Name: Cookie AYON Information Interpreted: non-clinical & clinical Enterprise Application Developer: Enterprise Application Developer Present (Cookie Lemos RMA) Accompanied by: Self / Same As Patient Allergies No Known Allergies (No Known Allergies*) Allergy (Verified 04/25/25 11:14) Is last menstrual period known: No Post menopausal: No Patient : No HPI Comments Details: Presenting for annual exam. No complaints. Last Pap/HPV was in 2010, the patient is status post hysterectomy for benign disease with no history of abnormal Pap smears in the past Last Mammogram was in 08/24 was BI-RADS 1 No Previous screening colonoscopy, the patient is schedule appointment with [facility] Medical History LEISA (generalized anxiety disorder) GERD (gastroesophageal reflux disease) Anemia Surgical History History of esophagogastroduodenoscopy (EGD) S/P total abdominal hysterectomy Family History Mother No problems noted. Father No problems noted. Family/Other Substance use disorder Mental health disorder Paternal Aunt Stomach cancer Paternal Grandfather Colon cancer Other SLE (systemic lupus erythematosus) Social History Household Members: Children Housing: Apartment Do you presently have visiting nurse or other home services: No Alcohol intake: former Patient Tobacco Use Status: Current everyday Tobacco user Tobacco use type: Cigarette Cigarette Packs Per Day: 1.5 Cigarettes Per Day: 20.0 e-Cigarette/Vaping Use: Never Used Second Hand Smoke Exposure: Yes service: No Current occupational status: employed Current occupation: [employer] Current occupational exposures/hazards: No Cognitive needs: No Hearing needs: No Vision needs: No Female Reproductive History Menstrual Age of Menarche: 14 Total pregnancies: 6 Full term: 4 Ab induced: 2 Date of Mammogram: 08/31/24 (bi rad 1) Review of Systems Const All systems reviewed & are unremarkable except as noted in HPI and below Card Reports as per HPI and Reports no additional complaints Resp Reports as per HPI and Reports no additional complaints GI Reports as per HPI and Reports no additional complaints Reports as per HPI Physical Exam Const General: cooperative, healthy appearing and comfortable General: Yes bladder normal to palpation External Female Exam: No lesion Speculum Exam - Vagina: normal appearance of the vagina, normal vaginal discharge and not erythematous Speculum Exam - Cervix: Cervix absent Bimanual exam- vagina & uterus: bladder normal to palpation and uterus absent Bimanual Exam- Adnexa, other: Other (No masses detected) Assessment & Plan Assessment & Plan (1) Well woman exam: Code(s): Z01.419 - Encounter for gynecological examination (general) (routine) without abnormal findings Category: Medical Plan: Cotesting not indicated since the patient is status post hysterectomy with no history of abnormal Pap smears in the past. Instructions given the patient to schedule next screening Mammogram in 08/25. Counseled the patient about the recommended dietary allowance of 1000 mg of Calcium & 600 IU of vitamin D. The patient was instructed to perform monthly self-breast exams and to schedule an annual exam in a year; All questions answered and the patient verbalized understanding. Instructed the patient to schedule annual exam in a year (2) Hot flashes: Code(s): R23.2 - Flushing Category: Medical Plan: Discussed with the patient the different causes of hot flashes. Will order FSH/LH. Instructions given the patient to schedule a 2 week follow-up appointment. All questions answered, the patient verbalized understanding Coding Level of Care Code Est Pt Prev Care 40-64y(42727) Diagnoses Well woman exam Z01.419 Hot flashes R23.2
[2025-04-25 11:17] VITALS: BP 110/74; BMI 26.1
--- OUTSIDE RECORDS SUMMARY | 2025-04-25 12:35 | XMS_ITS | Clinical Summary ---
Author Organization [address] [facility] Address [address] [place] [address] Phone Care Team Providers Care Entry Rep Name Role Phone Nia Pope MD Primary Care Provider [phone] Allergies No known active allergies Encounters Date Type Department Care Team Description 04/11/2025 10:30 AM EDT Consult Orthopedic Surgery [facility] [address] [facility] [address] [place] [address] Sherman Adams DPM Pain in toes of both feet (Primary Dx); Dermatophytosis, nail from Last 3 Months Surgical History Surgery Date Site/Laterality Comments HYSTERECTOMY [...] Date Smoking Tobacco: Every Day Cigarettes 1 18.5 Started: 11/01/2006 Smokeless Tobacco: Never Alcohol Use Standard Drinks/Week Comments No 0 (1 standard drink = 0.6 oz pur e alcohol) Comments Unknown Sex and Gender Information Value Date Recorded Sex Assigned at Not on file Legal Sex Female 12:47 PM EST Gender Identity Not on file Sexual Orientation Not on file Obstetrics History Last Filed Vital Signs Vital Sign Reading Time Taken Comments Blood Pressure - - Pulse - - Temperature - - Respiratory Rate - - Oxygen Saturation - - Inhaled Oxygen Concentration - - Weight 65.8 kg (145 lb) 04/11/2025 10:35 AM EDT Height 162.6 cm (5' 4 ) 04/11/2025 10:35 AM EDT Body Mass Index 24.89 04/11/2025 10:35 AM EDT Plan of Treatment Upcoming Encounters Date Type Department Care Team (Late st Contact Info) Description 07/12/2025 10:30 AM EDT Office Visit Orthopedic Surgery - [place] [address] [facility] [address] [place] [address] Sherman Adams, DPEduard 175 [facility] [address] [place] [address] Health Maintenance Due Date Last Done Comments Breast Cancer Screening 1979 Pneumococcal Vaccine: Pediatrics (0 to 5 Years) and At-Risk Patients (6 to 64 Years) (1 of 2 - PCV) 1998 Cervical Cancer Screening: P ap Smear 01/17/2000 Hepatitis B Vaccines (3 of 3 - Hep B Twinrix 3-dose series) 08/17/2017 03/17/2017, 12/22/2016 COVID-19 Vaccine (3 - 2023-2 5 season) 2024 03/25/2021, 03/06/2021 Colorectal Cancer Screening: Colonoscopy 02/01/2025 Depression Screening 02/01/2025 HIV Screening 02/01/2025 Hepatitis C Screening 02/01/2025 Social Influencers of Health Screening 02/01/2025 Influenza Vaccine (Season Ended) 2025 08/06/2022 DTaP,Tdap,and Td Vaccines (2 - Td or Tdap) 01/11/2035 01/11/2025 Hepatitis A Vaccines Aged Out 03/17/2017, 12/22/2016 [...] patient's age to complete this topic Insurance [facility] [employer] Care Teams Entry Rep Relationship Specialty Start Date End Date Nia Pope MD [address] [facility] , [address] [facility] Physician Associ D/B/A: [facility] [place], [place] PCP - General Internal Medicine 02/01/25
== END 2025-04-25 11:32 | disposition home or self-care (01) ==
LOC: HO.HWS 10:38
PROVIDERS: PCP Internal Medicine; Visit Provider Obstetrics & Gynecology
DX: Z01.419 Encounter for gynecological examination (general) (routine) without abnormal findings (principal); R23.2 Flushing
CPT/HCPCS: 99396; 99459

== ENCOUNTER → 2025-04-25 10:38 | Outpatient (BNVA) | payer OTHER, SELFPAY | PROVIDERS: PCP Internal Medicine; Visit Provider Obstetrics & Gynecology | DX: Z01.419 Encounter for gynecological examination (general) (routine) without abnormal findings (principal); R23.2 Flushing | CPT/HCPCS: 99396 ==

== ENCOUNTER 2025-05-08 07:54 | Outpatient (REF) | payer OTHER, SELFPAY ==
--- OUTSIDE RECORDS SUMMARY | 2025-05-08 07:57 | XMS_ITS | Encounter Summary ---
Author Organization [employer] [facility] Address [address] [place] [address] Care Team Providers Care Statistical Geneticist Name Role Phone Unavailable Primary Care Provider [...]
--- OUTSIDE RECORDS SUMMARY | 2025-05-08 07:57 | XMS_ITS | Clinical Summary ---
Author Organization 175 [facility] Address [address] [place] [address] Phone Care Team Providers Care Automation And Control Engineer Name Role Phone Nia Pope MD Primary Care Provider [phone] Allergies No known active allergies Encounters Date Type Department Care Team Description 04/11/2025 10:30 AM EDT Consult Orthopedic Surgery [facility] [address] [facility] [address] [place] [address] Sherman Adams DPM Pain in [...] AM EDT Office Visit Orthopedic Surgery - [place] [address] [facility] [address] [place] [address] Sherman Adams, DPEduard [address] [facility] [address] [place] [address] Health Maintenance Due Date Last Done Comments Breast Cancer Screening 1979 Pneumococcal Vaccine: Pediatrics (0 to 5 Years) and At-Risk Patients (6 to 49 Years) (1 of 2 - PCV) 1998 Cervical Cancer Screening: P ap Smear 01/17/2000 Hepatitis B Vaccines (3 of 3 - Hep B Twinrix 3-dose series) 08/17/2017 03/17/2017, 12/22/2016 COVID-19 Vaccine (3 - 2023-2 5 season) 2024 03/25/2021, 03/06/2021 Colorectal Cancer Screening: Colonoscopy 02/01/2025 Depression Screening 02/01/2025 HIV Screening 02/01/2025 Hepatitis C Screening 02/01/2025 Social Influencers of Health Screening 02/01/2025 Influenza Vaccine (#1) 2025 08/06/2022 DTaP,Tdap,and Td Vaccines (2 - [...] patient's age to complete this topic Insurance [facility] [employer] Care Teams Automation And Control Engineer Relationship Specialty Start Date End Date Nia Pope MD [address] [facility] , [address] [facility] Physician Associ D/B/A: [facility] [place], [place] PCP - General Internal Medicine 02/01/25
[2025-05-08 08:19] LABS: MANUAL DIFF FLAG NO
[2025-05-08 08:36] LABS: Hematocrit 42.3 % (37.0-47.0); Hemoglobin 13.8 g/dl (12.0-16.0); Imm Gran Abs Auto 0.03 X10*3/uL (0.00-0.03); Imm Gran Pct Auto 0.4 % (0.0-0.4); Lymphocytes Absolute Auto 3.4 X10*3/uL (1.2-4.9); Mean Corpuscular HGB Conc 32.6 g/dl (31.0-35.0); Mean Corpuscular Hemoglobin 30.7 pg (27.0-33.0); Mean Corpuscular Volume 94.0 fL (80.0-98.0); NRBC Abs Auto 0.000 X10*3/uL (0.0-0.012); NRBC Pct Auto 0.0 /100WBC (0.0-0.2); Platelet Count 288 X10*3/uL (160-400); Red Blood Count 4.50 X10*6/uL (4.20-5.50); White Blood Count 8.0 X10*3/uL (4.8-10.8)
[2025-05-08 09:04] LABS: Alanine Aminotransferase 30 U/L (0-31); Albumin Level 4.7 g/dL (3.5-5.0); Alkaline Phosphatase 105 U/L (39-117); Anion Gap 11 (12-20); Aspartate Amino Transferase 24 U/L (5-31); Blood Urea Nitrogen 10 mg/dL (9-16); Calcium 9.4 mg/dL (8.4-10.2); Carbon Dioxide 30 mmol/L (22-29); Chloride 106 mmol/L (96-108); Cholesterol 301 mg/dL (<200); Estimated Glomerular Filt Rate > 60; HDL Cholesterol 43 mg/dL (>40); Iron 91 mcg/dL (30-160); Percent Iron Saturation 31 % (15-50); Potassium 4.5 mmol/L (3.3-5.1); Sodium 142 mmol/L (135-145); Total Iron Binding Capacity 294 mcg/dL (228-428); Total Protein 7.2 g/dL (6.5-8.0); Triglycerides 298 mg/dL (<150); Unsaturated Iron Binding 203 ug/dL
[2025-05-09 06:23] LABS: Follicle Stimulating Hormone 62.2 mIU/mL
== END 2025-05-08 07:55 | disposition home or self-care (01) ==
LOC: HO.LAB 07:54
PROVIDERS: PCP Internal Medicine; Referring Provider Obstetrics & Gynecology; Visit Provider Internal Medicine
DX: D64.9 Anemia, unspecified (principal); E55.9 Vitamin D deficiency, unspecified; E78.5 Hyperlipidemia, unspecified; K21.9 Gastro-esophageal reflux disease without esophagitis; R23.2 Flushing
CPT/HCPCS: 36415; 80053; 80061; 82306; 83001; 83002; 83540; 85025

== ENCOUNTER 2025-05-09 10:25 | Outpatient (AMB) | payer OTHER, SELFPAY ==
--- NOTE | 2025-05-09 10:30 | MHC.OFFVIS ---
Intake Visit Reasons: 6wk f/u Rt tibia contusion /nerve injury-w/c Intake Note: Juwan is a 45 year old female who presents today for an evaluation of bilateral knee pain, WC DOI 02/15/25. At her last visit a nerve conduction study and physical therapy was ordered. Patient reports that she has an appointment for nerve study on 05/16/25 at 15:00. She then stated that physical therapy stopped due to waiting for her nerve study results, they completed four visits. Patient reports that her B/L knees pain is radiating up to her hips down to her toes, numbness, tingling and burning. Framework Developer Required: Yes Framework Developer Services: Framework Developer Present Framework Developer Name: Pollo Knight [id number] Allergies No Known Allergies (No Known Allergies*) Allergy (Verified 05/09/25 10:37) Medication List - Last Reconciled 05/09/25 by Nir Gaytan PA-C albuterol sulfate 90 mcg/actuation (Ventolin HFA) 2 puffs inhalation Q6H PRN albuterol sulfate 2.5 mg (3 mL) inhalation Q6H PRN amitriptyline 25 mg PO BEDTIME 30 days benzonatate 100 mg PO BID PRN 5 days cholecalciferol (vitamin D3) 50 mcg (2 x 25 mcg (1,000 unit)) PO DAILY 90 days cyclobenzaprine 20 mg (2 x 10 mg) PO BID PRN docusate sodium 100 mg PO BEDTIME doxycycline hyclate 100 mg PO BID 5 days esomeprazole magnesium (Nexium) 40 mg PO DAILY fenofibrate 54 mg PO DAILY 90 days fluticasone furoate-vilanterol 200-25 mcg/dose (Breo Ellipta) 1 inh inhalation DAILY gabapentin 200 mg (2 x 100 mg) PO BID ibuprofen (Motrin IB) 400 mg (2 x 200 mg) PO Q8H ketoconazole 2% appl topical BID PRN meloxicam 15 mg PO DAILY prednisone 10 mg PO DIRECTED 8 days sennosides (Natural Senna Laxative) 8.6 mg PO BEDTIME solifenacin (Vesicare) 10 mg PO DAILY ubrogepant (Ubrelvy) 50 - 100 mg (0.5 - 1 x 100 mg) PO ONCE PRN 30 days umeclidinium 62.5 mcg/actuation (Incruse Ellipta) 1 inh inhalation DAILY walker with seat and wheels HPI HPI 6wk f/u Rt tibia contusion /nerve injury-w/c: Details: 45-year-old female returns to the office today for a follow-up right tibial contusion with associated numbness and tingling. She did not have her EMG at its scheduled for May 19. Physical therapy has been placed on hold until she has her EMG. She states she continues to have severe pain and numbness type symptoms along her leg. [facility] Medical History LEISA (generalized anxiety disorder) GERD (gastroesophageal reflux disease) Anemia Surgical History History of esophagogastroduodenoscopy (EGD) S/P total abdominal hysterectomy Family History Mother No problems noted. Father No problems noted. Family/Other Substance use disorder Mental health disorder Paternal Aunt Stomach cancer Paternal Grandfather Colon cancer Other SLE (systemic lupus erythematosus) Social History Household Members: Children Housing: Apartment Do you presently have visiting nurse or other home services: No Alcohol intake: former Patient Tobacco Use Status: Current everyday Tobacco user Tobacco use type: Cigarette Cigarette Packs Per Day: 1.5 Cigarettes Per Day: 20.0 e-Cigarette/Vaping Use: Never Used Second Hand Smoke Exposure: Yes service: No Current occupational status: employed Current occupation: [employer] Current occupational exposures/hazards: No Cognitive needs: No Hearing needs: No Vision needs: No Female Reproductive History Menstrual Age of Menarche: 14 Review of Systems Const All systems reviewed & are unremarkable except as noted in HPI and below Physical Exam Const General: cooperative and no acute distress Orientation/consciousness: patient oriented x3 Resp Effort & Inspection: normal respiratory effort and able to speak in complete sentences Cardio Peripheral pulses: Peripheral pulses 2+ throughout Neuro General: patient oriented x3 Extrem Other: Right knee is normal to inspection. She does have significant tenderness along the proximal tibia laterally. She has decreased sensation along the lateral aspect of the tibia which extends into the dorsum of the foot and the great toe. She is able to plantar flex and dorsiflex. EHL is intact. Pulses present. Assessment & Plan Assessment & Plan (1) Contusion of right tibia: Code(s): S80.11XA - Contusion of right lower leg, initial encounter Category: Medical Plan: No further recommendations at this time other than continuing with her home exercise program and to the EMG results are obtained. Once this is complete I will contact her to discuss the next step. Coding Level of Care Code Est Pt Level 3 (21679) Complex EM visit Add On G2211 Diagnoses Contusion of right tibia S80.11XA
--- OUTSIDE RECORDS SUMMARY | 2025-05-09 11:17 | XMS_ITS | Encounter Summary ---
Author Organization [employer] [facility] Address [address] [place] [address] Care Team Providers Care Nursing Aide Name Role Phone Unavailable Primary Care Provider [...]
--- OUTSIDE RECORDS SUMMARY | 2025-05-09 11:17 | XMS_ITS | Clinical Summary ---
Author Organization 175 [facility] Address 175 [place] [address] Phone Care Team Providers Care Senior Engineering Manager Name Role Phone Nia Pope MD Primary Care Provider [phone] Allergies No known active allergies Encounters Date Type Department Care Team Description 04/11/2025 10:30 AM EDT Consult Orthopedic Surgery [facility] [address] [facility] [address] [place] [address] Sherman Adams DPM Pain in [...] AM EDT Office Visit Orthopedic Surgery - [facility] 250 175 [facility] 250 [place] [address] Sherman Adams, DPEduard 175 [facility] 250 [place] [address] Health Maintenance Due Date Last Done Comments [...] age to complete this topic Insurance [facility] Care Teams Senior Engineering Manager Relationship Specialty Start Date End Date Nia Pope MD 2 [facility] , [address] [facility]ician Associ D/B/A: [facility] [place], [place] PCP - General Internal Medicine 02/01/25
== END 2025-05-09 11:46 | disposition home or self-care (01) ==
LOC: HO.HOS 10:26
PROVIDERS: PCP Internal Medicine; Visit Provider Physician Assistant
DX: S80.11XA Contusion of right lower leg, initial encounter (principal)
CPT/HCPCS: 99213; G2211

== ENCOUNTER → 2025-05-09 10:25 | Outpatient (BNVA) | payer OTHER, SELFPAY | PROVIDERS: PCP Internal Medicine; Visit Provider Physician Assistant | DX: M54.16 Radiculopathy, lumbar region (principal); M23.91 Unspecified internal derangement of right knee; S86.011D Strain of right Achilles tendon, subsequent encounter; S84 Injury of nerves at lower leg level; S90.31XD Contusion of right foot, subsequent encounter; S80.01XD Contusion of right knee, subsequent encounter; S70.01XD Contusion of right hip, subsequent encounter; W01.0XXD Fall on same level from slipping, tripping and stumbling without subsequent striking against object, subsequent encounter | CPT/HCPCS: 99212 ==

== ENCOUNTER → 2025-05-10 10:15 | Outpatient (BNVA) | payer OTHER, SELFPAY | PROVIDERS: PCP Internal Medicine; Visit Provider Physician Assistant Medical | DX: M54.16 Radiculopathy, lumbar region (principal); S86.011D Strain of right Achilles tendon, subsequent encounter; S70.01XD Contusion of right hip, subsequent encounter; S80.01XD Contusion of right knee, subsequent encounter; S90.31XD Contusion of right foot, subsequent encounter; S84 Injury of nerves at lower leg level; W18.09XD Striking against other object with subsequent fall, subsequent encounter; M23.91 Unspecified internal derangement of right knee | CPT/HCPCS: 99213 ==

== ENCOUNTER 2025-05-16 11:13 | Outpatient (AMB) | payer OTHER, SELFPAY ==
--- NOTE | 2025-05-16 11:13 | MHC.OFFVIS ---
Intake Visit Reasons: TV Lab results Screen Operator Required: Yes Screen Operator Language: Molding Machine Operator Services: Screen Operator Present (in person) Screen Operator Name: Cookie Nelson Information Interpreted: non-clinical & clinical Allergies No Known Allergies (No Known Allergies*) Allergy (Verified 05/09/25 10:37) HPI Comments Details: The patient is scheduled a telehealth visit to follow-up . FSH/LH 62.2/24.7 PFSH Medical History LEISA (generalized anxiety disorder) GERD (gastroesophageal reflux disease) Anemia Surgical History History of esophagogastroduodenoscopy (EGD) S/P total abdominal hysterectomy Family History Mother No problems noted. Father No problems noted. Family/Other Substance use disorder Mental health disorder Paternal Aunt Stomach cancer Paternal Grandfather Colon cancer Other SLE (systemic lupus erythematosus) Social History Household Members: Children Housing: Apartment Do you presently have visiting nurse or other home services: No Alcohol intake: former Patient Tobacco Use Status: Current everyday Tobacco user Tobacco use type: Cigarette Cigarette Packs Per Day: 1.5 Cigarettes Per Day: 20.0 e-Cigarette/Vaping Use: Never Used Second Hand Smoke Exposure: Yes service: No Current occupational status: employed Current occupation: [employer] Current occupational exposures/hazards: No Cognitive needs: No Hearing needs: No Vision needs: No Female Reproductive History Menstrual Age of Menarche: 14 Review of Systems Const All systems reviewed & are unremarkable except as noted in HPI and below Reports as per HPI and Reports no additional complaints GI Reports no additional complaints Reports no additional complaints Telehealth Telehealth Telehealth Platform: Telephone Location of provider rendering services: practice address Location of patient: address on file Patient Identification confirmed using: Name, : Yes Telehealth method: video Patient verbally consented to treatment: Yes Patient verbally consented to billing insurance company: Yes Patient informed of any privacy concerns related to visit: Yes Minutes spent on Phone/Video with Pt.: 8 Assessment & Plan Assessment & Plan (1) Hot flashes: Code(s): R23.2 - [place] Category: Medical Plan: Discussed with the patient the options of treatment of hot flashes including hormonal replacement therapy, all the pros, cons, risks and benefits (benefits= prevention of hot flashes, atrophic vaginitis, osteoporosis, decrease colon ca risk; also discussed with the patient the risks of UT, Breast ca, DVT, PE, Strokes). In addition, discussed with the patient non hormonal treatment options for hot flashes treatment in surgical menopausal patient. Options discussed with the patient include the following: SSRI/SNRIs , difficulty has been demonstrated in multiple trials clinical response is more rapid (days) than typical response to SSRI for depression (weeks), they are equally effective in natural versus surgical menopause, they have similar modest benefit for hot flashes; Paroxetine 7.5 mg per day is suggested to be as a 1st choice the SSRI/SNRI such, FDA approved for treatment of hot flashes. Since the insurance is not approving the newly FDA approved 7.5 mg p.o. q.d. paroxetine will send prescription for 10 mg p.o. q.d. and instructions were given to patient to call with any concerns side effects and to schedule a follow-up appointment in 2 months. All questions answered the patient verbalized understanding I spent a total of 20 minutes reviewing the chart, talking to the patient via video and documenting in the medical record. Medications: New paroxetine HCl 10 mg PO DAILY 60 tabs 0RF 2 months Coding Level of Care Code Tele Est Pt Level 3 (32053) Diagnoses Hot flashes R23.2
--- OUTSIDE RECORDS SUMMARY | 2025-05-16 12:05 | XMS_ITS | Encounter Summary ---
Author Organization [employer] [facility] Address [address] [place] [address] Care Team Providers Care Flight Operations Dispatch Clerk Name Role Phone Unavailable Primary Care Provider [...]
--- OUTSIDE RECORDS SUMMARY | 2025-05-16 12:05 | XMS_ITS | Clinical Summary ---
Author Organization 175 [facility] Address [address] [place] [address] Phone Care Team Providers Care Superintendent Custodian Janitor Name Role Phone Nia Pope MD Primary Care Provider [phone] Allergies No known active allergies Encounters Date Type Department Care Team Description 04/11/2025 10:30 AM EDT Consult Orthopedic Surgery [facility] [address] [facility] [address] [place] [address] Sherman Adams DPM Pain in [...] AM EDT Office Visit Orthopedic Surgery - [place] 250 175 [facility] 250 [place] [address] Sherman Adams, DPEduard 175 [facility] 250 [place] [address] Health Maintenance Due Date Last Done Comments Breast Cancer Screening 1979 Pneumococcal Vaccine: Pediatrics (0 to 5 Years) and At-Risk Patients (6 to 49 Years) (1 of 2 - PCV) 1998 Cervical Cancer Screening: P ap Smear 01/17/2000 Hepatitis B Vaccines (3 of 3 - Hep B Twinrix 3-dose series) 08/17/2017 03/17/2017, 12/22/2016 COVID-19 Vaccine (3 - 2023-2 5 season) 2024 03/25/2021, 03/06/2021 Depression Screening 11/01/2024 Colorectal Cancer Screening: Colonoscopy 02/01/2025 HIV Screening 02/01/2025 Hepatitis C Screening [...] patient's age to complete this topic Insurance [facility] Care Teams Superintendent Custodian Janitor Relationship Specialty Start Date End Date Nia Pope MD 2 [facility] , [address] [facility] Physician Associ D/B/A: [facility] [place], [place] PCP - General Internal Medicine 02/01/25
== END 2025-05-16 11:41 | disposition home or self-care (01) ==
LOC: HO.HWS 11:13
PROVIDERS: PCP Internal Medicine; Visit Provider Obstetrics & Gynecology
DX: R23.2 Flushing (principal)
CPT/HCPCS: 98005

== ENCOUNTER 2025-05-16 14:27 | Outpatient (REF) | payer OTHER, SELFPAY ==
--- NOTE | 2025-05-16 14:31 | EMG_ITS ---
Chief complaint: Paresthesias in right lower extremity Reason for referral: Evaluate for tibial neuropathy Referred by: Nery MILLER Procedure done: Right lower extremity NCS/EMG Precautions and/or limitations: None The limb temperature was monitored continuously and remained between 32-36 degrees C during the performance of the NCS. Nerve Conduction Studies Anti Sensory Summary Table ?Stim Site NR Onset (ms) Norm Onset (ms) Peak (ms) Norm Peak (ms) O-P Amp (?V) Norm O-P Amp Site1 Site2 Delta-0 (ms) Dist (cm) Jos (m/s) Norm Jos (m/s) Right Sural Anti Sensory (Lat Mall) Calf ? 2.8 3.3 <4.0 10.4 >5.0 Calf Lat Mall 2.8 14.0 50 Motor Summary Table ?Stim Site NR Onset (ms) Norm Onset (ms) O-P Amp (mV) Norm O-P Amp iAmp (mV) Amp (1st) (%) Site1 Site2 Delta-0 (ms) Dist (cm) Jos (m/s) Norm Jos (m/s) Right Peroneal Motor (Ext Dig Brev) Ankle ? 3.8 <4.0 6.2 >2.5 7.5 100.0 Ankle Ext Dig Brev 3.8 0.0 B Fib ? 9.1 5.6 6.9 90.3 B Fib Ankle 5.3 29.0 55 >40 Poplt ? 10.2 5.6 6.9 90.3 Poplt B Fib 1.1 6.0 55 >40 Right Tibial Motor (Abd Rose Brev) Ankle ? 3.2 <5 11.9 >2.5 15.8 100.0 Ankle Abd Rose Brev 3.2 0.0 Knee ? 10.2 9.9 12.4 83.2 Knee Ankle 7.0 37.0 53 >40 EMG ?Side Muscle Nerve Root Ins Act Fibs Psw Amp Dur Poly Recrt Int Pat Comment Right AbdHallucis MedPlantar S1-2 Nml Nml Nml Nml Nml 0 Nml Complete Right AntTibialis Dp Br Peron L4-5 Nml Nml Nml Nml Nml 0 Nml Complete Right PostTibialis Tibial L5, S1 Nml Nml Nml Nml Nml 0 Nml Complete Right MedGastroc Tibial S1-2 Nml Nml Nml Nml Nml 0 Nml Complete Right VastusMed Femoral L2-4 Nml Nml Nml Nml Nml 0 Nml Complete Paraspinal EMG ?Side Muscle Nerve Root Ins Act Fibs Psw Comment Right Lumbar Upper Rami Nml Nml Nml Right Lumbar Mid Rami Nml Nml Nml Right Lumbar Lower Rami Nml Nml Nml FINDINGS: All motor and sensory nerves tested showed normal latencies, amplitudes and conduction velocities. Concentric needle EMG was performed in selected muscles of the right left lower extremity and lumbar paraspinals. Study did not reveal signs of electric abnormalities as shown in the table above. IMPRESSION: 1. This is a normal study. 2. There is no electrodiagnostic evidence for peroneal neuropathy, tibial neuropathy, lumbosacral plexopathy, lumbar radiculopathy, or peripheral neuropathy. Thank you for your kind referral. Marti Espinoza MD, BRIANNA Board Certified, [place] Board of Physical Medicine and Rehabilitation (ABPMR) Board Certified, [place] Board of Electrodiagnostic Medicine (ABEM) [address]OD[address] [id number] [facility]
== END 2025-05-16 14:28 | disposition home or self-care (01) ==
LOC: HO.NEURO 14:27
PROVIDERS: PCP Internal Medicine; Visit Provider Physician Assistant
DX: R20.0 Anesthesia of skin (principal); R20.2 Paresthesia of skin
CPT/HCPCS: 95886; 95909

== ENCOUNTER → 2025-05-16 14:31 | Outpatient (BNV) | payer OTHER, SELFPAY | PROVIDERS: PCP Internal Medicine; Visit Provider Physical Medicine & Rehabilitation | DX: R20.2 Paresthesia of skin (principal) | CPT/HCPCS: 95886; 95907 ==

== ENCOUNTER 2025-05-18 12:46 | Outpatient (AMB) | payer OTHER, SELFPAY ==
--- OUTSIDE RECORDS SUMMARY | 2025-05-18 12:50 | XMS_ITS | Clinical Summary ---
Author Organization 175 [facility] Address 175 [place] [address] Phone Care Team Providers Care Group Exercise Manager Name Role Phone Nia Pope MD Primary Care Provider [phone] Allergies No known active allergies Encounters Date Type Department Care Team Description 04/11/2025 10:30 AM EDT Consult Orthopedic Surgery [facility] [address] [facility] [address] [place] [address] Sherman Adams DPM Pain in [...] AM EDT Office Visit Orthopedic Surgery - [place] 250 175 [facility] 250 [place] [address] Sherman Adams, DPEduard 175 [facility] 250 [place] [address] Health Maintenance Due Date Last Done Comments [...] patient's age to complete this topic Insurance [facility] PL[facility] Care Teams Group Exercise Manager Relationship Specialty Start Date End Date Nia Pope MD 2 [facility] , [address] [facility] Physician Associ D/B/A: [facility] [place], [place] PCP - General Internal Medicine 02/01/25
--- OUTSIDE RECORDS SUMMARY | 2025-05-18 12:50 | XMS_ITS | Encounter Summary ---
Author Organization [employer] [facility] Address [address] [facility] [address] [place] [address] Care Team Providers Care Game Agent Name Role Phone Unavailable Primary Care Provider [...]
[2025-05-18 13:05] VITALS: BP 100/64; PULSE 80; O2SAT 100; BMI 25.4
--- NOTE | 2025-05-18 13:05 | A.OFFVIS_ITS ---
Vital Signs 05/18/25 13:05 Height 5 ft 4 in Weight 148 lb BMI 25.4 BP 100/64 Blood Pressure Location Lt brachial Position Sitting Pulse 80 Pulse Source Pulse Oximeter Pulse Oximetry (%) 100 Oxygen Delivery Method Room Air Intake Visit Reasons: asthma Supervisor Mixing Required: Yes Supervisor Mixing Name: Iqra GarnicaBakariEduard Allergies No Known Allergies (No Known Allergies*) Allergy (Verified 05/18/25 13:10) HPI HPI asthma: Details: 45-year-old lady, active 20 pack-year smoker, now followed for asthma/COPD overlap syndrome. She continues on Breo/Incruse and albuterol MDI/nebs with good control of her underlying symptoms. She denies recent exacerbations. [facility] Medical History LEISA (generalized anxiety disorder) GERD (gastroesophageal reflux disease) Anemia Surgical History History of esophagogastroduodenoscopy (EGD) S/P total abdominal hysterectomy Family History Mother No problems noted. Father No problems noted. Family/Other Substance use disorder Mental health disorder Paternal Aunt Stomach cancer Paternal Grandfather Colon cancer Other SLE (systemic lupus erythematosus) Social History Household Members: Children Housing: Apartment Do you presently have visiting nurse or other home services: No Alcohol intake: former Patient Tobacco Use Status: Current everyday Tobacco user Tobacco use type: Cigarette Cigarette Packs Per Day: 1.5 Cigarettes Per Day: 20.0 e-Cigarette/Vaping Use: Never Used Second Hand Smoke Exposure: Yes service: No Current occupational status: employed Current occupation: [employer] Current occupational exposures/hazards: No Cognitive needs: No Hearing needs: No Vision needs: No Female Reproductive History Menstrual Age of Menarche: 14 Review of Systems Const Denies daytime sleepiness, Denies excessive sweating, Denies fatigue, Denies fever(s), Denies lethargy, Denies malaise, Denies night sweats, Denies snoring and Denies weight loss Eyes Denies blurry vision and Denies itchy eyes ENT Denies nasal congestion, Denies post nasal drip, Denies sinus pain, Denies sinus pressure and Denies other ( Thrush) Card Denies chest pain, Denies pedal edema, Denies dyspnea, Denies orthopnea and Denies paroxysmal nocturnal dyspnea Resp Denies cough, Denies hemoptysis, Denies excessive phlegm production, Denies dyspnea, Denies snoring and Denies wheezing GI Denies abdominal pain and Denies heartburn Musc Denies myalgias, Denies arthralgias and Denies joint swelling Skin/Breast Denies rash Neuro Denies memory loss and Denies seizure-like activity Psych Denies abnormal sleep pattern, Denies anxiety and Denies memory loss Endo Denies excessive sweating, Denies fatigue and Denies heat intolerance Kelvin/Lymph Denies easy bruising Aller/Immun Denies itchy eyes, Denies seasonal rhinorrhea and Denies wheezing Physical Exam Vital Signs: Last Vital Signs Pulse 80 05/18/25 13:05 BP 100/64 05/18/25 13:05 Pulse Ox 100 05/18/25 13:05 Oxygen Delivery Method Room Air 05/18/25 13:05 BMI result Body Mass Index 25.4 Const General: no acute distress and alert Nutritional Appearance: not obese Orientation/consciousness: Other orientation findings ( oriented) HEENT Head: Yes atraumatic Eyes General: appearance normal, both eyes and all related structures Sclerae: sclerae normal EOM: EOMs intact bilaterally Neck Neck: Yes supple Lymphatic: no lymphadenopathy noted Resp Effort & Inspection: normal respiratory effort and no use of accessory muscles Auscultation: clear to auscultation bilaterally Cardio Rate: regular rate Rhythm: regular rhythm Heart sounds: no gallops, no murmurs and no rubs Skin General skin exam: other ( warm) Extrem General: No clubbing, No cyanosis and No edema Assessment & Plan Assessment & Plan (1) Asthma-COPD overlap syndrome: Code(s): J44.89 - Other specified chronic obstructive pulmonary disease Category: Medical Plan: Well controlled on current regimen of Breo, Incruse, and albuterol MDI. Continue current regimen. Coding Level of Care Code Est Pt Level 3 (96490) Complex EM visit Add On G2211 Diagnoses Asthma-COPD overlap syndrome J44.89
== END 2025-05-18 13:26 | disposition home or self-care (01) ==
LOC: HO.HPS 12:47
PROVIDERS: PCP Internal Medicine; Visit Provider Internal Medicine Pulmonary Disease
DX: J44.89 Other specified chronic obstructive pulmonary disease (principal)
CPT/HCPCS: 99213; G2211

== ENCOUNTER → 2025-05-18 12:46 | Outpatient (BNVA) | payer OTHER, SELFPAY | PROVIDERS: PCP Internal Medicine; Visit Provider Internal Medicine Pulmonary Disease | DX: M54.16 Radiculopathy, lumbar region (principal); M23.91 Unspecified internal derangement of right knee; S86.011D Strain of right Achilles tendon, subsequent encounter; S84 Injury of nerves at lower leg level; S90.31XD Contusion of right foot, subsequent encounter; S80.01XD Contusion of right knee, subsequent encounter; S70.01XD Contusion of right hip, subsequent encounter; W01.0XXD Fall on same level from slipping, tripping and stumbling without subsequent striking against object, subsequent encounter | CPT/HCPCS: 99212 ==

== ENCOUNTER 2025-05-21 16:00 | Outpatient (AMB) | payer OTHER, SELFPAY ==
--- NOTE | 2025-05-21 16:00 | MHC.OFFVIS ---
Intake Visit Reasons: TELE- EMG review f/u Rt tibia contusion per TM Intake Note: Juwan is a 45 year old female who is scheduled for a telephone visit to review right lower extremity nerve conduction study. Social Services Counselor Required: Yes Social Services Counselor Services: Social Services Counselor Present Social Services Counselor Name: GABO Culp LM Allergies No Known Allergies (No Known Allergies*) Allergy (Verified 05/22/25 09:22) HPI HPI TELE- EMG review f/u Rt tibia contusion per TM: Details: 45-year-old female presents for telehealth review EMG right lower extremity. Patient states she continues to have pain along the right lower extremity despite attending physical therapy. [facility] Medical History LEISA (generalized anxiety disorder) GERD (gastroesophageal reflux disease) Anemia Surgical History History of esophagogastroduodenoscopy (EGD) S/P total abdominal hysterectomy Family History Mother No problems noted. Father No problems noted. Family/Other Substance use disorder Mental health disorder Paternal Aunt Stomach cancer Paternal Grandfather Colon cancer Other SLE (systemic lupus erythematosus) Social History Household Members: Children Housing: Apartment Do you presently have visiting nurse or other home services: No Alcohol intake: former Patient Tobacco Use Status: Current everyday Tobacco user Tobacco use type: Cigarette Cigarette Packs Per Day: 1.5 Cigarettes Per Day: 20.0 e-Cigarette/Vaping Use: Never Used Second Hand Smoke Exposure: Yes service: No Current occupational status: employed Current occupation: [employer] Current occupational exposures/hazards: No Cognitive needs: No Hearing needs: No Vision needs: No Female Reproductive History Menstrual Age of Menarche: 14 Review of Systems Const All systems reviewed & are unremarkable except as noted in HPI and below Physical Exam Resp Effort & Inspection: normal respiratory effort and able to speak in complete sentences Telehealth Telehealth Telehealth Platform: Telephone Location of provider rendering services: practice address Patient Identification confirmed using: Name, : Yes Telehealth method: voice only Patient verbally consented to treatment: Yes Patient verbally consented to billing insurance company: Yes Patient informed of any privacy concerns related to visit: Yes Minutes spent on Phone/Video with Pt.: 15 Results Reviewed Results Reviewed: FINDINGS: All motor and sensory nerves tested showed normal latencies, amplitudes and conduction velocities. Concentric needle EMG was performed in selected muscles of the right left lower extremity and lumbar paraspinals. Study did not reveal signs of electric abnormalities as shown in the table above. IMPRESSION: 1. This is a normal study. 2. There is no electrodiagnostic evidence for peroneal neuropathy, tibial neuropathy, lumbosacral plexopathy, lumbar radiculopathy, or peripheral neuropathy. 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 I explained that this means there is no chronic evidence of neuropathy in the right lower extremity. I believe her injury may have caused some nerve injury however nothing that requires further surgical intervention. At this time I did encourage she see pain management to see if there is any other modalities that could benefit her in the setting of pain and numbness and to aid in her continued treatment. I did place a referral today. I explained to the patient she should continue with her physical therapy and she will follow up with me as needed. Orders: Referrals Pain Management Referral M25.50 - Pain in unspecified joint, S84.00XA - Injury of tibial nerve at lower leg level, unspecified leg, initial encounter Coding Level of Care Code Tele Est Pt Level 3 (78576) Complex EM visit Add On G2211 Diagnoses Polyarthralgia M25.50 Injury of tibial nerve S84.00XA
--- OUTSIDE RECORDS SUMMARY | 2025-05-21 16:20 | XMS_ITS | Clinical Summary ---
Author Organization 175 [facility] Address [address] [place] [address] Phone Care Team Providers Care Band Tumbler Name Role Phone Nia Pope MD Primary Care Provider [phone] Allergies No known active allergies Encounters Date Type Department Care Team Description 04/11/2025 10:30 AM EDT Consult Orthopedic Surgery [facility] [address] [facility] [address] [place] [address] Sherman Adams DPM Pain in [...] Date Smoking Tobacco: Every Day Cigarettes 1 18.6 Started: 11/01/2006 Smokeless Tobacco: Never Alcohol Use [...] AM EDT Office Visit Orthopedic Surgery - [place] 250 175 [facility] 250 [place] [address] Sherman Adams, DPEduard 175 [facility] 250 [place] [address] Health Maintenance Due Date Last Done Comments [...] patient's age to complete this topic Insurance [facility] Care Teams Band Tumbler Relationship Specialty Start Date End Date Nia Pope MD 2 [facility] , [address] [facility] D/B/A: [facility] [place], [place] PCP - General Internal Medicine 02/01/25
--- OUTSIDE RECORDS SUMMARY | 2025-05-21 16:20 | XMS_ITS | Encounter Summary ---
Author Organization [employer] [facility] Address [address] [facility] [address] [place] [address] Care Team Providers Care Foster Winder Name Role Phone Unavailable Primary Care Provider [...]
== END 2025-05-21 16:11 | disposition home or self-care (01) ==
LOC: HO.HOS 16:00
PROVIDERS: PCP Internal Medicine; Visit Provider Physician Assistant
DX: M25.50 Pain in unspecified joint (principal); S84 Injury of nerves at lower leg level
CPT/HCPCS: 99213; G2211

== ENCOUNTER → 2025-05-21 16:00 | Outpatient (BNVA) | payer OTHER, SELFPAY | PROVIDERS: PCP Internal Medicine; Visit Provider Physician Assistant | DX: M54.16 Radiculopathy, lumbar region (principal); M23.91 Unspecified internal derangement of right knee; S86.011D Strain of right Achilles tendon, subsequent encounter; S84 Injury of nerves at lower leg level; S90.31XD Contusion of right foot, subsequent encounter; S80.01XD Contusion of right knee, subsequent encounter; S70.01XD Contusion of right hip, subsequent encounter; W01.0XXD Fall on same level from slipping, tripping and stumbling without subsequent striking against object, subsequent encounter ==

== ENCOUNTER → 2025-05-31 10:58 | Outpatient (BNVA) | payer OTHER, SELFPAY | PROVIDERS: PCP Internal Medicine; Visit Provider Physician Assistant Medical | DX: M54.16 Radiculopathy, lumbar region (principal); M23.91 Unspecified internal derangement of right knee; S86.011D Strain of right Achilles tendon, subsequent encounter; S84 Injury of nerves at lower leg level; S90.31XD Contusion of right foot, subsequent encounter; S80.01XD Contusion of right knee, subsequent encounter; S70.01XD Contusion of right hip, subsequent encounter; W01.0XXD Fall on same level from slipping, tripping and stumbling without subsequent striking against object, subsequent encounter | CPT/HCPCS: 99213 ==

== ENCOUNTER 2025-06-08 11:05 | Outpatient (AMB) | payer OTHER, SELFPAY ==
--- OUTSIDE RECORDS SUMMARY | 2025-06-08 11:08 | XMS_ITS | Encounter Summary ---
Author Organization [employer] [facility] Address [address] [facility] [address] [place] [address] Care Team Providers Care Coating Machine Feeder Name Role Phone Unavailable Primary Care Provider [...]
--- OUTSIDE RECORDS SUMMARY | 2025-06-08 11:08 | XMS_ITS | Clinical Summary ---
Author Organization 175 [facility] Address 175 [place] [address] Phone Care Team Providers Care Secretary Bookkeeper Name Role Phone Nia Pope MD Primary Care Provider [phone] Allergies No known active allergies Encounters Date Type Department Care Team Description 04/11/2025 10:30 AM EDT Consult Orthopedic Surgery [facility] 250 175 [facility] 250 [place] [address] Sherman Adams DPM Pain in [...] AM EDT Office Visit Orthopedic Surgery - [place] 250 175 [facility] 250 [place] [address] Sherman Adams, DPEduard 175 [facility] 250 [place] [address] Health Maintenance Due Date Last Done Comments [...] patient's age to complete this topic Insurance [facility] [place] [address] Care Teams Secretary Bookkeeper Relationship Specialty Start Date End Date Nia Pope MD 2 [facility] , [address] [facility] Physician Associ D/B/A: [facility] [place], [place] PCP - General Internal Medicine 02/01/25
[2025-06-08 11:30] VITALS: BP 101/70; PULSE 76; RESP 16; O2SAT 97; BMI 25.4
--- NOTE | 2025-06-08 11:30 | MHC.OFFVIS ---
Vital Signs 06/08/25 11:30 Height 5 ft 4 in Weight 148 lb BMI 25.4 BP 101/70 Blood Pressure Location Lt brachial Position Sitting Respiration 16 Pulse 76 Pulse Source Pulse Oximeter Pulse Oximetry (%) 97 Oxygen Delivery Method Room Air Intake Visit Reasons: Pain in unspecified joint Intern Product Marketing Manager Required: Yes Intern Product Marketing Manager Services: Intern Product Marketing Manager Present Intern Product Marketing Manager Name: [id number] Jewel Burnett Allergies No Known Allergies (No Known Allergies*) Allergy (Verified 06/08/25 11:32) Medication List - Last Reconciled 06/08/25 by Romy Olson LPN albuterol sulfate 90 mcg/actuation (Ventolin HFA) 2 puffs inhalation Q6H PRN albuterol sulfate 2.5 mg (3 mL) inhalation Q6H PRN amitriptyline 25 mg PO BEDTIME 30 days benzonatate 100 mg PO BID PRN 5 days cholecalciferol (vitamin D3) 50 mcg (2 x 25 mcg (1,000 unit)) PO DAILY 90 days cyclobenzaprine 20 mg (2 x 10 mg) PO BID PRN docusate sodium 100 mg PO BEDTIME esomeprazole magnesium 40 mg PO DAILY fenofibrate 54 mg PO DAILY 90 days fluticasone furoate-vilanterol 200-25 mcg/dose (Breo Ellipta) 1 inh inhalation DAILY gabapentin 200 mg (2 x 100 mg) PO BID ibuprofen (Motrin IB) 400 mg (2 x 200 mg) PO Q8H ketoconazole 2% appl topical BID PRN meloxicam 15 mg PO DAILY paroxetine HCl 10 mg PO DAILY 2 months sennosides (Natural Senna Laxative) 8.6 mg PO BEDTIME solifenacin (Vesicare) 10 mg PO DAILY ubrogepant (Ubrelvy) 50 - 100 mg (0.5 - 1 x 100 mg) PO ONCE PRN 30 days umeclidinium 62.5 mcg/actuation (Incruse Ellipta) 1 inh inhalation DAILY walker with seat and wheels HPI HPI Pain in unspecified joint: Details: History of Present Illness The patient is a 45-year-old female presenting with low back pain with sciatica. The low back pain has been present for one year and radiates down her calf and thigh. The pain has been progressively worsening, and she occasionally experiences tingling in her legs. 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 In February 15, she had a fall at work, which complicated her pain further. She has been attending physical therapy, although the specific location was not mentioned. The patient reports numbness in her foot, indicating possible nerve involvement. She has previously undergone an MRI in 2022, and a new MRI is not deemed necessary at this time. Pain Description - Onset: One year ago - Quality: Radiating pain down calf and thigh - Location: Low back, radiating to leg - Exacerbating factors: Lifting heavy boxes - Associated symptoms: Tingling in legs, numbness in foot Physical Exam - Musculoskeletal: Straight leg raise test +ve Results - MRI: Conducted in 2022, no new MRI required Pain Management - Analgesia: Pain management plan includes scheduling an injection for the lower back - Activities of Daily Living: Pain impacts ability to lift heavy objects at work [facility] Medical History LEISA (generalized anxiety disorder) GERD (gastroesophageal reflux disease) Anemia Surgical History History of esophagogastroduodenoscopy (EGD) S/P total abdominal hysterectomy Family History Mother No problems noted. Father No problems noted. Family/Other Substance use disorder Mental health disorder Paternal Aunt Stomach cancer Paternal Grandfather Colon cancer Other SLE (systemic lupus erythematosus) Social History Household Members: Children Housing: Apartment Do you presently have visiting nurse or other home services: No Alcohol intake: former Patient Tobacco Use Status: Current everyday Tobacco user Tobacco use type: Cigarette Cigarette Packs Per Day: 1.5 Cigarettes Per Day: 20.0 e-Cigarette/Vaping Use: Never Used Second Hand Smoke Exposure: Yes service: No Current occupational status: employed Current occupation: [employer] Current occupational exposures/hazards: No Cognitive needs: No Hearing needs: No Vision needs: No Female Reproductive History Menstrual Age of Menarche: 14 Physical Exam Vital Signs: Last Vital Signs Pulse 76 06/08/25 11:30 Resp 16 06/08/25 11:30 BP 101/70 06/08/25 11:30 Pulse Ox 97 06/08/25 11:30 Oxygen Delivery Method Room Air 06/08/25 11:30 BMI result Body Mass Index 25.4 Assessment & Plan Assessment & Plan (1) Back pain of lumbar region with sciatica: Code(s): M54.40 - Lumbago with sciatica, unspecified side Category: Medical Plan Plan - Schedule Right Parasagittal L4-L5 LIGIA to manage radicular pain. - Continue with physical therapy to improve symptoms. - Monitor response to current pain management strategies and adjust as necessary. Patient was informed and verbally consented to the use of an ambient scribe for clinic note documentation during this visit. Discussion Notes I discussed with the patient the plan to schedule an injection for her lower back pain, emphasizing the need for insurance approval before proceeding. We reviewed her previous MRI results from 2022 and concluded that a new MRI is not necessary at this time. I advised her to continue with physical therapy and to monitor her response to the current pain management strategies. Patient Instructions - Await a call for scheduling the lower back injection once insurance approval is obtained. - Continue attending physical therapy sessions. - Monitor pain levels and report any significant changes. Coding Level of Care Code New Pt Level 4 (55627) Diagnoses Back pain of lumbar region with sciatica M54.40
== END 2025-06-08 11:46 | disposition home or self-care (01) ==
LOC: HO.PMC 11:05
PROVIDERS: PCP Internal Medicine; Visit Provider Internal Medicine
DX: M54.40 Lumbago with sciatica, unspecified side (principal)
CPT/HCPCS: 99214

== ENCOUNTER → 2025-06-08 11:05 | Outpatient (BNVA) | payer OTHER, SELFPAY | PROVIDERS: PCP Internal Medicine; Visit Provider Internal Medicine | DX: M54.41 Lumbago with sciatica, right side (principal); R20.0 Anesthesia of skin; R20.2 Paresthesia of skin | CPT/HCPCS: 99212 ==

== ENCOUNTER → 2025-06-26 10:58 | Outpatient (BNVA) | payer OTHER, SELFPAY | PROVIDERS: PCP Internal Medicine; Visit Provider Physician Assistant Medical | DX: M54.16 Radiculopathy, lumbar region (principal); S86.011D Strain of right Achilles tendon, subsequent encounter; S70.01XD Contusion of right hip, subsequent encounter; S80.01XD Contusion of right knee, subsequent encounter; S90.31XD Contusion of right foot, subsequent encounter; M23.8X1 Other internal derangements of right knee; W18.09XD Striking against other object with subsequent fall, subsequent encounter | CPT/HCPCS: 99213 ==

== ENCOUNTER 2025-06-27 09:09 | Outpatient (AMB) | payer OTHER, SELFPAY ==
--- NOTE | 2025-06-27 09:28 | A.OFFVIS_ITS ---
Vital Signs 06/27/25 09:29 Height 5 ft 4 in Weight 148 lb BMI 25.4 BP 112/69 Blood Pressure Location Lt brachial Position Sitting Respiration 16 Pulse 78 Pulse Source Pulse Oximeter Pulse Oximetry (%) 98 Oxygen Delivery Method Room Air Intake Visit Reasons: JARROD QUESTIONNAIRE Insurance Underwriting Assistant Required: Yes Insurance Underwriting Assistant Services: Insurance Underwriting Assistant Present Insurance Underwriting Assistant Name: Micaela [id number] Allergies No Known Allergies (No Known Allergies*) Allergy (Verified 06/27/25 09:31) Medication List - Last Reconciled 06/27/25 by Romy Olson LPN albuterol sulfate 90 mcg/actuation (Ventolin HFA) 2 puffs inhalation Q6H PRN albuterol sulfate 2.5 mg (3 mL) inhalation Q6H PRN amitriptyline 25 mg PO BEDTIME 30 days benzonatate 100 mg PO BID PRN 5 days cholecalciferol (vitamin D3) 50 mcg (2 x 25 mcg (1,000 unit)) PO DAILY 90 days cyclobenzaprine 20 mg (2 x 10 mg) PO BID PRN docusate sodium 100 mg PO BEDTIME esomeprazole magnesium 40 mg PO DAILY fenofibrate 54 mg PO DAILY 90 days fluticasone furoate-vilanterol 200-25 mcg/dose (Breo Ellipta) 1 inh inhalation DAILY gabapentin 300 mg PO TID ibuprofen (Motrin IB) 400 mg (2 x 200 mg) PO Q8H ketoconazole 2% appl topical BID PRN meloxicam 15 mg (2 x 7.5 mg) PO DAILY paroxetine HCl 10 mg PO DAILY 2 months sennosides (Natural Senna Laxative) 8.6 mg PO BEDTIME solifenacin (Vesicare) 10 mg PO DAILY ubrogepant (Ubrelvy) 50 - 100 mg (0.5 - 1 x 100 mg) PO ONCE PRN 30 days umeclidinium 62.5 mcg/actuation (Incruse Ellipta) 1 inh inhalation DAILY walker with seat and wheels HPI HPI JARROD QUESTIONNAIRE: Details: History of Present Illness The patient is a 45-year-old female presenting for an evaluation related to her disability questionnaire and chronic pain management. 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 The pain is described as strong and debilitating, significantly impacting her ability to perform her job duties. She also experiences discomfort in her right knee, which she describes as more or less okay, but it contributes to her overall difficulty in performing physical tasks. Additionally, the patient reports numbness in her big toe, which is a persistent issue. The patient has been advised not to carry more than 10 pounds and to avoid bending down to lift items, as these actions exacerbate her back pain. She is awaiting authorization for a cortisone injection to manage her pain and improve her functional capacity. Pain Description - Onset: Chronic, ongoing pain - Quality: Strong and debilitating - Location: Back, with numbness in the big toe - Exacerbating factors: Standing, carrying heavy boxes, bending down - Relieving factors: Avoiding heavy lifting and bending Pain Management - Affect: Pain significantly impacts daily activities and work ability - Analgesia: Awaiting cortisone injection for pain relief - Activities of Daily Living: Limited by pain, especially in work-related tasks PF[facility] Medical History LEISA (generalized anxiety disorder) GERD (gastroesophageal reflux disease) Anemia Surgical History History of esophagogastroduodenoscopy (EGD) S/P total abdominal hysterectomy Family History Mother No problems noted. Father No problems noted. Family/Other Substance use disorder Mental health disorder Paternal Aunt Stomach cancer Paternal Grandfather Colon cancer Other SLE (systemic lupus erythematosus) Social History Household Members: Children Housing: Apartment Do you presently have visiting nurse or other home services: No Alcohol intake: former Patient Tobacco Use Status: Current everyday Tobacco user Tobacco use type: Cigarette Cigarette Packs Per Day: 1.5 Cigarettes Per Day: 20.0 e-Cigarette/Vaping Use: Never Used Second Hand Smoke Exposure: Yes service: No Current occupational status: employed Current occupation: [employer] Current occupational exposures/hazards: No Cognitive needs: No Hearing needs: No Vision needs: No Female Reproductive History Menstrual Age of Menarche: 14 Physical Exam Vital Signs: Last Vital Signs Pulse 78 06/27/25 09:29 Resp 16 06/27/25 09:29 BP 112/69 06/27/25 09:29 Pulse Ox 98 06/27/25 09:29 Oxygen Delivery Method Room Air 06/27/25 09:29 BMI result Body Mass Index 25.4 Assessment & Plan Assessment & Plan (1) Lumbar disc herniation with radiculopathy: Code(s): M51.16 - Intervertebral disc disorders with radiculopathy, lumbar region Category: Medical Plan Plan Patient was informed and verbally consented to the use of an ambient scribe for clinic note documentation during this visit. 1. Chronic Back Pain - Plan to administer a right parasagittal interlaminar L5-S1 injection pending authorization to alleviate pain and improve function. - Advised to avoid lifting more than 10 pounds and bending to prevent exacerbation of symptoms. 2. Right Knee Discomfort - Monitor symptoms and consider further evaluation if discomfort persists. Discussion Notes I discussed with the patient the plan to administer a cortisone injection to manage her chronic radicular back pain, pending authorization from workers' compensation. I advised her to avoid lifting more than 10 pounds and bending to prevent exacerbation of her symptoms. We also discussed the importance of workplace accommodations to support her functional capacity. Patient Instructions - Avoid lifting more than 10 pounds and bending to prevent worsening of back pain. - Await a call for scheduling the cortisone injection once authorization is received. - Monitor knee discomfort and toe numbness, and report any worsening symptoms. Coding Level of Care Code Est Pt Level 3 (05236) Diagnoses Lumbar disc herniation with radiculopathy M51.16
[2025-06-27 09:29] VITALS: BP 112/69; PULSE 78; RESP 16; O2SAT 98; BMI 25.4
--- OUTSIDE RECORDS SUMMARY | 2025-06-27 09:38 | XMS_ITS | Clinical Summary ---
Author Organization [address] [facility] Address [address] [place] [address] Phone Care Team Providers Care Boiler Washer Name Role Phone Nia Pope MD Primary Care Provider [phone] Allergies No known active allergies Encounters Date Type Department Care Team Description 04/11/2025 10:30 AM EDT Consult Orthopedic Surgery [facility] [address] [facility] [address] [place] [address] Sherman Adams DPM Pain in [...] Date Smoking Tobacco: Every Day Cigarettes 1 18.7 Started: 11/01/2006 Smokeless Tobacco: Never Alcohol Use [...] AM EDT Office Visit Orthopedic Surgery - [place] [address] [place] [address] [phone] Sherman Adams, LEONEL [address] [place] [phone] Health Maintenance Due Date Last Done Comments [...] patient's age to complete this topic Insurance [facility] Care Teams Boiler Washer Relationship Specialty Start Date End Date Nia Pope MD [address] [facility] , [address] [facility] D[facility]A: [facility] [place] PCP - General Internal Medicine 02/01/25
--- OUTSIDE RECORDS SUMMARY | 2025-06-27 09:38 | XMS_ITS | Encounter Summary ---
Author Organization [employer] [facility] Address [address] [facility] [address] [place] [address] Care Team Providers Care Slot Shift Supervisor Name Role Phone Unavailable Primary Care Provider [...]
--- OUTSIDE RECORDS SUMMARY | 2025-06-27 09:38 | XMS_ITS | Clinical Summary ---
Author Organization [employer] Address [address] [facility] [address] [place] [address] Care Team Providers Care Skip Hoist Engineer Name Role Phone Unavailable Primary Care Provider [...] 1979 FIT 1979 FOBT 1979 Sigmoidoscopy 1979 Disability Screening 1979 Alcohol/Substance Use Screening 1991 Tobacco Screening 1991 Family Planning (PISQ) 1994 DTaP/Tdap/Td Vaccines (1 - Tdap) 1998 Pap Smear 01/17/2000 Cervical Cancer Screening 2009 HPV/Cotest 2009 Hepatitis B Vaccines (3 of 3 - Hep B Twinrix 3-dose series) 08/17/2017 03/17/2017, 12/22/2016 Mammogram 2019 COVID-19 Vaccine (3 - 2023-2 5 season) 2024 03/25/2021, 03/06/2021 Influenza Vaccine (#1) 2025 08/06/2022 Zoster Vaccines (1 of 2) 2029 [...] Years) and At-Risk Patients (6 to 49) Years Aged Out No longer eligible b ased on patient's age to complete this topic RSV under 20 months Aged Out No longe r eligible based on patient's age to complete this topic Rotavirus Vaccines Aged Out No longer eligible based on patient's age to complete this topic
== END 2025-06-27 10:18 | disposition home or self-care (01) ==
LOC: HO.PMC 09:10
PROVIDERS: PCP Internal Medicine; Visit Provider Internal Medicine
DX: M51.16 Intervertebral disc disorders with radiculopathy, lumbar region (principal)
CPT/HCPCS: 99213

== ENCOUNTER → 2025-06-27 09:09 | Outpatient (BNVA) | payer OTHER, SELFPAY | PROVIDERS: PCP Internal Medicine; Visit Provider Internal Medicine | DX: M51.16 Intervertebral disc disorders with radiculopathy, lumbar region (principal) | CPT/HCPCS: 99212 ==

== ENCOUNTER 2025-06-28 11:42 | Outpatient (AMB) | payer OTHER, SELFPAY ==
--- NOTE | 2025-06-28 11:55 | MHC.OFFVIS ---
Intake Visit Reasons: 8m follow up Intake Note: Patient is present for 8m f/u Urology Medication: solifenacin Blood Thinner:none Flame Channeler Required: Yes Flame Channeler Name: Merissa--[id number] Information Interpreted: non-clinical & clinical Accompanied by: Self / Same As Patient Allergies No Known Allergies (No Known Allergies*) Allergy (Verified 06/28/25 11:56) Medication List - Last Reconciled 06/28/25 by Jamila Osborne MD albuterol sulfate 90 mcg/actuation (Ventolin HFA) 2 puffs inhalation Q6H PRN albuterol sulfate 2.5 mg (3 mL) inhalation Q6H PRN amitriptyline 25 mg PO BEDTIME 30 days benzonatate 100 mg PO BID PRN 5 days cholecalciferol (vitamin D3) 50 mcg (2 x 25 mcg (1,000 unit)) PO DAILY 90 days cyclobenzaprine 20 mg (2 x 10 mg) PO BID PRN docusate sodium 100 mg PO BEDTIME esomeprazole magnesium 40 mg PO DAILY fenofibrate 54 mg PO DAILY 90 days fluticasone furoate-vilanterol 200-25 mcg/dose (Breo Ellipta) 1 inh inhalation DAILY gabapentin 300 mg PO TID ibuprofen (Motrin IB) 400 mg (2 x 200 mg) PO Q8H ketoconazole 2% appl topical BID PRN meloxicam 15 mg (2 x 7.5 mg) PO DAILY paroxetine HCl 10 mg PO DAILY 2 months sennosides (Natural Senna Laxative) 8.6 mg PO BEDTIME solifenacin (Vesicare) 10 mg PO DAILY ubrogepant (Ubrelvy) 50 - 100 mg (0.5 - 1 x 100 mg) PO ONCE PRN 30 days umeclidinium 62.5 mcg/actuation (Incruse Ellipta) 1 inh inhalation DAILY walker with seat and wheels HPI Comments Details: 06/28/25--Juwan is a 45 year old female presents to the office for follow-up for LUTS frequency, urinary incontinence and pelvic floor weakness---FU on vesicare for OAB. Certified airport control operator utilized. The patient states that she stopped all of her medications other than her asthma medication because she felt she was taking too many medications and could not remember what each medication was night for. She states that the bladder medication did work and I have reviewed the name of the medication and she does want that medication refilled. Otherwise patient's bladder symptoms are stable. We will have her continue follow-up with our nurse practitioner. 10/08/24--Juwan is a 43-year-old female who presents to the office for follow-up for LUTS frequency, urinary incontinence and pelvic floor weakness---FU on vesicare for OAB. The patient states the medication is working much better. She still wears a pad but there is less leakage that she has been experiencing. She is happy with her bladder control at this time. Will continue the VESIcare follow-up in 8 months. 08/23/24--airport control operator utilized. Juwan states she did not get the vesicare prescribed in Nov, 2023. She wears diapers daily. She denies dysuria. UA - unremarkable. Vesicare refilled. Will set up a FU in 6-8 weeks to discuss any change in urinary symptoms. 11/22/23--Juwan is a 43-year-old female who presents to the office for follow-up for LUTS frequency, urinary incontinence and pelvic floor weakness The patient is Faroese speaking female. Certified airport control operator was present during the visit. She was referred to PFPT, she was prescribed Myrbetriq 25 mg qd. She has had some urge symptoms. She denies irritative or UTI symptoms. I will prescribe vesicare 10 mg daily to replace Myrbetriq. UA - Leuks negative, blood negative. 11/22/23--Plan Vesicare 10 mg daily. FU in 9 months. 04/22/23-- The patient is Faroese speaking female. airport control operator was present during the visit. The patient was referred to pelvic floor physical therapy for urinary incontinence and pelvic floor weakness, she is here for follow-up. The patient states that she is not given any exercises for pelvic floor and is receiving PT for left knee as they do not have any appointment space for pelvic floor therapy. States that leakage is more frequent in the interim. Has leakage while coughing and walking. She also has nocturia episodes 2-3 times. States incomplete bladder emptying. Evaluation today-- Blood: negative, leukocytes: negative. Bladder scan PVR: 13 mL. Plan: Referral for pelvic floor physical therapy was rewritten. Myrbetriq 25 mg QD was ordered. Discussed to take the medication at night and, she can change the regime to afternoon or morning to manage the symptoms. Discussed timed voiding. Follow-up after 6 months or sooner if needed. 01/15/2023--Juwan is a 42-year-old female patient who is here as a new patient evaluation for urinary incontinence. The patient is a female. A qualified airport control operator was present during the encounter. The patient last visited the ER on 01/11/23 for left flank pain and underwent CAT scan. Complains having intermittent urinary leakage since 6 months. States wearing panty liners/pads daily. Was prescribed gabapentin in the ER and reports no benefits with the drug. 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 The patient is having a scheduled MRI on 01/19/2023 Surgical history of hysterectomy due to menorrhagia. The patient had 4 vaginal deliveries. Evaluation today: Blood: negative and Leukocyte: negative. Bladder scan: PVR 0 mL. pelvic exam declined by patient. CT without contrast results reviewed--01/11/23-No acute intro-abdominal process seen. [facility] Medical History LEISA (generalized anxiety disorder) GERD (gastroesophageal reflux disease) Anemia Surgical History History of esophagogastroduodenoscopy (EGD) S/P total abdominal hysterectomy Family History Mother No problems noted. Father No problems noted. Family/Other Substance use disorder Mental health disorder Paternal Aunt Stomach cancer Paternal Grandfather Colon cancer Other SLE (systemic lupus erythematosus) Social History Household Members: Children Housing: Apartment Do you presently have visiting nurse or other home services: No Alcohol intake: former Patient Tobacco Use Status: Current everyday Tobacco user Tobacco use type: Cigarette Cigarette Packs Per Day: 1.5 Cigarettes Per Day: 20.0 e-Cigarette/Vaping Use: Never Used Second Hand Smoke Exposure: Yes service: No Current occupational status: employed Current occupation: [employer] Current occupational exposures/hazards: No Cognitive needs: No Hearing needs: No Vision needs: No Female Reproductive History Menstrual Age of Menarche: 14 Review of Systems Const All systems reviewed & are unremarkable except as noted in HPI and below Reports no additional complaints Eyes Reports no additional complaints ENT Reports no additional complaints Card Reports no additional complaints Resp Reports no additional complaints GI Reports no additional complaints Reports as per HPI Musc Reports no additional complaints Skin/Breast Reports system reviewed and no additional complaints, except as documented Neuro Reports no additional complaints Psych Reports no additional complaints Endo Reports no additional complaints Kelvin/Lymph Reports no additional complaints Aller/Immun Reports no additional complaints Assessment & Plan Assessment & Plan (1) Urinary incontinence: Code(s): R32 - Unspecified urinary incontinence Category: Medical (2) Urinary frequency: Code(s): R35.0 - Frequency of micturition Category: Medical (3) OAB (overactive bladder): Code(s): N32.81 - Overactive bladder Category: Medical Plan Continue VESIcare 10 mg daily, patient's bladder symptoms are stable. We will have her continue follow-up with our nurse practitioner. Medications: Changed From solifenacin (Vesicare) 10 mg PO DAILY 90 tabs 3RF To solifenacin (Vesicare) please transcribe sig in hebrew 10 mg PO DAILY 90 tabs 3RF Patient Instructions: The patient had an opportunity to ask questions regarding treatment plan. The patient expressed understanding and agreement with the above treatment plan. The patient is aware they should contact our office by phone for worsening of their current condition or the appearance of new symptoms. Compliance is encouraged with any medications and followup testing that is ordered. It is a privilege to be allowed the opportunity to participate in the urologic care of your patient. If you have any questions or concerns regarding treatment for the above conditions please do not hesitate to contact me. The office telephone contact is [phone]. This note is constructed in part using voice recognition software. While every effort has been made to ensure accuracy public health professor errors may have been included. Yours sincerely, Jamila Osborne MD Coding Level of Care Code Est Pt Level 3 (89557) Diagnoses Urinary incontinence R32 Urinary frequency R35.0 OAB (overactive bladder) N32.81
--- OUTSIDE RECORDS SUMMARY | 2025-06-28 12:53 | XMS_ITS | Clinical Summary ---
Author Organization [employer] Address [address] [facility] [address] [place] [address] Care Team Providers Care Dust Collector Attendant Name Role Phone Unavailable Primary Care Provider [...]
--- OUTSIDE RECORDS SUMMARY | 2025-06-28 12:53 | XMS_ITS | Clinical Summary ---
Author Organization 175 [facility] Address 175 [place] [address] Phone Care Team Providers Care Eyewear Consultant Name Role Phone Nia Pope MD Primary Care Provider [phone] Allergies No known active allergies Encounters Date Type Department Care Team Description 04/11/2025 10:30 AM EDT Consult Orthopedic Surgery [facility] 250 175 [facility] [address] [place] [address] Sherman Adams DPM Pain in [...] AM EDT Office Visit Orthopedic Surgery - [place] [address] [place] [phone] Sherman Adams, LEONEL [address] [place] [phone] Health Maintenance Due Date Last Done Comments [...] patient's age to complete this topic Insurance [facility] Care Teams Eyewear Consultant Relationship Specialty Start Date End Date Nia Pope MD [address] [facility] , [address] [facility] Physician Associ D/B/A: [facility] [place] PCP - General Internal Medicine 02/01/25
--- OUTSIDE RECORDS SUMMARY | 2025-06-28 12:53 | XMS_ITS | Encounter Summary ---
Author Organization [employer] [facility] Address 75 [facility] 7t [place] [address] Care Team Providers Care Night Shift Name Role Phone Unavailable Primary Care Provider [...]
== END 2025-06-28 12:19 | disposition home or self-care (01) ==
LOC: HO.HUSH 11:43
PROVIDERS: PCP Internal Medicine; Visit Provider Urology
DX: R32 Unspecified urinary incontinence (principal); R35.0 Frequency of micturition; N32.81 Overactive bladder
CPT/HCPCS: 99213

== ENCOUNTER → 2025-06-28 11:42 | Outpatient (BNVA) | payer OTHER, SELFPAY | PROVIDERS: PCP Internal Medicine; Visit Provider Urology | DX: N32.81 Overactive bladder (principal); R32 Unspecified urinary incontinence; R35.0 Frequency of micturition | CPT/HCPCS: 99212 ==

== ENCOUNTER → 2025-07-12 14:13 | Outpatient (BNVA) | payer OTHER, SELFPAY | PROVIDERS: PCP Internal Medicine; Visit Provider Physician Assistant Medical | DX: M54.16 Radiculopathy, lumbar region (principal); S86.011D Strain of right Achilles tendon, subsequent encounter; S70.01XD Contusion of right hip, subsequent encounter; S80.01XD Contusion of right knee, subsequent encounter; S90.31XD Contusion of right foot, subsequent encounter; S84 Injury of nerves at lower leg level; W18.09XD Striking against other object with subsequent fall, subsequent encounter; M23.91 Unspecified internal derangement of right knee | CPT/HCPCS: 99213 ==

== ENCOUNTER 2025-07-17 13:12 | Outpatient (AMB) | payer OTHER, SELFPAY ==
--- OUTSIDE RECORDS SUMMARY | 2025-07-12 10:30 | XMS_ITS | Encounter Summary ---
Author Organization [facility] Address [address] [place] [address] Care Team Providers Care Mannequin Molder Name Role Phone Nia Pope MD Primary Care Provider [phone] Reason for Visit * Reason Comments Foot Pain Pain in toes of both feetDermatophytosis, nail * Consultation (Routine) - Closed Specialty Diagnoses / Procedures Referred By Contact Referred To Contact Podiatry / Orthopaedic Surgery Diagnoses Onychogryphosis Nia Pope MD [address] [place], [place] [address], [address] [facility] Physician Associ D/B/A: [facility] [place] Phone: tel: fax: Sherman Adams DPM [address] [address] Phone: tel: fax: Referral ID Status Reason Start Date Expiration Date V isits Requested Visits Authorized [id number] Closed Specialty Services Required 02/01/2025 02/01/2026 1 1 Encounter Details Date Type Department Care Team (Late st Contact Info) Description 07/12/2025 10:30 AM EDT Office Visit Orthopedic Surgery - [place] [address] [phone] Sherman Adams DPM [address] [address] Pain in toes of both feet (Primary Dx); Dermatophytosis, nail Social History Tobacco Use Types Packs/Day Years [...] on file Sexual Orientation Not on file documented as of this encounter Ordered Prescriptions Prescription Sig Dispense Quantity Refills Last Filled Start Date End Date ciclopirox (PENLAC) 8 % solution Apply topically at bedtime. Apply over nail and surrounding skin. Apply daily over previous coat. After seven (7) days, may remove with alcohol and continue cycle. 6.6 mL 07/12/2025 documented in this encounter Progress Notes * Sherman Adams DPM - 07/12/2025 10:30 AM EDT Referring MD: Nia Pope MD Last PCP visit: 01/23/2025 IDENTIFIER: Owen Mcelroy is a 45 y.o. year old female who presents for consultation. CC: Bilateral foot pain HPI: 45-year-old female returns to office chief complaint of bilateral toe pain. Patient notes that she has some thickness of the nails which are painful in close toed shoes. Patient would like to discusstreatment options ROS: GENERAL: Pt denies nausea, fever, vomiting, chills, or shortness of breath. Pt in NAD. CARDIOLOGY: pt denies chest pain, palpitations LUNGS: pt denies shortness of breath MUSCULOSKELETAL: See HPI, otherwise no joint pain or swelling, back pain, or muscle pain. SKIN: see HPI, otherwise no lesions, rash or itching NEURO: No persistent headache, weakness or numbness The remainder of the review of systems is noncontributory PAST MEDICAL HISTORY: There is no problem list on file for this patient. SOCIAL HISTORY: Social History Tobacco Use Smoking status: Every Day Current packs/day: 1.00 Average packs/day: 1 pack/day for 18.7 years (18.7 ttl pk-yrs) Types: Cigarettes Start date: 11/01/2006 Smokeless tobacco: Never Substance Use Topics Alcohol use: No ACTIVE MEDICATIONS: No outpatient medications have been marked as taking for the 07/12/25 encounter (Office Visit) with Sherman Adams DPM. ALLERGIES: Patient has no known allergies. PHYSICAL EXAM: There were no vitals taken for this visit. PODIATRIC EXAMINATION: GENERAL: Patient appears well nourished, with NAD. VASCULAR: Dorsalis pedis pulses are 2/4 bilaterally and Posterior tibial pulses are 2/4 bilaterally. Capillary filling time within normal limits the digits. No pallor on elevation or rubor on dependency. Positive hair growth. No varicosities. Denies rest pain or claudication pain. NEUROLOGICAL: Sharp/dull sensation intact, protective sensation intact 10/10 with 5.07 semmes akhil bilaterally, vibratory sensation with tuning fork intact to the tibial tuberosity. ORTHOPEDIC: Good muscle strength 5/5 of all flexors and extensors. Dorsi flexion of ankle ,10 degrees, plantar flexion WNL. No muscle atrophy. Pain palpation of the distal aston of the digits 1 and 2bilaterally. DERMATOLOGICAL:.No masses or skin lesions noted. Normal skin temperature, normal skin turgor. Nailsare thickened misshapened with subungual debris to bilateral great toes BIOMECHANICS: STJ ROM wnl, MTJ ROM wnl, 1st MPJ ROM wnl. IMPRESSION: 1. Pain in toes of both feet 2. Dermatophytosis, nail PLAN: Pt was seen and examined, history reviewed. Patient with increased pain to the distal aston of the digits. Patient encouraged to use a shoe that is more accommodating and puts less pressure on her feet when ambulating longer distances Patient educated on the proper way to apply antifungal topical treatment. Patient is to apply a layer of the medication to the entire nail unit daily. Patient is to take nail georgian remover and/or alcohol, once a month, and clean the bases of the nails. Patient is take a nail file and thin the top layers of the nails once monthly. Patient educated on how to monitor the growth of the new nail by examining the nail bases. Patient will return to office in 3 months for re-evaluation of the nails and new photograph to monitor progression. All questions answered at this time. Sherman Adams DPM documented in this encounter Plan of Treatment Upcoming Encounters Date Type Department Care Team (Late st Contact Info) Description 09/10/2025 2:15 PM EST Office Visit Orthopedic Surgery - [place] 250 175 [facility] 250 [place] [address] Sherman Adams, DPEduard 175 [facility] Dipesh 250 [place] [address] documented as of this encounter Visit Diagnoses Diagnosis Pain in toes of both feet- Primary Dermatophytosis, nail Dermatophytosis of nail documented in this encounter Care Teams Mannequin Molder Relationship Specialty Start Date End Date Nia Pope MD [address] [place] [address] , [address] Physician Associ D/B/A: [facility] [place] PCP - General Internal Medicine 02/01/25 documented as of this encounter
--- NOTE | 2025-07-17 13:22 | MHC.PC.OV ---
Vital Signs 07/17/25 13:23 Height 5 ft 4 in Weight 146 lb 2 oz BMI 25.1 BP 98/70 Blood Pressure Location Lt brachial Position Sitting Respiration 18 Pulse 88 Pulse Source Pulse Oximeter Temp 97.3 F Temp Source Temporal Artery Scan Pulse Oximetry (%) 97 Oxygen Delivery Method Room Air Intake Visit Reasons: depression Quality Assurance Advisor Required: No Accompanied by: Self / Same As Patient Allergies No Known Allergies (No Known Allergies*) Allergy (Verified 07/17/25 14:04) Medication List - Last Reconciled 07/17/25 by Nia Pope MD albuterol sulfate 90 mcg/actuation (Ventolin HFA) 2 puffs inhalation Q6H PRN albuterol sulfate 2.5 mg (3 mL) inhalation Q6H PRN amitriptyline 25 mg PO BEDTIME 30 days esomeprazole magnesium 40 mg PO DAILY fluticasone furoate-vilanterol 200-25 mcg/dose (Breo Ellipta) 1 inh inhalation DAILY gabapentin 300 mg PO TID ibuprofen (Motrin IB) 400 mg (2 x 200 mg) PO Q8H ketoconazole 2% appl topical BID PRN meloxicam 15 mg (2 x 7.5 mg) PO DAILY paroxetine HCl 10 mg PO DAILY 2 months sennosides (Natural Senna Laxative) 8.6 mg PO BEDTIME solifenacin (Vesicare) 10 mg PO DAILY ubrogepant (Ubrelvy) 50 - 100 mg (0.5 - 1 x 100 mg) PO ONCE PRN 30 days umeclidinium 62.5 mcg/actuation (Incruse Ellipta) 1 inh inhalation DAILY walker with seat and wheels Tobacco use date assessed: 07/17/25 Dental Screening Dental Screen Date: 07/17/25 Did you have a dental visit in the last 12 months?: No Did you have a dental problem in the last 6 months where you did not have access to dental care?: No Was dental information given to patient?: No HPI HPI Comments History of Present Illness Details The patient is a 45-year-old female presenting with depression, anxiety, and premenstrual syndrome. She has a PHQ-9 score of 21, indicating severe depression, and denies any suicidal ideation. Currently, she is not under the care of a counselor or psychiatrist and has been taking paroxetine 10 mg, which is being increased to 20 mg today. The patient also experiences migraines, which are managed by neurology, but reports that amitriptyline is ineffective. She has moderate persistent asthma managed by pulmonology and uses Senna for constipation. She is on Vesicare for urinary incontinence, which is managed by urology. Her cholesterol and triglycerides are elevated, but medication is not required based on her risk score. The patient has a mild vitamin D deficiency and is a smoker who was supposed to quit. She reports low back pain radiating to both legs, associated with bilateral neck numbness and tingling, described as burning pain. Gabapentin is used for this condition, and she seeks a second opinion from pain management. [facility] Medical History (Updated 07/17/25 @ 14:20 by Nia Pope MD) LEISA (generalized anxiety disorder) GERD (gastroesophageal reflux disease) Anemia Surgical History History of esophagogastroduodenoscopy (EGD) S/P total abdominal hysterectomy Family History Mother No problems noted. Father No problems noted. Family/Other Substance use disorder Mental health disorder Paternal Aunt Stomach cancer Paternal Grandfather Colon cancer Other SLE (systemic lupus erythematosus) Social History Household Members: Children Housing: Apartment Do you presently have visiting nurse or other home services: No Alcohol intake: former Patient Tobacco Use Status: Current everyday Tobacco user Tobacco use type: Cigarette Cigarette Packs Per Day: 1.5 Cigarettes Per Day: 20.0 e-Cigarette/Vaping Use: Never Used Second Hand Smoke Exposure: Yes service: No Current occupational status: employed Current occupation: [employer] Current occupational exposures/hazards: No Cognitive needs: No Hearing needs: No Vision needs: No Female Reproductive History Menstrual Age of Menarche: 14 Questionnaire PHQ-9 Over the last 2 weeks, how often have you been bothered by any of the following problems? 1. Little interest or pleasure in doing things: nearly every day 2. Feeling down, depressed, or hopeless: nearly every day 3. Trouble falling or staying asleep, or sleeping too much: nearly every day 4. Feeling tired or having little energy: nearly every day 5. Poor appetite or overeating: more than half the days 6. Feeling bad about yourself - or that you are a failure or have let yourself or your family down: more than half the days 7. Trouble concentrating on things, such as reading the newspaper or watching television: more than half the days 8. Moving or speaking so slowly that other people could have noticed. Or the opposite - being so fidgety or restless that you have been moving around a lot more than usual: more than half the days 9. Thoughts that you would be better off or of hurting yourself in some way: several days Total score: 21 Depression Screening Interpretation: Positive (no suicidal thoughts) Depression Screening Follow-up: Existing condition, In treatment and Follow-up Visit Requested Depression Screening Done: Yes 61779 - PHQ-9 Billing: Yes Source: Developed by Drs. Dominic Lombardo, Selina Castañeda, Wellington Marie and colleagues, with an educational dasia from [employer]. Thrive Questionnaire Date Thrive assessed: 01/11/25 I am a: Patient What is your living situation today?: I choose not to answer this question Within the past 12 months, did the food you bought not last and you didn't have the money to get more?: I choose not to answer this question Within the past 12 months, did you worry whether your food would run out before you got money to buy more?: I choose not to answer this question Do you have trouble paying for medicines?: I choose not to answer this question Do you have trouble getting transportation to medical appointments?: I choose not to answer this question Do you have trouble paying your heating and electricity bill?: Yes Do you have trouble taking care of your child, family member or friend?: I choose not to answer this question Do you have trouble with day-to-day activities such as bathing, preparing meals, shopping, managing finances, etc.?: I choose not to answer this question Are you currently unemployed and looking for a job?: I choose not to answer this question Are you interested in more education?: I choose not to answer this question Currently or been in a relationship where the following occur: I choose not to answer THRIVE Score: 1 AUDIT C Alcohol Use Questionnaire (AUDIT-C) 1. How often do you have a drink containing alcohol?: Monthly or less 2. How many drinks containing alcohol do you have on a typical day when you are drinking?: 1 or 2 3. How often do you have six or more drinks on one occasion?: Less than monthly Total Score: 2 Score Reviewed/Action Taken: No LEISA-7 AMB Questionnaire LEISA-7 Date LEISA - 7 assessed: 07/17/25 Feeling nervous, anxious, or on edge: 3 = Nearly every day Not being able to stop or control worryin = Nearly every day Worrying too much about different things: 3 = Nearly every day Trouble relaxin = Nearly every day Being so restless that it is hard to sit still: 3 = Nearly every day Becoming easily annoyed or irritable: 3 = Nearly every day Feeling afraid as if something awful might happen: 3 = Nearly every day Total LEISA-7 score (0-4 normal; 5-9 mild; 10-14 moderate; 15-21 severe): 21 Source: Developed by Drs. Dominic Lombardo, Selina Castañeda, Wellington Marie and colleagues, with an educational dasia from [employer]. LEISA-7 Assessment Billing LEISA-7 Assessment Tool: LEISA-7 Assessment 01875 Review of Systems Const All systems reviewed & are unremarkable except as noted in HPI and below Card Denies chest pain at rest, Denies chest pain with activity, Denies edema, Denies irregular heart rhythm, Denies claudication, Denies dyspnea, Denies dyspnea on exertion, Denies orthopnea, Denies paroxysmal nocturnal dyspnea and Denies slow heart rate Resp Denies cough, Denies dyspnea and Denies dyspnea on exertion Physical exam (Primary Care) Vital Signs: Last Vital Signs Temp 97.3 F 07/17/25 13:23 Pulse 88 07/17/25 13:23 Resp 18 07/17/25 13:23 BP 98/70 07/17/25 13:23 Pulse Ox 97 07/17/25 13:23 Oxygen Delivery Method Room Air 07/17/25 13:23 BMI result Body Mass Index 25.1 Tobacco/Smoking Status: Tobacco use Status Tobacco use date assessed 07/17/25 07/17/25 13:34 Patient Tobacco Use Status Current everyday Tobacco 07/17/25 13:34 Tobacco use type Cigarette 07/17/25 13:34 e-Cigarette/Vaping Use Never Used 07/17/25 13:34 Are you ready to quit: No Tobacco cessation counseling provided: Yes Items discussed: Nicotine replacement and [employer]Works Relapse Prevention: discussed the importance of a supportive environment Number of minutes spent counselin CPT code: Less than 3 minutes PHQ-9: PHQ-9 Score PHQ-9: Total score 21 07/17/25 14:20 Depression Screening Interpretation: Positive (no suicidal thoughts) Depression Screening Follow-up: Existing condition, In treatment and Follow-up Visit Requested Thrive Assessment: Date of Thrive Assessment Date Thrive assessed 01/11/25 07/17/25 13:34 Currently or been in a relationship where the following occur: I choose not to answer Resp Effort & Inspection: normal respiratory effort Auscultation: clear to auscultation bilaterally Cardio Jugular venous distension: no JVD Rate: regular rate Rhythm: regular rhythm Heart sounds: S1 normal heart sound present and S2 normal heart sound present Extrem General: Yes full ROM Coding Level of Care Code Est Pt Level 4 (18962) Complex EM visit Add On G2211 Diagnoses Moderate recurrent major depression F33.1 LEISA (generalized anxiety disorder) F41.1 HLD (hyperlipidemia) E78.5 Hypovitaminosis D E55.9 Urinary incontinence, mixed N39.46 Migraine without aura G43.009 Lumbar degenerative disc disease M51.36 Asthma-COPD overlap syndrome J44.89 Additional Codes LEISA-7 Assessment Billing - LEISA-7 Assessment Tool: LEISA-7 Assessment 51433 ([id number]) PHQ-9 - 65673 - PHQ-9 Billing: Yes ([id number]) Time Spent (min) 24 Assessment & Plan Assessment & Plan (1) Moderate recurrent major depression: Code(s): F33.1 - Major depressive disorder, recurrent, moderate Category: Medical (2) LEISA (generalized anxiety disorder): Code(s): F41.1 - Generalized anxiety disorder Category: Medical (3) HLD (hyperlipidemia): Code(s): E78.5 - Hyperlipidemia, unspecified Category: Medical (4) Hypovitaminosis D: Code(s): E55.9 - Vitamin D deficiency, unspecified Category: Medical (5) Urinary incontinence, mixed: Code(s): N39.46 - Mixed incontinence Category: Medical (6) Migraine without aura: Code(s): G43.009 - Migraine without aura, not intractable, without status migrainosus Category: Medical (7) Lumbar degenerative disc disease: Code(s): M51.36 - Other intervertebral disc degeneration, lumbar region Category: Medical (8) Asthma-COPD overlap syndrome: Code(s): J44.89 - Other specified chronic obstructive pulmonary disease Category: Medical Plan Plan Patient was informed and verbally consented to the use of an ambient scribe for clinic note documentation during this visit. 1. Major depressive disorder, recurrent, moderate F33.1 HCC 59 The patient has a PHQ-9 score of 21, indicating severe depression. She denies any suicidal ideation and is currently not under the care of a counselor or psychiatrist. The plan is to increase her paroxetine dosage from 10 mg to 20 mg to better manage her symptoms. 2. Anxiety disorder, unspecified F41.9 Anxiety is being managed alongside depression with an increase in paroxetine dosage. No additional interventions were discussed during this visit. 3. Migraine, unspecified, not intractable, without status migrainosus G43.909 The patient reports that amitriptyline is not effective for her migraines. She is under the care of neurology for further management. 4. Other specified chronic obstructive pulmonary disease J44.89 HCC 111 Asthma is managed by pulmonology. 5. Constipation, unspecified K59.00 Constipation is managed with Senna. No additional interventions were discussed during this visit. 6. Unspecified urinary incontinence R32 Urinary incontinence is managed with Vesicare under the supervision of urology. No changes in management were discussed during this visit. 7. Hyperlipidemia, unspecified E78.5 The patient has elevated cholesterol and triglycerides but does not require medication based on her risk score. 8. Low back pain, unspecified M54.50 The patient reports low back pain radiating to both legs, with numbness and tingling. She is currently using gabapentin and seeks a second opinion from pain management. Orders: Referrals Pain Management Referral M54.16 - Radiculopathy, lumbar region Medications: New paroxetine HCl 20 mg PO DAILY 90 tabs 1RF 90 days Changed From gabapentin 300 mg PO TID 45 caps 0RF To gabapentin 300 mg PO TID 90 caps 1RF 30 days Discontinued paroxetine HCl Discontinued Reason: Patient Completed Course 10 mg PO DAILY 2 months 60 tabs 0RF
[2025-07-17 13:23] VITALS: BP 98/70; PULSE 88; RESP 18; TEMP 36.3; O2SAT 97; BMI 25.1
--- OUTSIDE RECORDS SUMMARY | 2025-07-17 17:06 | XMS_ITS | Clinical Summary ---
Author Organization [employer] Address [address] [facility] 7t [place] [address] Care Team Providers Care Inside Sales Account Executive Name Role Phone Unavailable Primary Care Provider [...] 12/22/2016 Mammogram 2019 COVID-19 Vaccine (3 - 2024-2 6 season) 2025 03/25/2021, 03/06/2021 Influenza Vaccine (#1) 2025 08/06/2022 [...]
--- OUTSIDE RECORDS SUMMARY | 2025-07-17 17:06 | XMS_ITS | Clinical Summary ---
Author Organization 175 [facility] Address 175 [place] [address] Phone Care Team Providers Care Bowling Alley Refinisher Name Role Phone Nia Pope MD Primary Care Provider [phone] Allergies No known active allergies Medications ciclopirox (PENLAC) 8 % solution Apply topically at bedtime. Apply over nail and surrounding skin. Apply daily over previous coat. After seven (7) days, may remove with alcohol and continue cycle. 6.6 mL 5 10/10/20 25 Active Encounters Date Type Department Care Team Description 07/12/2025 10:30 AM EDT Office Visit Orthopedic Surgery [facility] 250 175 [facility] [address] [place] [phone] Sherman Adams DPM Pain in toes [...] PM EST Office Visit Orthopedic Surgery - [place] 250 175 [facility] 250 [place] [address] Sherman Adams, LEONEL [address] [address] Health Maintenance Due Date Last Done Comments Breast Cancer Screening 1980 Pneumococcal Vaccine: Pediatrics (0 to 5 Years) and At-Risk Patients (6 to 49 Years) (1 of 2 - PCV) 1998 Cervical Cancer Screening: P ap Smear 01/17/2000 Hepatitis B Vaccines (3 of 3 - Hep B Twinrix 3-dose series) 08/17/2017 03/17/2017, 12/22/2016 Depression Screening 11/01/2024 Colorectal Cancer Screening: Colonoscopy 02/01/2025 HIV Screening 02/01/2025 Hepatitis C Screening 02/01/2025 Social Influencers of Health Screening 02/01/2025 COVID-19 Vaccine (3 - 2024-2 6 season) 2025 03/25/2021, 03/06/2021 Influenza Vaccine (#1) 2025 08/06/2022 DTaP,Tdap,and Td [...] patient's age to complete this topic Insurance [facility] [place] [id number] [facility] [place] [address] Care Teams Bowling Alley Refinisher Relationship Specialty Start Date End Date Nia Pope MD [address] [place] [address] , [address] [place] [address] Physician Associ D/B/A: [facility] [place], [place] PCP - General Internal Medicine 02/01/25
--- OUTSIDE RECORDS SUMMARY | 2025-07-17 17:06 | XMS_ITS | Encounter Summary ---
Author Organization [employer] [facility] Address [address] [facility] 7t [place] [address] Care Team Providers Care Measuring Machine Tender Name Role Phone Unavailable Primary [...]
== END 2025-07-17 14:33 | disposition home or self-care (01) ==
LOC: HO.HMCH 13:13
PROVIDERS: PCP Internal Medicine; Visit Provider Internal Medicine
DX: J44.89 Other specified chronic obstructive pulmonary disease (principal); F33.1 Major depressive disorder, recurrent, moderate; F41.1 Generalized anxiety disorder; E78.5 Hyperlipidemia, unspecified; E55.9 Vitamin D deficiency, unspecified; N39.46 Mixed incontinence; G43.009 Migraine without aura, not intractable, without status migrainosus; M51.369 Other intervertebral disc degeneration, lumbar region without mention of lumbar back pain or lower extremity pain

== ENCOUNTER → 2025-07-17 13:12 | Outpatient (BNVA) | payer OTHER, SELFPAY | PROVIDERS: PCP Internal Medicine; Visit Provider Internal Medicine | DX: G43.009 Migraine without aura, not intractable, without status migrainosus (principal); E55.9 Vitamin D deficiency, unspecified; R20.0 Anesthesia of skin; M54.2 Cervicalgia; F33.1 Major depressive disorder, recurrent, moderate; F41.1 Generalized anxiety disorder; E78.5 Hyperlipidemia, unspecified; N39.46 Mixed incontinence; M51.360 Other intervertebral disc degeneration, lumbar region with discogenic back pain only; J44.89 Other specified chronic obstructive pulmonary disease; M54.16 Radiculopathy, lumbar region; Z79.899 Other long term (current) drug therapy | CPT/HCPCS: 96127; 99212 ==

== ENCOUNTER 2025-07-26 10:48 | Outpatient (AMB) | payer OTHER, SELFPAY ==
--- NOTE | 2025-07-26 11:00 | A.OFFVIS_ITS ---
Vital Signs 07/26/25 11:01 Height 5 ft 4 in Weight 146 lb BMI 25.1 BP 96/60 Intake Visit Reasons: Med follow up Asset Protection Officer Required: Yes Asset Protection Officer Language: Deputy Court Clerk Services: Asset Protection Officer Present (in person) Asset Protection Officer Name: Cookie AYON Information Interpreted: non-clinical & clinical Accompanied by: Self / Same As Patient Allergies No Known Allergies (No Known Allergies*) Allergy (Verified 07/26/25 11:13) HPI Comments Details: The patient is presenting for follow-up regarding hot flashes. The patient was prescribed 7.5 mg of paroxetine was not approved by the insurance . Meanwhile the patient was diagnosed with generalized anxiety disorder/depression by PCP and was prescribed 20 mg paroxetine on 07/17/2025, the patient has not started it yet [facility] Medical History LEISA (generalized anxiety disorder) GERD (gastroesophageal reflux disease) Anemia Surgical History History of esophagogastroduodenoscopy (EGD) S/P total abdominal hysterectomy Family History Mother No problems noted. Father No problems noted. Family/Other Substance use disorder Mental health disorder Paternal Aunt Stomach cancer Paternal Grandfather Colon cancer Other SLE (systemic lupus erythematosus) Social History Household Members: Children Housing: Apartment Do you presently have visiting nurse or other home services: No Alcohol intake: former Patient Tobacco Use Status: Current everyday Tobacco user Tobacco use type: Cigarette Cigarette Packs Per Day: 1.5 Cigarettes Per Day: 20.0 e-Cigarette/Vaping Use: Never Used Second Hand Smoke Exposure: Yes service: No Current occupational status: employed Current occupation: [employer] Current occupational exposures/hazards: No Cognitive needs: No Hearing needs: No Vision needs: No Female Reproductive History Menstrual Age of Menarche: 14 Review of Systems Const All systems reviewed & are unremarkable except as noted in HPI and below Reports as per HPI and Reports no additional complaints GI Reports no additional complaints Reports no additional complaints Physical Exam Vital Signs: Last Vital Signs BP 96/60 07/26/25 11:01 BMI result Body Mass Index 25.1 Assessment & Plan Assessment & Plan (1) Hot flashes: Code(s): R23.2 - [place] Category: Medical Plan: Explained to the patient that paroxetine is 1 of the treatment options for hot flashes improvement, instructions given the patient to call if symptoms not improved after initiating paroxetine will consider different options of treatment. All questions answered, the patient verbalized understanding Coding Level of Care Code Est Pt Level 3 (06462) Diagnoses Hot flashes R23.2
[2025-07-26 11:01] VITALS: BP 96/60; BMI 25.1
== END 2025-07-26 11:21 | disposition home or self-care (01) ==
LOC: HO.HWS 10:48
PROVIDERS: PCP Internal Medicine; Visit Provider Obstetrics & Gynecology
DX: R23.2 Flushing (principal)
CPT/HCPCS: 99213

== ENCOUNTER → 2025-07-26 10:48 | Outpatient (BNVA) | payer OTHER, SELFPAY | PROVIDERS: PCP Internal Medicine; Visit Provider Obstetrics & Gynecology | DX: R23.2 Flushing (principal) | CPT/HCPCS: 99212 ==

== ENCOUNTER → 2025-08-02 13:48 | Outpatient (BNVA) | payer OTHER, SELFPAY | PROVIDERS: PCP Internal Medicine; Visit Provider Physician Assistant Medical | DX: M54.16 Radiculopathy, lumbar region (principal); S86.011D Strain of right Achilles tendon, subsequent encounter; S70.01XD Contusion of right hip, subsequent encounter; S80.01XD Contusion of right knee, subsequent encounter; S90.31XD Contusion of right foot, subsequent encounter; M23.8X1 Other internal derangements of right knee; S84 Injury of nerves at lower leg level; W18.09XD Striking against other object with subsequent fall, subsequent encounter | CPT/HCPCS: 99213 ==

== ENCOUNTER 2025-08-08 13:23 | Outpatient (AMB) | payer OTHER, SELFPAY ==
--- NOTE | 2025-08-08 13:55 | A.OFFVIS_ITS ---
Vital Signs 08/08/25 13:56 Height 5 ft 4 in Weight 150 lb BMI 25.7 BP 102/60 Blood Pressure Location Rt brachial Position Sitting Pulse 85 Pulse Source Pulse Oximeter Pulse Oximetry (%) 102 H Oxygen Delivery Method Room Air Intake Visit Reasons: 6mon follow-up Intake Note: Patient presents for follow up sleep study done 08/28/24. called patient Re: labs lvm Loan Documentation Specialist Required: No Loan Documentation Specialist Services: Loan Documentation Specialist Present Loan Documentation Specialist Name: Lina Medellin Accompanied by: Self / Same As Patient Allergies No Known Allergies (No Known Allergies*) Allergy (Verified 08/08/25 14:06) Medication List - Last Reconciled 08/08/25 by MOLLY Chiang acetaminophen 1,000 mg (2 x 500 mg) PO TID PRN albuterol sulfate 90 mcg/actuation (Ventolin HFA) 2 puffs inhalation Q6H PRN albuterol sulfate 2.5 mg (3 mL) inhalation Q6H PRN amitriptyline 25 mg PO BEDTIME 30 days esomeprazole magnesium 40 mg PO DAILY fluticasone furoate-vilanterol 200-25 mcg/dose (Breo Ellipta) 1 inh inhalation DAILY gabapentin 300 mg PO TID 30 days indomethacin 50 mg PO BID paroxetine HCl 20 mg PO DAILY 90 days sennosides (Natural Senna Laxative) 8.6 mg PO BEDTIME solifenacin (Vesicare) 10 mg PO DAILY ubrogepant (Ubrelvy) 50 - 100 mg (0.5 - 1 x 100 mg) PO ONCE PRN 30 days umeclidinium 62.5 mcg/actuation (Incruse Ellipta) 1 inh inhalation DAILY walker with seat and wheels HPI Comments Details: 44-yr-old female presents for f/u visit for migraine and bilateral lower extremity paresthesia and pain. Interval 03/05/2025 In-lab PSG did not show evidence for sleep apnea, however it did show evidence for periodic of sleep. * Overall sleep efficiency 71%, AHI 1 per hour, average SpO2 93%, O2 joe 87% with SpO2 under 88% for 0.1 minutes. Periodic limb movement of sleep 59 per hour with PLMS arousal index 9.3 per hour. Patient reports she is frustrated today, as she had interval rheumat[facility] consult [facility], and they did not feel that she had a rheumatological disorder but she continues to have generalized Bilateral hand and BLE pain. She previously saw pain management, but felt the injection tx was painful and not helpful. She also states that she had a fall in January, and has not been able to work since due to back pain. She is again [place] [facility] [place]. She is having generalized pain, bone pain. She continues to have bilateral hand and wrist discomfort, swelling, and at times tingling if she is holding something for some time. This makes it difficult to do her daily activities or work. She also endorses restlessness and muscle cramps at rest- creepy crawling sensation, poor sleep, snoring, daytime sleepiness. Pt reports that she is having 2 migraine attack per week, which lasts 1-2 days. She states Ubrelvy is helpful. Baseline headache characteristics: Migraine headache a/w photophobia, N/V, approx 3 times per week. Also episodes of cold sensation of bilateral occipital region, not right in space dizziness, loses vision and sees little white dots- this lasts a few seconds. [facility] Medical History LEISA (generalized anxiety disorder) GERD (gastroesophageal reflux disease) Anemia Surgical History History of esophagogastroduodenoscopy (EGD) S/P total abdominal hysterectomy Family History Mother No problems noted. Father No problems noted. Family/Other Substance use disorder Mental health disorder Paternal Aunt Stomach cancer Paternal Grandfather Colon cancer Other SLE (systemic lupus erythematosus) Social History Household Members: Children Housing: Apartment Do you presently have visiting nurse or other home services: No Alcohol intake: former Patient Tobacco Use Status: Current everyday Tobacco user Tobacco use type: Cigarette Cigarette Packs Per Day: 1.5 Cigarettes Per Day: 20.0 e-Cigarette/Vaping Use: Never Used Second Hand Smoke Exposure: Yes service: No Current occupational status: employed Current occupation: [employer] Current occupational exposures/hazards: No Cognitive needs: No Hearing needs: No Vision needs: No Female Reproductive History Menstrual Age of Menarche: 14 Physical Exam Vital Signs: Last Vital Signs Pulse 85 08/08/25 13:56 BP 102/60 08/08/25 13:56 Pulse Ox 102 H 08/08/25 13:56 Oxygen Delivery Method Room Air 08/08/25 13:56 BMI result Body Mass Index 25.7 Const General: cooperative and no acute distress Orientation/consciousness: patient oriented x3 Resp Effort & Inspection: normal respiratory effort and able to speak in complete sentences Neuro General: patient oriented x3 Cranial nerves: Yes CN's II-XII intact bilaterally Cognition (Neuro): normal cognition Gait exam (Neuro): Normal gait present Psych Appearance: grossly normal Mental Status: mental status grossly normal Speech and movement: Normal speech and movement present Affect: normal affect (though sad and teary at times) Attitude: cooperative Assessment & Plan Assessment & Plan (1) Migraine without aura: Code(s): G43.009 - Migraine without aura, not intractable, without status migrainosus Category: Medical Qualifiers: Status migrainosus presence: without status migrainosus Intractability: not intractable Qualified Code(s): G43.009 - Migraine without aura, not intractable, without status migrainosus (2) Sleep difficulties: Code(s): G47.9 - Sleep disorder, unspecified Category: Medical (3) Snoring: Code(s): R06.83 - Snoring Category: Medical (4) Muscle cramps: Code(s): R25.2 - Cramp and spasm Category: Medical (5) Restless leg syndrome: Code(s): G25.81 - Restless legs syndrome Category: Medical Plan For pain/paresthesias, bone pain, cramps, restlessness, ? RLS:. 11/04/2023: LUE EMG/NCS- normal. 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 Continue to avoid crossing legs, wearing tight clothing. Reviewed labs- last ferritin > 100 Reviewed interval in-pSG, results of which show PLMS, which raises the likelihood of RLS dx. Increase gabapentin to 300 mg 4 times a day: 1 cap q.a.m., 1 cap Q afternoon, 1 cap 3 hours before bedtime, and 1 cap right at bedtime. Start magnesium 400 mg daily at bedtime, this may help RLS, cramps and headache symptoms as well. Start alpha lipoic acid 600 mg daily in the morning-a help with neuropathic pain symptoms Increase stretching type exercises. Previous trials: PT-ineffective. Future considerations- RLE EMG/NCS, referring pt back to pain management or requesting podiatry consult. For low back pain: Follow-up with pain management in the work connection as scheduled. Patient has not yet started indomethacin 50 mg b.i.d. order per were connection, patient advised to ask her pharmacy about this. And reinforced, when she starts indomethacin, to take it after eating food. For dyslipidemia incomplete of worsening dizziness: Patient advised to resume fenofibrate as ordered by PCP. Reviewed bilateral carotid ultrasound: No significant stenosis noted. Follow-up with PCP to address cholesterol management therapy. ? For migraine prevention tx: Continue Amitriptyline 25 daily at bedtime- this may help w/ body pains as well, though consider alternate if worsens restlessness. Previous trials: Topiramate- not tolerated For acute migraine tx: Continue Ubrogepant (Ubrelvy) 100mg tab, 1/2 - 1 tab (50-100mg) at onset of headache, may repeat in 2 hours. Max of 2 tabs (200mg) per 24 hours. * May adjunct with OTC Tylenol 650mg q 4 hours, Ibuprofen 600mg q 6 hours, or Naproxen 440mg q 12 hrs prn. Previous tx trials: Sumatriptan 100mg tab- caused N/V. Naratriptan- ineffective Acute migraine treatment contraindications: All triptans and DHE due to uncontrolled dyslipidemia. ? Will follow-up upon review of above and patient to follow-up in clinic in 4-6 months or sooner prn. Medications: New alpha lipoic acid 600 mg PO DAILY 30 caps 6RF 30 days magnesium oxide may hold for loose stools 400 mg PO BEDTIME 90 tabs 3RF 90 days Changed From gabapentin 300 mg PO TID 30 days 90 caps 1RF To gabapentin 300 mg PO QID 120 caps 6RF 30 days Refilled ubrogepant (Ubrelvy) take at onset of migraine, may repeat in 2hrs (may take w/ Ibuprofen) 50 - 100 mg (0.5 - 1 x 100 mg) PO ONCE PRN 16 tabs 6RF migraine headache 30 days Coding Level of Care Code Est Pt Level 4 (79020) Diagnoses Migraine without aura and without status migrainosus, not intractable G43.009 Status migrainosus presence: without status migrainosus Intractability: not intractable Sleep difficulties G47.9 Snoring R06.83 Muscle cramps R25.2 Restless leg syndrome G25.81
[2025-08-08 13:56] VITALS: BP 102/60; PULSE 85; O2SAT 102; BMI 25.7
== END 2025-08-08 15:13 | disposition home or self-care (01) ==
LOC: HO.HSMS 13:24
PROVIDERS: PCP Internal Medicine; Visit Provider Nurse Practitioner Family
DX: G43.009 Migraine without aura, not intractable, without status migrainosus (principal); G47.9 Sleep disorder, unspecified; R06.83 Snoring; R25.2 Cramp and spasm; G25.81 Restless legs syndrome
CPT/HCPCS: 99214

== ENCOUNTER → 2025-08-08 13:23 | Outpatient (BNVA) | payer OTHER, SELFPAY | PROVIDERS: PCP Internal Medicine; Visit Provider Nurse Practitioner Family | DX: G43.009 Migraine without aura, not intractable, without status migrainosus (principal); G47.9 Sleep disorder, unspecified; R06.83 Snoring; G25.81 Restless legs syndrome | CPT/HCPCS: 99212 ==

== ENCOUNTER 2025-08-23 06:19 | Outpatient (REF) | payer OTHER, SELFPAY ==
--- NOTE | ~2025-08-23 | FL_ITS ---
EXAMINATION: FL GUIDANCE ONLY HISTORY: M51.16 - Intervertebral disc disorders with radiculopathy, lumbar region COMPARISON: None available. TECHNIQUE: Fluoroscopy time: 0.1 minute. Cumulative Dose: 2.10 mGy. DAP: 24.84 uGym2 Images: 1. FINDINGS: A single fluoroscopic spot film of the lumbar spine in the AP projection demonstrates a needle and contrast material in the region of a facet joint. FL/FL guidance in treatment room IMPRESSION: Fluoroscopy during procedure. Please see procedure report for additional information. Electronically signed by: Dominic Smith MD 08/23/2025 03:11 PM EDT
--- OUTSIDE RECORDS SUMMARY | 2025-08-23 06:21 | XMS_ITS | Encounter Summary ---
Author Organization [employer] [facility] Address [address] [place] [address] Care Team Providers Care Watermelon Inspector Name Role Phone Unavailable Primary Care [...]
--- OUTSIDE RECORDS SUMMARY | 2025-08-23 06:21 | XMS_ITS | Clinical Summary ---
Author Organization [employer] Address [address] [place] [address] Care Team Providers Care Finisher Accordion Name Role Phone Unavailable Primary Care Provider [...]
== END 2025-08-23 06:20 | disposition home or self-care (01) ==
LOC: CF 06:19
PROVIDERS: Visit Provider Internal Medicine
DX: M54.16 Radiculopathy, lumbar region (principal)
CPT/HCPCS: 62321; J2003; J3301; Q9967

== ENCOUNTER 2025-08-23 10:45 | Outpatient (AMB) | payer OTHER, SELFPAY ==
[2025-08-23 11:40] VITALS: BP 102/62; PULSE 84; RESP 16; O2SAT 98
--- NOTE | 2025-08-23 11:40 | MHC.OFFVIS ---
Vital Signs 08/23/25 11:40 08/23/25 12:29 BP 102/62 104/80 Blood Pressure Location Lt brachial Lt brachial Position Sitting Respiration 16 16 Pulse 84 79 Pulse Source Pulse Oximeter Pulse Oximeter Pulse Oximetry (%) 98 99 Oxygen Delivery Method Room Air Room Air Intake Visit Reasons: Parasagittal L4-L5 LIGIA Radiosonde Specialist Required: Yes Radiosonde Specialist Services: Radiosonde Specialist Present Radiosonde Specialist Name: Malena [phone] Accompanied by: Father Allergies No Known Allergies (No Known Allergies*) Allergy (Verified 08/23/25 11:41) Medication List - Last Reconciled 08/23/25 by Romy Olson LPN acetaminophen 1,000 mg (2 x 500 mg) PO TID PRN albuterol sulfate 90 mcg/actuation (Ventolin HFA) 2 puffs inhalation Q6H PRN albuterol sulfate 2.5 mg (3 mL) inhalation Q6H PRN alpha lipoic acid 600 mg PO DAILY 30 days amitriptyline 25 mg PO BEDTIME 30 days esomeprazole magnesium 40 mg PO DAILY fluticasone furoate-vilanterol 200-25 mcg/dose (Breo Ellipta) 1 inh inhalation DAILY gabapentin 300 mg PO QID 30 days indomethacin 50 mg PO BID magnesium oxide 400 mg PO BEDTIME 90 days paroxetine HCl 20 mg PO DAILY 90 days sennosides (Natural Senna Laxative) 8.6 mg PO BEDTIME solifenacin (Vesicare) 10 mg PO DAILY ubrogepant (Ubrelvy) 50 - 100 mg (0.5 - 1 x 100 mg) PO ONCE PRN 30 days umeclidinium 62.5 mcg/actuation (Incruse Ellipta) 1 inh inhalation DAILY walker with seat and wheels HPI HPI Parasagittal L4-L5 LIGIA: Details: Patient presents for scheduled procedure. Denies any recent cough, cold, infection, fever or other significant changes in medical history since last office visit. [facility] Medical History LEISA (generalized anxiety disorder) GERD (gastroesophageal reflux disease) Anemia Surgical History History of esophagogastroduodenoscopy (EGD) S/P total abdominal hysterectomy Family History Mother No problems noted. Father No problems noted. Family/Other Substance use disorder Mental health disorder Paternal Aunt Stomach cancer Paternal Grandfather Colon cancer Other SLE (systemic lupus erythematosus) Social History Household Members: Children Housing: Apartment Do you presently have visiting nurse or other home services: No Alcohol intake: former Patient Tobacco Use Status: Current everyday Tobacco user Tobacco use type: Cigarette Cigarette Packs Per Day: 1.5 Cigarettes Per Day: 20.0 e-Cigarette/Vaping Use: Never Used Second Hand Smoke Exposure: Yes service: No Current occupational status: employed Current occupation: [employer] Current occupational exposures/hazards: No Cognitive needs: No Hearing needs: No Vision needs: No Female Reproductive History Menstrual Age of Menarche: 14 Physical Exam Vital Signs: Last Vital Signs Pulse 84 08/23/25 11:40 Resp 16 08/23/25 11:40 BP 102/62 08/23/25 11:40 Pulse Ox 98 08/23/25 11:40 Oxygen Delivery Method Room Air 08/23/25 11:40 Office Procedures AMB Joint Injection/Aspiration Joint Injection/Aspiration Details: Interlaminar epidural steroid injection, L4/5, Right parasaggital After obtaining written consent, pre-procedure blood pressure and heart rate were stable and recorded in the nursing record. The patient was placed in the prone position. The lumbar area was widely prepped with chloraprep and draped in sterile fashion. Fluoroscopic guidance was used to identify the desired interlaminar space and for needle placement. Subcutaneous 0.5% lidocaine was used to anesthetize the skin overlying the target. A 20-gauge Rucker needle was advanced to the epidural space using loss of resistance to saline technique under fluoroscopic AP and contralateral oblique views. There was no evidence of heme or CSF and no paresthesias were elicited with needle placement. Confirmation of epidural needle placement was performed with 1cc of omnipaque 180. Next 3 ml 0.5% lidocaine mixed with 80 mg triamcinilone was administered epidurally with no pain elicited on injection. The needle was restyleted and removed, skin cleansed and a sterile bandage was applied. The patient tolerated the procedure well and no complications were encountered. Following the procedure the patient's vital signs were stable. The patient was discharged home in good condition with post-procedural instructions. Time Out: Immediately prior to the procedure, the following was verbally confirmed that there is a signed consent form and that the correct patient, planned procedure, site and side are consistent with documentation and that necessary equipment and/or blood products are available prior to the start of the case. Complications: none EBL: <2 cc Coding 05694 - Caudal/Lumbar Epidural/Interlaminar with fluoroscopy Procedure code (CPT) selection complete Assessment & Plan Assessment & Plan (1) Lumbar radiculopathy: Code(s): M54.16 - Radiculopathy, lumbar region Category: Medical Plan Patient is status post right parasagittal L4-5 interlaminar LIGIA. Patient tolerated procedure well and was discharged home in stable condition with discharge instructions. All questions were answered. We will follow-up via telephone or in clinic to assess response to therapy. A follow-up appointment was made during today's visit. Orders: Orders FL guidance in treatment room Today Chinyere Tan APRN, FACILITIES DIRECTOR M51.16 - Intervertebral disc disorders with radiculopathy, lumbar region AMB Joint Injection/Aspiration Today Ham Marc MD M54.16 - Radiculopathy, lumbar region, M54.40 - Lumbago with sciatica, unspecified side Coding Level of Care Code Procedure Only Diagnoses Lumbar radiculopathy M54.16 CPT Codes Coding - Joint 11: 51126 - Caudal/Lumbar Epidural/Interlaminar with fluoroscopy ([id number])
[2025-08-23 12:29] VITALS: BP 104/80; PULSE 79; RESP 16; O2SAT 99
--- OUTSIDE RECORDS SUMMARY | 2025-08-23 13:07 | XMS_ITS | Clinical Summary ---
Author Organization [address] [facility] Address [address] [place] [address] Phone Care Team Providers Care Dairy Farm Operator Name Role Phone Nia Pope MD Primary Care Provider [phone] Allergies No known active allergies Medications ciclopirox (PENLAC) 8 % solution Apply topically at bedtime. Apply over nail and surrounding skin. Apply daily over previous coat. After seven (7) days, may remove with alcohol and continue cycle. 6.6 mL 5 10/10/20 25 Active Encounters Date Type Department Care Team Description 07/12/2025 10:30 AM EDT Office Visit Orthopedic Surgery [facility] [address] [facility] [address] [place] [phone] Sherman Adams DPM Pain in toes [...] Date Smoking Tobacco: Every Day Cigarettes 1 18.8 Started: 11/01/2006 Smokeless Tobacco: Never Alcohol Use [...] PM EST Office Visit Orthopedic Surgery - [place] [address] [facility] [address] [place] [phone] Sherman Adams, LEONEL [address] [address] Health Maintenance Due Date Last Done Comments Breast Cancer Screening 1980 Colorectal Cancer Screening: Colonoscopy 1980 Pneumococcal Vaccine: Pediatrics (0 to 5 Years) and At-Risk Patients (6 to 49 Years) (1 of 2 - PCV) 1998 Cervical Cancer Screening: P ap Smear 01/17/2000 Hepatitis B Vaccines (3 of 3 - Hep B Twinrix 3-dose series) 08/17/2017 03/17/2017, 12/22/2016 Depression Screening 11/01/2024 HIV Screening 02/01/2025 Hepatitis C Screening 02/01/2025 Social Influencers of Health Screening 02/01/2025 COVID-19 Vaccine (3 - 2024-2 6 season) 2025 03/25/2021, 03/06/2021 Influenza Vaccine (#1) 2025 08/06/2022 DTaP,Tdap,and Td Vaccines (2 - Td or Tdap) 01/11/2035 01/11/2025 RSV Immunization Adult Patients (1 - 1-dose 75+ series) 2054 Hepatitis [...] age to complete this topic Insurance [facility] Care Teams Dairy Farm Operator Relationship Specialty Start Date End Date Nia Pope MD [address] [facility] , [address] [place] [address] Physician Associ D/B/A: [facility] [place] PCP - General Internal Medicine 02/01/25
== END 2025-08-23 12:29 | disposition home or self-care (01) ==
LOC: HO.PMCPRC 10:45
PROVIDERS: PCP Internal Medicine; Visit Provider Internal Medicine
DX: M54.16 Radiculopathy, lumbar region (principal)
CPT/HCPCS: 62321

== ENCOUNTER → 2025-08-30 11:25 | Outpatient (BNVA) | payer OTHER, SELFPAY | PROVIDERS: Visit Provider Physician Assistant Medical | DX: M54.16 Radiculopathy, lumbar region (principal); S86.011D Strain of right Achilles tendon, subsequent encounter; S70.01XD Contusion of right hip, subsequent encounter; S80.01XD Contusion of right knee, subsequent encounter; S90.31XD Contusion of right foot, subsequent encounter; W18.09XD Striking against other object with subsequent fall, subsequent encounter; M23.91 Unspecified internal derangement of right knee | CPT/HCPCS: 99213 ==

== ENCOUNTER 2025-09-19 10:22 | Outpatient (AMB) | payer OTHER, SELFPAY ==
--- NOTE | 2025-09-19 10:23 | MHC.OFFVIS ---
Vital Signs 09/19/25 10:24 Height 5 ft 4 in Weight 148 lb BMI 25.4 BP 100/76 Blood Pressure Location Lt brachial Position Sitting Respiration 16 Pulse 76 Pulse Source Pulse Oximeter Pulse Oximetry (%) 98 Oxygen Delivery Method Room Air Intake Visit Reasons: S/P Parasagittal L4-L5 LIGIA Pumping Station Supervisor Required: Yes Pumping Station Supervisor Services: Pumping Station Supervisor Present Pumping Station Supervisor Name: [phone] Allergies No Known Allergies (No Known Allergies*) Allergy (Verified 09/19/25 10:27) Medication List - Last Reconciled 09/19/25 by Roym Olson LPN acetaminophen 1,000 mg (2 x 500 mg) PO TID PRN albuterol sulfate 90 mcg/actuation (Ventolin HFA) 2 puffs inhalation Q6H PRN albuterol sulfate 2.5 mg (3 mL) inhalation Q6H PRN alpha lipoic acid 600 mg PO DAILY 30 days amitriptyline 25 mg PO BEDTIME 30 days esomeprazole magnesium 40 mg PO DAILY fluticasone furoate-vilanterol 200-25 mcg/dose (Breo Ellipta) 1 inh inhalation DAILY gabapentin 300 mg PO QID 30 days indomethacin 50 mg PO BID magnesium oxide 400 mg PO BEDTIME 90 days paroxetine HCl 20 mg PO DAILY 90 days sennosides (Natural Senna Laxative) 8.6 mg PO BEDTIME solifenacin (Vesicare) 10 mg PO DAILY ubrogepant (Ubrelvy) 50 - 100 mg (0.5 - 1 x 100 mg) PO ONCE PRN 30 days umeclidinium 62.5 mcg/actuation (Incruse Ellipta) 1 inh inhalation DAILY walker with seat and wheels HPI HPI S/P Parasagittal L4-L5 LIGIA: Details: History of Present Illness The patient is a 45-year-old female presenting with lumbar radiculopathy. The patient received an injection for lumbar radiculopathy, which provided relief for three days before the pain returned. The pain is located in the lower back on the right side, radiating down the leg. The patient reports that healthcare economics manager provides temporary relief but does not offer long-term benefits. The patient has been advised to perform strengthening exercises, as these may provide more sustained relief. The patient was informed that further injections are not recommended based on the MRI findings. Pain Description - Onset: Pain relief for three days post-injection, then recurrence - Location: Lower back on the right side, radiating down the leg - Exacerbating factors: Lack of sustained relief from healthcare economics manager - Relieving factors: Temporary relief from healthcare economics manager Physical Exam - Appears afebrile. - Alert and oriented. - Mood and affect appropriate. - Follows and participates in conversation appropriately. - Respiratory effort is unlabored. Pain Management - Affect: No specific impact on mood discussed - Analgesia: Injection provided temporary relief; further injections not recommended - Adverse Effects: None discussed - Activities of Daily Living: Pain impacts daily activities; strengthening exercises recommended - Aberrant Drug Related Behaviors: None discussed PENDING SALE TO [facility] Medical History LEISA (generalized anxiety disorder) GERD (gastroesophageal reflux disease) Anemia Surgical History History of esophagogastroduodenoscopy (EGD) S/P total abdominal hysterectomy Family History Mother No problems noted. Father No problems noted. Family/Other Substance use disorder Mental health disorder Paternal Aunt Stomach cancer Paternal Grandfather Colon cancer Other SLE (systemic lupus erythematosus) Social History Household Members: Children Housing: Apartment Do you presently have visiting nurse or other home services: No Alcohol intake: former Patient Tobacco Use Status: Current everyday Tobacco user Tobacco use type: Cigarette Cigarette Packs Per Day: 1.5 Cigarettes Per Day: 20.0 e-Cigarette/Vaping Use: Never Used Second Hand Smoke Exposure: Yes service: No Current occupational status: employed Current occupation: [employer] Current occupational exposures/hazards: No Cognitive needs: No Hearing needs: No Vision needs: No Female Reproductive History Menstrual Age of Menarche: 14 Physical Exam Vital Signs: Last Vital Signs Pulse 76 09/19/25 10:24 Resp 16 09/19/25 10:24 BP 100/76 09/19/25 10:24 Pulse Ox 98 09/19/25 10:24 Oxygen Delivery Method Room Air 09/19/25 10:24 BMI result Body Mass Index 25.4 Assessment & Plan Assessment & Plan (1) Lumbar radiculopathy: Code(s): M54.16 - Radiculopathy, lumbar region Category: Medical Plan Plan Patient was informed and verbally consented to the use of an ambient scribe for clinic note documentation during this visit. 1. Lumbar Radiculopathy - Strengthening exercises recommended for sustained relief - Further injections not recommended based on MRI findings - patient care provider provides temporary relief but not long-term benefits Discussion Notes I discussed with the patient that strengthening exercises are recommended for sustained relief from lumbar radiculopathy. Further injections are not advised based on the MRI findings, and healthcare economics manager may provide temporary relief but not long-term benefits. Patient Instructions - Perform strengthening exercises regularly as recommended. - Avoid relying on healthcare economics manager for long-term relief. - Follow up if pain persists or worsens. Coding Level of Care Code Est Pt Level 3 (04016) Diagnoses Lumbar radiculopathy M54.16
[2025-09-19 10:24] VITALS: BP 100/76; PULSE 76; RESP 16; O2SAT 98; BMI 25.4
--- OUTSIDE RECORDS SUMMARY | 2025-09-19 19:55 | XMS_ITS | Clinical Summary ---
Author Organization [address] [facility] Address [address] [place] [address] Phone Care Team Providers Care Sign Maintenance Name Role Phone Nia Pope MD Primary Care Provider [phone] Allergies No known active allergies Medications ciclopirox (PENLAC) 8 % solution Apply topically at bedtime. Apply over nail and surrounding skin. Apply daily over previous coat. After seven (7) days, may remove with alcohol and continue cycle. 6.6 mL 5 10/10/20 25 Active Encounters Date Type Department Care Team Description 07/12/2025 10:30 AM EDT Office Visit Orthopedic Surgery [facility] [address] [facility] [address] [place] [phone] Sherman Adams DPM Pain in toes [...] Date Smoking Tobacco: Every Day Cigarettes 1 18.9 Started: 11/01/2006 Smokeless Tobacco: Never Alcohol Use [...] 04/11/2025 10:35 AM EDT Plan of Treatment Health Maintenance [...] topic Insurance [facility] PL[facility] Care Teams Sign Maintenance Relationship Specialty Start Date End Date Nia Pope MD [address] [place] [address] , [address] [facility] D/B/A: [facility] [place], [place] PCP - General Internal Medicine 02/01/25
--- OUTSIDE RECORDS SUMMARY | 2025-09-19 19:55 | XMS_ITS | Clinical Summary ---
Author Organization [employer] Address [address] [facility] 7t [place] [address] Care Team Providers Care Grinder Set Up Operator Universal Name Role Phone Unavailable Primary Care Provider [...]
--- OUTSIDE RECORDS SUMMARY | 2025-09-19 19:55 | XMS_ITS | Encounter Summary ---
Author Organization [employer] [facility] Address [address] [facility] 7t [place] [address] Care Team Providers Care Wig Maker Name Role Phone Unavailable Primary Care Provider [...]
== END 2025-09-19 10:55 | disposition home or self-care (01) ==
PROVIDERS: Visit Provider Internal Medicine
DX: M54.16 Radiculopathy, lumbar region (principal)
CPT/HCPCS: 99213

== ENCOUNTER → 2025-09-19 10:22 | Outpatient (BNVA) | payer OTHER, SELFPAY | PROVIDERS: Visit Provider Internal Medicine | DX: M54.16 Radiculopathy, lumbar region (principal) | CPT/HCPCS: 99212 ==

== ENCOUNTER 2025-09-25 07:52 | Outpatient (AMB) | payer OTHER, SELFPAY ==
--- OUTSIDE RECORDS SUMMARY | 2025-09-25 07:57 | XMS_ITS | Clinical Summary ---
Author Organization [employer] Address [address] [facility] 7t [place] [address] Care Team Providers Care Childcare Attendant Name Role Phone Unavailable Primary Care [...]
--- OUTSIDE RECORDS SUMMARY | 2025-09-25 07:57 | XMS_ITS | Encounter Summary ---
Author Organization [employer] [facility] Address [address] [facility] 7t [place] [address] Care Team Providers Care Office System Analyst Name Role Phone Unavailable Primary Care [...]
--- OUTSIDE RECORDS SUMMARY | 2025-09-25 07:57 | XMS_ITS | Clinical Summary ---
Author Organization [address] [facility] Address [address] [place] [address] Phone Care Team Providers Care Scrap Sawyer Name Role Phone Nia Pope MD Primary Care Provider [phone] Allergies No known active allergies Medications ciclopirox [...] [facility] [address] [facility] [address] [place] [phone] Sherman Adams DPM Pain in toes [...] patient's age to complete this topic Insurance [facility] PLAN Care Teams Scrap Sawyer Relationship Specialty Start Date End Date Nia Pope MD [address] [place] [address] , [address] [facility] D/B/A: [facility] [place], [place] PCP - General Internal Medicine 02/01/25
[2025-09-25 08:05] VITALS: BP 118/72; PULSE 85; O2SAT 98; BMI 25.4
--- NOTE | 2025-09-25 08:05 | MHC.PC.OV ---
Vital Signs 09/25/25 08:05 Height 5 ft 4 in Weight 148 lb BMI 25.4 BP 118/72 Blood Pressure Location Lt brachial Position Sitting Pulse 85 Pulse Source Pulse Oximeter Pulse Oximetry (%) 98 Oxygen Delivery Method Room Air Intake Visit Reasons: vision blurs/dizziness Sample Cutter Required: No Accompanied by: Self / Same As Patient Allergies No Known Allergies (No Known Allergies*) Allergy (Verified 09/25/25 08:14) Medication List - Last Reconciled 09/25/25 by Nia Pope MD acetaminophen 1,000 mg (2 x 500 mg) PO TID PRN albuterol sulfate 90 mcg/actuation (Ventolin HFA) 2 puffs inhalation Q6H PRN albuterol sulfate 2.5 mg (3 mL) inhalation Q6H PRN alpha lipoic acid 600 mg PO DAILY 30 days amitriptyline 25 mg PO BEDTIME 30 days esomeprazole magnesium 40 mg PO DAILY fluticasone furoate-vilanterol 200-25 mcg/dose (Breo Ellipta) 1 inh inhalation DAILY gabapentin 300 mg PO QID 30 days indomethacin 50 mg PO BID magnesium oxide 400 mg PO BEDTIME 90 days paroxetine HCl 20 mg PO DAILY 90 days sennosides (Natural Senna Laxative) 8.6 mg PO BEDTIME solifenacin (Vesicare) 10 mg PO DAILY ubrogepant (Ubrelvy) 50 - 100 mg (0.5 - 1 x 100 mg) PO ONCE PRN 30 days umeclidinium 62.5 mcg/actuation (Incruse Ellipta) 1 inh inhalation DAILY walker with seat and wheels Tobacco use date assessed: 07/17/25 Dental Screening Dental Screen Date: 07/17/25 HPI HPI Comments History of Present Illness Details The patient is a 45-year-old individual presenting for evaluation of dizziness and management of high cholesterol. The patient reports a recent history of a strong, tide-like dizzy sensation that occurs with head movements, such as when folding sheets. The patient's eyes were checked recently and were fine, though the dizziness was already occurring at that time. Recent lab work indicated high cholesterol, but the patient reports having stopped taking all medications except for inhalers. The patient is currently taking paroxetine for anxiety and Ubrelvy, which was prescribed by a neurologist for migraines. The patient also reports significant depression and anxiety on paroxetine. A psychiatric np prescribed a medication for menopause. [facility] Medical History (Updated 09/25/25 @ 08:30 by Nia Pope MD) LEISA (generalized anxiety disorder) GERD (gastroesophageal reflux disease) Anemia Surgical History History of esophagogastroduodenoscopy (EGD) S/P total abdominal hysterectomy Family History Mother No problems noted. Father No problems noted. Family/Other Substance use disorder Mental health disorder Paternal Aunt Stomach cancer Paternal Grandfather Colon cancer Other SLE (systemic lupus erythematosus) Social History Household Members: Children Housing: Apartment Do you presently have visiting nurse or other home services: No Alcohol intake: former Patient Tobacco Use Status: Current everyday Tobacco user Tobacco use type: Cigarette Cigarette Packs Per Day: 1.5 Cigarettes Per Day: 20.0 e-Cigarette/Vaping Use: Never Used Second Hand Smoke Exposure: Yes service: No Current occupational status: employed Current occupation: [employer] Current occupational exposures/hazards: No Cognitive needs: No Hearing needs: No Vision needs: No Female Reproductive History Menstrual Age of Menarche: 14 Questionnaire Thrive Questionnaire Date Thrive assessed: 01/11/25 I am a: Patient What is your living situation today?: I choose not to answer this question Within the past 12 months, did the food you bought not last and you didn't have the money to get more?: I choose not to answer this question Within the past 12 months, did you worry whether your food would run out before you got money to buy more?: I choose not to answer this question Do you have trouble paying for medicines?: I choose not to answer this question Do you have trouble getting transportation to medical appointments?: I choose not to answer this question Do you have trouble paying your heating and electricity bill?: Yes Do you have trouble taking care of your child, family member or friend?: I choose not to answer this question Do you have trouble with day-to-day activities such as bathing, preparing meals, shopping, managing finances, etc.?: I choose not to answer this question Are you currently unemployed and looking for a job?: I choose not to answer this question Are you interested in more education?: I choose not to answer this question Currently or been in a relationship where the following occur: I choose not to answer THRIVE Score: 1 LEISA-7 AMB Questionnaire LEISA-7 Date LEISA - 7 assessed: 07/17/25 Source: Developed by Drs. Dominic Lombardo, Selina Castañeda, Wellington Marie and colleagues, with an educational dasia from [employer]. Review of Systems Const All systems reviewed & are unremarkable except as noted in HPI and below Card Denies chest pain at rest, Denies chest pain with activity, Denies edema, Denies irregular heart rhythm, Denies claudication, Denies dyspnea, Denies dyspnea on exertion, Denies orthopnea, Denies paroxysmal nocturnal dyspnea and Denies slow heart rate Resp Denies cough, Denies dyspnea and Denies dyspnea on exertion GI Denies abdominal pain, Denies change in bowel habits, Denies excessive flatus, Denies nausea and Denies vomiting Physical exam (Primary Care) Vital Signs: Last Vital Signs Pulse 85 09/25/25 08:05 BP 118/72 09/25/25 08:05 Pulse Ox 98 09/25/25 08:05 Oxygen Delivery Method Room Air 09/25/25 08:05 BMI result Body Mass Index 25.4 Tobacco/Smoking Status: Tobacco use Status Tobacco use date assessed 07/17/25 09/25/25 08:09 Patient Tobacco Use Status Current everyday Tobacco 09/25/25 08:09 Tobacco use type Cigarette 09/25/25 08:09 e-Cigarette/Vaping Use Never Used 09/25/25 08:09 Are you ready to quit: No Tobacco cessation counseling provided: Yes Items discussed: Nicotine replacement and QuitWorks Relapse Prevention: discussed the importance of a supportive environment, discussed extending NRT, discussed negative mood or depression after quitting and weight gain after smoking is common Number of minutes spent counselin CPT code: Less than 3 minutes Thrive Assessment: Date of Thrive Assessment Date Thrive assessed 01/11/25 09/25/25 08:09 Currently or been in a relationship where the following occur: I choose not to answer Resp Effort & Inspection: normal respiratory effort Auscultation: clear to auscultation bilaterally Cardio Jugular venous distension: no JVD Rate: regular rate Rhythm: regular rhythm Heart sounds: S1 normal heart sound present and S2 normal heart sound present Extrem General: Yes full ROM Coding Level of Care Code Complex visit Add On G2211 Diagnoses BPPV (benign paroxysmal positional vertigo) H81.10 Moderate recurrent major depression F33.1 LEISA (generalized anxiety disorder) F41.1 HLD (hyperlipidemia) E78.5 Migraine without aura and without status migrainosus, not intractable G43.009 Status migrainosus presence: without status migrainosus Intractability: not intractable Time Spent (min) 21 Assessment & Plan Assessment & Plan (1) BPPV (benign paroxysmal positional vertigo): Code(s): H81.10 - Benign paroxysmal vertigo, unspecified ear Category: Medical (2) Moderate recurrent major depression: Code(s): F33.1 - Major depressive disorder, recurrent, moderate Category: Medical (3) LEISA (generalized anxiety disorder): Code(s): F41.1 - Generalized anxiety disorder Category: Medical (4) HLD (hyperlipidemia): Code(s): E78.5 - Hyperlipidemia, unspecified Category: Medical (5) Migraine without aura: Code(s): G43.009 - Migraine without aura, not intractable, without status migrainosus Category: Medical Qualifiers: Status migrainosus presence: without status migrainosus Intractability: not intractable Qualified Code(s): G43.009 - Migraine without aura, not intractable, without status migrainosus Plan Plan 1. Benign Paroxysmal Positional Vertigo The patient reports dizziness with head movements, consistent with benign paroxysmal positional vertigo. A medication will be prescribed at a low dose to manage the dizziness. If the initial dose is ineffective, a second dose may be taken. The medication should be discontinued if symptoms do not improve within three days. 2. Hypercholesterolemia The patient has elevated cholesterol based on recent labs and a cardiovascular risk score over 6%. A statin will be prescribed to manage the hypercholesterolemia. The patient was advised not to start the cholesterol and vertigo medications simultaneously. 3. Migraines A medication review was conducted. The patient will continue taking Ubrelvy for migraines and paroxetine for anxiety. A printed summary of the medication list will be provided. 4. Depression Continue paroxetine. Medications: New meclizine 12.5 mg PO TID PRN 21 tabs 0RF dizziness 7 days rosuvastatin 10 mg PO DAILY 90 tabs 1RF 90 days Discontinued gabapentin Discontinued Reason: Patient Completed Course 300 mg PO QID 30 days 120 caps 6RF alpha lipoic acid Discontinued Reason: Patient Completed Course 600 mg PO DAILY 30 days 30 caps 6RF sennosides (Natural Senna Laxative) Discontinued Reason: Patient Completed Course 8.6 mg PO BEDTIME 90 tabs 3RF constipation K59.00 - Constipation, unspecified esomeprazole magnesium Discontinued Reason: Patient Completed Course 40 mg PO DAILY 90 caps 1RF K21.9 - Gastro-esophageal reflux disease without esophagitis amitriptyline Discontinued Reason: Patient Completed Course 25 mg PO BEDTIME 30 days 30 tabs 6RF indomethacin administer with food or milk Discontinued Reason: Patient Completed Course 50 mg PO BID 60 caps 0RF
== END 2025-09-25 08:27 | disposition home or self-care (01) ==
LOC: HO.HMCH 07:53
PROVIDERS: Visit Provider Internal Medicine
DX: H81.10 Benign paroxysmal vertigo, unspecified ear (principal); F33.1 Major depressive disorder, recurrent, moderate; F41.1 Generalized anxiety disorder; E78.5 Hyperlipidemia, unspecified; G43.009 Migraine without aura, not intractable, without status migrainosus

== ENCOUNTER → 2025-09-25 07:52 | Outpatient (BNVA) | payer OTHER, SELFPAY | PROVIDERS: Visit Provider Internal Medicine | DX: F41.1 Generalized anxiety disorder (principal); E78.00 Pure hypercholesterolemia, unspecified; H81.10 Benign paroxysmal vertigo, unspecified ear; F33.1 Major depressive disorder, recurrent, moderate; G43.009 Migraine without aura, not intractable, without status migrainosus; Z79.899 Other long term (current) drug therapy | CPT/HCPCS: 99212 ==

== ENCOUNTER → 2025-10-01 08:00 | Outpatient (BNVA) | payer OTHER, SELFPAY | PROVIDERS: Visit Provider Physician Assistant Medical | DX: M54.16 Radiculopathy, lumbar region (principal); M23.91 Unspecified internal derangement of right knee; S86.011D Strain of right Achilles tendon, subsequent encounter; S80.01XD Contusion of right knee, subsequent encounter; S90.31XD Contusion of right foot, subsequent encounter; S70.01XD Contusion of right hip, subsequent encounter; W18.09XD Striking against other object with subsequent fall, subsequent encounter | CPT/HCPCS: 99213 ==

== ENCOUNTER 2025-10-05 18:06 | Outpatient (REF) | payer OTHER, SELFPAY ==
--- NOTE | ~2025-10-05 | MR_ITS ---
CLINICAL HISTORY: rt radiculopathy mechanical fall MR lumbar spine without gadolinium Comparison: MR/SR - MR LUMBAR SPINE WITHOUT IV CONTRAST - 08/27/23 16:45 EDT Findings: Normal alignment. Vertebral body height is maintained. Bone marrow signal is unremarkable. No acute fracture. Distal conus appears unremarkable terminating at T12-L1. T12-L1, L1-2, L2-3 and L3-4 levels are unremarkable. At L4-5 mild disc desiccation and minimal degeneration with minimal disc bulge and no significant central canal or neural foraminal stenosis. At L5-S1 there is mild disc desiccation with no significant disc bulge, focal disc herniation or significant stenosis. Mild facet arthropathy at L4-5 on the left. Paraspinal soft tissues within normal limits. IMPRESSION: 1. No acute findings. 2. No disc herniation or significant stenosis. 3. Early degenerative changes at L4-5 and L5-S1 level with minimal disc bulge and mild left facet arthropathy at L4-5 with no associated significant stenosis. This document has been electronically signed by: Ami Ly MD on 10/08/2025 17:10:19
--- OUTSIDE RECORDS SUMMARY | 2025-10-05 20:03 | XMS_ITS | Encounter Summary ---
Author Organization [employer] [facility] Address [address] [facility] 7t [place] [address] Care Team Providers Care Language Translator Name Role Phone Unavailable Primary Care Provider [...]
--- OUTSIDE RECORDS SUMMARY | 2025-10-05 20:03 | XMS_ITS | Clinical Summary ---
Author Organization [employer] Address [address] [facility] 7t [place] [address] Care Team Providers Care Ad Operations Intern Name Role Phone Unavailable Primary Care Provider [...]
--- OUTSIDE RECORDS SUMMARY | 2025-10-05 20:03 | XMS_ITS | Clinical Summary ---
Author Organization [address] [facility] Address [address] [place] [address] Phone Care Team Providers Care Ortho Assistant Name Role Phone Nia Pope MD Primary Care Provider [phone] Allergies No known active allergies Medications ciclopirox (PENLAC) 8 % solution Apply topically at bedtime. Apply over nail and surrounding skin. Apply daily over previous coat. After seven (7) days, may remove with alcohol and continue cycle. 6.6 mL 5 10/10/20 25 Active Encounters Date Type Department Care Team Description 07/12/2025 10:30 AM EDT Office Visit Orthopedic Surgery [facility] [address] [facility] [address] [place] [phone] Sherman Adams DPM Pain in toes [...] patient's age to complete this topic Insurance [facility] PLAN Care Teams Ortho Assistant Relationship Specialty Start Date End Date Nia Pope MD [address] [place] [address] , [address] [facility] D/B/A: [facility] [place], [place] PCP - General Internal Medicine 02/01/25
== END 2025-10-05 18:07 | disposition home or self-care (01) ==
LOC: HO.MRI 18:06
PROVIDERS: Visit Provider Internal Medicine
DX: M54.16 Radiculopathy, lumbar region (principal); W19.XXXA Unspecified fall, initial encounter
CPT/HCPCS: 72148

== ENCOUNTER → 2025-10-05 18:10 | Outpatient (BNV) | payer OTHER, SELFPAY | PROVIDERS: Visit Provider Specialist | DX: M47.26 Other spondylosis with radiculopathy, lumbar region (principal); M51.379 Other intervertebral disc degeneration, lumbosacral region without mention of lumbar back pain or lower extremity pain; Z04.3 Encounter for examination and observation following other accident | CPT/HCPCS: 72148 ==

== ENCOUNTER → 2025-10-11 07:58 | Outpatient (BNVA) | payer OTHER, SELFPAY | PROVIDERS: Visit Provider Physician Assistant Medical | DX: M54.16 Radiculopathy, lumbar region (principal); S86.011D Strain of right Achilles tendon, subsequent encounter; S70.01XD Contusion of right hip, subsequent encounter; S80.01XD Contusion of right knee, subsequent encounter; S90.31XD Contusion of right foot, subsequent encounter; S84 Injury of nerves at lower leg level; M23.91 Unspecified internal derangement of right knee; W18.09XD Striking against other object with subsequent fall, subsequent encounter | CPT/HCPCS: 99213 ==